=== PATIENT | male | born 1945 | race Caucasian/White ===

== ENCOUNTER 2018-03-09 11:43 | Emergency (ER) | payer MEDICARE, OTHER, SELFPAY ==
[2018-03-09 11:43] VITALS: BP 160/75; PULSE 63; RESP 16; TEMP 36.3; O2SAT 98; BMI 30.5
--- NOTE | 2018-03-09 11:49 | RAD_ITS ---
STUDY: X-RAY - PELVIS AND RIGHT HIP REASON FOR EXAM: Male, 72 years old. Right hip dislocation TECHNIQUE: Radiological exam, hip, unilateral, with pelvis when performed; 2 or 3 views. COMPARISON: None. FINDINGS: Patient is status post right hip arthroplasty. No evidence of acute fracture however, there is superior dislocation of the prosthesis. Soft tissues are within normal limits. No evidence of hardware loosening RAD/Hip 2-3 Views with Pelvis IMPRESSION: Right hip prosthesis dislocation Electronically Signed: Bakari Walters DO at 12:39 EDT Tel , Service support ,
[2018-03-09] MEDS: Morphine 4 MG/ML Syringe IV (11:53)
[2018-03-09] MEDS: Ondansetron 4 MG/2 ML Vial IV (12:27)
[2018-03-09 12:38] VITALS: BP 180/87; PULSE 63; RESP 15; O2SAT 97
[2018-03-09 12:41] VITALS: BP 122/66; BP 127/74; BP 139/68; BP 145/69; BP 146/81; BP 180/87; PULSE 61; PULSE 62; PULSE 63; PULSE 64; PULSE 65; PULSE 66; PULSE 68; PULSE 70; RESP 11; RESP 12; RESP 13; RESP 14; RESP 16; RESP 17; RESP 20; O2SAT 90; O2SAT 92; O2SAT 94; O2SAT 95; O2SAT 96; O2SAT 97; O2SAT 99
--- NOTE | 2018-03-09 12:51 | RAD_ITS ---
STUDY: X-RAY - PELVIS AND RIGHT HIP REASON FOR EXAM: Male, 72 years old. Post reduction of right hip dislocation TECHNIQUE: Radiological exam, hip, unilateral, with pelvis when performed; 2 or 3 views. COMPARISON: Plain films earlier FINDINGS: Appropriate reduction of right hip prosthesis dislocation is noted. No evidence of hardware failure or loosening. No acute fracture RAD/Hip Min 2 Views (Portable) IMPRESSION: As above Electronically Signed: Bakari Walters DO at 13:31 EDT Tel , Service support ,
--- NOTE | 2018-03-09 12:56 | NURSING ---
NO LW OR POA
[2018-03-09 13:16] VITALS: BP 133/66; PULSE 67; RESP 16; O2SAT 96
[2018-03-09] MEDS: Propofol 200 MG/20 ML Vial IV BOLUS (13:19)
[2018-03-09] MEDS: Propofol 200 MG/20 ML Vial 100 MG IV BOLUS (13:21)
--- NOTE | 2018-03-09 13:22 | ED.DCSUM_ITS ---
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 He denies any other pain other than in the hip. He is on Coumadin for history of A. fib and pulmonary embolism. History of hypertension CHF and chronic kidney disease. He states he had a hip surgery done by Dr. Dyson many years ago. Physical Examination: Afebrile vital signs are stable Gen: Well-nourished well-developed Head: Normocephalic atraumatic Eyes: Perrl EOMI ENT: TMs clear no rhinorrhea moist mucous membranes Neck: Supple no lymphadenopathy no JVD nontender CVS: Regular rate rhythm no murmurs normal S1-S2 Respiratory: No distress clear to auscultation bilaterally chest nontender Abdomen: Soft nontender nondistended normal bowel sounds no masses Back: Nontender Extremity: The right hip is palpably dislocated posteriorly. Neurovascular intact distally. Skin: Normal color no rash Neuro: alert orientated ?3 CN II-XII intact normal strength sensation Psych: Normal affect normal mood Test Results: X-rays confirm a posterior hip dislocation on the right. Emergency Department Course and Treatment: Patient provided informed consent for the use of procedural sedation using propofol. Patient received 0.5 mg/kg aliquots until adequate sedation was achieved. The hip was flexed and taken into external rotation which allowed successful reduction of the hip. Unfortunately in preparing the patient for his post reduction films the hip dislocated again. He was once again sedated in the usual manner and the hip was easily reduced. He was placed in knee immobilizer. I spoke with Dr. Cao who is covering Dr. Dyson patient will follow-up in the office. Impression: 1. Right hip dislocation 2. Reduction by emergency physician 3. Procedural sedation by physician This note was generated with [employer] dictation software. It may contain incorrect words, spelling, and punctuation that were not noted in review of the chart prior to signing ED Disposition - Plan for ED Patient: Disposition: Home or Assisted Living Chief Complaint: Lower Extremity Injury Instructions: ED Hip Replace Dislocation Reduc Referrals: Osvaldo Barry MD [STAFF PHYSICIAN] - (call on Sunday to arrange follow up)
[2018-03-09 13:54] VITALS: BP 136/66; PULSE 65; RESP 16; O2SAT 99
[2018-03-09 14:33] VITALS: BP 131/72; PULSE 64; RESP 16; O2SAT 98
== END 2018-03-09 14:38 | disposition home or self-care (01) ==
PROVIDERS: Emergency Provider Emergency Medicine; Family Provider Internal Medicine; PCP Internal Medicine
DX: T84.020A Dislocation of internal right hip prosthesis, initial encounter (principal); I48.91 Unspecified atrial fibrillation; I13.0 Hypertensive heart and chronic kidney disease with heart failure and stage 1 through stage 4 chronic kidney disease, or unspecified chronic kidney disease; N18.9 Chronic kidney disease, unspecified; I50.9 Heart failure, unspecified; Z86.711 Personal history of pulmonary embolism; Z87.19 Personal history of other diseases of the digestive system; Z87.891 Personal history of nicotine dependence; Z79.01 Long term (current) use of anticoagulants; Z79.899 Other long term (current) drug therapy
CPT/HCPCS: 27265 ×2; 73502; 96374; 96375; 99152; 99153; 99285; J7030

== ENCOUNTER 2018-04-25 10:30 | Outpatient (RCR) | payer MEDICARE, OTHER, SELFPAY ==
--- NOTE | 2018-03-25 10:24 | HP.PTEVAL_ITS ---
Patient's Visit Information MELVIN AGUIRRE is a 72 year old M referred to Physical Therapy by Quang Cao MD with a diagnosis of R hip dislocation. Date of Evaluation: 03/25/18 Physical Therapist: Power Mclaughlin DPT, OC - Visit Plan Frequency: 3x /Week Duration: 4 Weeks Plan: 3x/week for 3-4 weeks for. Ensure LE machine exercises for hip and knees without IR at hips, find mat based hip rotator strengthe with band/leg weigth to improve strength in rotators.Work to HEP - Subjective Subjective: nOT MANY CHANGES FROM WEAK LEGS AND NEUROPATHY HE HAD PRIOR. hOWEVER, TWO WEEKS AGO HE BENT OVER AND heard a sound like dropping a shoe and felt pain in L hip as it dislocated. It has been in L hip for 18 years. Xrayed the implant and it was fine. That was two weeks ago and has not done much of anything. Pain lasted until he put it back in place in ER and then it was gone. Has felt pretty normal since then. Has been cautious sleeping in chair immediately for about a week and sleeping OK in bed now. Home activities are normal. Wants to know what he should and should not do. Prior to this incident, he was doing back ext, ab machine, glut ham, knee ext and flexion, UE pull downs, and rows. Also db UE functional ex adn neck stretches and heel/ toe raises sitting, wobbly board horiz, gastroc stretch, all 4 hip exercises. Then recumbent bike. - Objective Walks with cane in L, valgus obvious at L knee, compression in lace. Pt tends to IR both hips with walkign and any movement of distal LE. No pain. Steps with L LE only and needs rails to pull due to weakness. Hip ROM is WFL B but again tends to IR R>L. Sensation at slight deficit distal LE>. Weakness evident in B LE : R ankle inv/ev 3/5, DF 2+/5, PF 3-/5, L ankles 3+/5. Knee ext adn flex 4- B, hip rotations 3+, abd 3/5, flexion 3+ and ext 3/5 B. Reviewed bending with patient and donning shoes with hip in appropriate position and shown Nustep with hip slightly rotated out. Needs to stay conscious of this position as he defaults to IR. - Goals Goal 1:: I appropriated hip rotator strengthening. Goal Time Frame: 2-4 Weeks Goal 2:: Back to normal in HP gym workout. Goal Time Frame: 2-4 Weeks Goal 3:: Feel back to 100% normal activity and ex after dislocation Goal Time Frame: 4-6 Weeks - Rehabilitation Potential Physical Therapy Diagnosis: R hip dislocation Rehabilitation Potential: Fair - Anticipated Interventions Patient/Client Instruction: Educate patient on: Condition, Risk Factors For the Purpose of:: To improve muscle performance and motor function, To improve ability of physical actions for home/community/work/leisure Therapeutic Exercise to Include: Strength training Comment: hips and function For the Purpose of:: To increase oxygenation perfusion, To improve ability of physical actions for home/community/work/leisure, To reduce risk of recurrence Thank you for the opportunity to evaluate your patient. For Medicare and Medicare HMO plans, please review the plan of care and approve it. It will need to be FAXED BACK to us at [phone] for Medicare purposes. Please let me know if there are questions or concerns regarding this plan of care. Physician Signature: Date:
--- NOTE | 2018-04-11 12:00 | DT_ITS ---
This patient was seen during an EMR downtime April 08, 2018 - April 15, 2018. This patient may have a combination of paper and electronic documentation or all paper documentation. All documentation is viewable within the e-chart portion of [facility] for each patient visit.
--- NOTE | 2018-04-25 11:00 | HP.PTREVAL_ITS ---
Quang Cao MD, It has been my pleasure to treat MELVIN AGUIRRE over the last 8 visits for R hip dislocation. Please see the progress note below for an update on the physical therapy plan of care! Subjective: Status quo, no pain or problems. Will continue 3x/week on machines adn 2x/week on table at home. Objective/Function: Due to electronic downtime procedures, part of this chart from 04/08-04/15 has been scanned in electrnocally to the EMR. L knee valgus obvious and contributes to R hip adduction, educated to stand with feet further apart.Goals not available today due to electronic downtime.Still weakness evident in B hips and functional weakness needing UE for transition. Plan Plan: Pt wishes (appropriately) to f/u in 2 months to ensure progress and progress exercises.(make clamshell, bridges harder). Will call prior if problems. Goals Goal 1:: I appropriated hip rotator strengthening. Goal Time Frame: 2-4 Weeks Goal Progress: Goal Met Goal 2:: Back to normal in HP gym workout. Goal Time Frame: 2-4 Weeks Goal Progress: Goal Met Goal 3:: Feel back to 100% normal activity and ex after dislocation Goal Time Frame: 4-6 Weeks Goal Progress: Progressing Goal 4:: Enure ocntinued progress and confidence with hip strength to minimaize chances of future dislocations. Goal Time Frame: 8-12 Weeks Goal Progress: NEW GOAL. Anticipated Interventions Patient/Client Instruction: Educate patient on: Condition, Risk Factors For the Purpose of:: To improve muscle performance and motor function, To improve ability of physical actions for home/community/work/leisure Therapeutic Exercise to Include: Strength training Comment: hips and function For the Purpose of:: To increase oxygenation perfusion, To improve ability of physical actions for home/community/work/leisure, To reduce risk of recurrence Please do not hesitate to contact me at [phone] by phone or Fax: if you have questions or concerns regarding this new plan of care! Sincerely, Power Mclaughlin DPT, OC
--- NOTE | 2018-08-22 12:03 | HP.PTDCNRP_ITS ---
HP - Discharge Summary (1) - Patient Information MELVIN AGUIRRE was seen in my office for initial evaluation on 03/25/18. The following Plan of Care was established for this patient: Initial Frequency: 3x /Week Initial Duration: 4 Weeks - Anticipated Interventions Patient/Client Instruction: Educate patient on: Condition, Risk Factors For the Purpose of:: To improve muscle performance and motor function, To improv e ability of physical actions for home/community/work/leisure Therapeutic Exercise to Include: Strength training For the Purpose of:: To increase oxygenation perfusion, To improve ability of physical actions for home/community/work/leisure, To reduce risk of recurrence This patient was last seen in our office 04/25/18. Pertinent comments regarding their Physical therapy will appear below: Pt seen 8 visits for strengthening instruct. He wished to f/u two months after last visit to ensure progress. I have talked to him in the gym since and he is doing well with his strengthening and willc ontinue on own to manage strength in legs. At this point I will be discontinuing this patient from physical therapy. I would be happy to see this patient again in the future if found appropriate by the physician. Thank you! Power Mclaughlin, DPT, OC
== END 2018-04-25 19:00 | disposition home or self-care (01) ==
LOC: PT 10:30
PROVIDERS: Family Provider Internal Medicine; PCP Internal Medicine; Visit Provider Specialist
DX: T84.020D Dislocation of internal right hip prosthesis, subsequent encounter (principal)
CPT/HCPCS: 97110; 97162; 97530

== ENCOUNTER → 2019-01-08 10:39 | Outpatient (CLI) | payer MEDICARE, OTHER, SELFPAY ==
[2019-01-08 12:09] LABS: Amphetamine Urine VISTA NEGATIVE (<1000 ng/mL); Barbiturate Urine VISTA NEGATIVE (< 200 ng/mL); Benzodiazepine Urine VISTA NEGATIVE (< 200 ng/mL); Cocaine Urine VISTA NEGATIVE (< 300 ng/mL); Ecstacy Urine VISTA NEGATIVE (< 500 ng/mL); Methadone Urine VISTA NEGATIVE (< 300 ng/mL); PCP Urine VISTA NEGATIVE (< 25 ng/mL); THC Urine VISTA NEGATIVE (< 50 ng/mL); Vista UDS pH Range 5
== END ==
PROVIDERS: Family Provider Internal Medicine; PCP Internal Medicine; Referring Provider Anesthesiology Pain Medicine; Visit Provider Anesthesiology Pain Medicine
DX: F11.20 Opioid dependence, uncomplicated (principal)
CPT/HCPCS: 80307

== ENCOUNTER 2019-04-29 16:00 | Outpatient (RCR) | payer MEDICARE, OTHER, SELFPAY ==
--- NOTE | 2019-04-29 17:27 | HP.PTEVAL_ITS ---
Patient's Visit Information MELVIN AGUIRRE is a 73 year old M referred to Physical Therapy by Sinan Altman MD with a diagnosis of Back pain, shoulder pain.. Date of Evaluation: 04/29/19 Physical Therapist: Power Mclaughlin DPT, OCS, CSCS - Visit Plan Plan: Pt wanted questions about ex program answered and recommendations for balance. recommended using a wh walker to help with his step length adn function/QOL which he will pursue and taught him this today. Reviewed ex program for balance and knees and shoulders and LB . Pt does not wish to have more therapy at this time but may benefit at some point from a couple visits to review in gym ex and/or attempt pool therapy for his balance and multiple pains. - Subjective Findings: stefano presents with him. Balance is worse over last 3 weeks. A couple falls over the last few years. Not sure why balance is worse. Some days balance is worse than others. Irregular surfaces are worse than flat. First dozen steps after sitting for a while are not confident. Due to shoulder and knee problems, would be hard to get up if he fell. Fear of falling. No dizzyness. Neuropathy in legs not sure if from degenerative nerves or spine or DM. Has had back checked in the past. Not a surgical candidate anyway. Has seen neurologist adn vascular doctors and ortho doctors and muscle biopsies, nerve conduction test. Saw laternative medicine adn acupuncture. Has B torn rotator cuffs. Has multiple degenerative spinal conditions. Sees Anupama who gives him tramadol. Was on pain patch for a year but off recently. 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 Has given up yard work due to uneven surfaces and balance. Hard to get up when he fell. Does some clean up after dinner and can get central LBP. Does not change with anything except improves in recliner after 30 minutes. Gets injection in back every three months which has gotten rid of leg zingers. Gets injections and drains L knee about every three months. Last two or three weeks has been worse in L knee. Sharper intermittent pains. Sleep is OK for the most part. Ex in HP 3x/week.: back ext, ab machine, glut ham, hip abduction, knee ext adn flexion, shoulder ext, hip add/abd stadning. Functional area stretches of arms and neck and legs. Foam stance. tilt board. recumbent bike. Uses cane all the time now for a year plus. No walker. - Pain B shoulders Pain Intensity (Out of 10): 8 Pain Intensity Range: 0, 4 Comment: pushing out of chair. Comfy at rest. LB Pain Intensity (Out of 10): 0 Pain Intensity Range: 0, 4 Comment: intermittent. Worse in pm knees Pain Intensity (Out of 10): 0 Pain Intensity Range: 0, 5 Comment: comfy at rest, pain with 120 feet amb 4/10. - Objective Pt ambulates with cane in R UE steadied against leg. Slow with very little weight shift, no pushoff. Safe but slow on firm flat surface. Needs UE to trasnfer out of chair due to weakness in LE which is evident with each step. Sensation IN LE knees down is at gross max deficit, above knees, min deficit. Strength in ankles: DF R 3, L 3+; PF 3 B, everisona dn inversion 3 on R and 3+ on L. Knee strength felxion 3+ B and HSC 4- B. Hip strength ext 3, abd 3+, add 4- and flexion 3+ B. HS and gastroc mod tight. UE AROM is very limited at shoulders to 10 degrees R and 0 L elevation. ext rotation is 0 degrees B. Strength UE elevation NT due to ROM deficits. ext rotation 1 R and 2+ L. IR 3+ B. biceps and triceps 4- B. PROM elevation shoulders adn ext rotation wFL to 120 degrees adn 50 B. LB AROM to neutral ext with mild L LBP, L SB slightly painful, R SB not painful, flexion is comfortable. OVERALL PATEINT MOVES SLOWLY AND POORLY. HE IS ON A GOOD EX PROGRAM FOR HIS DEFICITS BUT CONTINUES TO WORSEN FOR UNKNOWN REASON. WALKS BETTER WITH WH WALKER AND WILL GET ONE OF THESE TO HELP WITH HIS GAIT. - Rehabilitation Potential Physical Therapy Diagnosis: Imbalance from neuropathy. Well managed back and shoulder pain. - Anticipated Interventions Patient/Client Instruction: Educate patient on: Condition Thank you for the opportunity to evaluate your patient. For Medicare and Medicare HMO plans, please review the plan of care and approve it. It will need to be FAXED BACK to us at [phone] for Medicare purposes. For Medicare only, by signing this I certify the plan of care. Please let me know if there are questions or concerns regarding this plan of care. Physician Signature: Date:
== END 2019-04-29 19:00 | disposition home or self-care (01) ==
LOC: PT 16:00
PROVIDERS: Family Provider Internal Medicine; PCP Internal Medicine; Referring Provider Anesthesiology Pain Medicine; Visit Provider Anesthesiology Pain Medicine
DX: M54.9 Dorsalgia, unspecified (principal); M25.519 Pain in unspecified shoulder
CPT/HCPCS: 97163

== ENCOUNTER 2022-01-24 18:35 | Inpatient (IN) | payer MEDICARE, OTHER, SELFPAY ==
[2022-01-24] VITALS (18 sets, daily range): BP systolic 92–139; BP diastolic 53–96; PULSE 61–104; RESP 15–24; TEMP 36.2–36.4; O2SAT 95–100; BMI 27.6
--- NOTE | 2022-01-24 18:52 | ED.VIS.LOWEX ---
HPI History of Present Illness Chief Complaint: Lower Extremity Injury Informant: patient and spouse/S.O. Onset/Context/Timing Onset: Today Context: Sudden Onset Timing: Continuous Quality of Pain: Dull Current Severity: Mild Maximum Severity: Mild Associated Symptoms Associated Symptoms: Negative for Parasthesia and Weakness Narrative Narrative: 76-year-old male extensive past medical history including CHF, diabetes and prior CABG. Also renal insufficiency. Patient had a right hip replacement done 20 years ago. States 2 years ago or so he dislocated. Since then has done well. He thinks tonight when he went to stand up he dislocated again. Denies any other complaints. Prior similar symptoms: Yes Recent Illness/Hospitalization: No PFSH PFSH Home Medications Atorvastatin Calcium 40 mg PO QHS 06/01/14 [History Last Taken 09/21/14 22:00] carvedilol 12.5 mg PO BID 06/01/14 [History Last Taken 09/22/14 08:00] cholecalciferol (vitamin D3) [Vitamin D3] 1,000 unit PO DAILY 06/01/14 [History Last Taken 09/21/14 17:00] docusate sodium [DOK] 100 mg PO BID 06/01/14 [History Last Taken 09/22/14 08:00] furosemide 20 mg PO BID 06/01/14 [History Last Taken 09/22/14 08:00] loratadine [Allergy Relief (loratadine)] 10 mg PO DINNER 06/01/14 [History Last Taken 09/21/14 17:00] multivitamin with folic acid [Thera] 1 tab PO QHS 06/01/14 [History Last Taken 09/21/14 22:00] diclofenac sodium 2 g TOPICAL BID 08/24/14 [History Last Taken 09/21/14 08:00] hydralazine 25 mg PO TID 08/24/14 [History Last Taken 09/22/14 08:00] isosorbide dinitrate 20 mg PO TID 08/24/14 [History Last Taken 09/22/14 12:00] tramadol 50 mg PO BID PRN PRN 08/24/14 [History Last Taken 09/22/14 16:00] alprazolam 0.25 mg PO QHS 03/09/18 [History Last Taken Unknown] buprenorphine [Butrans] 5 mcg TOPICAL QWEEK 03/09/18 [History Last Taken Unknown] diclofenac sodium [Voltaren] 2 ea TOPICAL BID 01/24/22 [History Last Taken Unknown] empagliflozin 10 mg PO DAILY 01/24/22 [History Last Taken Unknown] oxybutynin chloride 5 mg PO BID 01/24/22 [History Last Taken Unknown] timolol 1 drp EACH EYE BID 01/24/22 [History Last Taken Unknown] Allergy/AdvReac Type Severity Reaction Status Date / Time No Known Allergies Allergy Verified 01/24/22 18:41 Social History Smoking Status: Former smoker ROS ROS ED ROS Narrative Denies recent illness. Review of Systems ROS Unobtainable: Denies due to encephalopathy Constitutional Constitutional ED: Denies fever(s) Eyes Eyes: Denies change in vision ENT ENT ED: Denies ear pain Cardiovascular Cardiovascular: Denies chest pain Respiratory/Chest Respiratory/Chest: Denies dyspnea Gastrointestinal Gastrointestinal: Denies abdominal pain Genitourinary Genitourinary ED: Denies dysuria Musculoskeletal Musculoskeletal: Denies myalgias Integumentary Denies rash Neurologic Neurologic: Denies headache(s) Psychiatric Psychiatric: Denies depression Endocrine Endocrinology: Denies polyuria Hematologic/Lymphatic Hematologic/Lymphatic: Denies easy bruising Allergic/Immunologic Allergic/Immunologic ED: Denies urticaria EXAM Physical Exam Narrative Exam Narrative: 26-year-old male no acute distress. Vital signs stable afebrile. in the room. HEENT exam unremarkable. Lungs are clear equal symmetrical bilaterally. Heart regular rhythm rate about 65 no murmur. Chest were nontender. Abdomen soft nontender. Moving all 4 extremities. He has a shortened right leg. May have a right hip dislocation. He has 1-2+ pitting edema both lower extremities which is from his history of CHF. Neurologically is awake and alert. Answering questions and following commands. Const Vital Signs: 01/24/22 18:36 01/24/22 19:40 01/24/22 19:43 Temperature 97.5 F L Temperature Source Temporal Pulse Rate 64 86 Pulse Rate [10] Pulse Rate [2] 84 Pulse Rate [3] 68 Pulse Rate [4] 66 Pulse Rate [5] 64 Pulse Rate [6] 64 Pulse Rate [7] 61 Pulse Rate [8] Respiratory Rate 15 22 H Respiratory Rate [10] Respiratory Rate [2] 16 Respiratory Rate [3] 23 H Respiratory Rate [4] 19 H Respiratory Rate [5] 24 H Respiratory Rate [6] 21 H Respiratory Rate [7] 17 Respiratory Rate [8] Blood Pressure 116/83 H 112/73 Blood Pressure [10] Blood Pressure [2] 113/72 Blood Pressure [4] 139/86 H Blood Pressure [5] 110/96 H Blood Pressure [7] 113/67 Blood Pressure [8] Blood Pressure Mean 94 Pulse Ox 96 95 Oxygen Delivery Method Room Air Room Air Oxygen Delivery Method [10] Oxygen Delivery Method [2] Nasal Cannula Oxygen Delivery Method [3] Nasal Cannula Oxygen Delivery Method [4] Nasal Cannula Oxygen Delivery Method [5] Nasal Cannula Oxygen Delivery Method [6] Nasal Cannula Oxygen Delivery Method [7] Nasal Cannula Oxygen Flow Rate (L/min) Oxygen Flow Rate (L/min) [10] Oxygen Flow Rate (L/min) [2] 5 Oxygen Flow Rate (L/min) [3] 5 Oxygen Flow Rate (L/min) [4] 5 Oxygen Flow Rate (L/min) [5] 5 Oxygen Flow Rate (L/min) [6] 5 Oxygen Flow Rate (L/min) [7] 5 Oxygen Flow Rate (L/min) [8] 01/24/22 20:06 01/24/22 20:11 01/24/22 20:16 Temperature Temperature Source Pulse Rate Pulse Rate [10] Pulse Rate [2] Pulse Rate [3] Pulse Rate [4] Pulse Rate [5] Pulse Rate [6] Pulse Rate [7] Pulse Rate [8] Respiratory Rate Respiratory Rate [10] Respiratory Rate [2] Respiratory Rate [3] Respiratory Rate [4] Respiratory Rate [5] Respiratory Rate [6] Respiratory Rate [7] Respiratory Rate [8] Blood Pressure Blood Pressure [10] Blood Pressure [2] Blood Pressure [4] Blood Pressure [5] Blood Pressure [7] Blood Pressure [8] Blood Pressure Mean Pulse Ox Oxygen Delivery Method Nasal Cannula Nasal Cannula Room Air Oxygen Delivery Method [10] Oxygen Delivery Method [2] Oxygen Delivery Method [3] Oxygen Delivery Method [4] Oxygen Delivery Method [5] Oxygen Delivery Method [6] Oxygen Delivery Method [7] Oxygen Flow Rate (L/min) 5 5 Oxygen Flow Rate (L/min) [10] Oxygen Flow Rate (L/min) [2] Oxygen Flow Rate (L/min) [3] Oxygen Flow Rate (L/min) [4] Oxygen Flow Rate (L/min) [5] Oxygen Flow Rate (L/min) [6] Oxygen Flow Rate (L/min) [7] Oxygen Flow Rate (L/min) [8] 01/24/22 21:23 01/24/22 21:30 01/24/22 21:34 Temperature Temperature Source Pulse Rate 71 Pulse Rate [10] 69 Pulse Rate [2] Pulse Rate [3] Pulse Rate [4] Pulse Rate [5] Pulse Rate [6] Pulse Rate [7] Pulse Rate [8] 71 Respiratory Rate 17 Respiratory Rate [10] 18 Respiratory Rate [2] Respiratory Rate [3] Respiratory Rate [4] Respiratory Rate [5] Respiratory Rate [6] Respiratory Rate [7] Respiratory Rate [8] 17 Blood Pressure 122/78 H Blood Pressure [10] 129/86 H Blood Pressure [2] Blood Pressure [4] Blood Pressure [5] Blood Pressure [7] Blood Pressure [8] 122/78 H Blood Pressure Mean Pulse Ox 100 Oxygen Delivery Method Room Air Oxygen Delivery Method [10] Room Air Oxygen Delivery Method [2] Oxygen Delivery Method [3] Oxygen Delivery Method [4] Oxygen Delivery Method [5] Oxygen Delivery Method [6] Oxygen Delivery Method [7] Oxygen Flow Rate (L/min) Oxygen Flow Rate (L/min) [10] 0 Oxygen Flow Rate (L/min) [2] Oxygen Flow Rate (L/min) [3] Oxygen Flow Rate (L/min) [4] Oxygen Flow Rate (L/min) [5] Oxygen Flow Rate (L/min) [6] Oxygen Flow Rate (L/min) [7] Oxygen Flow Rate (L/min) [8] 3 01/24/22 21:35 01/24/22 21:40 01/24/22 21:52 Temperature Temperature Source Pulse Rate 104 H Pulse Rate [10] Pulse Rate [2] Pulse Rate [3] Pulse Rate [4] Pulse Rate [5] Pulse Rate [6] Pulse Rate [7] Pulse Rate [8] Respiratory Rate 22 H Respiratory Rate [10] Respiratory Rate [2] Respiratory Rate [3] Respiratory Rate [4] Respiratory Rate [5] Respiratory Rate [6] Respiratory Rate [7] Respiratory Rate [8] Blood Pressure 94/53 L Blood Pressure [10] Blood Pressure [2] Blood Pressure [4] Blood Pressure [5] Blood Pressure [7] Blood Pressure [8] Blood Pressure Mean 66 Pulse Ox 96 Oxygen Delivery Method Room Air Room Air Room Air Oxygen Delivery Method [10] Oxygen Delivery Method [2] Oxygen Delivery Method [3] Oxygen Delivery Method [4] Oxygen Delivery Method [5] Oxygen Delivery Method [6] Oxygen Delivery Method [7] Oxygen Flow Rate (L/min) Oxygen Flow Rate (L/min) [10] Oxygen Flow Rate (L/min) [2] Oxygen Flow Rate (L/min) [3] Oxygen Flow Rate (L/min) [4] Oxygen Flow Rate (L/min) [5] Oxygen Flow Rate (L/min) [6] Oxygen Flow Rate (L/min) [7] Oxygen Flow Rate (L/min) [8] 01/24/22 23:01 Temperature Temperature Source Pulse Rate 71 Pulse Rate [10] Pulse Rate [2] Pulse Rate [3] Pulse Rate [4] Pulse Rate [5] Pulse Rate [6] Pulse Rate [7] Pulse Rate [8] Respiratory Rate 18 Respiratory Rate [10] Respiratory Rate [2] Respiratory Rate [3] Respiratory Rate [4] Respiratory Rate [5] Respiratory Rate [6] Respiratory Rate [7] Respiratory Rate [8] Blood Pressure 119/71 Blood Pressure [10] Blood Pressure [2] Blood Pressure [4] Blood Pressure [5] Blood Pressure [7] Blood Pressure [8] Blood Pressure Mean Pulse Ox 97 Oxygen Delivery Method Oxygen Delivery Method [10] Oxygen Delivery Method [2] Oxygen Delivery Method [3] Oxygen Delivery Method [4] Oxygen Delivery Method [5] Oxygen Delivery Method [6] Oxygen Delivery Method [7] Oxygen Flow Rate (L/min) Oxygen Flow Rate (L/min) [10] Oxygen Flow Rate (L/min) [2] Oxygen Flow Rate (L/min) [3] Oxygen Flow Rate (L/min) [4] Oxygen Flow Rate (L/min) [5] Oxygen Flow Rate (L/min) [6] Oxygen Flow Rate (L/min) [7] Oxygen Flow Rate (L/min) [8] Positive well nourished and well developed; Negative for obese, cachectic, contractures or unkempt General Appearance ED: well developed and NAD; Negative for unkempt, cachectic or contractures Nutritional Appearance: Negative for cachectic or obese HEENT Reports moist mucous membranes normocephalic Eyes PERRL Neck full ROM and supple Thyroid: Negative for tender Chest Wall inspection of chest normal and palpation of chest normal Resp normal respiratory effort, no retractions and clear to auscultation bilaterally Auscultation: Negative for rales, rhonchi or wheezes Cardio regular rate, regular rhythm, S1 normal heart sound, S2 normal heart sound and no murmurs GI non-tender, non-distended and no masses Auscultation: normoactive bowel sounds Palpation: soft; Negative for tender or guarding Extremity Extremity Narrative: Bilateral lower extremities 1-2+ pitting edema. Right lower extremity shortened. Mildly internally rotated. Question right hip dislocation. Able to wiggle toes. Positive touch sensation. Dorsi plantarflexion intact. Neuro oriented x3 Sensorium / Orientation: alert, oriented to person, oriented to place and oriented to time; Negative for orientation impaired, confused, lethargic or stuporous Psych mental status grossly normal Appearance: Negative for unkempt Skin Lesions: no lesions Rashes: no rashes MDM MDM MDM Narrative Medical decision making narrative: 76-year-old male prior hip replacement 20 years ago. Concern for possible hip dislocation. X-ray being obtained. Discussed with patient and 's diagnosis of a hip dislocation. Has had this before. Patient was consciously sedated with propofol with myself and second ER physician in the room. Patient was under conscious sedation protocol the entire time. His heart rate, blood pressure and pulse ox remained stable the entire time. We tried multiple times both with internal rotation, traction etc. and were unable to reduce the hip. 2 different orth[address] physicians [address] Dr. España and Dr. Froylan Cao both attempted and were unable to reduce the patient under conscious sedation. Patient will be admitted to the hospitalist. He will need to be placed under general anesthesia and have a hip reduction done in the OR. This is all been discussed at length with his has been at bedside and with the orthopedic physicians talking to her also. She is comfortable with the plan. 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 No change status post reduction . Persistent dislocation Electronically Signed: Colton Keita MD at 20:32 EDT , Hip/Pelvis X-Ray 01/24/22 21:35 IMPRESSION: No change status post reduction. Persistent dislocation Electronically Signed: Colton Keita MD at 21:55 EDT , Right hip x-ray with pelvis multiple views interpreted by myself. Procedures Other Procedures Procedure(s): Conscious sedation with propofol off and right hip reduction attempted but was unsuccessful. Patient was consciously sedated a second time and orthopedics attempted to reduce it and again was unsuccessful. Patient was consciously sedated a third time and again orthopedics was unable to to reduce the dislocation. Patient is currently doing well. His vital signs are stable. Discharge Plan Triage Chief Complaint: Lower Extremity Injury ED Provider: Joss Aponte Dx/Rx/DC Orders Clinical Impression: Dislocation of right hip, History of CHF (congestive heart failure), Diabetes, History of renal insufficiency Prescriptions: No Action Atorvastatin Calcium 40 mg PO QHS RF: 0 carvedilol 6.25 MG tablet 12.5 mg PO BID RF: 0 docusate sodium [DOK] 100 MG capsule 100 mg PO BID RF: 0 furosemide 20 MG tablet 20 mg PO BID RF: 0 loratadine [Allergy Relief (loratadine)] 10 MG tablet 10 mg PO DINNER RF: 0 cholecalciferol (vitamin D3) [Vitamin D3] 1,000 UNIT capsule 1,000 unit PO DAILY RF: 0 multivitamin with folic acid [Thera] 1 TABLET tablet 1 tab PO QHS RF: 0 hydralazine 25 MG tablet 25 mg PO TID RF: 0 tramadol 50 MG tablet 50 mg PO BID PRN PRN (Reason: Pain) RF: 0 isosorbide dinitrate 20 MG tablet 20 mg PO TID RF: 0 diclofenac sodium 100 GM Gel..Gram. 2 g topical BID RF: 0 alprazolam 0.25 MG tablet 0.25 mg PO QHS RF: 0 buprenorphine [Butrans] 1 EACH Patch.Tdwk 5 mcg topical QWEEK RF: 0 timolol 0.25 % Drops 1 drp EACH EYE BID RF: 0 oxybutynin chloride 5 mg tablet 5 mg PO BID RF: 0 diclofenac sodium [Voltaren] 1 % Gel 2 ea TOPICAL BID RF: 0 empagliflozin 10 mg Tablet 10 mg PO DAILY RF: 0 Primary Care Provider: Markus Encarnacion Referrals: Markus Encarnacion MD [Primary Care Provider] - Disposition Disposition: Acute Care Hospital [facility]
--- NOTE | 2022-01-24 18:55 | RAD_ITS ---
STUDY: X-RAY - PELVIS AND RIGHT HIP REASON FOR EXAM: Male, 76 years old. dislocated hip ?? TECHNIQUE: XR Hip Unilateral with Pelvis when performed; 2-3 Views COMPARISON: None. FINDINGS: There is a non-specific bowel gas pattern. There are atherosclerotic vascular calcifications of the pelvic arteries. There are degenerative changes of the lumbar spine. Normal bilateral iliac wings, sacroiliac joints and visualized sacrum. Normal bilateral superior and inferior pubic rami. Normal pubic symphysis. Normal bilateral ischial tuberosities. There is a right hip arthroplasty. Prosthetic right femoral head is dislocated from the prosthetic acetabulum prosthesis is dislocated superiorly. RAD/HIP, UNI W/ Pelvis 2-3 Views IMPRESSION: Prosthetic right femoral head is dislocated from the prosthetic acetabulum Electronically Signed: Colton Keita MD at 19:45 EDT ,
[2022-01-24] MEDS: Propofol 200 MG/20 ML Vial 40 MG IV BOLUS (19:50)
[2022-01-24] MEDS: Propofol 200 MG/20 ML Vial 80 MG IV BOLUS ×2 (19:55→22:48)
--- NOTE | 2022-01-24 20:00 | RAD_ITS ---
STUDY: X-RAY - PELVIS AND RIGHT HIP REASON FOR EXAM: Male, 76 years old. POST REDUCTION TECHNIQUE: XR Hip Unilateral with Pelvis when performed; 1 View COMPARISON: Study done earlier FINDINGS: There is a non-specific bowel gas pattern. There are atherosclerotic vascular calcifications of the pelvic arteries. There are degenerative changes of the lumbar spine. Normal bilateral iliac wings, sacroiliac joints and visualized sacrum. Normal bilateral superior and inferior pubic rami. Normal pubic symphysis. Normal bilateral ischial tuberosities. There is a right hip arthroplasty. Prosthetic right femoral head is dislocated from the prosthetic acetabulum prosthesis is dislocated superiorly. RAD/Hip 1 view with Pelvis IMPRESSION: Prosthetic right femoral head is dislocated from the prosthetic acetabulum. No change status post reduction . Persistent dislocation Electronically Signed: Colton Keita MD at 20:32 EDT ,
[2022-01-24] MEDS: Ondansetron 4 MG/2 ML Vial IV (20:25)
[2022-01-24] MEDS: Morphine 4 MG/ML Syringe IV (20:25)
[2022-01-24] MEDS: Propofol 200 MG/20 ML Vial 60 MG IV BOLUS (21:22)
--- NOTE | 2022-01-24 21:35 | RAD_ITS ---
STUDY: X-RAY - PELVIS AND RIGHT HIP REASON FOR EXAM: Male, 76 years old. POST REDUCTION ATTEMPT #2 TECHNIQUE: XR Hip Unilateral with Pelvis when performed; 1 View COMPARISON: Study done earlier FINDINGS: Normal bilateral iliac wings, sacroiliac joints and visualized sacrum. Normal bilateral superior and inferior pubic rami. Normal pubic symphysis. Normal bilateral ischial tuberosities. There is a right hip arthroplasty. Prosthetic right femoral head is dislocated from the prosthetic acetabulum and is dislocated superiorly. RAD/Hip 1 view with Pelvis IMPRESSION: No change status post reduction. Persistent dislocation Electronically Signed: Colton Keita MD at 21:55 EDT ,
[2022-01-24] MEDS: morphine 8 MG/ML Syringe 6 MG IV ×2 (21:49→23:18)
--- NOTE | 2022-01-24 23:12 | PCM.CONS.GEN ---
Assessment & Plan Assessment/Plan (1) History of CHF (congestive heart failure): PLAN: Per primary service patient will need clearance. Family has requested that we contact patient's wet process technician prior to surgery for further recommendations. (2) Diabetes: PLAN: Per primary service patient will need clearance. (3) History of renal insufficiency: PLAN: Per primary service patient will need clearance. (4) CKD (chronic kidney disease) stage 3, GFR 30-59 ml/min: PLAN: Per primary service patient will need clearance. (5) History of nephrectomy, unilateral: PLAN: Per primary service patient will need clearance. (6) hx PE: PLAN: Per primary service patient will need clearance. Will need to be considered postoperatively depending on procedures use. (7) ICD (implantable cardioverter-defibrillator) in place: PLAN: Per primary service patient will need clearance. (8) CHF (congestive heart failure): PLAN: Per primary service patient will need clearance. (9) CAD (coronary artery disease): PLAN: Per primary service patient will need clearance. (10) Diet-controlled diabetes mellitus: PLAN: Per primary service patient will need clearance. (11) HTN (hypertension): PLAN: Per primary service patient will need clearance. (12) History of total right hip arthroplasty: PLAN: Natural history of the disease process and treatment options were discussed the patient. At this time I discussed the family multiple options including another attempted closed reduction with sedation in the emergency department, closed reduction in the operating room as well as open reduction and potential surgical correction of the problem. Patient has had 2 hip dislocations now in the last 4 years which is not a significant amount. If we are able to close reduce patient would likely be able to be treated nonoperatively. However, patient was sedated in the emergency department and closed reduction was attempted now 4 times. Unfortunately, we have not been able to successfully reduce the hip. See procedure note below. Based on this I recommended we proceed to the operating room for an attempted closed reduction. If we are unable to do this successfully with him completely paralyzed there may be a physical block to reduction. Family understands and for this reason I also felt we should be adequately prepared for open reduction and potential liner exchange. I recommended if we are to proceed with open procedure we proceed forward with liner exchange to a constrained liner if possible. We will have to contact the passenger car upholsterer apprentice to determine if these implants are available at this time. Patient's operative report should be at our office notes and we will attempt to identify this and get the appropriate implants in line prior to proceeding with further intervention. Family understands risks of surgery include blood loss, DVTs, PEs, nervous damage, infection, the risk of anesthesia include loss of life. Prior to today's close reduction they also understood potential for neurovascular damage and fractures. In addition there is risk for the general risk of sedation or anesthesia involved with surgery as well as today sedation this does include loss of life. They did wish to proceed with closed reduction in the emergency department which was unsuccessful. At this time they wish to proceed with closed reduction possible open reduction and revision provided we could obtain medical clearance from his wet process technician. Procedure: In the emergency department risks the procedure were discussed the patient. Patient was given adequate sedation from the emergency department physician. As last time patient's leg was flexed and externally rotated and this did not yield an appropriate reduction. Significant traction was pulled while the emergency room physician held on the pelvis. After this we attempted a reduction using extreme abduction and internal rotation with the hip flexed. You could feel the hip moved from the posterior to anterior position almost as if it was moving on the outside of the superior cup. When I felt it was anterior attempted to further internally rotate the hip impressive posterior to the socket. However this did not yield a successful reduction. Emergency room physician myself then tried reducing it in a extended position as if it was anterior dislocated. With traction and internal rotation I was unable to successfully reduce the hip. After multiple attempts patient began to lose the effects of sedation. He did have decrease in his oxygen assassination required nonrebreather during this time. Based on his medical comorbidities we elected to proceed with no further sedation in the emergency department. [facility] Office: HPI Consult Data Date of Consult: 01/24/22 HPI Narrative HPI Narrative: MELVIN AGUIRRE, is a 76 M who presents With right hip pain. Patient has significant medical comorbidities including poorly controlled congestive heart failure with bilateral lower extremity edema, renal disease, coronary artery disease and renal cancer status post nephrectomy. Patient had a previous right total hip replacement he is not sure of the exact date but notes it was in early 1999's. He did have a previous dislocation in 2018 which was reduced. Previous reports were reviewed showing he was reduced this flexion traction and external rotation. Patient reports that he dislocated in the same manner today leaning forward to pick something up off the floor with his hip in flexion. He noted a pop and was unable to bear weight. Patient has had multiple attempts at closed reduction already. To emergency room physicians and one other orthopedic physician attempted. His is at the bedside and based on his previous significant medical comorbidities she states his wet process technician has advised him not to have any surgery. Based on this at their request we discussed another attempt at a closed reduction. He is currently in severe pain in the right anterior and lateral hip. Worse with motion better with immobilization. [facility] Medical History (Updated 01/24/22 @ 23:[address] Quang Cao MD) CAD (coronary artery disease) CHF (congestive heart failure) CKD (chronic kidney disease) stage 3, GFR 30-59 ml/min Diabetes Diet-controlled diabetes mellitus History of CHF (congestive heart failure) History of nephrectomy, unilateral History of renal insufficiency HTN (hypertension) hx PE ICD (implantable cardioverter-defibrillator) in place Home Medications Atorvastatin Calcium 40 mg PO QHS 06/01/14 [History Last Taken 09/21/14 22:00] carvedilol 12.5 mg PO BID 06/01/14 [History Last Taken 09/22/14 08:00] cholecalciferol (vitamin D3) [Vitamin D3] 1,000 unit PO DAILY 06/01/14 [History Last Taken 09/21/14 17:00] docusate sodium [DOK] 100 mg PO BID 06/01/14 [History Last Taken 09/22/14 08:00] furosemide 20 mg PO BID 06/01/14 [History Last Taken 09/22/14 08:00] loratadine [Allergy Relief (loratadine)] 10 mg PO DINNER 06/01/14 [History Last Taken 09/21/14 17:00] multivitamin with folic acid [Thera] 1 tab PO QHS 06/01/14 [History Last Taken 09/21/14 22:00] diclofenac sodium 2 g TOPICAL BID 08/24/14 [History Last Taken 09/21/14 08:00] hydralazine 25 mg PO TID 08/24/14 [History Last Taken 09/22/14 08:00] isosorbide dinitrate 20 mg PO TID 08/24/14 [History Last Taken 09/22/14 12:00] tramadol 50 mg PO BID PRN PRN 08/24/14 [History Last Taken 09/22/14 16:00] alprazolam 0.25 mg PO QHS 03/09/18 [History Last Taken Unknown] buprenorphine [Butrans] 5 mcg TOPICAL QWEEK 03/09/18 [History Last Taken Unknown] diclofenac sodium [Voltaren] 2 ea TOPICAL BID 01/24/22 [History Last Taken Unknown] empagliflozin 10 mg PO DAILY 01/24/22 [History Last Taken Unknown] oxybutynin chloride 5 mg PO BID 01/24/22 [History Last Taken Unknown] timolol 1 drp EACH EYE BID 01/24/22 [History Last Taken Unknown] Allergy/AdvReac Type Severity Reaction Status Date / Time No Known Allergies Allergy Verified 01/24/22 18:41 Social History Smoking Status: Former smoker ROS Constitutional Constitutional: Reports as per HPI Cardiovascular Cardiovascular: Reports other Details: Bilateral lower extremity edema Integumentary Integumentary: Reports other Details: Bilateral hand ecchymosis. Skin tears on his leg. Physical Exam Const alert and oriented x3 General Appearance: cooperative HEENT normocephalic Eyes PERRL Neck no JVD Chest inspection of chest normal Resp normal respiratory effort Cardio regular rate GI non-distended Scrotum: scrotal swelling Extremity Extremity Narrative: Right lower extremity: Shortened and internally rotated. Positive dorsiflexion EHL and plantar flexion. Sensations intact light touch saphenous, sural, superficial peroneal, deep peroneal and tibial nerve distributions. 3+ pitting edema. Skin Skin Narrative: Noted skin tears on the right lower extremity bandaged at this time. Psych affect normal Radiology Impression Hip/Pelvis X-Ray 01/24/22 18:55 IMPRESSION: Prosthetic right femoral head is dislocated from the prosthetic acetabulum Electronically Signed: Colton Keita MD at 19:45 EDT Reading Location ID and State: [facility] / [place] , Service support , Hip/Pelvis X-Ray 01/24/22 20:00 IMPRESSION: Prosthetic right femoral head is dislocated from the prosthetic acetabulum. No change status post reduction . Persistent dislocation Electronically Signed: Colton Keita MD at 20:32 EDT , Hip/Pelvis X-Ray 01/24/22 21:35 IMPRESSION: No change status post reduction. Persistent dislocation Electronically Signed: Colton Keita MD at 21:55 EDT ,
--- NOTE | 2022-01-24 23:24 | PCM.HP.STD ---
HPI - General HPI Narrative MELVIN AGUIRRE, is a 76 M who presents with concern for dislocated hip. He was turning around to get something and felt a pop. Patient reports that he dislocated it while leaning forward to pick something up off the floor with his hip in flexion. He has history of CHF, diabetes and prior CABG Patient had a right hip replacement done 20 years ago. He has dislocated it before although not recently. He has chronic lower venous swelling and states patient consumer marketer has been playing around with his Lasix, he is on daily Lasix. Propulsion Generator Repairer is Dr. Cordero who was at the [facility]. Patient came to the ED and had an x-ray which showed prosthetic femoral head dislocated from the acetabulum. ED Staff attempted to reduce the hip and were unable to reduce the hip. Two different orthopedic physicians both Dr. España and Dr. Froylan Cao both attempted and were unable to reduce the patient under conscious sedation, so planned to admit for exam under anesthesia. Patient was given morphine for pain. No labs on my assessement were available yet. Not an ETOH user, was past tobacco smoker. [facility] Medical History (Updated 01/24/22 @ 23:[address] Alpesh Carlson MD) CAD (coronary artery disease) CHF (congestive heart failure) CKD (chronic kidney disease) stage 3, GFR 30-59 ml/min Diabetes Diet-controlled diabetes mellitus History of CHF (congestive heart failure) History of nephrectomy, unilateral History of renal insufficiency HTN (hypertension) hx PE ICD (implantable cardioverter-defibrillator) in place Home Medications Atorvastatin Calcium 40 mg PO QHS 06/01/14 [History Last Taken 09/21/14 22:00] carvedilol 12.5 mg PO BID 06/01/14 [History Last Taken 09/22/14 08:00] cholecalciferol (vitamin D3) [Vitamin D3] 1,000 unit PO DAILY 06/01/14 [History Last Taken 09/21/14 17:00] docusate sodium [DOK] 100 mg PO BID 06/01/14 [History Last Taken 09/22/14 08:00] furosemide 20 mg PO BID 06/01/14 [History Last Taken 09/22/14 08:00] loratadine [Allergy Relief (loratadine)] 10 mg PO DINNER 06/01/14 [History Last Taken 09/21/14 17:00] multivitamin with folic acid [Thera] 1 tab PO QHS 06/01/14 [History Last Taken 09/21/14 22:00] diclofenac sodium 2 g TOPICAL BID 08/24/14 [History Last Taken 09/21/14 08:00] hydralazine 25 mg PO TID 08/24/14 [History Last Taken 09/22/14 08:00] isosorbide dinitrate 20 mg PO TID 08/24/14 [History Last Taken 09/22/14 12:00] tramadol 50 mg PO BID PRN PRN 08/24/14 [History Last Taken 09/22/14 16:00] alprazolam 0.25 mg PO QHS 03/09/18 [History Last Taken Unknown] buprenorphine [Butrans] 5 mcg TOPICAL QWEEK 03/09/18 [History Last Taken Unknown] diclofenac sodium [Voltaren] 2 ea TOPICAL BID 01/24/22 [History Last Taken Unknown] empagliflozin 10 mg PO DAILY 01/24/22 [History Last Taken Unknown] oxybutynin chloride 5 mg PO BID 01/24/22 [History Last Taken Unknown] timolol 1 drp EACH EYE BID 01/24/22 [History Last Taken Unknown] Allergy/AdvReac Type Severity Reaction Status Date / Time No Known Allergies Allergy Verified 01/24/22 18:41 Social History Smoking Status: Former smoker Vital Signs Vital Signs Vital Signs: 01/24/22 18:36 01/24/22 19:40 01/24/22 19:43 Temperature 97.5 F L Temperature Source Temporal Pulse Rate 64 86 Pulse Rate [10] Pulse Rate [2] 84 Pulse Rate [3] 68 Pulse Rate [4] 66 Pulse Rate [5] 64 Pulse Rate [6] 64 Pulse Rate [7] 61 Pulse Rate [8] Respiratory Rate 15 22 H Respiratory Rate [10] Respiratory Rate [2] 16 Respiratory Rate [3] 23 H Respiratory Rate [4] 19 H Respiratory Rate [5] 24 H Respiratory Rate [6] 21 H Respiratory Rate [7] 17 Respiratory Rate [8] Blood Pressure 116/83 H 112/73 Blood Pressure [10] Blood Pressure [2] 113/72 Blood Pressure [3] Blood Pressure [4] 139/86 H Blood Pressure [5] 110/96 H Blood Pressure [7] 113/67 Blood Pressure [8] Blood Pressure Mean 94 Pulse Ox 96 95 Oxygen Delivery Method Room Air Room Air Oxygen Delivery Method [10] Oxygen Delivery Method [2] Nasal Cannula Oxygen Delivery Method [3] Nasal Cannula Oxygen Delivery Method [4] Nasal Cannula Oxygen Delivery Method [5] Nasal Cannula Oxygen Delivery Method [6] Nasal Cannula Oxygen Delivery Method [7] Nasal Cannula Oxygen Flow Rate (L/min) Oxygen Flow Rate (L/min) [10] Oxygen Flow Rate (L/min) [2] 5 Oxygen Flow Rate (L/min) [3] 5 Oxygen Flow Rate (L/min) [4] 5 Oxygen Flow Rate (L/min) [5] 5 Oxygen Flow Rate (L/min) [6] 5 Oxygen Flow Rate (L/min) [7] 5 Oxygen Flow Rate (L/min) [8] 01/24/22 20:06 01/24/22 20:11 01/24/22 20:16 Temperature Temperature Source Pulse Rate Pulse Rate [10] Pulse Rate [2] Pulse Rate [3] Pulse Rate [4] Pulse Rate [5] Pulse Rate [6] Pulse Rate [7] Pulse Rate [8] Respiratory Rate Respiratory Rate [10] Respiratory Rate [2] Respiratory Rate [3] Respiratory Rate [4] Respiratory Rate [5] Respiratory Rate [6] Respiratory Rate [7] Respiratory Rate [8] Blood Pressure Blood Pressure [10] Blood Pressure [2] Blood Pressure [3] Blood Pressure [4] Blood Pressure [5] Blood Pressure [7] Blood Pressure [8] Blood Pressure Mean Pulse Ox Oxygen Delivery Method Nasal Cannula Nasal Cannula Room Air Oxygen Delivery Method [10] Oxygen Delivery Method [2] Oxygen Delivery Method [3] Oxygen Delivery Method [4] Oxygen Delivery Method [5] Oxygen Delivery Method [6] Oxygen Delivery Method [7] Oxygen Flow Rate (L/min) 5 5 Oxygen Flow Rate (L/min) [10] Oxygen Flow Rate (L/min) [2] Oxygen Flow Rate (L/min) [3] Oxygen Flow Rate (L/min) [4] Oxygen Flow Rate (L/min) [5] Oxygen Flow Rate (L/min) [6] Oxygen Flow Rate (L/min) [7] Oxygen Flow Rate (L/min) [8] 01/24/22 21:23 01/24/22 21:30 01/24/22 21:34 Temperature Temperature Source Pulse Rate 71 Pulse Rate [10] 69 Pulse Rate [2] Pulse Rate [3] Pulse Rate [4] Pulse Rate [5] Pulse Rate [6] Pulse Rate [7] Pulse Rate [8] 71 Respiratory Rate 17 Respiratory Rate [10] 18 Respiratory Rate [2] Respiratory Rate [3] Respiratory Rate [4] Respiratory Rate [5] Respiratory Rate [6] Respiratory Rate [7] Respiratory Rate [8] 17 Blood Pressure 122/78 H Blood Pressure [10] 129/86 H Blood Pressure [2] Blood Pressure [3] Blood Pressure [4] Blood Pressure [5] Blood Pressure [7] Blood Pressure [8] 122/78 H Blood Pressure Mean Pulse Ox 100 Oxygen Delivery Method Room Air Oxygen Delivery Method [10] Room Air Oxygen Delivery Method [2] Oxygen Delivery Method [3] Oxygen Delivery Method [4] Oxygen Delivery Method [5] Oxygen Delivery Method [6] Oxygen Delivery Method [7] Oxygen Flow Rate (L/min) Oxygen Flow Rate (L/min) [10] 0 Oxygen Flow Rate (L/min) [2] Oxygen Flow Rate (L/min) [3] Oxygen Flow Rate (L/min) [4] Oxygen Flow Rate (L/min) [5] Oxygen Flow Rate (L/min) [6] Oxygen Flow Rate (L/min) [7] Oxygen Flow Rate (L/min) [8] 3 01/24/22 21:35 01/24/22 21:40 01/24/22 21:52 Temperature Temperature Source Pulse Rate 104 H Pulse Rate [10] Pulse Rate [2] Pulse Rate [3] Pulse Rate [4] Pulse Rate [5] Pulse Rate [6] Pulse Rate [7] Pulse Rate [8] Respiratory Rate 22 H Respiratory Rate [10] Respiratory Rate [2] Respiratory Rate [3] Respiratory Rate [4] Respiratory Rate [5] Respiratory Rate [6] Respiratory Rate [7] Respiratory Rate [8] Blood Pressure 94/53 L Blood Pressure [10] Blood Pressure [2] Blood Pressure [3] Blood Pressure [4] Blood Pressure [5] Blood Pressure [7] Blood Pressure [8] Blood Pressure Mean 66 Pulse Ox 96 Oxygen Delivery Method Room Air Room Air Room Air Oxygen Delivery Method [10] Oxygen Delivery Method [2] Oxygen Delivery Method [3] Oxygen Delivery Method [4] Oxygen Delivery Method [5] Oxygen Delivery Method [6] Oxygen Delivery Method [7] Oxygen Flow Rate (L/min) Oxygen Flow Rate (L/min) [10] Oxygen Flow Rate (L/min) [2] Oxygen Flow Rate (L/min) [3] Oxygen Flow Rate (L/min) [4] Oxygen Flow Rate (L/min) [5] Oxygen Flow Rate (L/min) [6] Oxygen Flow Rate (L/min) [7] Oxygen Flow Rate (L/min) [8] 01/24/22 22:45 01/24/22 22:55 01/24/22 23:00 Temperature Temperature Source Pulse Rate 71 Pulse Rate [10] Pulse Rate [2] Pulse Rate [3] Pulse Rate [4] Pulse Rate [5] Pulse Rate [6] Pulse Rate [7] Pulse Rate [8] Respiratory Rate 18 Respiratory Rate [10] Respiratory Rate [2] Respiratory Rate [3] Respiratory Rate [4] Respiratory Rate [5] Respiratory Rate [6] Respiratory Rate [7] Respiratory Rate [8] Blood Pressure 119/71 Blood Pressure [10] Blood Pressure [2] Blood Pressure [3] Blood Pressure [4] Blood Pressure [5] Blood Pressure [7] Blood Pressure [8] Blood Pressure Mean Pulse Ox 97 Oxygen Delivery Method Nasal Cannula Room Air Oxygen Delivery Method [10] Oxygen Delivery Method [2] Oxygen Delivery Method [3] Oxygen Delivery Method [4] Oxygen Delivery Method [5] Oxygen Delivery Method [6] Oxygen Delivery Method [7] Oxygen Flow Rate (L/min) 6 Oxygen Flow Rate (L/min) [10] Oxygen Flow Rate (L/min) [2] Oxygen Flow Rate (L/min) [3] Oxygen Flow Rate (L/min) [4] Oxygen Flow Rate (L/min) [5] Oxygen Flow Rate (L/min) [6] Oxygen Flow Rate (L/min) [7] Oxygen Flow Rate (L/min) [8] 01/24/22 23:03 01/24/22 23:05 Temperature Temperature Source Pulse Rate Pulse Rate [10] Pulse Rate [2] 68 Pulse Rate [3] 70 Pulse Rate [4] 67 Pulse Rate [5] Pulse Rate [6] Pulse Rate [7] Pulse Rate [8] Respiratory Rate Respiratory Rate [10] Respiratory Rate [2] 15 Respiratory Rate [3] 15 Respiratory Rate [4] 15 Respiratory Rate [5] Respiratory Rate [6] Respiratory Rate [7] Respiratory Rate [8] Blood Pressure Blood Pressure [10] Blood Pressure [2] Blood Pressure [3] 92/69 Blood Pressure [4] 112/72 Blood Pressure [5] Blood Pressure [7] Blood Pressure [8] Blood Pressure Mean Pulse Ox Oxygen Delivery Method Room Air Oxygen Delivery Method [10] Oxygen Delivery Method [2] Non-Rebreather Oxygen Delivery Method [3] Non-Rebreather Oxygen Delivery Method [4] Nasal Cannula Oxygen Delivery Method [5] Oxygen Delivery Method [6] Oxygen Delivery Method [7] Oxygen Flow Rate (L/min) Oxygen Flow Rate (L/min) [10] Oxygen Flow Rate (L/min) [2] 15 Oxygen Flow Rate (L/min) [3] Oxygen Flow Rate (L/min) [4] 6 Oxygen Flow Rate (L/min) [5] Oxygen Flow Rate (L/min) [6] Oxygen Flow Rate (L/min) [7] Oxygen Flow Rate (L/min) [8] Weight Weight: 192 lb 14.472 oz Body Mass Index (BMI) 27.6 Physical Exam Narrative General Appearance ED: well developed and NAD Nutritional Appearance: Mildly obese. HEENT Moist mucous membranes normocephalic Eyes PERRL Neck full ROM and supple Thyroid: Negative for tender Chest Wall inspection of chest normal and palpation of chest normal Resp normal respiratory effort, no retractions and clear to auscultation bilaterally Auscultation: Negative for rales, rhonchi or wheezes Cardio regular rate, regular rhythm, S1 normal heart sound, S2 normal heart sound and no murmurs GI non-tender, non-distended and no masses Auscultation: normoactive bowel sounds Palpation: soft; Negative for tender or guarding Lower extremities are both with pitting edema and do have venous stasis wounds Leg right hip does appear deformed Results Lab / Micro Data Result Diagrams: 01/24/22 23:15 01/24/22 23:15 Radiology Impression Hip/Pelvis X-Ray 01/24/22 18:55 IMPRESSION: Prosthetic right femoral head is dislocated from the prosthetic acetabulum Electronically Signed: Colton Keita MD at 19:45 EDT , Hip/Pelvis X-Ray 01/24/22 20:00 IMPRESSION: Prosthetic right femoral head is dislocated from the prosthetic acetabulum. No change status post reduction . Persistent dislocation Electronically Signed: Colton Keita MD at 20:32 EDT , Hip/Pelvis X-Ray 01/24/22 21:35 IMPRESSION: No change status post reduction. Persistent dislocation Electronically Signed: Colton Keita MD at 21:55 EDT , Assessment & Plan Assessment/Plan (1) Hip dislocation, right: (2) HTN (hypertension): (3) CHF (congestive heart failure): (4) History of nephrectomy, unilateral: PLAN: Hip dislocation Unable to be reduced at the ED, will keep n.p.o. and check labs in advance of reduction in the OR Continue pain control with morphine and p.o. tramadol Orthopedics is following Check INR RCRI 2 points, class III risk - risk factors include CHF. No patient consumer marketer records on file here Primary team to evaluate need for cardiology wants team to call his patient consumer marketer Dr Gonzalez Hx of CKD 4 - will check labs. CHF - Continue Lasix - Avoid Fluids. Continue Coreg. - No recent known exacerbations' - Hold lovenox / anticoagulation. History of Diabetes - Monitor with routine glucose checks - not on insulin at home Full code this was discussed with patient and Alpesh Robyn Charges/Coding Visit Charges Inpatient E&M: 97241 Subs Hosp L2
[2022-01-24 23:36] LABS: Absolute Lymphocyte Count 0.49 X10^3/uL (0.83-4.51); Absolute Neutrophil Count 2.7 X10^3/uL (2.0-7.7); Basophil# 0.04 X10^3/uL; Basophil% 1.1 % (0-1); Eosinophil# 0.04 X10^3/uL; Eosinophils% 1.1 % (0-5); Hematocrit 43.9 % (40-54); Hemoglobin 13.6 g/dL (13.0-16.5); Lymphocyte # 0.49 X10^3/ul (0.83-4.51); Lymphocyte % 13.5 % (19-41); Mean Corpuscular Hgb 29.2 pg (27.0-32.0); Mean Corpuscular Volume 94.4 fL (80-94); Mean Platelet Vol. 10.7 fl (6.2-12.0); Monocyte# 0.33 X10^3/uL; Monocyte% 9.1 % (0-10); NRBC Flagged by Analyzer 0.6 % (0-5); Neutrophil # 2.67 X10^3/uL (2.7-7.7); Neutrophil % 73.8 % (47-70); POSITIVE DIFFERENTIAL YES; Platelet Count 152 K/mm3 (150-450); RBC Distribution Width SD 58.4 fl (35.1-43.9); Red Blood Count 4.65 M/mm3 (4.6-6.2); White Blood Count 3.6 K/mm3 (4.4-11.0)
[2022-01-24 23:40] LABS: Anion Gap 8 (5-15); BUN 69 mg/dL (7-18); BUN/Creat Ratio 26.5 RATIO (10-20); Calcium,Total 8.8 mg/dL (8.5-10.1); Chloride 108 mmol/L (98-107); EST Glomerular Filtration Rate 26 mL/min (>60); Est Glom Filt Rate - Afr Amer 31 mL/min (>60); Estimated Creatinine Clearance 25.35 ml/min; Glucose 124 mg/dL (74-106); Potassium 4.6 mmol/L (3.5-5.1); Sodium Level 140 mmol/L (136-145)
[2022-01-24] MEDS: HYDROmorphone 0.5 MG/0.5 ML SYRINGE IV (23:40)
[2022-01-24 23:41] LABS: Differential Indicated SCAN CRITERIA MET
--- NOTE | 2022-01-24 23:49 | RAD_ITS ---
STUDY: X-RAY CHEST REASON FOR EXAM: Male, 76 years old. preoperative assessement TECHNIQUE: AP portable semiupright COMPARISON: None. FINDINGS: There are bilateral nodular densities. The largest at the right lower lung field measures 5 cm. The differential diagnosis includes metastatic disease versus infiltrates. There is blunting of the right lateral costophrenic angle There is no demonstrated pleural abnormality. There is moderate cardiomegaly. There are median sternotomy sutures. There is a pacemaker on the left. Normal mediastinum and eloisa. Normal visualized pulmonary arteries. Normal visualized aortic arch and descending thoracic aorta. Normal visualized thoracic spine. Normal visualized ribs, clavicles. Both shoulders demonstrate elevation of the humeral head coming in contact with the inferior aspect of the acromion suggesting erosion of the rotator cuff bilaterally. There is no demonstrated abnormality of the visualized soft tissue structures of the upper abdomen. RAD/Chest 1 View (Portable) IMPRESSION: There are multiple nodular densities in both lung thurman. These could represent metastatic disease versus infiltrates. There is moderate cardiomegaly with a pacemaker Electronically Signed: Scot Simon MD at 0:25 EDT ,
--- NOTE | 2022-01-24 23:52 | ECHOD_ITS ---
Reason For Study: Pre-op clearance, CHF Procedure This was a 2D Doppler, Color Flow transthoracic echocardiogram. The study was technically difficult. Patient scanned supine due to hip dislocation. Exam performed portable in patient room. Left Ventricle Moderately dilated left ventricle. Mild concentric left ventricular hypertrophy. Severe segmental systolic dysfunction (see wall motion). The estimated ejection fraction is 15 %. There is evidence of diastolic dysfunction. Posterior-Basal: Hypokinetic. Infero-Basal: Hypokinetic. Mid-Anterior : Akinetic. Mid-Lateral : Akinetic. Mid-Posterior: Akinetic. Mid-Inferior: Akinetic. Mid- inferoseptal : Akinetic. Mid-anteroseptal : Akinetic. [place] : Akinetic. Right Ventricle Normal RV size. ICD or pacer leads identified within the right ventricle. Normal systolic function. Atria The left atrium is moderately enlarged. The right atrium is mildly enlarged. ICD or pacer leads identified within the right atrium. No doppler evidence for ASD. Mitral Valve There is mild to moderate mitral annular calcification. Extension the mitral annular calcification on the base of the posterior mitral valve leaflet. Anterior leaflet diffuse mitral valve thickening. Moderate (2+) eccentric mitral valve insufficiency. Tricuspid Valve Normal tricuspid valve. Moderate (2+) tricuspid valve insufficiency. Right ventricular systolic pressure estimated to be 53 mmHg. Aortic Valve The aortic valve is not well visualized. Trivial aortic valve insufficiency. Pulmonic Valve The pulmonic valve is not well visualized. Great Vessels Normal sized aortic root. Pericardium/Pleural No pericardial effusion. MMode/2D Measurements & Calculations LVIDd: 5.8 cm IVSd: 1.3 cm LVOT diam: 2.2 cm LVIDs: 5.1 cm LVPWd: 1.4 cm LVOT area: 3.8 cm2 RVDd: 4.5 cm FS: 12.6 % Ao root diam: 3.6 cm LAV(MOD-bp): 133.3 ml LVAd ap4: 59.2 cm2 LAV(MOD-bp) Indexed: 66.3 ml/m2 LVLd ap4: 10.7 cm LAV(MOD-sp2): 126.5 ml EDV(MOD-sp4): 266.1 ml LAV(MOD-sp4): 126.6 ml EDV(sp4-el): 279.1 ml LVAs ap4: 51.4 cm2 LVLs ap4: 10.4 cm ESV(MOD-sp4): 204.9 ml ESV(sp4-el): 215.4 ml EF(MOD-sp4): 23.0 % EF(sp4-el): 22.8 % LVAd ap2: 59.4 cm2 SV(MOD-sp4): 61.2 ml SV(MOD-sp2): 44.0 ml LVLd ap2: 11.0 cm EDV(MOD-sp2): 255.0 ml EDV(sp2-el): 271.7 ml LVAs ap2: 52.3 cm2 LVLs ap2: 10.3 cm ESV(MOD-sp2): 211.0 ml ESV(sp2-el): 224.5 ml EF(MOD-sp2): 17.3 % SV(sp4-el): 63.7 ml LA dimension(2D): 5.5 cm LA A4 area: 33.4 cm2 RA A4 area: 24.1 cm2 Doppler Measurements & Calculations MV E max raymond: 83.5 cm/sec Lat Peak E' Raymond: 4.4 cm/sec Med Peak E' Raymond: 3.2 cm/sec MV A max raymond: 60.1 cm/sec E/E' lat: 19.0 E/E' med: 25.8 MV E/A: 1.4 Ao V2 max: 180.3 cm/sec AI max raymond: 319.9 cm/sec LV V1 max: 99.7 cm/sec Ao max P.0 mmHg AI max P.9 mmHg LV V1 max P.0 mmHg Ao V2 mean: 109.8 cm/sec AI dec slope: 109.3 cm/sec2 LV V1 mean P.6 mmHg Ao mean P.7 mmHg AI P1/2t: 857.0 msec LV V1 mean: 58.6 cm/sec Ao V2 VTI: 33.2 cm LV V1 VTI: 16.8 cm MELODY(I,D): 1.9 cm2 MELODY(V,D): 2.1 cm2 SV(LVOT): 63.1 ml PA V2 max: 87.0 cm/sec TR max raymond: 353.0 cm/sec TR max P.9 mmHg ECHO/Echo Complete Interpretation Summary Moderately dilated left ventricle. Severe segmental systolic dysfunction (see wall motion). The estimated ejection fraction is 15 %. Mild concentric left ventricular hypertrophy. The left atrium is moderately enlarged. The right atrium is mildly enlarged. There is mild to moderate mitral annular calcification. Extension the mitral annular calcification on the base of the posterior mitral valve leaflet. Anterior leaflet diffuse mitral valve thickening. Moderate (2+) eccentric mitral valve insufficiency. Moderate (2+) tricuspid valve insufficiency. Trivial aortic valve insufficiency. Right ventricular systolic pressure estimated to be 53 mmHg. There is evidence of diastolic dysfunction. ICD or pacer leads identified within the right atrium ICD or pacer leads identified within the right ventricle. Ordering Physician: Alpesh Carlson Performed By: [place] RDCS
[2022-01-25] VITALS (17 sets, daily range): BP systolic 102–127; BP diastolic 51–83; PULSE 66–91; RESP 12–20; TEMP 36.3–37.2; O2SAT 93–100; BMI 26.3
[2022-01-25 00:07] LABS: Anisocytosis 1+
[2022-01-25] MEDS: ALPRAZolam 0.25 MG Tablet PO (01:01)
[2022-01-25] MEDS: Furosemide 20 MG Tablet PO ×2 (01:01→21:17)
[2022-01-25] MEDS: traMADol 50 MG Tablet PO ×3 (01:01→20:04)
[2022-01-25] MEDS: Isosorbide DN 20 MG Tablet PO ×2 (06:00→21:17)
--- NOTE | 2022-01-25 06:00 | EKG12_ITS ---
Test Reason : AM EKG Blood Pressure : / mmHG Vent. Rate : 068 BPM Atrial Rate : 068 BPM P-R Int : 112 ms QRS Dur : 170 ms QT Int : 502 ms P-R-T Axes : 000 236 015 degrees QTc Int : 533 ms Electronic ventricular pacemaker with occasional PVC's Confirmed by LEONEL LUNA, JANET ([id number]), telegraph editor AYAN MARTEL ([id number]) on 01/26/2022 10:01:44 AM Referred By: GABY Confirmed By:JANET CASTANEDA MD
--- NOTE | 2022-01-25 06:32 | PN.HOSP_ITS ---
Subjective Subjective Patient with no acute events overnight following the transition to the floor from the ED. Patient did have attempted 3 to correct the hip dislocation however these were all unsuccessful. Patient currently notes pain is controlled however with any movement he has onset of severe discomfort. Discussed patient's cardiac history at length and concerns with significantly reduced EF with planned records request and cardiology team consulted with pending evaluation. From discussions which was also relayed to cardiology patient is not supposed to have general anesthetics which complicates current presentation. Patient does report that over the last 1 to 2 weeks has had significantly worsened lower extremity swelling and his transcript clerk has been adjusting Lasix therapy and he does note that currently it is somewhat improved. Patient denies fevers, chills, nausea, emesis, abdominal pain, chest pain or dyspnea. Objective Data Objective Data Vital Signs: Vital Signs Temp Pulse Resp BP Pulse Ox 97.6 F L 66 18 109/55 L 94 01/25/22 05:49 01/25/22 05:49 01/25/22 05:49 01/25/22 05:49 01/25/22 05:49 Oxygen Flow Rate (L/min) [10] 0 Oxygen Flow Rate (L/min) [8] 3 Oxygen Flow Rate (L/min) [7] 5 Oxygen Flow Rate (L/min) [6] 5 Oxygen Flow Rate (L/min) [5] 5 Oxygen Flow Rate (L/min) [4] 6 Oxygen Flow Rate (L/min) [3] 5 Oxygen Flow Rate (L/min) [2] 15 Oxygen Flow Rate (L/min) 3 Oxygen Delivery Method [10] Room Air Oxygen Delivery Method [7] Nasal Cannula Oxygen Delivery Method [6] Nasal Cannula Oxygen Delivery Method [5] Nasal Cannula Oxygen Delivery Method [4] Nasal Cannula Oxygen Delivery Method [3] Non-Rebreather Oxygen Delivery Method [2] Non-Rebreather Oxygen Delivery Method Nasal Cannula Weight: 183 lb 10.321 oz Body Mass Index (BMI) 26.3 Intake & Output: Intake and Output for Last 24 Hours 01/23/22 01/24/22 01/25/22 23:59 23:59 23:59 Intake Total 0 / 0 Output Total 0 / 0 Balance 0 / 0 Lab / Micro Data Result Diagrams: 01/24/22 23:15 01/24/22 23:15 Labs: Laboratory Results - last 24 hr 01/24/22 23:15: WBC 3.6 L, RBC 4.65, Hgb 13.6, Hct 43.9, MCV 94.4 H, MCH 29.2, MCHC 31.0 L, RDW Std Deviation 58.4 H, RDW Coeff of Peri 17.0 H, Plt Count 152, MPV 10.7, Immature Gran % (Auto) 1.400 H, Neut % (Auto) 73.8 H, Lymph % (Auto) 13.5 L, [place] % (Auto) 9.1, Eos % (Auto) 1.1, Baso % (Auto) 1.1 H, Absolute Neuts (auto) 2.7, Absolute Lymphs (auto) 0.49 L, Nucleated RBC % 0.6, Diff Path Review May foll, Anisocytosis 1+ 01/24/22 23:15: Sodium 140, Potassium 4.6, Chloride 108 H, Carbon Dioxide 24.0, Anion Gap 8, BUN 69 H, Creatinine 2.60 H, Estim Creat Clear Calc 25.35, Est GFR (MDRD) Af Amer 31 L, Est GFR (MDRD) Non-Af 26 L, BUN/Creatinine Ratio 26.5 H, Glucose 124 H, Calcium 8.8 Radiography Diagnostic Testing: Radiology Impression Hip/Pelvis X-Ray 01/24/22 18:55 IMPRESSION: Prosthetic right femoral head is dislocated from the prosthetic acetabulum Electronically Signed: Colton Keita MD at 19:45 EDT , Hip/Pelvis X-Ray 01/24/22 20:00 IMPRESSION: Prosthetic right femoral head is dislocated from the prosthetic acetabulum. No change status post reduction . Persistent dislocation Electronically Signed: Colton Keita MD at 20:32 EDT , Hip/Pelvis X-Ray 01/24/22 21:35 IMPRESSION: No change status post reduction. Persistent dislocation Electronically Signed: Colton Keita MD at 21:55 EDT , Chest X-Ray 01/24/22 23:49 IMPRESSION: There are multiple nodular densities in both lung thurman. These could represent metastatic disease versus infiltrates. There is moderate cardiomegaly with a pacemaker Electronically Signed: Scot Simon MD at 0:25 EDT , Physical Exam Narrative Physical Examination: General: Awake, alert, oriented x 3 and cooperative, seated upright in medical surgical bed in no apparent distress. Skin: Normal color, normal turgor, no icterus, no cyanosis except a small area of an abrasion with denuded skin following attempts to manipulate the right lower extremity to the anterior distal maldonado, dressed, no drainage. HEENT: AT/NC, EOMI, PERRLA, MMM. Lungs: Mildly diminished, greater bases, appropriate effort no rales, ronchi or wheezing. Heart: Currently regular rate and rhythm; no gallop, rub audible. Abdomen: Soft, NTTP, ND, normal BS, no HSM. Extremities: No cyanosis, no clubbing, right lower extremity with peripheral pul ses intact, remains dislocated, tender to any movement, significant bilateral lower extremity pedal to proximal maldonado 2-3+ pitting edema. Neurological: Patient awake, alert, oriented as noted, cognitive function intact; pupils equally reactive to light and accommodation, cranial nerves II- XII grossly normal, moving all 4 extremities however extremely limited right lower extremity given hip dislocation ongoing, strength accordingly severely global decreased. Psychiatric: Affect appears mildly fatigued otherwise normal, no acute evidence of depressive or anxiety feelings. Assessment & Plan Assessment/Plan (1) Dislocation of right hip: QUALIFIERS: Encounter type: initial encounter Qualified Code(s): S73.004A - Unspecified dislocation of right hip, initial encounter PLAN: The patient is a 76 y/o M w/ PMHx: Hx VTE, Chronic CHF s/p AICD (following w/ Dr Gonzalez Surgery Consultant), CAD, CKD stage IV w/ Hx R nephrectomy, Former tobacco use, Diet-controlled diabetes mellitus type II who presents to the [facility] ED on 01/24/22 secondary to intractable R hip pain with dislocation following bending over to pick something up off the floor. #1. History of prior right total hip replacement with dislocation, recurrent: Failed conservative therapies and prior reductions, admitted to [place] per Hospitalist service, Dr. Cao consulted and following, planned evaluation under anesthesias as unable to reduce in the ED per ED physician or Dr. Cao/Dr. España, pain management, bowel regimen, DVT Prophylaxis, PT/OT/CM per Orthopedic surgery discretion given awaiting right hip reduction. Currently awaiting cardiology evaluation and records for any consideration for transition to OR. #2. Chronic Kidney Disease Stage IV: Admission BUN/Cr 69/2.60, baseline renal function 2.2-2.5, will continue to trend, if rises further may consider hold on nephrotoxic regimen and judicious hydration, continue to trend, 01/25/22 BUN/Cr []. #3. CAD: s/p CABG, we will continue patient home Coreg, statin therapy, isosorbide, hydralazine, not on THOMAS inhibitor/ARB. #4. Chronic CHF, Systolic (patient/ reported EF 20%) w/ recent worsening BL LE Edema: s/p AICD, no echocardiogram noted in the system, we will continue patient home Coreg, statin, isosorbide, hydralazine, Lasix therapy with close monitoring of renal function as noted. If #1 resolved and renal function stable would consider pulse dose IV lasix w/ snug THOMAS wraps for worsened recent BL LE edema. Pending timeline of most recent ECHO once records obtained may need to repeat. #5. Hypertension: Continue home regimen including Coreg, isosorbide, hydralazine, Lasix with hold parameters as needed, PRN hydralazine. #6. Hyperlipidemia: We will continue patient on statin therapy. #7. Diabetes mellitus type II, diet-controlled: Continue ADA diet, accu checks w/ ISS. #8. Hx VTE: Remote, not on any chronic anticoaluation. #9. DVT prophylaxis: SCDs, hold chemoprophylaxis for consideration intervention. #10. CODE STATUS: Full code. Charges/Coding Visit Charges Inpatient E&M: 32815 Subs Hosp L3
[2022-01-25] MEDS: Acetaminophen 325 MG Tablet 650 MG PO ×2 (06:55→20:04)
[2022-01-25 07:06] LABS: Bedside Glucose 88 mg/dL (74-106)
--- NOTE | 2022-01-25 08:01 | PCM.CONS.GEN ---
Assessment & Plan Assessment/Plan (1) Dislocation of right hip: QUALIFIERS: Encounter type: initial encounter Qualified Code(s): S73.004A - Unspecified dislocation of right hip, initial encounter PLAN: Patient had an attempted closed reduction by the ER physician and I attempted to close reduce the hip as well with ER sedation unsuccessfully. I did call and speak with Dr. Cao as he is a patient who had his hip replaced by [facility] who agreed to assume care and stated he would be coming in the evening to attempt another reduction. HPI HPI Narrative HPI Narrative: MELVIN AGUIRRE, is a 76 M who presents urgency department after bending over to [facility] off the ground felt a pop into his right hip. Patient had previous right total hip arthroplasty with Dr. Dyson from [facility] he has had 1 previous hip dislocation that was reduced. Patient has significant medical comorbidities and right lower extremity edema he had a skin tear prior to my evaluation of his ankle and he was unable to dorsiflex the foot prior to my evaluation although very limited motion of his contralateral foot either. [facility] Medical History (Updated 01/25/22 @ 06:[address] Leigh Henderson MD) CAD (coronary artery disease) CHF (congestive heart failure) Chronic kidney disease, stage 4 (severe) Diabetes Diet-controlled diabetes mellitus Ex-smoker History of CHF (congestive heart failure) History of nephrectomy, unilateral History of renal insufficiency HTN (hypertension) hx PE ICD (implantable cardioverter-defibrillator) in place Home Medications Atorvastatin Calcium 40 mg PO QHS 06/01/14 [History Last Taken 01/23/22] carvedilol 12.5 mg PO BID 06/01/14 [History Last Taken 01/24/22] cholecalciferol (vitamin D3) [Vitamin D3] 2,000 unit PO DAILY 06/01/14 [History Last Taken 01/24/22] docusate sodium [DOK] 100 mg PO BID 06/01/14 [History Last Taken 01/24/22] furosemide 20 mg PO BID 06/01/14 [History Last Taken 01/24/22] loratadine [Allergy Relief (loratadine)] 10 mg PO DINNER PRN 06/01/14 [History Last Taken 09/21/14 17:00] diclofenac sodium 2 g TOPICAL BID 08/24/14 [History Last Taken 01/24/22] hydralazine 25 mg PO TID 08/24/14 [History Last Taken 01/24/22] isosorbide dinitrate 20 mg PO TID 08/24/14 [History Last Taken 01/24/22] tramadol 50 mg PO BID PRN PRN 08/24/14 [History Last Taken 09/22/14 16:00] empagliflozin 10 mg PO DAILY 01/24/22 [History Last Taken 01/24/22] timolol 1 drp EACH EYE BID 01/24/22 [History Last Taken 01/24/22] coenzyme Q10 10 mg PO DAILY 01/25/22 [History Last Taken 01/24/22] mecobalamin (vitamin B12) [B12 Active] 1,000 mcg PO DAILY 01/25/22 [History Last Taken 01/24/22] Allergy/AdvReac Type Severity Reaction Status Date / Time No Known Allergies Allergy Verified 01/24/22 18:41 Surgical History H/O hemorrhoidectomy H/O right knee surgery H/O right nephrectomy History of right hip replacement Social History Smoking Status: Former smoker Physical Exam Narrative Right lower extremity shortened and internally rotated riding high with his femoral head. He has significant right lower extremity edema bandage on his lower ankle from a skin tear intact sensation to light touch however very limited motion of the ankle unable to ascertain whether there is a foot drop as he says is significantly painful when he attempts to do so. Lab / Micro Data Result Diagrams: 01/24/22 23:15 01/24/22 23:15 Labs: Laboratory Results - last 24 hr 01/24/22 23:15: WBC 3.6 L, RBC 4.65, Hgb 13.6, Hct 43.9, MCV 94.4 H, MCH 29.2, MCHC 31.0 L, RDW Std Deviation 58.4 H, RDW Coeff of Peri 17.0 H, Plt Count 152, MPV 10.7, Immature Gran % (Auto) 1.400 H, Neut % (Auto) 73.8 H, Lymph % (Auto) 13.5 L, [place] % (Auto) 9.1, Eos % (Auto) 1.1, Baso % (Auto) 1.1 H, Absolute Neuts (auto) 2.7, Absolute Lymphs (auto) 0.49 L, Nucleated RBC % 0.6, Diff Path Review May foll, Anisocytosis 1+ 01/24/22 23:15: Sodium 140, Potassium 4.6, Chloride 108 H, Carbon Dioxide 24.0, Anion Gap 8, BUN 69 H, Creatinine 2.60 H, Estim Creat Clear Calc 25.35, Est GFR (MDRD) Af Amer 31 L, Est GFR (MDRD) Non-Af 26 L, BUN/Creatinine Ratio 26.5 H, Glucose 124 H, Calcium 8.8 01/25/22 06:48: POC Glucose 88 Radiology Impression Hip/Pelvis X-Ray 01/24/22 18:55 IMPRESSION: Prosthetic right femoral head is dislocated from the prosthetic acetabulum Electronically Signed: oClton Keita MD at 19:45 EDT , Hip/Pelvis X-Ray 01/24/22 20:00 IMPRESSION: Prosthetic right femoral head is dislocated from the prosthetic acetabulum. No change status post reduction . Persistent dislocation Electronically Signed: Colton Keita MD at 20:32 EDT , Hip/Pelvis X-Ray 01/24/22 21:35 IMPRESSION: No change status post reduction. Persistent dislocation Electronically Signed: Colton Keita MD at 21:55 EDT , Chest X-Ray 01/24/22 23:49 IMPRESSION: There are multiple nodular densities in both lung thurman. These could represent metastatic disease versus infiltrates. There is moderate cardiomegaly with a pacemaker Electronically Signed: Scot Simon MD at 0:25 EDT ,
--- NOTE | 2022-01-25 09:25 | CASEMGMT ---
KEVON VILLARREAL Assessment: Face to Face with pt for initial transition planning/care coordination assessment. KEVON VILLARREAL introduced self and role at [facility], pt voices understanding and consents to assessment. Pt is A/O x4 and answers all questions appropriately at this time. Pt dtr present in room. Pt lying in bed in no distress. Care providers, pharmacy, and demographics verified/updated. Admitting Dx: dislocated hip PCP:Alysha Specialists: Kiley, ortho; Elias, cardio; Gianni, cardio; Jordan nephro at [facility]; Rubin, uro; Anupama, pain mgmt; Andrews, eye [facility]acy: [facility] Insurance: [employer], [employer] Prescription Benefit: yes LW/HPOA: Pt statese he has a LW/DPOA and his DPOA is his Yuko Peres. He is aware that this is not on file at [facility]. He states his will bring in a copy and she is aware that it is not on file. LNOK: Yuko Peres, Living Arrangements: Pt lives with in a single story house with a ramp to enter. Pt reports he is typically I in ADL's and denies concerns at home. Transportation: Pt states he drives currently but has decided to give up driving as he does not feel safe. Pt transports him to medical appts. DME/HHC/SNF: Pt has a walker, cane, toilet riser, sit to stand and lift chair. Pt denies previous HHC or SNF stays. Pt states no concerns with going home at time of dc. Pt states he would not want to go outpt for any therapy at this time but would consider HHC therapy if recommended. Pt states no further concerns/needs. CM to follow. Advised pt to ask CM if any further question/concerns/needs arise, voices understanding. Pt Goal: Home Plan: Home, pending course of treatment.
--- NOTE | 2022-01-25 09:42 | PCM.CONS.C ---
Assessment & Plan Assessment/Plan (1) CAD (coronary artery disease): PLAN: The patient has a history of underlying CAD. The details of his CAD are unknown at this time. He appears to be without any acute coronary syndrome symptoms at this time. He should continue medical management as deemed appropriate. (2) S/P CABG (coronary artery bypass graft): PLAN: The patient has a history of CABG. Again the details of his CABG are unknown at this time. He will continue medical therapy at this time. (3) Cardiomyopathy, ischemic: PLAN: Patient has a history of an underlying ischemic mediated cardiomyopathy. Based upon his history that he provides he states that his LV systolic function is diminished and his estimated LVEF was approximately 20%. He has undergone evaluation with a transthoracic echocardiogram. The final report is pending. However, based upon preliminary evaluation, it does appear that he has severe left ventricular segmental dysfunction with an estimated LVEF of approximately 15%. At the moment he will need to continue medical management. (4) CHF (congestive heart failure): PLAN: He did not up to have any acute on chronic systolic mediated CHF symptoms at this time. He has chronic lower extremity edema related issues. He will continue medical therapy. (5) ICD (implantable cardioverter-defibrillator) in place: PLAN: He states his ICD has never discharged. This can be reassessed/reinterrogated as deemed appropriate. (6) HLD (hyperlipidemia): PLAN: He will continue risk factor evaluation and care. (7) HTN (hypertension): PLAN: His blood pressure will need to be followed for any significant changes warranting change in his medication. (8) Diabetes: PLAN: He will continue evaluation care per internal medicine. (9) CKD (chronic kidney disease) stage 3, GFR 30-59 ml/min: PLAN: His renal function will need to be taken into consideration with respect to medical management, etc. (10) Dislocation of right hip: QUALIFIERS: Encounter type: initial encounter Qualified Code(s): S73.004A - Unspecified dislocation of right hip, initial encounter PLAN: He is reported as having dislocation of the right hip. He requires an orthopedic surgery under general anesthesia to assist in reducing his hip into the correct position. (11) Preoperative cardiovascular examination: PLAN: From a preoperative standpoint, he is at an increased risk for adverse cardiovascular events from noncardiac surgery under general anesthesia based upon his complex cardiovascular disease process. However, he appears to be clinically stable at the moment from his cardiovascular disease process. 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 Thus, with respect to his upcoming orthopedic procedure, he would need close monitoring of his cardiac rate, rhythm, and blood pressure during and following the procedure. An attempt should be made to avoid significant alterations in his vital signs especially hypotension during following his procedure. Also an attempt should be made to avoid excess IV volume that would bring out acute on chronic systolic mediated CHF/pulmonary edema. He should continue medical therapy and then around the time of his procedure as best as possible. The patient's case was discussed and reviewed with the patient and his spouse. His case was also discussed with Dr. Rian Santiago of [facility] anesthesiology. Dr. Santiago or a member of his staff agreed to assist in preoperative evaluation of the patient. The patient's case has also been discussed with Dr. Henderson. Addt'l Comments This note was generated using a voice recognition system and there may be incorrect words, spelling or punctuation that were not noted when reviewing the office note prior to saving. HPI Consult Data Date of Consult: 01/25/22 HPI Narrative HPI Narrative: MELVIN AGUIRRE, is a 76 year old white male who presents for cardiovascular consultation based upon the need for preoperative cardiovascular assessment for a right prosthetic femoral head dislocation from the acetabulum requiring an orthopedic procedure with anesthesia superimposed upon a history of underlying CAD, CABG, ischemic mediated cardiomyopathy, chronic systolic CHF, status post ICD placement, hyperlipidemia, hypertension, diabetes mellitus, chronic renal insufficiency, status post a unilateral nephrectomy, superimposed upon a history of pulmonary emboli. The patient follows with [facility] cardiology. It appears his cardiovascular diagnosis occurred in 2012 at which time he was diagnosed with CAD and underwent CABG and subsequently ICD placement. The patient states he has not been experiencing ongoing chest discomfort. He has chronic shortness of breath but has had no new acute shortness of breath episodes nor is he had any acute orthopnea or PND. He states his diuretics have been adjusted down based upon consideration of being intravascularly depleted, however, he began to develop lower extremity edema. Thus, his diuretics have been increased again to assist with his lower extremity edema. He has not had near syncope or syncope or ICD discharge. 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 He then subsequently felt his hip pop . He was subsequently evaluated in the emergency department and diagnosed with the aforementioned orthopedic condition. An attempt was made by the ED staff, as well as 2 different orthopedic surgeons (Dr. Son and Dr. Plasencia) to reduce the hip. However these attempts were unsuccessful. Thus he was recommended for further inpatient evaluation and care to have such a procedure performed under anesthesia. [facility] Medical History (Updated 01/25/22 @ 09:[address] Zackery Rivas MD) CAD (coronary artery disease) Cardiomyopathy, ischemic CHF (congestive heart failure) Chronic kidney disease, stage 4 (severe) Diabetes Diet-controlled diabetes mellitus Ex-smoker History of CHF (congestive heart failure) History of nephrectomy, unilateral History of renal insufficiency HLD (hyperlipidemia) HTN (hypertension) hx PE ICD (implantable cardioverter-defibrillator) in place Preoperative cardiovascular examination Home Medications Atorvastatin Calcium 40 mg PO QHS 06/01/14 [History Last Taken 01/23/22] carvedilol 12.5 mg PO BID 06/01/14 [History Last Taken 01/24/22] cholecalciferol (vitamin D3) [Vitamin D3] 2,000 unit PO DAILY 06/01/14 [History Last Taken 01/24/22] docusate sodium [DOK] 100 mg PO BID 06/01/14 [History Last Taken 01/24/22] furosemide 20 mg PO BID 06/01/14 [History Last Taken 01/24/22] loratadine [Allergy Relief (loratadine)] 10 mg PO DINNER PRN 06/01/14 [History Last Taken 09/21/14 17:00] diclofenac sodium 2 g TOPICAL BID 08/24/14 [History Last Taken 01/24/22] hydralazine 25 mg PO TID 08/24/14 [History Last Taken 01/24/22] isosorbide dinitrate 20 mg PO TID 08/24/14 [History Last Taken 01/24/22] tramadol 50 mg PO BID PRN PRN 08/24/14 [History Last Taken 09/22/14 16:00] empagliflozin 10 mg PO DAILY 01/24/22 [History Last Taken 01/24/22] timolol 1 drp EACH EYE BID 01/24/22 [History Last Taken 01/24/22] coenzyme Q10 10 mg PO DAILY 01/25/22 [History Last Taken 01/24/22] mecobalamin (vitamin B12) [B12 Active] 1,000 mcg PO DAILY 01/25/22 [History Last Taken 01/24/22] Allergy/AdvReac Type Severity Reaction Status Date / Time No Known Allergies Allergy Verified 01/24/22 18:41 Surgical History (Updated 01/25/22 @ 09:[address] Zackery Rivas MD) H/O hemorrhoidectomy H/O right knee surgery H/O right nephrectomy History of right hip replacement S/P CABG (coronary artery bypass graft) Social History Smoking Status: Former smoker ROS Constitutional Constitutional: Reports as per HPI Eyes Eyes: Reports as per HPI ENT HEENT: Reports as per HPI Cardiovascular Cardiovascular: Reports dyspnea Respiratory/Chest Respiratory/Chest: Reports dyspnea Gastrointestinal Gastrointestinal: Reports as per HPI Genitourinary Genitourinary: Reports as per HPI Musculoskeletal Musculoskeletal: Reports as per HPI Integumentary Integumentary: Reports as per HPI Neurologic Neurologic: Reports as per HPI Psychiatric Psychiatric: Reports as per HPI Physical Exam Const alert, oriented x3 and no apparent distress Orientation / Consciousness: awake HEENT normocephalic, head/scalp atraumatic and hearing grossly normal bilaterally Eyes PERRL, EOMs intact bilaterally and conjunctivae normal Neck full ROM, supple and no JVD Chest Chest: midline sternotomy incision and left pectoral incision Resp clear to auscultation bilaterally Cardio regular rate, regular rhythm, S1 normal heart sound and S2 normal heart sound GI normal to inspection, nondistended, normoactive bowel sounds Extremity General Extremity: edema bilateral lower extremity Details: moderate Skin Skin Narrative: Right leg: Surgical bandage in place Neuro oriented x3, moves all extremities, no focal motor deficits and no sensory deficits noted Psych mental status grossly normal Risk Stratification Risk Stratification Applicable: No Procedure Criteria Type of Procedure Procedure Type: Elective Elective Risks - COVID COVID Risk Discussion: The surgeon/proceduralist and patient have discussed in detail the risk of exposure to and/or potential harm posed by the COVID-19 virus with having a surgery/procedure at this time versus the risk of delaying the surgery/procedure. It is not possible to know either the risk of delaying the surgery or procedure or chance of getting an infection with perfect accuracy, but a joint decision was made between the patient and the surgeon/proceduralist to proceed at this time with the scheduled surgery/procedure as indicated on the consent form. Objective Data Vital Signs: Vital Signs Temp Pulse Resp BP Pulse Ox 98.1 F 74 13 107/66 95 01/25/22 07:42 01/25/22 07:42 01/25/22 07:42 01/25/22 07:42 01/25/22 07:42 Oxygen Flow Rate (L/min) [10] 0 Oxygen Flow Rate (L/min) [8] 3 Oxygen Flow Rate (L/min) [7] 5 Oxygen Flow Rate (L/min) [6] 5 Oxygen Flow Rate (L/min) [5] 5 Oxygen Flow Rate (L/min) [4] 6 Oxygen Flow Rate (L/min) [3] 5 Oxygen Flow Rate (L/min) [2] 15 Oxygen Flow Rate (L/min) 3 Oxygen Delivery Method [10] Room Air Oxygen Delivery Method [7] Nasal Cannula Oxygen Delivery Method [6] Nasal Cannula Oxygen Delivery Method [5] Nasal Cannula Oxygen Delivery Method [4] Nasal Cannula Oxygen Delivery Method [3] Non-Rebreather Oxygen Delivery Method [2] Non-Rebreather Oxygen Delivery Method Nasal Cannula Weight: 183 lb 10.321 oz Body Mass Index (BMI) 26.3 Intake & Output: Intake and Output for Last 24 Hours 01/23/22 01/24/22 01/25/22 23:59 23:59 23:59 Intake Total 0 / 0 Output Total 0 / 0 Balance 0 / 0 Lab / Micro Data Result Diagrams: 01/24/22 23:15 01/24/22 23:15 Labs: Laboratory Results - last 24 hr 01/24/22 23:15: WBC 3.6 L, RBC 4.65, Hgb 13.6, Hct 43.9, MCV 94.4 H, MCH 29.2, MCHC 31.0 L, RDW Std Deviation 58.4 H, RDW Coeff of Peri 17.0 H, Plt Count 152, MPV 10.7, Immature Gran % (Auto) 1.400 H, Neut % (Auto) 73.8 H, Lymph % (Auto) 13.5 L, [place] % (Auto) 9.1, Eos % (Auto) 1.1, Baso % (Auto) 1.1 H, Absolute Neuts (auto) 2.7, Absolute Lymphs (auto) 0.49 L, Nucleated RBC % 0.6, Diff Path Review May foll, Anisocytosis 1+ 01/24/22 23:15: Sodium 140, Potassium 4.6, Chloride 108 H, Carbon Dioxide 24.0, Anion Gap 8, BUN 69 H, Creatinine 2.60 H, Estim Creat Clear Calc 25.35, Est GFR (MDRD) Af Amer 31 L, Est GFR (MDRD) Non-Af 26 L, BUN/Creatinine Ratio 26.5 H, Glucose 124 H, Calcium 8.8 01/25/22 05:25: Hemoglobin A1c 6.0 H 01/25/22 06:48: POC Glucose 88 Cardiology Labs/Tests 01/24/22 23:15: WBC 3.6 L, RBC 4.65, Hgb 13.6, Hct 43.9, MCV 94.4 H, MCH 29.2, MCHC 31.0 L, Plt Count 152, MPV 10.7, Immature Gran % (Auto) 1.400 H, Neut % (Auto) 73.8 H, Lymph % (Auto) 13.5 L, [place] % (Auto) 9.1, Eos % (Auto) 1.1, Baso % (Auto) 1.1 H, Absolute Neuts (auto) 2.7, Nucleated RBC % 0.6 01/24/22 23:15: Sodium 140, Potassium 4.6, Chloride 108 H, Carbon Dioxide 24.0, Anion Gap 8, BUN 69 H, Creatinine 2.60 H, Est GFR (MDRD) Af Amer 31 L, Est GFR (MDRD) Non-Af 26 L, BUN/Creatinine Ratio 26.5 H, Glucose 124 H, Calcium 8.8 01/25/22 05:25: Hemoglobin A1c 6.0 H Rhythm: Electronic ventricular paced rhythm EKG: Electronic ventricular paced rhythm ECHO: Pending Radiography Diagnostic Testing: Radiology Impression Hip/Pelvis X-Ray 01/24/22 18:55 IMPRESSION: Prosthetic right femoral head is dislocated from the prosthetic acetabulum Electronically Signed: Colton Keita MD at 19:45 EDT , Hip/Pelvis X-Ray 01/24/22 20:00 IMPRESSION: Prosthetic right femoral head is dislocated from the prosthetic acetabulum. No change status post reduction . Persistent dislocation Electronically Signed: Colton Keita MD at 20:32 EDT , Hip/Pelvis X-Ray 01/24/22 21:35 IMPRESSION: No change status post reduction. Persistent dislocation Electronically Signed: Colton Keita MD at 21:55 EDT , Chest X-Ray 01/24/22 23:49 IMPRESSION: There are multiple nodular densities in both lung thurman. These could represent metastatic disease versus infiltrates. There is moderate cardiomegaly with a pacemaker Electronically Signed: Scot Simon MD at 0:25 EDT ,
[2022-01-25] MEDS: Timolol 0.25% 5ML OPTH.BTL 1 DRP EACH EYE ×2 (10:12→21:32)
--- NOTE | 2022-01-25 11:18 | PCA ---
WE RECIEVED RECORDS FROM DR. ASTORGA'S OFFICE CARDIOLOGY FOR SURGERY.
[2022-01-25 11:36] LABS: Bedside Glucose 76 mg/dL (74-106)
--- NOTE | 2022-01-25 12:10 | PCM.PN.ORT ---
Subjective Subjective Patient remains uncomfortable. and daughter were at bedside today. Objective Data Objective Data Vital Signs: Vital Signs Temp Pulse Resp BP Pulse Ox 97.7 F L 68 16 108/51 L 99 01/25/22 10:14 01/25/22 10:14 01/25/22 10:14 01/25/22 10:14 01/25/22 10:14 Oxygen Flow Rate (L/min) [10] 0 Oxygen Flow Rate (L/min) [8] 3 Oxygen Flow Rate (L/min) [7] 5 Oxygen Flow Rate (L/min) [6] 5 Oxygen Flow Rate (L/min) [5] 5 Oxygen Flow Rate (L/min) [4] 6 Oxygen Flow Rate (L/min) [3] 5 Oxygen Flow Rate (L/min) [2] 15 Oxygen Flow Rate (L/min) 3 Oxygen Delivery Method [10] Room Air Oxygen Delivery Method [7] Nasal Cannula Oxygen Delivery Method [6] Nasal Cannula Oxygen Delivery Method [5] Nasal Cannula Oxygen Delivery Method [4] Nasal Cannula Oxygen Delivery Method [3] Non-Rebreather Oxygen Delivery Method [2] Non-Rebreather Oxygen Delivery Method Nasal Cannula Weight: 183 lb 10.321 oz Body Mass Index (BMI) 26.3 Intake & Output: Intake and Output for Last 24 Hours 01/23/22 01/24/22 01/25/22 23:59 23:59 23:59 Intake Total 0 / 0 Output Total 0 / 0 Balance 0 / 0 Lab / Micro Data Result Diagrams: 01/24/22 23:15 01/24/22 23:15 Labs: Laboratory Results - last 24 hr 01/24/22 23:15: WBC 3.6 L, RBC 4.65, Hgb 13.6, Hct 43.9, MCV 94.4 H, MCH 29.2, MCHC 31.0 L, RDW Std Deviation 58.4 H, RDW Coeff of Peri 17.0 H, Plt Count 152, MPV 10.7, Immature Gran % (Auto) 1.400 H, Neut % (Auto) 73.8 H, Lymph % (Auto) 13.5 L, [place] % (Auto) 9.1, Eos % (Auto) 1.1, Baso % (Auto) 1.1 H, Absolute Neuts (auto) 2.7, Absolute Lymphs (auto) 0.49 L, Nucleated RBC % 0.6, Diff Path Review May foll, Anisocytosis 1+ 01/24/22 23:15: Sodium 140, Potassium 4.6, Chloride 108 H, Carbon Dioxide 24.0, Anion Gap 8, BUN 69 H, Creatinine 2.60 H, Estim Creat Clear Calc 25.35, Est GFR (MDRD) Af Amer 31 L, Est GFR (MDRD) Non-Af 26 L, BUN/Creatinine Ratio 26.5 H, Glucose 124 H, Calcium 8.8 01/25/22 05:25: Hemoglobin A1c 6.0 H 01/25/22 06:48: POC Glucose 88 01/25/22 11:32: POC Glucose 76 Radiography Diagnostic Testing: Radiology Impression Hip/Pelvis X-Ray 01/24/22 18:55 IMPRESSION: Prosthetic right femoral head is dislocated from the prosthetic acetabulum Electronically Signed: Colton Keita MD at 19:45 EDT , Hip/Pelvis X-Ray 01/24/22 20:00 IMPRESSION: Prosthetic right femoral head is dislocated from the prosthetic acetabulum. No change status post reduction . Persistent dislocation Electronically Signed: Colton Keita MD at 20:32 EDT , Hip/Pelvis X-Ray 01/24/22 21:35 IMPRESSION: No change status post reduction. Persistent dislocation Electronically Signed: Colton Keita MD at 21:55 EDT , Chest X-Ray 01/24/22 23:49 IMPRESSION: There are multiple nodular densities in both lung thurman. These could represent metastatic disease versus infiltrates. There is moderate cardiomegaly with a pacemaker Electronically Signed: Scot Simon MD at 0:25 EDT , Echocardiogram 01/24/22 23:52 Interpretation Summary Moderately dilated left ventricle. Severe segmental systolic dysfunction (see wall motion). The estimated ejection fraction is 15 %. Mild concentric left ventricular hypertrophy. The left atrium is moderately enlarged. The right atrium is mildly enlarged. There is mild to moderate mitral annular calcification. Extension the mitral annular calcification on the base of the posterior mitral valve leaflet. Anterior leaflet diffuse mitral valve thickening. Moderate (2+) eccentric mitral valve insufficiency. Moderate (2+) tricuspid valve insufficiency. Trivial aortic valve insufficiency. Right ventricular systolic pressure estimated to be 53 mmHg. There is evidence of diastolic dysfunction. ICD or pacer leads identified within the right atrium ICD or pacer leads identified within the right ventricle. Ordering Physician: Alpesh Carlson Performed By: [place] RDCS Assessment & Plan Assessment/Plan (1) Dislocation of right hip: QUALIFIERS: Encounter type: initial encounter Qualified Code(s): S73.004A - Unspecified dislocation of right hip, initial encounter PLAN: and daughter were at bedside today. Is we discussed treatment plans. Patient does have significant cardiovascular risk as noted by his cardiovascular consultation. We did discuss numerous options. I did spend some time this morning attempting to get appropriate implants lined up. Patient's total replacement was done in 2199 operative report was located. Patient has a 56 mm Allofit Roberto prosthesis. Per the Roberto product rep this is been discontinued. They are attempting to locate any residual inventory. Bedside discussion today was about appropriate treatment options moving forward. Based on the lack of an appropriate liner it would appear that if we are unsuccessful at a closed reduction his surgical options would be open reduction with no revision of the implants versus complete revision of the acetabular component. Based on patient's medical comorbidities we discussed a number of treatment options which include attempted closed reduction today and if unsuccessful proceed with revision in the next 24 to 48 hours couple of days when implants are available for complete revision. We could do closed reduction versus open reduction today with no plans on revision or delay any attempt to close reduction until appropriate implants are available in-house. Family understands there are different risks associated with each 1 of these plans including the risk of significantly more blood loss with complete revision as well as more prolonged surgery and more risk of general anesthesia associated with potential cardiovascular events that could lead to loss of life. If we do not revise any implants his risk of redislocation remains high as this is his second dislocation in a 4-year period. Finally we did discuss that if a close reduction was not successful we could leave the hip out which at this point patient did not wish to proceed with. At this time they have not made a final decision they would like to have some time to consider this. I gave them my cell phone number and encouraged him to contact me as soon as possible so that we can let the operating room staff know. [facility] Office:
[2022-01-25 13:17] LABS: Pathologist Review Reviewed
--- NOTE | 2022-01-25 14:38 | NURSING ---
pt to surgery at 230 and off the floor
[2022-01-25] MEDS: 0.9% Normal Saline 1,000 ML 15 ML IV (14:44)
--- NOTE | 2022-01-25 15:56 | RAD_ITS ---
STUDY: FLUOROSCOPIC X-RAY OF THE RIGHT HIP OF 1619 HOURS ON 01/25/2022 REASON FOR EXAM: Presence of a dislocated right hip. TECHNIQUE: One fluoroscopic views of the pelvis and hip. COMPARISON: None. There is a complete right hip prosthesis that is dislocated. RAD/Hip 1 view with Pelvis IMPRESSION: Dislocated right hip prosthesis Electronically Signed: Scot Kaufman MD at 0:41 EDT ,
--- NOTE | 2022-01-25 17:40 | OP.PCM_ITS ---
Report of Operation Date of Procedure: 01/25/22 Pre-Operative Diagnosis: Dislocated right total replacement Post-Operative Diagnosis: Dislocated right total replacement Surgery/Procedure Performed:: Open reduction right total hip replacement. Description of Surgical Findings:: Patient's femoral head was entrapped in the abductors superiorly. Surgeon: Quang Cao bowling floor desk clerk: Cathie Chávez Type of Anesthesia: General Anesthesiologist: Avel Jones Special Medications: 2 GM ANCEF Estimated Blood Loss (mL): 25 Fluids Replaced: 300 ML CRYSTALLOID Description of Procedure: On the date of the procedure after extensive preoperative talk with the family due to patient's hip dislocation and his medical comorbidities we discussed reattempting closed reduction with full anesthesia and paralysis with converting to open if he is unable to be reduced. After thorough discussion he did not wish to proceed with any revision acetabular component as there was not a liner as his liner has been discontinued. Patient was brought down to the preoperative area where we again discussed the operative plan. His right hip was marked. Consent was obtained and signed. Please see the previous consultation. Family understood risks of the procedure including fractures, infections, blood loss, DVTs, PEs, nervous damage infection and general risk of anesthesia. Patient also demonstrated a full understanding and was able to sign informed consent. Patient was brought back to the operating room where he was given anesthesia. After anesthesia administered anesthetic the assumed control of the C-spine airway and patient was transferred the table in the supine position. Once on the operating room table all bony problems identified well-padded and live x-ray was used to verify hip dislocation. Based on the assume mechanism of injury based on how he describes it happening hip was flexed up and internally rotated and traction was pulled. We attempted the reduction with and without live fluoroscopy. Were able to get the component perched multiple times however we could not get a good reduction. After multiple attempts as well as attempts with complete paralysis as well as concerns for continued duration of anesthesia without success as well as potential for fracture of the patient's extremities elected to convert to open. At this time I went out and spoke with the family notify them of our plan. At this time patient was placed in the lateral cubitus position. He was secured to the bed with pegboard. Right lower extremity was prepped in a sterile fashion and the surgeon scrubbed. Once the extremity was appropriately prepped it was draped in a sterile repeat fashion incision was marked out a timeout was called. When agreed upon the side, site, she did perform, patient identity and antibiotics given. At this time incision was taken down through skin subcutaneous fat down to fascia. Once the fascia was identified the leg was abducted and the fascia was incised. There was a good posterior tissue. As we pulled on this tissue it seemed to have a Trin[place] fingertrap mechanism on the femoral head. We carefully dissected down the posterior tissues down to bone and along the prosthesis. As we dissected off the prosthesis we released the band of tissue that was entrapping the femoral head. Once this was done the pusher was obtained and my assistant case manager pulled on the leg while rotating the hip. We carefully reduced the leg however even with open reduction it was a potential reduction. Once we had reduced we flexed his left hip flexed to 90 degrees with 30 degrees of internal rotation remained stable. Based on our operative plan we are happy with this. We then inspected the implants. The implants remain stably fixed. There is not excessive wear of the polyethylene. At this time the wound was copiously irrigated out with a 3-minute dilute Betadine lavage followed by chlorhexidine and 2 L of normal saline. The posterior soft tissue sleeve was closed using #2 FiberWire and tunnels through the greater trochanter. Fascia was closed with #1 Vicryl first interrupteds then runs proximally distally. Skin was closed using 2-0 Vicryl. We did do a deep fatty layer using #1 Vicryl. Finally skin was closed using se. Silver occlusive dressing was placed. Skin tear on his leg was dressed. Patient was transferred back to the supine position and transferred to the hospital bed. Patient was then transferred to the PACU for recovery in stable condition. Postop plan for this patient: DVT prophylaxis?patient will need Lovenox for 2 weeks, renal dosing will be required. Patient will have 3 months of strict posterior hip precautions and lifetime posterior hip precautions will be stressed. 24 hours of antibiotics will be prescribed. Weightbearing as tolera sim. Admit VTE Documentation VTE Present on Admission: No VTE Mechan Device Prophylaxis: SCD's and Thigh High SIM Hose VTE Pharm Prophylaxis ordered?: Yes
[2022-01-25 18:11] LABS: Bedside Glucose 78 mg/dL (74-106)
--- NOTE | 2022-01-25 18:30 | RAD_ITS ---
STUDY: POST-OPERATIVE PORTABLE AP AND LATERAL VIEWS OF THE RIGHT HIP OF 1821 HOURS ON 01/25/2022 REASON FOR EXAM: 76-year-old male postoperative for a right hip prosthesis. TECHNIQUE: views of the pelvis and hip. COMPARISON: None. FINDINGS: There are surgical clips lateral to the right hip region. There is a complete right hip prosthesis. There is no evidence of adjacent fractures or dislocation. No osseous lytic, sclerotic or mass lesions are evident in the surrounding osseous structures. There is mild subcutaneous emphysema lateral to the hip joint. Mild demineralization is noted. RAD/Hip Min 2 Views (Portable) IMPRESSION: 1. Post-operative complete right hip prosthesis. 2. No evidence of adjacent osseous fractures or dislocations. 3. Surgical skin clips and subcutaneous emphysema lateral to the right hip joint region. 4. Mild demineralization. Electronically Signed: Scot Kaufman MD at 19:06 EDT ,
[2022-01-25] MEDS: Docusate Sodium 100 MG Capsule PO (21:17)
[2022-01-25] MEDS: Carvedilol 12.5 MG Tablet PO (21:17)
[2022-01-25] MEDS: Multivitamins,Therapeutic Tablet 1 TABLET PO (21:24)
[2022-01-25] MEDS: hydrALAZINE 25 MG Tablet PO (21:24)
[2022-01-25] MEDS: Cefazolin 1 GM/50 ML BAG IV (21:32)
[2022-01-25] MEDS: Atorvastatin Calcium 40 MG Tablet PO (21:32)
[2022-01-25 21:51] LABS: Bedside Glucose 144 mg/dL (74-106)
[2022-01-26] VITALS (17 sets, daily range): BP systolic 73–112; BP diastolic 37–59; PULSE 64–75; RESP 16–20; TEMP 36.4–36.8; O2SAT 86–97
[2022-01-26] MEDS: traMADol 50 MG Tablet PO ×3 (03:34→21:54)
[2022-01-26] MEDS: Acetaminophen 325 MG Tablet 650 MG PO ×3 (03:34→16:52)
[2022-01-26 05:31] LABS: Absolute Lymphocyte Count 0.44 X10^3/uL (0.83-4.51); Absolute Neutrophil Count 2.1 X10^3/uL (2.0-7.7); Basophil# 0.03 X10^3/uL; Eosinophil# 0.03 X10^3/uL; Hematocrit 38.5 % (40-54); Hemoglobin 11.9 g/dL (13.0-16.5); Lymphocyte # 0.44 X10^3/ul (0.83-4.51); Lymphocyte % 14.9 % (19-41); Mean Corp Hgb Conc 30.9 g/dL (32-36); Mean Corpuscular Hgb 28.8 pg (27.0-32.0); Mean Corpuscular Volume 93.2 fL (80-94); Mean Platelet Vol. 11.2 fl (6.2-12.0); Monocyte# 0.35 X10^3/uL; Monocyte% 11.8 % (0-10); NRBC Flagged by Analyzer 0 % (0-5); POSITIVE DIFFERENTIAL YES; Platelet Count 125 K/mm3 (150-450); RBC Distribution Width CV 16.7 % (11.6-14.6); RBC Distribution Width SD 57.1 fl (35.1-43.9); Red Blood Count 4.13 M/mm3 (4.6-6.2)
[2022-01-26 05:36] LABS: Differential Indicated SCAN CRITERIA MET
--- NOTE | 2022-01-26 05:46 | PCM.PN.HOSP ---
Subjective Subjective Patient overnight following operative intervention per orthopedic surgery with required opening to correct the dislocated right hip notes moderate pain especially with movement and states that his right knee is bothering him which he believes is positional secondary to prolonged OR time. Additionally patient has required oxygen requirements this a.m. with concern for mild overload on evaluation with IV Lasix administration to which patient notes toleration. He does not remark on any significant dyspnea complaints. Patient denies fevers, chills, nausea, emesis, abdominal pain, chest pain. Objective Data Objective Data Vital Signs: Vital Signs Temp Pulse Resp BP Pulse Ox 97.9 F 75 18 112/59 L 93 01/26/22 03:48 01/26/22 03:48 01/26/22 03:48 01/26/22 03:48 01/26/22 03:48 Oxygen Flow Rate (L/min) [10] 0 Oxygen Flow Rate (L/min) [8] 3 Oxygen Flow Rate (L/min) [7] 5 Oxygen Flow Rate (L/min) [6] 5 Oxygen Flow Rate (L/min) [5] 5 Oxygen Flow Rate (L/min) [4] 6 Oxygen Flow Rate (L/min) [3] 5 Oxygen Flow Rate (L/min) [2] 15 Oxygen Flow Rate (L/min) 2 Oxygen Delivery Method [10] Room Air Oxygen Delivery Method [7] Nasal Cannula Oxygen Delivery Method [6] Nasal Cannula Oxygen Delivery Method [5] Nasal Cannula Oxygen Delivery Method [4] Nasal Cannula Oxygen Delivery Method [3] Non-Rebreather Oxygen Delivery Method [2] Non-Rebreather Oxygen Delivery Method Nasal Cannula Weight: 183 lb 10.321 oz Body Mass Index (BMI) 26.3 Intake & Output: Intake and Output for Last 24 Hours 01/24/22 01/25/22 01/26/22 23:59 23:59 23:59 Intake Total 434.75 / 434.75 Output Total 600 / 600 Balance -165.25 / -165.25 Lab / Micro Data Result Diagrams: 01/26/22 04:52 01/26/22 04:52 Labs: Laboratory Results - last 24 hr 01/24/22 23:15: Diff Path Review Reviewed 01/25/22 05:25: Hemoglobin A1c 6.0 H 01/25/22 06:48: POC Glucose 88 01/25/22 11:32: POC Glucose 76 01/25/22 18:06: POC Glucose 78 01/25/22 21:40: POC Glucose 144 H 01/26/22 04:52: WBC 3.0 L, RBC 4.13 L, Hgb 11.9 L, Hct 38.5 L, MCV 93.2, MCH 28.8, MCHC 30.9 L, RDW Std Deviation 57.1 H, RDW Coeff of Peri 16.7 H, Plt Count 125 L, MPV 11.2, Immature Gran % (Auto) 0.300, Neut % (Auto) 71.0 H, Lymph % (Auto) 14.9 L, [place] % (Auto) 11.8 H, Eos % (Auto) 1.0, Baso % (Auto) 1.0, Absolute Neuts (auto) 2.1, Absolute Lymphs (auto) 0.44 L, Nucleated RBC % 0 Radiography Diagnostic Testing: Radiology Impression Echocardiogram 01/24/22 23:52 Interpretation Summary Moderately dilated left ventricle. Severe segmental systolic dysfunction (see wall motion). The estimated ejection fraction is 15 %. Mild concentric left ventricular hypertrophy. The left atrium is moderately enlarged. The right atrium is mildly enlarged. There is mild to moderate mitral annular calcification. Extension the mitral annular calcification on the base of the posterior mitral valve leaflet. Anterior leaflet diffuse mitral valve thickening. Moderate (2+) eccentric mitral valve insufficiency. Moderate (2+) tricuspid valve insufficiency. Trivial aortic valve insufficiency. Right ventricular systolic pressure estimated to be 53 mmHg. There is evidence of diastolic dysfunction. ICD or pacer leads identified within the right atrium ICD or pacer leads identified within the right ventricle. Ordering Physician: Alpesh Carlson Performed By: [place] RDCS Hip/Pelvis X-Ray 01/25/22 15:56 IMPRESSION: Dislocated right hip prosthesis Electronically Signed: Scot Kaufman MD at 0:41 EDT , Hip X-Ray 01/25/22 18:30 IMPRESSION: 1. Post-operative complete right hip prosthesis. 2. No evidence of adjacent osseous fractures or dislocations. 3. Surgical skin clips and subcutaneous emphysema lateral to the right hip joint region. 4. Mild demineralization. Electronically Signed: Scot Kaufman MD at 19:06 EDT , Physical Exam Narrative Physical Examination: General: Awake, alert, oriented x 3 and cooperative, seated upright in medical surgical bed, more fatigued than day prior and does admit to some discomfort to primarily his right knee and right hip. Skin: Normal color, normal turgor, no icterus, no cyanosis except a small area of an abrasion with denuded skin following attempts to manipulate the right lower extremity to the anterior distal maldonado, dressed, no drainage, status post OR right hip with dressing in place, no drainage. HEENT: AT/NC, EOMI, PERRLA, MMM. Lungs: Remains diminished, greater bases, mild rales at the bases, no current rhonchi or wheezing and no evidence of any distress. Heart: Currently regular rate and rhythm; no gallop, rub audible. Abdomen: Soft, NTTP, ND, normal BS, no HSM. Extremities: No cyanosis, no clubbing, right lower extremity with peripheral pulses intact, status post OR with required open transition for correction of right dislocated hip, dressings in place, ongoing bilateral lower extremity significant 3+ pitting edema pedal to proximal thigh, right knee palpated with effusion noted and edema, right hip with dressing in place. Neurological: Patient awake, alert, oriented as noted, cognitive function intact; pupils equally reactive to light and accommodation, cranial nerves II-XII grossly normal, moving all 4 extremities however extremely limited right lower extremity given recent OR and limitations, strength accordingly severely globally decreased. Psychiatric: Affect appears mildly fatigued, no acute evidence of depressive or anxiety feelings. Assessment & Plan Assessment/Plan (1) Dislocation of right hip: QUALIFIERS: Encounter type: initial encounter Qualified Code(s): S73.004A - Unspecified dislocation of right hip, initial encounter PLAN: The patient is a 76 y/o M w/ PMHx: Hx VTE, Chronic CHF s/p AICD (following w/ Dr Gonzalez Sql Database Administrator), CAD, CKD stage IV w/ Hx R nephrectomy, Former tobacco use, Diet-controlled diabetes mellitus type II who presents to the [facility] ED on 01/24/22 secondary to intractable R hip pain with dislocation following bending over to pick something up off the floor. #1. History of prior right total hip replacement with dislocation, recurrent: Failed conservative therapies and prior reductions, admitted to CT per Hospitalist service, Dr. Cao consulted and following, planned evaluation under anesthesias as unable to reduce in the ED per ED physician or Dr. Cao/Dr. España with bedside evaluation per Cardiology as well as Anesthesias with eventual 01/25/22 OR w/ Open reduction right total hip replacement, given low BP will transition to fentanyl and oral pain regimen, continue as needed bowel regimen, DVT Prophylaxis per Ortho discretion given recent OR, PT/OT/CM consulted with suspected possible SNF needs. #2. Chronic Kidney Disease Stage IV: Admission BUN/Cr 69/2.60, baseline renal function 2.2-2.5, will continue to trend, if rises further may consider hold on nephrotoxic regimen and judicious hydration, continue to trend, 01/26/22 BUN/Cr 72/2.56. #3. CAD: s/p CABG, we will continue patient home Coreg, statin therapy, isosorbide, hydralazine, not on THOMAS inhibitor/ARB. #4. Chronic CHF, Systolic (patient/ reported EF 20%) w/ recent worsening BL LE Edema: s/p AICD, no echocardiogram noted in the system, we will continue patient home Coreg, statin, isosorbide, hydralazine, Lasix therapy with close monitoring of renal function as noted with pulse 01/26/22 AM IV lasix dose as administered with oxygen requirements suspected secondary to mild overload given prolonged OR time. Will transition back following given labile BPs to oral regimen only. Continue snug THOMAS wraps. ECHO w/ echocardiogram with noted moderate dilated LV, severe segmental systolic dysfunction, EF 15%, mild concentric LVH, moderately enlarged LA, mildly enlarged RA, moderate MVI, moderate TVI, trivial MARCIA, RVSP 53 mmHg, evidence of diastolic dysfunction, leads in place in the right atrium and right ventricle. Cardiology consulted and following. #5. Hypertension: Continue home regimen including Coreg, isosorbide, hydralazine, Lasix oral with pulse dose IV lasix x 1 with hold parameters as needed, PRN hydralazine. #6. Hyperlipidemia: We will continue patient on statin therapy. #7. Diabetes mellitus type II, diet-controlled: Continue ADA diet, accu checks w/ ISS. #8. Hx VTE: Remote, not on any chronic anticoaluation. #9. DVT prophylaxis: SCDs, heparin. #10. CODE STATUS: Full code. Charges/Coding Visit Charges Inpatient E&M: 83175 Subs Hosp L3
[2022-01-26] MEDS: Cefazolin 1 GM/50 ML BAG IV (05:47)
[2022-01-26] MEDS: hydrALAZINE 25 MG Tablet PO ×2 (05:52→21:43)
[2022-01-26] MEDS: Isosorbide DN 20 MG Tablet PO ×2 (05:53→21:44)
[2022-01-26 05:56] LABS: Anisocytosis 1+; Platelet Estimate SLT DEC (ADEQ)
[2022-01-26 06:01] LABS: ALB/GLOB Ratio 1.1 RATIO (0.9-2.4); AST(SGOT) 14 U/L (15-37); Alanine Aminotransfer ALT/SGPT 16 U/L (16-61); Albumin, Serum 2.9 g/dL (3.2-5.0); Alkaline Phosphatase 76 U/L (45-117); Anion Gap 9 (5-15); BUN 72 mg/dL (7-18); BUN/Creat Ratio 28.1 RATIO (10-20); Calcium,Total 7.8 mg/dL (8.5-10.1); Chloride 108 mmol/L (98-107); Creatinine, Serum 2.56 mg/dL (0.70-1.30); EST Glomerular Filtration Rate 26 mL/min (>60); Est Glom Filt Rate - Afr Amer 32 mL/min (>60); Estimated Creatinine Clearance 25.74 ml/min; Globulin 2.7 g/dL (2.2-4.2); Glucose 89 mg/dL (74-106); Potassium 4.4 mmol/L (3.5-5.1); Protein, Total 5.6 g/dL (6.4-8.2); Sodium Level 138 mmol/L (136-145)
[2022-01-26 06:51] LABS: Bedside Glucose 92 mg/dL (74-106)
[2022-01-26] MEDS: Albuterol 2.5 MG/3 ML VIAL.NEB. INHALATION (07:17)
[2022-01-26] MEDS: Furosemide 20 MG/2 ML VIAL IV (07:58)
[2022-01-26] MEDS: 0.9% Saline Lock 10 ML Syringe IV ×2 (07:58→14:03)
--- NOTE | 2022-01-26 09:11 | PCM.PN.CARD ---
Subjective Subjective The patient is awake and alert. He denies any ongoing chest discomfort or worsening shortness of breath or dyspnea. He believes his lower extremity peripheral pitting edema, since his primary supervisor hand silvering adjusted his diuretic therapy, has improved somewhat. He notes his main concern at this time, post his orthopedic surgery procedure, his right knee discomfort. Objective Data Vital Signs: Vital Signs Temp Pulse Resp BP Pulse Ox 98.2 F 66 18 111/49 L 97 01/26/22 07:57 01/26/22 07:57 01/26/22 07:57 01/26/22 07:57 01/26/22 07:57 Oxygen Flow Rate (L/min) [10] 0 Oxygen Flow Rate (L/min) [8] 3 Oxygen Flow Rate (L/min) [7] 5 Oxygen Flow Rate (L/min) [6] 5 Oxygen Flow Rate (L/min) [5] 5 Oxygen Flow Rate (L/min) [4] 6 Oxygen Flow Rate (L/min) [3] 5 Oxygen Flow Rate (L/min) [2] 15 Oxygen Flow Rate (L/min) 3 Oxygen Delivery Method [10] Room Air Oxygen Delivery Method [7] Nasal Cannula Oxygen Delivery Method [6] Nasal Cannula Oxygen Delivery Method [5] Nasal Cannula Oxygen Delivery Method [4] Nasal Cannula Oxygen Delivery Method [3] Non-Rebreather Oxygen Delivery Method [2] Non-Rebreather Oxygen Delivery Method Nasal Cannula Weight: 183 lb 10.321 oz Body Mass Index (BMI) 26.3 Intake & Output: Intake and Output for Last 24 Hours 01/24/22 01/25/22 01/26/22 23:59 23:59 23:59 Intake Total 434.75 / 434.75 350 / 350 Output Total 600 / 600 225 / 225 Balance -165.25 / -165.25 125 / 125 Lab / Micro Data Result Diagrams: 01/26/22 04:52 01/26/22 04:52 Labs: Laboratory Results - last 24 hr 01/24/22 23:15: Diff Path Review Reviewed 01/25/22 11:32: POC Glucose 76 01/25/22 18:06: POC Glucose 78 01/25/22 21:40: POC Glucose 144 H 01/26/22 04:52: WBC 3.0 L, RBC 4.13 L, Hgb 11.9 L, Hct 38.5 L, MCV 93.2, MCH 28.8, MCHC 30.9 L, RDW Std Deviation 57.1 H, RDW Coeff of Peri 16.7 H, Plt Count 125 L, MPV 11.2, Immature Gran % (Auto) 0.300, Neut % (Auto) 71.0 H, Lymph % (Auto) 14.9 L, [place] % (Auto) 11.8 H, Eos % (Auto) 1.0, Baso % (Auto) 1.0, Absolute Neuts (auto) 2.1, Absolute Lymphs (auto) 0.44 L, Nucleated RBC % 0, Diff Path Review March, Platelet Estimate SLT DEC, Anisocytosis 1+ 01/26/22 04:52: Sodium 138, Potassium 4.4, Chloride 108 H, Carbon Dioxide 21.0, Anion Gap 9, BUN 72 H, Creatinine 2.56 H, Estim Creat Clear Calc 25.74, Est GFR (MDRD) Af Amer 32 L, Est GFR (MDRD) Non-Af 26 L, BUN/Creatinine Ratio 28.1 H, Glucose 89, Calcium 7.8 L, Total Bilirubin 0.70, AST 14 L, ALT 16, Alkaline Phosphatase 76, Total Protein 5.6 L, Albumin 2.9 L, Globulin 2.7, Albumin/Globulin Ratio 1.1 01/26/22 06:39: POC Glucose 92 Cardiology Labs/Tests 01/26/22 04:52: WBC 3.0 L, RBC 4.13 L, Hgb 11.9 L, Hct 38.5 L, MCV 93.2, MCH 28.8, MCHC 30.9 L, Plt Count 125 L, MPV 11.2, Immature Gran % (Auto) 0.300, Neut % (Auto) 71.0 H, Lymph % (Auto) 14.9 L, [place] % (Auto) 11.8 H, Eos % (Auto) 1.0, Baso % (Auto) 1.0, Absolute Neuts (auto) 2.1, Nucleated RBC % 0 01/26/22 04:52: Sodium 138, Potassium 4.4, Chloride 108 H, Carbon Dioxide 21.0, Anion Gap 9, BUN 72 H, Creatinine 2.56 H, Est GFR (MDRD) Af Amer 32 L, Est GFR (MDRD) Non-Af 26 L, BUN/Creatinine Ratio 28.1 H, Glucose 89, Calcium 7.8 L, Total Bilirubin 0.70 Rhythm: Electronic ventricular paced rhythm; occasional PVCs Radiography Diagnostic Testing: Radiology Impression Echocardiogram 01/24/22 23:52 Interpretation Summary Moderately dilated left ventricle. Severe segmental systolic dysfunction (see wall motion). The estimated ejection fraction is 15 %. Mild concentric left ventricular hypertrophy. The left atrium is moderately enlarged. The right atrium is mildly enlarged. There is mild to moderate mitral annular calcification. Extension the mitral annular calcification on the base of the posterior mitral valve leaflet. Anterior leaflet diffuse mitral valve thickening. Moderate (2+) eccentric mitral valve insufficiency. Moderate (2+) tricuspid valve insufficiency. Trivial aortic valve insufficiency. Right ventricular systolic pressure estimated to be 53 mmHg. There is evidence of diastolic dysfunction. ICD or pacer leads identified within the right atrium ICD or pacer leads identified within the right ventricle. Ordering Physician: Alpesh Carlson Performed By: [place] RDCS Hip/Pelvis X-Ray 01/25/22 15:56 IMPRESSION: Dislocated right hip prosthesis Electronically Signed: Scot Kaufman MD at 0:41 EDT , Hip X-Ray 01/25/22 18:30 IMPRESSION: 1. Post-operative complete right hip prosthesis. 2. No evidence of adjacent osseous fractures or dislocations. 3. Surgical skin clips and subcutaneous emphysema lateral to the right hip joint region. 4. Mild demineralization. Electronically Signed: Scot Kaufman MD at 19:06 EDT , Physical Exam Const alert, oriented x3 and no apparent distress Orientation / Consciousness: awake HEENT normocephalic, head/scalp atraumatic and hearing grossly normal bilaterally Eyes PERRL, EOMs intact bilaterally and conjunctivae normal Neck full ROM, supple and no JVD Chest Chest: midline sternotomy incision and left pectoral incision Resp clear to auscultation bilaterally Cardio regular rate, regular rhythm, S1 normal heart sound and S2 normal heart sound GI normal to inspection, nondistended, normoactive bowel sounds Extremity General Extremity: edema bilateral lower extremity Details: moderate Skin Skin Narrative: Bilateral lower extremities: Wally wraps Neuro oriented x3, moves all extremities, no focal motor deficits and no sensory deficits noted Psych mental status grossly normal Assessment & Plan Assessment/Plan (1) CAD (coronary artery disease): PLAN: The patient has a history of underlying CAD. The details of his CAD are unknown at this time. He appears to be without any acute coronary syndrome symptoms at this time. He should continue medical management as deemed appropriate. (2) S/P CABG (coronary artery bypass graft): PLAN: The patient has a history of CABG. Again the details of his CABG are unknown at this time. He will continue medical therapy at this time. (3) Cardiomyopathy, ischemic: PLAN: The patient has a history of an underlying ischemic mediated cardiomyopathy. Based upon his history that he provides he states that his LV systolic function is diminished and his estimated LVEF was approximately 20%. He has undergone further evaluation with transthoracic echocardiogram as noted. His LV systolic function is decreased with an estimated LVEF 50% (please see official report). At the moment he will need to continue medical management. (4) CHF (congestive heart failure): PLAN: He did not up to have any acute on chronic systolic mediated CHF symptoms at this time. He has chronic lower extremity edema related issues. He will continue medical therapy. (5) ICD (implantable cardioverter-defibrillator) in place: PLAN: He states his ICD has never discharged. This can be reassessed/reinterrogated as deemed appropriate. (6) HLD (hyperlipidemia): PLAN: He will continue risk factor evaluation and care. (7) HTN (hypertension): PLAN: His blood pressure will need to be followed for any significant changes warranting change in his medication. (8) Diabetes: PLAN: He will continue evaluation care per internal medicine. (9) CKD (chronic kidney disease) stage 3, GFR 30-59 ml/min: PLAN: His renal function will need to be taken into consideration with respect to medical management, etc. (10) Dislocation of right hip: QUALIFIERS: Encounter type: initial encounter Qualified Code(s): S73.004A - Unspecified dislocation of right hip, initial encounter PLAN: He is reported as having dislocation of the right hip. He is now status post ORIF. He appears to be without obvious acute postoperative cardiovascular complaints/complications. At the present time he will continue his cardiovascular medical therapy and monitor for any concerning symptoms and/or adverse events that requires further evaluation and care. Otherwise he will continue under the care of internal medicine and orthopedic surgery. Addt'l Comments The patient's case has been discussed and reviewed with the patient. This note was generated using a voice recognition system and there may be incorrect words, spelling or punctuation that were not noted when reviewing the office note prior to saving. Procedure Criteria Type of Procedure Procedure Type: Elective Elective Risks - COVID COVID Risk Discussion: The surgeon/proceduralist and patient have discussed in detail the risk of exposure to and/or potential harm posed by the COVID-19 virus with having a surgery/procedure at this time versus the risk of delaying the surgery/procedure. It is not possible to know either the risk of delaying the surgery or procedure or chance of getting an infection with perfect accuracy, but a joint decision was made between the patient and the surgeon/proceduralist to proceed at this time with the scheduled surgery/procedure as indicated on the consent form.
[2022-01-26] MEDS: Cholecalciferol (VIT D3) 25 MCG TABLET (1,000 UNITS) PO (09:35)
[2022-01-26] MEDS: Carvedilol 12.5 MG Tablet PO ×2 (09:35→21:44)
[2022-01-26] MEDS: Timolol 0.25% 5ML OPTH.BTL 1 DRP EACH EYE ×2 (09:35→21:45)
[2022-01-26] MEDS: Empagliflozin 10 MG Tablet PO (09:35)
[2022-01-26] MEDS: Ensure Surgery 237 ML LIQUID PO ×2 (09:36→14:03)
[2022-01-26] MEDS: Docusate Sodium 100 MG Capsule PO ×2 (09:36→21:45)
[2022-01-26] MEDS: Heparin Injection (Vial) 5,000 UNIT/ML VIAL 5000 UNIT SC ×2 (09:41→21:45)
[2022-01-26] MEDS: oxyCODONE 5 MG Tablet PO ×3 (11:40→23:45)
[2022-01-26 13:21] LABS: Bedside Glucose 157 mg/dL (74-106)
--- NOTE | 2022-01-26 14:34 | PN.ORTHO_ITS ---
Subjective Subjective Patient is doing well. No acute events overnight. Sitting up in chair. He does complain of ankle pain and knee pain on the right as well as some maldonado pain on left now. No chest pain or shortness of breath. Family is at bedside. Overall doing well. Looks like there considering placement upon discharge. Objective Data Objective Data Vital Signs: Vital Signs Temp Pulse Resp BP Pulse Ox 98.3 F 64 18 73/37 L 95 01/26/22 14:15 01/26/22 14:15 01/26/22 14:15 01/26/22 14:15 01/26/22 14:15 Oxygen Flow Rate (L/min) [10] 0 Oxygen Flow Rate (L/min) [8] 3 Oxygen Flow Rate (L/min) [7] 5 Oxygen Flow Rate (L/min) [6] 5 Oxygen Flow Rate (L/min) [5] 5 Oxygen Flow Rate (L/min) [4] 6 Oxygen Flow Rate (L/min) [3] 5 Oxygen Flow Rate (L/min) [2] 15 Oxygen Flow Rate (L/min) 3 Oxygen Delivery Method [10] Room Air Oxygen Delivery Method [7] Nasal Cannula Oxygen Delivery Method [6] Nasal Cannula Oxygen Delivery Method [5] Nasal Cannula Oxygen Delivery Method [4] Nasal Cannula Oxygen Delivery Method [3] Non-Rebreather Oxygen Delivery Method [2] Non-Rebreather Oxygen Delivery Method Nasal Cannula Weight: 183 lb 10.321 oz Body Mass Index (BMI) 26.3 Intake & Output: Intake and Output for Last 24 Hours 01/24/22 01/25/22 01/26/22 23:59 23:59 23:59 Intake Total 434.75 / 434.75 750 / 750 Output Total 600 / 600 345 / 345 Balance -165.25 / -165.25 405 / 405 Lab / Micro Data Result Diagrams: 01/26/22 04:52 01/26/22 04:52 Labs: Laboratory Results - last 24 hr 01/25/22 18:06: POC Glucose 78 01/25/22 21:40: POC Glucose 144 H 01/26/22 04:52: WBC 3.0 L, RBC 4.13 L, Hgb 11.9 L, Hct 38.5 L, MCV 93.2, MCH 28.8, MCHC 30.9 L, RDW Std Deviation 57.1 H, RDW Coeff of Peri 16.7 H, Plt Count 125 L, MPV 11.2, Immature Gran % (Auto) 0.300, Neut % (Auto) 71.0 H, Lymph % (Auto) 14.9 L, [place] % (Auto) 11.8 H, Eos % (Auto) 1.0, Baso % (Auto) 1.0, Absolute Neuts (auto) 2.1, Absolute Lymphs (auto) 0.44 L, Nucleated RBC % 0, Diff Path Review March, Platelet Estimate SLT DEC, Anisocytosis 1+ 01/26/22 04:52: Sodium 138, Potassium 4.4, Chloride 108 H, Carbon Dioxide 21.0, Anion Gap 9, BUN 72 H, Creatinine 2.56 H, Estim Creat Clear Calc 25.74, Est GFR (MDRD) Af Amer 32 L, Est GFR (MDRD) Non-Af 26 L, BUN/Creatinine Ratio 28.1 H, Glucose 89, Calcium 7.8 L, Total Bilirubin 0.70, AST 14 L, ALT 16, Alkaline Phosphatase 76, Total Protein 5.6 L, Albumin 2.9 L, Globulin 2.7, Albumin/Globu baljeet Ratio 1.1 01/26/22 06:39: POC Glucose 92 01/26/22 13:15: POC Glucose 157 H Radiography Diagnostic Testing: Radiology Impression Hip/Pelvis X-Ray 01/25/22 15:56 IMPRESSION: Dislocated right hip prosthesis Electronically Signed: Scot Kaufman MD at 0:41 EDT Reading Location ID and State: [address] [place] [address] Tel , Service support , Hip X-Ray 01/25/22 18:30 IMPRESSION: 1. Post-operative complete right hip prosthesis. 2. No evidence of adjacent osseous fractures or dislocations. 3. Surgical skin clips and subcutaneous emphysema lateral to the right hip joint region. 4. Mild demineralization. Electronically Signed: Scot Kaufman MD at 19:06 EDT Reading Location ID and State: [facility] / [place] Tel , Service support , Physical Exam Const oriented x3 Extremity Extremity Narrative: Right lower extremity: Dressing is intact with moderate drainage Sensations intact to light touch saphenous, sural, superficial peroneal, deep peroneal, and tibial distributions Motors intact EHL, DF, PF calves are soft and supple Assessment & Plan Assessment/Plan (1) History of total right hip arthroplasty: PLAN: Postop day 1 status post open reduction of right total hip replacement. Patient's extremity pain is likely related to traction on the extremity. We will continue to monitor. He does have some skin tears that we will need dressing upon discharge. Based on the extent of the injury and patient's health even with 24 hours of bedrest with the dislocation deconditioning has occurred. We will continue to see how he does with therapy but he may not be a good candidate to go directly home. For DVT prophylaxis were going to use renally dosed Lovenox he does have a history of PE noted in his hospital history. He can be weightbearing as tolerated. 3 months of strict posterior hip precautions. [place] can be removed on postop day 13. I have discussed the saturated dressing with the nursing staff they will changes dressing when he returns to the bed. Patient is orthopedically stable at this time if there are any further questions or concerns please contact the orthop edic service. Patient should follow-up in the office in 2 weeks and should continue with physical therapy for strengthening and ambulation upon discharge from the hospital. [facility] Office:
[2022-01-26] MEDS: Furosemide 20 MG Tablet PO (16:53)
[2022-01-26] MEDS: Loratadine 10 MG Tablet PO (16:53)
[2022-01-26 17:01] LABS: Bedside Glucose 164 mg/dL (74-106)
[2022-01-26] MEDS: Insulin Lispro 100 UNIT/ML INSULN.PEN SC ×2 (17:01→22:05)
[2022-01-26] MEDS: Multivitamins,Therapeutic Tablet 1 TABLET PO (21:44)
[2022-01-26] MEDS: Atorvastatin Calcium 40 MG Tablet PO (21:44)
[2022-01-26] MEDS: ALPRAZolam 0.25 MG Tablet PO (21:54)
[2022-01-26 22:26] LABS: Bedside Glucose 206 mg/dL (74-106)
[2022-01-27] VITALS (14 sets, daily range): BP systolic 91–108; BP diastolic 44–59; PULSE 66–88; RESP 16–20; TEMP 36.3–36.6; O2SAT 90–98
[2022-01-27] MEDS: traMADol 50 MG Tablet PO ×2 (04:18→11:58)
[2022-01-27] MEDS: Acetaminophen 325 MG Tablet 650 MG PO (04:18)
[2022-01-27 05:45] LABS: Absolute Neutrophil Count 2.4 X10^3/uL (2.0-7.7); Basophil# 0.02 X10^3/uL; Basophil% 0.6 % (0-1); Eosinophil# 0.01 X10^3/uL; Eosinophils% 0.3 % (0-5); Hematocrit 37.7 % (40-54); Hemoglobin 12.1 g/dL (13.0-16.5); Mean Corp Hgb Conc 32.1 g/dL (32-36); Mean Corpuscular Hgb 30.1 pg (27.0-32.0); Mean Corpuscular Volume 93.8 fL (80-94); Mean Platelet Vol. 11.5 fl (6.2-12.0); Monocyte# 0.44 X10^3/uL; Monocyte% 13.3 % (0-10); NRBC Flagged by Analyzer 0 % (0-5); Neutrophil # 2.44 X10^3/uL (2.7-7.7); Neutrophil % 73.5 % (47-70); POSITIVE COUNT YES; POSITIVE DIFFERENTIAL YES; Platelet Count 63 K/mm3 (150-450); RBC Distribution Width CV 16.6 % (11.6-14.6); RBC Distribution Width SD 56.8 fl (35.1-43.9); Red Blood Count 4.02 M/mm3 (4.6-6.2); White Blood Count 3.3 K/mm3 (4.4-11.0)
[2022-01-27 05:49] LABS: Differential Indicated SCAN CRITERIA MET
--- NOTE | 2022-01-27 06:02 | PN.HOSP_ITS ---
Objective Data Objective Data Vital Signs: Vital Signs Temp Pulse Resp BP Pulse Ox 97.7 F L 67 20 H 102/44 L 90 01/27/22 03:40 01/27/22 03:40 01/27/22 03:40 01/27/22 03:40 01/27/22 04:00 Oxygen Flow Rate (L/min) [10] 0 Oxygen Flow Rate (L/min) [8] 3 Oxygen Flow Rate (L/min) [7] 5 Oxygen Flow Rate (L/min) [6] 5 Oxygen Flow Rate (L/min) [5] 5 Oxygen Flow Rate (L/min) [4] 6 Oxygen Flow Rate (L/min) [3] 5 Oxygen Flow Rate (L/min) [2] 15 Oxygen Flow Rate (L/min) 4 Oxygen Delivery Method [10] Room Air Oxygen Delivery Method [7] Nasal Cannula Oxygen Delivery Method [6] Nasal Cannula Oxygen Delivery Method [5] Nasal Cannula Oxygen Delivery Method [4] Nasal Cannula Oxygen Delivery Method [3] Non-Rebreather Oxygen Delivery Method [2] Non-Rebreather Oxygen Delivery Method Nasal Cannula Weight: 183 lb 10.321 oz Body Mass Index (BMI) 26.3 Intake & Output: Intake and Output for Last 24 Hours 01/25/22 01/26/22 01/27/22 23:59 23:59 23:59 Intake Total 434.75 / 434.75 1100 / 1100 Output Total 600 / 600 495 / 495 Balance -165.25 / -165.25 605 / 605 Lab / Micro Data Result Diagrams: 01/27/22 05:20 01/26/22 04:52 Labs: Laboratory Results - last 24 hr 01/26/22 06:39: POC Glucose 92 01/26/22 13:15: POC Glucose 157 H 01/26/22 16:56: POC Glucose 164 H 01/26/22 22:04: POC Glucose 206 H 01/27/22 05:20: WBC 3.3 L, RBC 4.02 L, Hgb 12.1 L, Hct 37.7 L, MCV 93.8, MCH 30.1, MCHC 32.1, RDW Std Deviation 56.8 H, RDW Coeff of Peri 16.6 H, Plt Count 63 L, MPV 11.5, Immature Gran % (Auto) 0.300, Neut % (Auto) 73.5 H, Lymph % (Auto) 12.0 L, [place] % (Auto) 13.3 H, Eos % (Auto) 0.3, Baso % (Auto) 0.6, Absolute Neuts (auto) 2.4, Absolute Lymphs (auto) 0.40 L, Nucleated RBC % 0 Physical Exam Narrative Physical Examination: General: Awake, alert, oriented x 3 and cooperative, seated upright in medical surgical bed, more fatigued than day prior and does admit to some discomfort to primarily his right knee and right hip. Skin: Normal color, normal turgor, no icterus, no cyanosis except a small area of an abrasion with denuded skin following attempts to manipulate the right lower extremity to the anterior distal maldonado, dressed, no drainage, status post OR right hip with dressing in place, no drainage. HEENT: AT/NC, EOMI, PERRLA, MMM. Lungs: Remains diminished, greater bases, mild rales at the bases, no current rhonchi or wheezing and no evidence of any distress. Heart: Currently regular rate and rhythm; no gallop, rub audible. Abdomen: Soft, NTTP, ND, normal BS, no HSM. Extremities: No cyanosis, no clubbing, right lower extremity with peripheral pulses intact, status post OR with required open transition for correction of right dislocated hip, dressings in place, ongoing bilateral lower extremity significant 3+ pitting edema pedal to proximal thigh, right knee palpated with effusion noted and edema, right hip with dressing in place. Neurological: Patient awake, alert, oriented as noted, cognitive function intact; pupils equally reactive to light and accommodation, cranial nerves II- XII grossly normal, moving all 4 extremities however extremely limited right low er extremity given recent OR and limitations, strength accordingly severely globally decreased. Psychiatric: Affect appears mildly fatigued, no acute evidence of depressive or anxiety feelings. Assessment & Plan Assessment/Plan (1) Dislocation of right hip: QUALIFIERS: Encounter type: initial encounter Qualified Code(s): S73.004A - Unspecified dislocation of right hip, initial encounter PLAN: The patient is a 76 y/o M w/ PMHx: Hx VTE, Chronic CHF s/p AICD (following w/ Dr Gonzalez [employer]), CAD, CKD stage IV w/ Hx R nephrectomy, Former tobacco use, Diet-controlled diabetes mellitus type II who presents to the [facility] ED on 01/24/22 secondary to intractable R hip pain with dislocation following bending over to pick something up off the floor. #1. History of prior right total hip replacement with dislocation, recurrent: Failed conservative therapies and prior reductions, admitted to [facility] per Hospitalist service, Dr. Cao consulted and following, planned evaluation under anesthesias as unable to reduce in the ED per ED physician or Dr. Cao/Dr. España with bedside evaluation per Cardiology as well as Anesthesias with eventual 01/25/22 OR w/ Open reduction right total hip replacement, given low BP will transition to fentanyl and oral pain regimen, continue as needed bowel regimen, DVT Prophylaxis per Ortho discretion given recent OR, PT/OT/CM consulted with suspected possible SNF needs. #2. Chronic Kidney Disease Stage IV: Admission BUN/Cr 69/2.60, baseline renal function 2.2-2.5, will continue to trend, if rises further may consider hold on nephrotoxic regimen and judicious hydration, continue to trend, 01/26/22 BUN/Cr 72/2.56. #3. CAD: s/p CABG, we will continue patient home Coreg, statin therapy, isosorbide, hydralazine, not on THOMAS inhibitor/ARB. #4. Chronic CHF, Systolic (patient/ reported EF 20%) w/ recent worsening BL LE Edema: s/p AICD, no echocardiogram noted in the system, we will continue patient home Coreg, statin, isosorbide, hydralazine, Lasix therapy with close monitoring of renal function as noted with pulse 01/26/22 AM IV lasix dose as administered with oxygen requirements suspected secondary to mild overload given prolonged OR time. Will transition back following given labile BPs to oral regimen only. Continue snug THOMAS wraps. ECHO w/ echocardiogram with noted moderate dilated LV, severe segmental systolic dysfunction, EF 15%, mild concentric LVH, moderately enlarged LA, mildly enlarged RA, moderate MVI, moderate TVI, trivial MARCIA, RVSP 53 mmHg, evidence of diastolic dysfunction, leads in place in the right atrium and right ventricle. Cardiology consulted and following. #5. Hypertension: Continue home regimen including Coreg, isosorbide, hydra lazine, Lasix oral with pulse dose IV lasix x 1 with hold parameters as needed, PRN hydralazine. #6. Hyperlipidemia: We will continue patient on statin therapy. #7. Diabetes mellitus type II, diet-controlled: Continue ADA diet, accu checks w/ ISS. #8. Hx VTE: Remote, not on any chronic anticoaluation. #9. DVT prophylaxis: SCDs, heparin. #10. CODE STATUS: Full code.
--- NOTE | 2022-01-27 06:03 | CT_ITS ---
STUDY: CT CHEST, ABDOMEN T PELVIS WITHOUT CONTRAST REASON FOR EXAM: Male, 76 years old. Shortness of breath and hypoxia. Abnormal chest radiograph. TECHNIQUE: Transaxial imaging was performed without the administration of intravenous contrast material. Individualized dose optimization techniques were used for this CT. COMPARISON: Chest radiograph 01/24/2022. FINDINGS: CHEST Heart and great vessels: Moderate to severe four-chamber cardiomegaly. Implanted cardiac device left chest with leads extending into the right atrium and right ventricle and along the margin of the left ventricle. Status post CABG. Dense calcific atherosclerosis of the [place] coronary arteries. Lungs, pleura, airways: Several nodules and masses are seen in the bilateral lungs, largest 4.3 cm in the right lower lobe. Small simple density bilateral pleural effusions. No evidence of pneumothorax or pneumonia. Small bleb LLL. Mediastinum: 5.2 cm mass in the pericardial fat posterior to the left ventricle. No other mediastinal masses or adenopathy identified within the confines of a noncontrast study. Osseous:No acute osseous abnormality. No aggressive osseous lesions. Severe arthritic changes of both shoulders partially visible with chronic appearing deformity of the bony glenoid and cephalad subluxation of the humeral heads with bilateral shoulder joint effusions. Chest wall: No concerning findings. ABDOMEN AND PELVIS Liver: No concerning lesions. Gallbladder and biliary tree: Small gallstones in the gallbladder which is distended with mild adjacent edema No biliary ductal dilation. Pancreas: No pancreatic lesions or inflammation. Spleen: Normal size, no splenic lesions. Adrenal glands: 2.4 cm mass left adrenal gland. Right adrenal gland not visible, several surgical clips suggest previous right adrenal resection. Kidneys and ureters: Status post right nephrectomy. Left kidney unremarkable. Bowel: Normal appendix. No obstruction or inflammation of the bowel. Sigmoid colon diverticulosis, no diverticulitis. Urinary bladder: No stones or wall thickening. Reproductive: Prostate obscured by streak artifact from right hip arthroplasty. Vascular: Severe atherosclerosis. No abdominal aortic aneurysm. Retroperitoneal and peritoneal spaces: Severe retroperitoneal lymphadenopathy, most prominent adjacent to the upper abdominal aorta particularly on the left. A conglomerate mass of lymph nodes in this region measures 7 x 14 x 12 cm TRV X AP X CC. No free fluid or free air. Mild presacral edema. Osseous: Status post right total hip arthroplasty, partially visible. No aggressive osseous lesion or acute osseous abnormality. Likely degenerative cystic change left acetabular roof. Moderate left scoliosis centered at L2-3. Abdominal and pelvic wall: Anasarca, particularly of the left flank.. Skin se and subcutaneous and gluteal edema and air lateral to the left hip arthroplasty. Small right inguinal hernia contains a portion of the cecum, no associated obstruction. CT/CT Chest, Abd, Pelvis WO Cont IMPRESSION: Extensive metastatic disease with numerous masses in both lungs, a mass in the pericardial fat posterior to the left ventricle, suspicious left adrenal mass, and severe retroperitoneal adenopathy particularly between the aorta and left kidney. The patient is status post right nephrectomy; please correlate for history of renal cell carcinoma which might be a source for these metastatic lesions. Cholelithiasis with gallbladder wall thickening. This may represent third spacing of fluid although cholecystitis is possible. Anasarca particularly of the left flank. More focal edema lateral to the right hip probably resolving postoperative changes from right hip arthroplasty. Infection not excluded please correlate with physical examination. Severe atherosclerosis, cardiomegaly and prior CABG, other chronic findings as above. Electronically Signed: Omega White MD at 8:02 EDT Reading Location ID and State: [facility] / [place] Tel , Service support ,
[2022-01-27 06:20] LABS: ALB/GLOB Ratio 0.9 RATIO (0.9-2.4); AST(SGOT) 20 U/L (15-37); Alanine Aminotransfer ALT/SGPT 10 U/L (16-61); Albumin, Serum 2.8 g/dL (3.2-5.0); Alkaline Phosphatase 74 U/L (45-117); Anion Gap 8 (5-15); BUN 86 mg/dL (7-18); BUN/Creat Ratio 28.6 RATIO (10-20); Calcium,Total 7.9 mg/dL (8.5-10.1); Chloride 107 mmol/L (98-107); Creatinine, Serum 3.01 mg/dL (0.70-1.30); EST Glomerular Filtration Rate 22 mL/min (>60); Est Glom Filt Rate - Afr Amer 26 mL/min (>60); Estimated Creatinine Clearance 21.89 ml/min; Glucose 128 mg/dL (74-106); Potassium 4.8 mmol/L (3.5-5.1); Protein, Total 5.8 g/dL (6.4-8.2); Sodium Level 134 mmol/L (136-145)
[2022-01-27] MEDS: Isosorbide DN 20 MG Tablet PO ×2 (06:30→12:01)
[2022-01-27] MEDS: hydrALAZINE 25 MG Tablet PO ×2 (06:30→12:00)
[2022-01-27 06:36] LABS: Bedside Glucose 127 mg/dL (74-106)
[2022-01-27] MEDS: Furosemide 20 MG Tablet PO (08:51)
[2022-01-27] MEDS: Heparin Injection (Vial) 5,000 UNIT/ML VIAL 5000 UNIT SC (08:51)
[2022-01-27] MEDS: Empagliflozin 10 MG Tablet PO (08:52)
[2022-01-27] MEDS: Docusate Sodium 100 MG Capsule PO (08:52)
[2022-01-27] MEDS: Timolol 0.25% 5ML OPTH.BTL 1 DRP EACH EYE (08:52)
[2022-01-27] MEDS: Cholecalciferol (VIT D3) 25 MCG TABLET (1,000 UNITS) PO (08:52)
[2022-01-27] MEDS: Ensure Surgery 237 ML LIQUID PO ×2 (09:02→12:00)
[2022-01-27] MEDS: oxyCODONE 5 MG Tablet PO (09:03)
--- NOTE | 2022-01-27 09:57 | PN.CARD_ITS ---
Documented by User: ALBERT Huitron 01/27/22 13:21 Subjective Subjective The patient is awake and alert. He denies any ongoing chest discomfort or worsening shortness of breath or dyspnea. He still have lower extremity edema. Objective Data Vital Signs: Vital Signs Temp Pulse Resp BP Pulse Ox 97.9 F 88 18 91/59 L 98 01/27/22 09:06 01/27/22 09:06 01/27/22 09:06 01/27/22 09:06 01/27/22 09:06 Oxygen Flow Rate (L/min) [10] 0 Oxygen Flow Rate (L/min) [8] 3 Oxygen Flow Rate (L/min) [7] 5 Oxygen Flow Rate (L/min) [6] 5 Oxygen Flow Rate (L/min) [5] 5 Oxygen Flow Rate (L/min) [4] 6 Oxygen Flow Rate (L/min) [3] 5 Oxygen Flow Rate (L/min) [2] 15 Oxygen Flow Rate (L/min) 4 Oxygen Delivery Method [10] Room Air Oxygen Delivery Method [7] Nasal Cannula Oxygen Delivery Method [6] Nasal Cannula Oxygen Delivery Method [5] Nasal Cannula Oxygen Delivery Method [4] Nasal Cannula Oxygen Delivery Method [3] Non-Rebreather Oxygen Delivery Method [2] Non-Rebreather Oxygen Delivery Method Nasal Cannula Weight: 183 lb 10.321 oz Body Mass Index (BMI) 26.3 Intake & Output: Intake and Output for Last 24 Hours 01/25/22 01/26/22 01/27/22 23:59 23:59 23:59 Intake Total 434.75 / 434.75 1100 / 1100 100 / 100 Output Total 600 / 600 495 / 495 Balance -165.25 / -165.25 605 / 605 100 / 100 Lab / Micro Data Result Diagrams: 01/27/22 05:20 01/27/22 05:20 Labs: Laboratory Results - last 24 hr 01/26/22 13:15: POC Glucose 157 H 01/26/22 16:56: POC Glucose 164 H 01/26/22 22:04: POC Glucose 206 H 01/27/22 05:20: WBC 3.3 L, RBC 4.02 L, Hgb 12.1 L, Hct 37.7 L, MCV 93.8, MCH 30.1, MCHC 32.1, RDW Std Deviation 56.8 H, RDW Coeff of Peri 16.6 H, Plt Count 63 L, MPV 11.5, Immature Gran % (Auto) 0.300, Neut % (Auto) 73.5 H, Lymph % (Auto) 12.0 L, [place] % (Auto) 13.3 H, Eos % (Auto) 0.3, Baso % (Auto) 0.6, Absolute Neuts (auto) 2.4, Absolute Lymphs (auto) 0.40 L, Nucleated RBC % 0, Diff Path Review March01/27/22 05:20: Sodium 134 L, Potassium 4.8, Chloride 107, Carbon Dioxide 19.0 L , Anion Gap 8, BUN 86 H, Creatinine 3.01 H, Estim Creat Clear Calc 21.89, Est GFR (MDRD) Af Amer 26 L, Est GFR (MDRD) Non-Af 22 L, BUN/Creatinine Ratio 28.6 H , Glucose 128 H, Calcium 7.9 L, Total Bilirubin 0.70, AST 20, ALT 10 L, Alkaline Phosphatase 74, Total Protein 5.8 L, Albumin 2.8 L, Globulin 3.0, Albumin/ Globulin Ratio 0.9 01/27/22 06:21: POC Glucose 127 H Cardiology Labs/Tests 01/27/22 05:20: WBC 3.3 L, RBC 4.02 L, Hgb 12.1 L, Hct 37.7 L, MCV 93.8, MCH 30.1, MCHC 32.1, Plt Count 63 L, MPV 11.5, Immature Gran % (Auto) 0.300, Neut % (Auto) 73.5 H, Lymph % (Auto) 12.0 L, [place] % (Auto) 13.3 H, Eos % (Auto) 0.3, Baso % (Auto) 0.6, Absolute Neuts (auto) 2.4, Nucleated RBC % 0 01/27/22 05:20: Sodium 134 L, Potassium 4.8, Chloride 107, Carbon Dioxide 19.0 L , Anion Gap 8, BUN 86 H, Creatinine 3.01 H, Est GFR (MDRD) Af Amer 26 L, Est GFR (MDRD) Non-Af 22 L, BUN/Creatinine Ratio 28.6 H, Glucose 128 H, Calcium 7.9 L, Total Bilirubin 0.70 Rhythm:V-paced with occasional PVCs EKG: Echocardiogram 01/24/22 23:52 Interpretation Summary Moderately dilated left ventricle. Severe segmental systolic dysfunction (see wall motion). The estimated ejection fraction is 15 %. Mild concentric left ventricular hypertrophy. The left atrium is moderately enlarged. The right atrium is mildly enlarged. There is mild to moderate mitral annular calcification. Extension the mitral annular calcification on the base of the posterior mitral valve leaflet. Anterior leaflet diffuse mitral valve thickening. Moderate (2+) eccentric mitral valve insufficiency. Moderate (2+) tricuspid valve insufficiency. Trivial aortic valve insufficiency. Right ventricular systolic pressure estimated to be 53 mmHg. There is evidence of diastolic dysfunction. ICD or pacer leads identified within the right atrium ICD or pacer leads identified within the right ventricle. Radiography Diagnostic Testing: Radiology Impression Chest/Abdomen/Pelvis CT 01/27/22 06:03 IMPRESSION: Extensive metastatic disease with numerous masses in both lungs, a mass in the pericardial fat posterior to the left ventricle, suspicious left adrenal mass, and severe retroperitoneal adenopathy particularly between the aorta and left kidney. The patient is status post right nephrectomy; please correlate for history of renal cell carcinoma which might be a source for these metastatic lesions. Cholelithiasis with gallbladder wall thickening. This may represent third spacing of fluid although cholecystitis is possible. Anasarca particularly of the left flank. More focal edema lateral to the right hip probably resolving postoperative changes from right hip arthroplasty. Infection not excluded please correlate with physical examination. Severe atherosclerosis, cardiomegaly and prior CABG, other chronic findings as above. Electronically Signed: Omega White MD at 8:02 EDT Reading Location ID and State: [address] [place] [address] Tel , Service support , Physical Exam Const alert, oriented x3 and no apparent distress Orientation / Consciousness: awake HEENT normocephalic, head/scalp atraumatic and hearing grossly normal bilaterally Eyes PERRL, EOMs intact bilaterally and conjunctivae normal Neck full ROM, supple and no JVD Chest Chest: midline sternotomy incision and left pectoral incision Resp clear to auscultation bilaterally Cardio regular rate, regular rhythm, S1 normal heart sound and S2 normal heart sound GI normal to inspection, nondistended, normoactive bowel sounds Extremity General Extremity: edema bilateral lower extremity Details: moderate Skin Skin Narrative: Bilateral lower extremities: Wally wraps Neuro oriented x3, moves all extremities, no focal motor deficits and no sensory deficits noted Psych mental status grossly normal Assessment & Plan Assessment/Plan (1) CAD (coronary artery disease): (2) S/P CABG (coronary artery bypass graft): (3) Cardiomyopathy, ischemic: (4) CHF (congestive heart failure): (5) ICD (implantable cardioverter-defibrillator) in place: PLAN: * Pt does not have any symptoms of worsening CAD, he still does have lower extremity edema. This could be related to his recent CT results of metastatic disease. * recommend that he continue with his Coreg, hydralazine, isosorbide and low dose lasix. His Coreg dose was decreased d/t low BP readings. Will need to continue to follow closely with this. * Pt will follow up with his division superintendent Charges/Coding Visit Charges Inpatient E&M: 74507 Subs Hosp L2 Documented by User: Dr. Queta Das MD 01/27/22 16:25 Lab / Micro Data Result Diagrams: 01/27/22 05:20 01/27/22 05:20 Assessment & Plan Assessment/Plan (1) CAD (coronary artery disease): (2) ICD (implantable cardioverter-defibrillator) in place: (3) Dislocation of right hip: QUALIFIERS: Encounter type: initial encounter Qualified Code(s): S73.004A - Unspecified dislocation of right hip, initial encounter (4) Hip dislocation, right: (5) HTN (hypertension): (6) CKD (chronic kidney disease) stage 3, GFR 30-59 ml/min: (7) History of CHF (congestive heart failure): PLAN: I independently saw this patient accompanied by the midlevel, a t bedside at time of evaluation Patient with known cardiac history with severe LV systolic dysfunction with ischemic cardiomyopathy ejection fraction of 20% with coronary artery bypass surgery/post ICD, he has no shocks by his ICD device. 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 Mass in the paracardial fat posterior to the left ventricle which is suspicious for left adrenal mass. He was seen and evaluated on this admission by Dr. Rivas as he presented with recurrent right hip dislocation requiring surgical treatment with open redu ction with total hip replacement. Cardiac status is stable and patient will follow up with his primary division superintendent on discharge. Agree with the cardiac care plan and documentation as by the midlevel
--- NOTE | 2022-01-27 11:11 | NURSING ---
Addendum entered by Sis Morales 01/27/22 11:32: oncologist at [facility]: Dr. Darren Garcia phone [phone]. fax [phone] Original Note: talked with Radiology department, requested all images from this admission electronically sent to [facility] as discussed with Dr. Henderson.
[2022-01-27 11:45] LABS: Pathologist Review Reviewed
--- NOTE | 2022-01-27 11:55 | CASEMGMT ---
Social Work Note SW updated that pt is requesting TCU at discharge. SW placed a call to [facility] with TCU and provided referral. TCU to review referral. Plan: TCU pending acceptance Maite Kumar MSW, ROTARY FURNACE OPERATOR
[2022-01-27] MEDS: Insulin Lispro 100 UNIT/ML INSULN.PEN SC (11:59)
[2022-01-27] MEDS: Carvedilol 6.25 MG Tablet PO (12:04)
[2022-01-27 12:11] LABS: Bedside Glucose 214 mg/dL (74-106)
[2022-01-27 12:23] LABS: Pathologist Review Reviewed
--- NOTE | 2022-01-27 13:04 | CASEMGMT ---
Social Work Note SEGUNDO received call from Sugar with TCU, TCU can accept pt today. SW updated physician. SW in to speak with pt and pt's Yuko. SW introduced self and role at [facility]. Pt sleeping but was able to confirm with this worker that he is agreeable to TCU. Yuko is also agreeable to TCU. Patient was provided a list of SNF providers including quality and resource use data and consistent with the patient?s preferred geographic region, medical needs, and insurance network. Preferred provider is [facility] TCU. Plan: TCU today Maite Kumar MSW, HOSPITAL RECRUITER
--- NOTE | 2022-01-27 13:26 | TREXTCAR_ITS ---
Diet 01/26/22 03:25 Diet: ADA 1800/Cardiac diet Routine Orders/Code Status Enema Type: Fleetz Enema Frequency: Daily PRN Suppository Type: Dulcolax 10mg Suppository Frequency: Daily PRN O2 Liters per Minute: 4 O2 Frequency: Continuous (Wean as tolerated to room air.) Keep PO Greater than or Equal to (%): 92 Routine Lab Work: - (Need repeat CBC 01/28/22 secondary to low plts. May need to alter DVT prophylaxis given drop. Plan following this repeat CBC, BMP at least within 1 week or repeat CBC as needed pending repeat 01/28/22 AM lab.) Code Status: Full Code Wound(s) right maldonado: Wound Type: Surgical Incision RIGHT HIP/FEMUR: Wound Type: Surgical Incision Rt Forearm: Wound Type: Skin Tear Suggestions for Active Care Change Position every (hours): 2 Hours to sit in a chair: 3 Times a day to sit in chair: 3 Therapies Weight Bearing: Weight bearing as tolerated Physical Therapy: Eval and Treat Occupational Therapy: Eval and Treat Problem/Diagnosis (1) CAD (coronary artery disease): Status: Chronic Comment: s/p cabg 2012 (2) S/P CABG (coronary artery bypass graft): Status: Acute (3) Cardiomyopathy, ischemic: Status: Acute (4) CHF (congestive heart failure): Status: Chronic (5) ICD (implantable cardioverter-defibrillator) in place: Status: Chronic Allergies/Procedures Done in Hospital Allergies No Known Allergies Allergy (Verified 01/24/22 18:41) Procedures: 2-D Echocardiogram and EKG Type of Care/Length of Stay Estimated LOS: Convalescent Care Less Than 30 days Type of Care Needed: Skilled Rehab Potential: Fair Prognosis: Fair Additional Orders/Day of Discharge Additional Orders: (1) As noted plan repeat 01/28/22 AM CBC given Plt decrease potentially secondary to heparin DVT prophylaxis and alter as needed, (2) Maintain on fall and aspiration precautions, (3) Continue STRICT snug BL LE THOMAS wraps from toe to thigh, overlapping, no skin showing and redo if comes undone and q shift, (4) Continue IS 10x/hr 7a-7p Day of Discharge: 01/27/22 Discharge Plan Admission Admit Date/Time: 01/24/22 23:23 Primary Reason for Your Visit: R Hip dislocation s/p open reduction, Hypoxia, CHF, Known metastatic CA Attending Provider: Leigh Henderson Primary Care Provider: Markus Encarnacion Consulting Providers: Zackery Rivas Instructions Additional Instructions / Restrictions: ADDITIONAL INSTRUCTIONS: Post-operative Orthopedic surgery plan: DVT prophylaxis x 2 weeks, plan for 3 months of strict posterior hip precautions and lifetime posterior hip precautions will be stressed, weightbearing as tolerated. OXYGEN: Supplemental oxygen should be continued and weaned to room air as tolerated. Discharge Orders/Prescriptions Prescriptions: New carvedilol 6.25 mg Tablet 6.25 mg PO BID Qty: 0 RF: 0 albuterol sulfate 2.5 mg /3 mL (0.083 %) Solution For Nebulization 2.5 mg inhalation Q2H PRN PRN (Reason: Wheezing, SOB) Qty: 0 RF: 0 alprazolam 0.25 mg Tablet 0.25 mg PO QHS Qty: 0 RF: 0 oxycodone 5 mg Tablet 5 mg PO Q4H PRN PRN (Reason: pain 4-10, may overlap w/ IV) Qty: 0 RF: 0 Ensure Surgery 0.08-1.4 gram-kcal/mL Liquid 237 ml PO TIDCM Qty: 0 RF: 0 heparin (porcine) 5,000 unit/mL Solution 5,000 unit subcut Q12 Qty: 0 RF: 0 Continued Atorvastatin Calcium 40 mg PO QHS RF: 0 docusate sodium [DOK] 100 MG capsule 100 mg PO BID RF: 0 furosemide 20 MG tablet 20 mg PO BID RF: 0 loratadine [Allergy Relief (loratadine)] 10 MG tablet 10 mg PO DINNER PRN (Reason: allergies) RF: 0 cholecalciferol (vitamin D3) [Vitamin D3] 1,000 UNIT capsule 2,000 unit PO DAILY RF: 0 hydralazine 25 MG tablet 25 mg PO TID RF: 0 tramadol 50 MG tablet 50 mg PO 5X/DAY PRN (Reason: Pain) RF: 0 isosorbide dinitrate 20 MG tablet 20 mg PO TID RF: 0 diclofenac sodium 100 GM gel 2 g topical BID RF: 0 timolol 0.25 % Drops 1 drp EACH EYE BID RF: 0 empagliflozin 10 mg Tablet 10 mg PO DAILY RF: 0 coenzyme Q10 10 mg Capsule 10 mg PO DAILY RF: 0 B12 Active 1,000 mcg Tablet,Chewable 1,000 mcg PO DAILY RF: 0 Discontinued carvedilol 6.25 MG tablet 12.5 mg PO BID RF: 0 Referrals / Follow Up: Darren Garcia [Other] (Please follow-up with your Oncologist as previously arranged in 2 weeks.) Lui Cordero [Other] (Please follow-up with your [employer] within 1-2 weeks discharge.) Quang Cao MD [STAFF PHYSICIAN] - (Follow-up in 2 weeks.) Markus Encarnacion MD [Primary Care Provider] - (Follow-up within 1-2 days SNF discharge to review admission.) Disposition Disposition (needs filled in before D/C Order can be placed): Detention Facility
--- NOTE | 2022-01-27 13:31 | PCM.DC.SUM ---
Providers Date of Admission: 01/24/22 Primary Care Physician: Markus Encarnacion MD Consultations 01/25/22 06:52 Consult: Cardiology Routine Consulting Provider: Zackery Rivas Reason for Consult: Cardiology clearance, CHF/CAD s/p CABG, AICD, admit w/ Hip recurrent disloc EMERGENT Consult: No MD Notified: Yes Date Notified: 01/25/22 Time Notified: 06:52 Method of Notification: cortext Reason For Visit: DISLOCATED HIP Diagnosis Discharge Diagnosis (1) CAD (coronary artery disease): Status: Chronic Code(s): I25.10 - Atherosclerotic heart disease of [place] coronary artery without angina pectoris (2) S/P CABG (coronary artery bypass graft): Status: Acute Code(s): Z95.1 - Presence of aortocoronary bypass graft (3) Cardiomyopathy, ischemic: Status: Acute Code(s): I25.5 - Ischemic cardiomyopathy (4) CHF (congestive heart failure): Status: Chronic Code(s): I50.9 - Heart failure, unspecified (5) ICD (implantable cardioverter-defibrillator) in place: Status: Chronic Code(s): Z95.810 - Presence of automatic (implantable) cardiac defibrillator Medications at Discharge Home Medications Atorvastatin Calcium 40 mg PO QHS 06/01/14 cholecalciferol (vitamin D3) [Vitamin D3] 2,000 unit PO DAILY 06/01/14 docusate sodium [DOK] 100 mg PO BID 06/01/14 furosemide 20 mg PO BID 06/01/14 loratadine [Allergy Relief (loratadine)] 10 mg PO DINNER PRN 06/01/14 diclofenac sodium 2 g TOPICAL BID 08/24/14 hydralazine 25 mg PO TID 08/24/14 isosorbide dinitrate 20 mg PO TID 08/24/14 tramadol 50 mg PO 5X/DAY PRN 08/24/14 empagliflozin 10 mg PO DAILY 01/24/22 timolol 1 drp EACH EYE BID 01/24/22 B12 Active 1,000 mcg PO DAILY 01/25/22 coenzyme Q10 10 mg PO DAILY 01/25/22 albuterol sulfate 2.5 mg INHALATION Q2H PRN PRN #0 ml 01/27/22 carvedilol 6.25 mg PO BID #0 tab 01/27/22 nut.tx.comp. immune systm,reg [Ensure Surgery] 237 ml PO TIDCM #0 ml 01/27/22 oxycodone 5 mg PO Q4H PRN PRN #0 tab 01/27/22 Hospital Course Operations - (01/25/22 Open reduction right total hip replacement Dr. Cao) Procedures 2-D Echocardiogram Summary of Care Provided Minutes Spent on Discharge: 35 Hospital Course: Discharge Diagnoses: #1. History of prior right total hip replacement with dislocation, recurrent s/p 01/25/22 open reduction THR #2. Acute Thrombocytopenia, suspected secondary to chemoprophylaxis, discontinued #3. Chronic Kidney Disease Stage IV w/ acute renal insufficiency #4. CAD: s/p CABG #5. Chronic CHF, Systolic (patient/ reported EF 20%) w/ recent worsening BL LE Edema, suspected secondary to underlying CHF but also metastatic renal cell cancer #6. Metastatic renal cell cancer to BL lungs, pericardiac fat posterior to LV, L adrenal mass, severe retroperitoneal adenopathy particularly between the aorta and left kidney, s/p prior R nephrectomy #7. Hypertension #8. Hyperlipidemia #9. Diabetes mellitus type II, diet-controlled: Continue ADA diet, accu checks w/ ISS. 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 Admitted to [place] per Hospitalist service, Dr. Cao consulted and following, planned evaluation under anesthesias as unable to reduce in the ED per ED physician or Dr. Cao/Dr. España with bedside evaluation per Cardiology as well as Anesthesias. ECHO w/ echocardiogram with noted moderate dilated LV, severe segmental systolic dysfunction, EF 15%, mild concentric LVH, moderately enlarged LA, mildly enlarged RA, moderate MVI, moderate TVI, trivial MARCIA, RVSP 53 mmHg, evidence of diastolic dysfunction, leads in place in the right atrium and right ventricle obtained prior to OR consideration. 01/25/22 OR w/ Open reduction right total hip replacement. Following OR some concern for mild overload with oxygen needs therefore 01/26/22 AM IV lasix dose with then resumption of home lasix oral regimen with snug THOMAS wrap application with improvement of BL LE swelling noted upon admission which per patient had been recently worsening with alteration of his home diuretics with his Hemodialysis Lab Technician. Admission BUN/Cr 69/2.60, baseline renal function 2.2-2.5, will continue to trend, if rises further may consider hold on nephrotoxic regimen and judicious hydration, continue to trend, 01/26/22 BUN/Cr 72/2.56-->01/27/22 BUN/Cr 86/3.01 suspected CKD stage IV w/ acute renal insufficiency secondary to judicious pulse IV lasix. Given hypoxia, although stable, obtained with noted extensive metastatic disease with numerous masses in both lungs, a mass in the pericardial fat posterior to the left ventricle, suspicious left adrenal mass, and severe retroperitoneal adenopathy particularly between the aorta and left kidney. Reviewed with patient Oncologist who confirmed that these findings were stable with requested imaging to be electronically transferred to him which was performed. During admission, patient had plt decrease following start of chemoprophylaxis for DVT prevention with 01/27/22 Plts 63 therefore per discussion with Orthopedic surgery although 2 weeks DVT prophylaxis had been preferred risk>benefit and this was discontinued with planned continued CBC and BMP trending. Patient per PT/OT recommendation was transitioned to TCU for ongoing therapies. Per Orthopedic surgery also at discharge noted plan for 3 months of strict posterior hip precautions and lifetime posterior hip precautions to be stressed with weightbearing as tolerated. Discharge Time: > 35 Minutes DAY OF DISCHARGE PROGRESS NOTE: Subjective: Patient without acute event overnight per self and nursing report. Patient notes pain improved to R knee and hip. Reviewed CT findings and confirmed these lesions were stable. Discussed that hypoxia likely multifactorial to her heart failure and metastatic lung findings. Also discussed that BL LE edema likely component of his metastatic lesions and his failure. Patient denies fever, chills, nausea, emesis, abdominal pain, chest pain or dyspnea. Patient agreeable to discharge to TCU for ongoing therapies. Patient will be discharged with follow-up with primary care physician, Hemodialysis Lab Technician, Oncologist, Orthopedic surgeon. Objective: T 97.4, heart 72, BP 108/51, respiratory rate 16, and 8% on 4 L nasal cannula. Physical Examination: General: Awake, alert, oriented x 3 and cooperative, seated upright in medical surgical bed, notes pain improved in knee and hip, NAD. Skin: Normal color, normal turgor, no icterus, no cyanosis except a small area of an abrasion with denuded skin following attempts to manipulate the right lower extremity to the anterior distal maldonado, dressed, no drainage, status post OR right hip with dressing in place, no drainage. HEENT: AT/NC, EOMI, PERRLA, MMM. Lungs: Diminished, improved effort, no rales, rhonchi or wheezing. Heart: Currently regular rate and rhythm; no gallop, rub audible. Abdomen: Soft, NTTP, ND, normal BS. Extremities: No cyanosis, no clubbing, right lower extremity with peripheral pulses intact, status post OR with required open transition for correction of right dislocated hip, dressings in place, decreased BL LE edema, less discomfort to R knee with palpation and lessened edema, right knee palpated with effusion noted and edema, right hip with dressing in place. Neurological: Patient awake, alert, oriented as noted, cognitive function intact; pupils equally reactive to light and accommodation, cranial nerves II-XII grossly normal, moving all 4 extremities however extremely limited right lower extremity given recent OR and limitations, strength accordingly severely globally decreased. Psychiatric: Affect appears improved, notes pain improved, no acute evidence of depressive or anxiety feelings. Assessment and Plan: Please see hospital summary above. Weight / BMI Weight Weight: 183 lb 10.321 oz Body Mass Index (BMI) 26.3 ABG / Lab / Microbiology Data Result Diagrams: 01/27/22 05:20 01/27/22 05:20 Laboratory: Laboratory Results - last 24 hr 01/26/22 04:52: Diff Path Review Reviewed 01/26/22 16:56: POC Glucose 164 H 01/26/22 22:04: POC Glucose 206 H 01/27/22 05:20: WBC 3.3 L, RBC 4.02 L, Hgb 12.1 L, Hct 37.7 L, MCV 93.8, MCH 30.1, MCHC 32.1, RDW Std Deviation 56.8 H, RDW Coeff of Peri 16.6 H, Plt Count 63 L, MPV 11.5, Immature Gran % (Auto) 0.300, Neut % (Auto) 73.5 H, Lymph % (Auto) 12.0 L, Harding % (Auto) 13.3 H, Eos % (Auto) 0.3, Baso % (Auto) 0.6, Absolute Neuts (auto) 2.4, Absolute Lymphs (auto) 0.40 L, Nucleated RBC % 0, Diff Path Review Reviewed 01/27/22 05:20: Sodium 134 L, Potassium 4.8, Chloride 107, Carbon Dioxide 19.0 L, Anion Gap 8, BUN 86 H, Creatinine 3.01 H, Estim Creat Clear Calc 21.89, Est GFR (MDRD) Af Amer 26 L, Est GFR (MDRD) Non-Af 22 L, BUN/Creatinine Ratio 28.6 H, Glucose 128 H, Calcium 7.9 L, Total Bilirubin 0.70, AST 20, ALT 10 L, Alkaline Phosphatase 74, Total Protein 5.8 L, Albumin 2.8 L, Globulin 3.0, Albumin/Globulin Ratio 0.9 01/27/22 06:21: POC Glucose 127 H 01/27/22 11:57: POC Glucose 214 H Radiography Diagnostic Testing: Radiology Impression Chest/Abdomen/Pelvis CT 01/27/22 06:03 IMPRESSION: Extensive metastatic disease with numerous masses in both lungs, a mass in the pericardial fat posterior to the left ventricle, suspicious left adrenal mass, and severe retroperitoneal adenopathy particularly between the aorta and left kidney. The patient is status post right nephrectomy; please correlate for history of renal cell carcinoma which might be a source for these metastatic lesions. Cholelithiasis with gallbladder wall thickening. This may represent third spacing of fluid although cholecystitis is possible. Anasarca particularly of the left flank. More focal edema lateral to the right hip probably resolving postoperative changes from right hip arthroplasty. Infection not excluded please correlate with physical examination. Severe atherosclerosis, cardiomegaly and prior CABG, other chronic findings as above. Electronically Signed: Omega White MD at 8:02 EDT Reading Location ID and State: [address] [place] [address] Tel , Service support , Meaningful Use Info Meaningful Use Diagnoses (Choose all that apply): None applicable Discharge Plan Admission Admit Date/Time: 01/24/22 23:23 Primary Reason for Your Visit: R Hip dislocation s/p open reduction, Hypoxia, CHF, Known metastatic CA Attending Provider: Leigh Henderson Primary Care Provider: Maruks Encarnacion Consulting Providers: Zackery Rivas Instructions Additional Instructions / Restrictions: ADDITIONAL INSTRUCTIONS: Post-operative Orthopedic surgery plan: Initial plan for 2 weeks of DVT prophylaxis; however, Plts decreased with heparin chemoprophylaxis thus per discussion with Dr. Cao risk>benefit with hold on DVT prophylaxis, Plan for 3 months of strict posterior hip precautions and lifetime posterior hip precautions will be stressed, weightbearing as tolerated. OXYGEN: Supplemental oxygen should be continued and weaned to room air as tolerated. Discharge Orders/Prescriptions Prescriptions: New carvedilol 6.25 mg Tablet 6.25 mg PO BID Qty: 0 RF: 0 albuterol sulfate 2.5 mg /3 mL (0.083 %) Solution For Nebulization 2.5 mg inhalation Q2H PRN PRN (Reason: Wheezing, SOB) Qty: 0 RF: 0 oxycodone 5 mg Tablet 5 mg PO Q4H PRN PRN (Reason: pain 4-10, may overlap w/ IV) Qty: 0 RF: 0 Ensure Surgery 0.08-1.4 gram-kcal/mL Liquid 237 ml PO TIDCM Qty: 0 RF: 0 Continued Atorvastatin Calcium 40 mg PO QHS RF: 0 docusate sodium [DOK] 100 MG capsule 100 mg PO BID RF: 0 furosemide 20 MG tablet 20 mg PO BID RF: 0 loratadine [Allergy Relief (loratadine)] 10 MG tablet 10 mg PO DINNER PRN (Reason: allergies) RF: 0 cholecalciferol (vitamin D3) [Vitamin D3] 1,000 UNIT capsule 2,000 unit PO DAILY RF: 0 hydralazine 25 MG tablet 25 mg PO TID RF: 0 tramadol 50 MG tablet 50 mg PO 5X/DAY PRN (Reason: Pain) RF: 0 isosorbide dinitrate 20 MG tablet 20 mg PO TID RF: 0 diclofenac sodium 100 GM gel 2 g topical BID RF: 0 timolol 0.25 % Drops 1 drp EACH EYE BID RF: 0 empagliflozin 10 mg Tablet 10 mg PO DAILY RF: 0 coenzyme Q10 10 mg Capsule 10 mg PO DAILY RF: 0 B12 Active 1,000 mcg Tablet,Chewable 1,000 mcg PO DAILY RF: 0 Discontinued carvedilol 6.25 MG tablet 12.5 mg PO BID RF: 0 Referrals / Follow Up: Darren Garcia [Other] (Please follow-up with your Oncologist as previously arranged in 2 weeks.) Lui Cordero [Other] (Please follow-up with your Hemodialysis Lab Technician within 1-2 weeks discharge.) Quang Cao MD [STAFF PHYSICIAN] - (Follow-up in 2 weeks.) Markus Encarnacion MD [Primary Care Provider] - (Follow-up within 1-2 days SNF discharge to review admission.) Disposition Disposition (needs filled in before D/C Order can be placed): Nursing Home Facility Charges/Coding Visit Charges Inpatient E&M: 37854 Disch Hosp
--- NOTE | 2022-01-27 13:45 | PCM.DC.SUM ---
Providers Date of Admission: 01/24/22 Primary Care Physician: Markus Encarnacion MD Consultations 01/25/22 06:52 Consult: Cardiology Routine Consulting Provider: Zackery Rivas Reason for Consult: Cardiology clearance, CHF/CAD s/p CABG, AICD, admit w/ Hip recurrent disloc EMERGENT Consult: No MD Notified: Yes Date Notified: 01/25/22 Time Notified: 06:52 Method of Notification: cortext Reason For Visit: DISLOCATED HIP Diagnosis Discharge Diagnosis (1) CAD (coronary artery disease): Status: Chronic Code(s): I25.10 - Atherosclerotic heart disease of kaw coronary artery without angina pectoris (2) S/P CABG (coronary artery bypass graft): Status: Acute Code(s): Z95.1 - Presence of aortocoronary bypass graft (3) Cardiomyopathy, ischemic: Status: Acute Code(s): I25.5 - Ischemic cardiomyopathy (4) CHF (congestive heart failure): Status: Chronic Code(s): I50.9 - Heart failure, unspecified (5) ICD (implantable cardioverter-defibrillator) in place: Status: Chronic Code(s): Z95.810 - Presence of automatic (implantable) cardiac defibrillator Medications at Discharge Home Medications Atorvastatin Calcium 40 mg PO QHS 06/01/14 cholecalciferol (vitamin D3) [Vitamin D3] 2,000 unit PO DAILY 06/01/14 docusate sodium [DOK] 100 mg PO BID 06/01/14 furosemide 20 mg PO BID 06/01/14 loratadine [Allergy Relief (loratadine)] 10 mg PO DINNER PRN 06/01/14 diclofenac sodium 2 g TOPICAL BID 08/24/14 hydralazine 25 mg PO TID 08/24/14 isosorbide dinitrate 20 mg PO TID 08/24/14 tramadol 50 mg PO 5X/DAY PRN 08/24/14 empagliflozin 10 mg PO DAILY 01/24/22 timolol 1 drp EACH EYE BID 01/24/22 B12 Active 1,000 mcg PO DAILY 01/25/22 coenzyme Q10 10 mg PO DAILY 01/25/22 albuterol sulfate 2.5 mg INHALATION Q2H PRN PRN #0 ml 01/27/22 carvedilol 6.25 mg PO BID #0 tab 01/27/22 nut.tx.comp. immune systm,reg [Ensure Surgery] 237 ml PO TIDCM #0 ml 01/27/22 oxycodone 5 mg PO Q4H PRN PRN #0 tab 01/27/22 Hospital Course Summary of Care Provided Hospital Course: Initial plan for 2 weeks of DVT prophylaxis; however, Plts decreased with heparin chemoprophylaxis thus per discussion with Dr. Cao risk>benefit with hold on DVT prophylaxis Additional Orders: (1) As noted plan repeat 01/28/22 AM CBC given Plt decrease potentially secondary to heparin DVT prophylaxis and alter as needed, (2) Maintain on fall and aspiration precautions, (3) Continue STRICT snug BL LE THOMAS wraps from toe to thigh, overlapping, no skin showing and redo if comes undone and q shift, (4) Continue IS 10x/hr 7a-7p Need repeat CBC 01/28/22 secondary to low plts. May need to alter DVT prophylaxis given drop. Plan following this repeat CBC, BMP at least within 1 week or repeat CBC as needed pending repeat 01/28/22 AM lab. Weight / BMI Weight Weight: 183 lb 10.321 oz Body Mass Index (BMI) 26.3 ABG / Lab / Microbiology Data Result Diagrams: 01/27/22 05:20 01/27/22 05:20 Laboratory: Laboratory Results - last 24 hr 01/26/22 04:52: Diff Path Review Reviewed 01/26/22 16:56: POC Glucose 164 H 01/26/22 22:04: POC Glucose 206 H 01/27/22 05:20: WBC 3.3 L, RBC 4.02 L, Hgb 12.1 L, Hct 37.7 L, MCV 93.8, MCH 30.1, MCHC 32.1, RDW Std Deviation 56.8 H, RDW Coeff of Peri 16.6 H, Plt Count 63 L, MPV 11.5, Immature Gran % (Auto) 0.300, Neut % (Auto) 73.5 H, Lymph % (Auto) 12.0 L, [place] % (Auto) 13.3 H, Eos % (Auto) 0.3, Baso % (Auto) 0.6, Absolute Neuts (auto) 2.4, Absolute Lymphs (auto) 0.40 L, Nucleated RBC % 0, Diff Path Review Reviewed 01/27/22 05:20: Sodium 134 L, Potassium 4.8, Chloride 107, Carbon Dioxide 19.0 L, Anion Gap 8, BUN 86 H, Creatinine 3.01 H, Estim Creat Clear Calc 21.89, Est GFR (MDRD) Af Amer 26 L, Est GFR (MDRD) Non-Af 22 L, BUN/Creatinine Ratio 28.6 H, Glucose 128 H, Calcium 7.9 L, Total Bilirubin 0.70, AST 20, ALT 10 L, Alkaline Phosphatase 74, Total Protein 5.8 L, Albumin 2.8 L, Globulin 3.0, Albumin/Globulin Ratio 0.9 01/27/22 06:21: POC Glucose 127 H 01/27/22 11:57: POC Glucose 214 H Radiography Diagnostic Testing: Radiology Impression Chest/Abdomen/Pelvis CT 01/27/22 06:03 IMPRESSION: Extensive metastatic disease with numerous masses in both lungs, a mass in the pericardial fat posterior to the left ventricle, suspicious left adrenal mass, and severe retroperitoneal adenopathy particularly between the aorta and left kidney. The patient is status post right nephrectomy; please correlate for history of renal cell carcinoma which might be a source for these metastatic lesions. Cholelithiasis with gallbladder wall thickening. This may represent third spacing of fluid although cholecystitis is possible. Anasarca particularly of the left flank. More focal edema lateral to the right hip probably resolving postoperative changes from right hip arthroplasty. Infection not excluded please correlate with physical examination. Severe atherosclerosis, cardiomegaly and prior CABG, other chronic findings as above. Electronically Signed: Omega White MD at 8:02 EDT Reading Location ID and State: [address] [place] [address] Tel , Service support , Discharge Plan Admission Admit Date/Time: 01/24/22 23:23 Primary Reason for Your Visit: R Hip dislocation s/p open reduction, Hypoxia, CHF, Known metastatic CA Attending Provider: Leigh Henderson Primary Care Provider: Markus Encarnacion Consulting Providers: Zackery Rivas Instructions Additional Instructions / Restrictions: ADDITIONAL INSTRUCTIONS: Post-operative Orthopedic surgery plan: Initial plan for 2 weeks of DVT prophylaxis; however, Plts decreased with heparin chemoprophylaxis thus per discussion with Dr. Cao risk>benefit with hold on DVT prophylaxis, Plan for 3 months of strict posterior hip precautions and lifetime posterior hip precautions will be stressed, weightbearing as tolerated. OXYGEN: Supplemental oxygen should be continued and weaned to room air as tolerated. Discharge Orders/Prescriptions Prescriptions: New carvedilol 6.25 mg Tablet 6.25 mg PO BID Qty: 0 RF: 0 albuterol sulfate 2.5 mg /3 mL (0.083 %) Solution For Nebulization 2.5 mg inhalation Q2H PRN PRN (Reason: Wheezing, SOB) Qty: 0 RF: 0 oxycodone 5 mg Tablet 5 mg PO Q4H PRN PRN (Reason: pain 4-10, may overlap w/ IV) Qty: 0 RF: 0 Ensure Surgery 0.08-1.4 gram-kcal/mL Liquid 237 ml PO TIDCM Qty: 0 RF: 0 Continued Atorvastatin Calcium 40 mg PO QHS RF: 0 docusate sodium [DOK] 100 MG capsule 100 mg PO BID RF: 0 furosemide 20 MG tablet 20 mg PO BID RF: 0 loratadine [Allergy Relief (loratadine)] 10 MG tablet 10 mg PO DINNER PRN (Reason: allergies) RF: 0 cholecalciferol (vitamin D3) [Vitamin D3] 1,000 UNIT capsule 2,000 unit PO DAILY RF: 0 hydralazine 25 MG tablet 25 mg PO TID RF: 0 tramadol 50 MG tablet 50 mg PO 5X/DAY PRN (Reason: Pain) RF: 0 isosorbide dinitrate 20 MG tablet 20 mg PO TID RF: 0 diclofenac sodium 100 GM gel 2 g topical BID RF: 0 timolol 0.25 % Drops 1 drp EACH EYE BID RF: 0 empagliflozin 10 mg Tablet 10 mg PO DAILY RF: 0 coenzyme Q10 10 mg Capsule 10 mg PO DAILY RF: 0 B12 Active 1,000 mcg Tablet,Chewable 1,000 mcg PO DAILY RF: 0 Discontinued carvedilol 6.25 MG tablet 12.5 mg PO BID RF: 0 Referrals / Follow Up: Darren Garcia [Other] (Please follow-up with your Oncologist as previously arranged in 2 weeks.) Lui Cordero [Other] (Please follow-up with your Obstetrics Gynecology Physician within 1-2 weeks discharge.) Quang Cao MD [STAFF PHYSICIAN] - (Follow-up in 2 weeks.) Markus Encarnacion MD [Primary Care Provider] - (Follow-up within 1-2 days SNF discharge to review admission.) Disposition Disposition (needs filled in before D/C Order can be placed[facility]
--- NOTE | 2022-01-27 15:30 | NURSING ---
This Nurse gave report to Melissa LUND in TCU.
== END 2022-01-27 16:00 | DRG 467 ==
LOC: ED 23:34 → MS3 23:48
PROVIDERS: Anesthesiology; Specialist; Admitting Provider Hospitalist; Emergency Provider Emergency Medicine; PCP Family Medicine; Visit Provider Family Medicine
PROC: 0SWR0JZ Revision of Synthetic Substitute in Right Hip Joint, Femoral Surface, Open Approach (ICD-10-PCS; CPT 27134; principal; 2022-01-25 15:35)
DX: T84.020A Dislocation of internal right hip prosthesis, initial encounter (principal); I13.0 Hypertensive heart and chronic kidney disease with heart failure and stage 1 through stage 4 chronic kidney disease, or unspecified chronic kidney disease; C78.01 Secondary malignant neoplasm of right lung; C64.9 Malignant neoplasm of unspecified kidney, except renal pelvis; I50.22 Chronic systolic (congestive) heart failure; C78.02 Secondary malignant neoplasm of left lung; N18.4 Chronic kidney disease, stage 4 (severe); D69.59 Other secondary thrombocytopenia; E11.22 Type 2 diabetes mellitus with diabetic chronic kidney disease; E78.5 Hyperlipidemia, unspecified; I25.10 Atherosclerotic heart disease of native coronary artery without angina pectoris; I25.5 Ischemic cardiomyopathy; Z90.5 Acquired absence of kidney; Z87.891 Personal history of nicotine dependence; Z95.810 Presence of automatic (implantable) cardiac defibrillator; Z86.711 Personal history of pulmonary embolism; Z79.899 Other long term (current) drug therapy; I49.3 Ventricular premature depolarization; Y83.8 Other surgical procedures as the cause of abnormal reaction of the patient, or of later complication, without mention of misadventure at the time of the procedure
CPT/HCPCS: 36415; 71045; 71250; 73501; 73502; 74176; 76000; 80048; 80053; 82962; 83036; 85025; 87426; 93005; 93306; 94640; 94762; 97110; 97163; 97167; 97530; 99156; 99251; 99285; J7030; J7040; A4216; G0463; J1940; J2405

== ENCOUNTER 2022-01-27 16:10 | Inpatient (IN) | payer MEDICARE, OTHER, SELFPAY ==
[2022-01-27 16:18] VITALS: BMI 26.9
[2022-01-27 16:47] VITALS: BP 108/58; PULSE 72; RESP 20; TEMP 36.2; O2SAT 95
[2022-01-27] MEDS: oxyCODONE 5 MG Tablet PO (16:54)
[2022-01-27] MEDS: Docusate Sodium 100 MG Capsule PO (18:58)
[2022-01-27 19:01] VITALS: BP 85/42; PULSE 71
[2022-01-27] MEDS: traMADol 50 MG Tablet PO (20:50)
[2022-01-27 21:17] VITALS: BP 74/33; PULSE 72
[2022-01-27] MEDS: Atorvastatin Calcium 40 MG Tablet PO (21:19)
--- NOTE | 2022-01-27 21:38 | NURSING ---
LIFE COACH reports BP 74/33, manual BP 68/28, pulse 74, resps 13, temp 96.2, O2@100% on 3L. Pt. assessed, responds to verbal stimuli presents in bed alert to self, month, year, reoriented to location. Reports feeling tired.Dr. Gifford contacted via telephone regarding hypotension, reviewed EF 15% and multiple cardiac diagnoses, and last H&H on acute side of hospital, current ordered blood pressure medications and LIFE COACH holding HS Apresoline and Isordil, recent administration of Ultram and reported low blood pressures on acute side from acute side [id number] report. New order received for Normal saline 1000mL bolus then recheck BP, add parameters to Coreg, Isordil, and Apresoline hold if SBP <100, orders repeated back.
--- NOTE | 2022-01-27 22:02 | NURSING ---
Per Dr. Gifford, discontinue 1000mL liter bolus due to heart failure history and change to 500mL (half liter) NS Bolus
[2022-01-27 23:00] VITALS: RESP 16
--- NOTE | 2022-01-27 23:10 | HP.PCM_ITS ---
HPI - General General Date of Admission: 01/27/22 HPI Narrative 01/24/2022 MELVIN AGUIRRE, is a 76 Male who presents to [facility] Emergency Department with lower extremity injury. Status post right total hip arthroplasty, dislocated 2 years ago. Dislocated again. X-ray confirms right prosthetic hip dislocation. Propofol given for conscious sedation. 2 ER doctors unable to reduce right prosthetic hip dislocation. 2 Ortho doctors unable to reduce right prosthetic hip dislocation. 01/24/2022 Admit to Hospital. Prepare for OR to reduce right prosthetic hip dislocation. 01/24/2022 Echo moderately dilated left ventricle. Severe segmental systolic dysfunction. EF 15%. 01/25/2022 PT/OT. 01/25/2022 Dr. Rivas recommended proceeding with surgery with close monitori ng. 01/25/2022 Dr. Cao performed open reduction right total hip replacement. 01/26/2022 Fentanyl, oral pain medications. Lasix IV given x 1 dose. 01/27/2022 CT abdomen/pelvis showed lung mets, pericardial fat mass, left adrenal mass, severe retroperitoneal lymphadenopathy, left flank anasarca. 01/27/2022 Dr. Rees is patient's oncologist, noted CT findings stable. 01/27/2022 Admit to TCU with debility, here for rehabilitation, strengthening, prior to discharge home with . [facility] Medical History CAD (coronary artery disease) Cardiomyopathy, ischemic CHF (congestive heart failure) Chronic kidney disease, stage 4 (severe) Diabetes Diet-controlled diabetes mellitus Ex-smoker History of CHF (congestive heart failure) History of nephrectomy, unilateral History of renal insufficiency HLD (hyperlipidemia) HTN (hypertension) hx PE ICD (implantable cardioverter-defibrillator) in place Preoperative cardiovascular examination Home Medications Atorvastatin Calcium 40 mg PO QHS 06/01/14 [History Last Taken 01/23/22] cholecalciferol (vitamin D3) [Vitamin D3] 2,000 unit PO DAILY 06/01/14 [History Last Taken 01/24/22] docusate sodium [DOK] 100 mg PO BID 06/01/14 [History Last Taken 01/24/22] furosemide 20 mg PO BID 06/01/14 [History Last Taken 01/24/22] loratadine [Allergy Relief (loratadine)] 10 mg PO DINNER PRN 06/01/14 [History Last Taken 09/21/14 17:00] diclofenac sodium 2 g TOPICAL BID 08/24/14 [History Last Taken 01/24/22] hydralazine 25 mg PO TID 08/24/14 [History Last Taken 01/24/22] isosorbide dinitrate 20 mg PO TID 08/24/14 [History Last Taken 01/24/22] tramadol 50 mg PO 5X/DAY PRN 08/24/14 [History Last Taken 09/22/14 16:00] empagliflozin 10 mg PO DAILY 01/24/22 [History Last Taken 01/24/22] timolol 1 drp EACH EYE BID 01/24/22 [History Last Taken 01/24/22] B12 Active 1,000 mcg PO DAILY 01/25/22 [History Last Taken 01/24/22] coenzyme Q10 10 mg PO DAILY 01/25/22 [History Last Taken 01/24/22] albuterol sulfate 2.5 mg INHALATION Q2H PRN PRN #0 ml 01/27/22 [Rx Last Taken Unknown] carvedilol 6.25 mg PO BID 01/27/22 [History Last Taken Unknown] nut.tx.comp. immune systm,reg [Ensure Surgery] 237 ml PO TIDCM 01/27/22 [History Last Taken Unknown] oxycodone 5 mg PO Q4H PRN PRN #0 tab 01/27/22 [Rx Last Taken Unknown] Allergy/AdvReac Type Severity Reaction Status Date / Time No Known Allergies Allergy Verified 01/24/22 18:41 Surgical History H/O hemorrhoidectomy H/O right knee surgery H/O right nephrectomy History of right hip replacement S/P CABG (coronary artery bypass graft) Social History Smoking Status: Former smoker ROS Constitutional Constitutional: Denies chills, fever(s) or weight gain ENT HEENT: Denies headache(s), nasal congestion or nasal discharge Cardiovascular Cardiovascular: Denies chest pain or palpitations Respiratory/Chest Respiratory/Chest: Denies cough, excessive phlegm production or shortness of breath with exertion Gastrointestinal Gastrointestinal: Denies abdominal pain, nausea or vomiting Genitourinary Genitourinary: Denies dysuria Musculoskeletal Musculoskeletal: Denies joint pain or joint swelling Integumentary Integumentary: Denies rash or wounds Neurologic Neurologic: Denies focal weakness, numbness or tingling Psychiatric Psychiatric: Denies anxiety, auditory hallucinations, depression, homicidal ideation or suicidal ideation Vital Signs Vital Signs Vital Signs: 01/27/22 16:47 01/27/22 19:01 01/27/22 21:17 Temperature 97.1 F L Temperature Source Temporal Pulse Rate 72 71 72 Respiratory Rate 20 H Blood Pressure 108/58 L 85/42 L 74/33 L Blood Pressure Mean 74 56 Blood Pressure Source Monitor Monitor Blood Pressure Position Semi-Fowlers Semi-Fowlers Blood Pressure Location Right Arm Right Arm Pulse Ox 95 Oxygen Delivery Method Room Air Weight Weight: 85.094 kg Body Mass Index (BMI) 26.9 Physical Exam Const Constitutional Narrative: Sleepy. General Appearance: cooperative HEENT normocephalic Eyes PERRL and EOMs intact bilaterally Neck supple, no JVD and no carotid bruits Resp normal respiratory effort, normal air movement and clear to auscultation bilaterally Cardio regular rate and regular rhythm GI normal to inspection, nondistended, normoactive bowel sounds, non-tender and non-distended Extremity normal capillary refill General Extremity: Negative for edema Skin no rashes or lesions noted General Skin Exam: no breakdown Psych affect normal Appearance: appropriate Results Lab / Micro Data Result Diagrams: 01/28/22 06:53 01/28/22 06:53 Assessment & Plan Assessment/Plan (1) Debility: (2) Dislocation of internal right hip prosthesis: (3) Metastatic cancer: (4) Chronic systolic congestive heart failure: (5) Diabetes mellitus: (6) Coronary artery disease: (7) Chronic kidney disease, stage 4 (severe): (8) Hyperlipidemia: (9) Vitamin D deficiency: (10) Overactive bladder: (11) Glaucoma: PLAN: 76 year old male with below past medical history hospitalized for right prosthetic hip dislocation, underwent open reduction right total hip repl acement 01/25/2022, complicated by acute on chronic kidney failure, chronic systolic congestive heart failure, admitted to TCU with debility, here for rehabilitation, strengthening, prior to discharge home with . * Debility - PT/OT. * Pain - Tylenol 1000mg q6h prn pain (1-3), Tramadol 50mg q12h prn pain (4-5), Oxycodone 2.5mg q4h prn pain (6-10), Arthritis compound cream 2 clicks topical bid. * Bowel - Senna/colace 1 tablet bid, Dulcolax 10mg pr daily prn. * Adult immunization - Administer pneumonia vaccine, flu vaccine, covid vaccine as appropriate. * DVT prophylaxis - Hold, too high risk per Dr. Rees. * Acute on chronic kidney failure - normal saline 60cc/hour, consult [facility]. * Shortness of breath - Albuterol 2.5mg neb q2h prn. * Hyperlipidemia - Atorvastatin 40mg qhs. * Chronic systolic congestive heart failure - EF 15%, Coreg 3.125mg bid, Isosorbide dinitrate 10mg bid, Hydralazine 10mg bid, consider Entresto. * Coronary artery disease - Coreg 3.125mg bid, Isosorbide dinitrate 10mg bid. * Nutrition - Ensure 120ml 4x/day. * Glaucoma - Timolol 0.25% 1gtt ou bid. * Metastatic cancer - Consult Dr. Rees regarding plan.
[2022-01-27 23:25] VITALS: BP 101/46; PULSE 63; RESP 14
--- NOTE | 2022-01-27 23:26 | NURSING ---
Dr. Gifford contacted via telephone, notified of BP post bolus 101/46, pulse 63. notified of patient lethargy, patient does respond to verbal stimuli and hold appropriate conversation but falls asleep frequently. also notified patient unable to void at this time and scrotal edema observed. Per. patient scrotal edema not new states the doctor says it went from my legs to my scrotum, bladder scan shows >572. Per Dr. Gifford place zamora cath at this time.
[2022-01-28 05:45] VITALS: BP 86/32; PULSE 72
[2022-01-28] MEDS: Arthritis Pain Compound 60 CLICK TUBE TOPICAL (05:50)
[2022-01-28] MEDS: Timolol 0.25% 5ML OPTH.BTL 1 DRP EACH EYE (05:51)
[2022-01-28] MEDS: Empagliflozin 10 MG Tablet PO (05:51)
[2022-01-28] MEDS: Docusate Sodium 100 MG Capsule PO (05:53)
[2022-01-28] MEDS: Cholecalciferol (VIT D3) 25 MCG TABLET (1,000 UNITS) PO (05:53)
[2022-01-28] MEDS: Furosemide 20 MG Tablet PO (05:53)
[2022-01-28] MEDS: Cyanocobalamin 500 MCG Tablet 1000 MCG PO (05:54)
[2022-01-28] MEDS: traMADol 50 MG Tablet PO ×2 (06:04→09:33)
[2022-01-28 06:41] LABS: Bedside Glucose 98 mg/dL (74-106)
[2022-01-28 07:20] LABS: Absolute Lymphocyte Count 0.31 X10^3/uL (0.83-4.51); Absolute Neutrophil Count 2.4 X10^3/uL (2.0-7.7); Basophil# 0.01 X10^3/uL; Basophil% 0.3 % (0-1); Eosinophil# 0.03 X10^3/uL; Eosinophils% 0.9 % (0-5); Hematocrit 35.4 % (40-54); Lymphocyte # 0.31 X10^3/ul (0.83-4.51); Lymphocyte % 9.6 % (19-41); Mean Corp Hgb Conc 31.1 g/dL (32-36); Mean Corpuscular Hgb 29.5 pg (27.0-32.0); Mean Corpuscular Volume 94.9 fL (80-94); Mean Platelet Vol. 10.8 fl (6.2-12.0); Monocyte# 0.43 X10^3/uL; Monocyte% 13.3 % (0-10); NRBC Flagged by Analyzer 0 % (0-5); Neutrophil # 2.43 X10^3/uL (2.7-7.7); POSITIVE COUNT YES; POSITIVE DIFFERENTIAL YES; Platelet Count 106 K/mm3 (150-450); RBC Distribution Width CV 16.5 % (11.6-14.6); RBC Distribution Width SD 57.8 fl (35.1-43.9); Red Blood Count 3.73 M/mm3 (4.6-6.2); White Blood Count 3.2 K/mm3 (4.4-11.0)
[2022-01-28 07:31] LABS: Differential Indicated SCAN CRITERIA MET
--- NOTE | 2022-01-28 07:36 | NURSING ---
This nurse responded to MEAT WRAPPER's request for help. RN and MEAT WRAPPER in bathroom with patient. Patient ashen in color and unresponsive. This nurse called a rapid response. Patient's oxygen at 84%, 3L applied. Patient able to be transferred to bed by staff. Per Dr. Henderson, she will consult with Dr. Gifford to change patient's current medications. At this time, patient alert and responsive to staff with 1L bolus running.
[2022-01-28 07:41] LABS: Platelet Morphology LARGE
[2022-01-28 07:42] LABS: Platelet Estimate SLT DEC (ADEQ)
[2022-01-28 07:45] VITALS: O2SAT 96
[2022-01-28 07:57] LABS: Anion Gap 6 (5-15); BUN 95 mg/dL (7-18); BUN/Creat Ratio 29.5 RATIO (10-20); Calcium,Total 8.1 mg/dL (8.5-10.1); Chloride 105 mmol/L (98-107); Creatinine, Serum 3.22 mg/dL (0.70-1.30); EST Glomerular Filtration Rate 20 mL/min (>60); Est Glom Filt Rate - Afr Amer 24 mL/min (>60); Estimated Creatinine Clearance 20.47 ml/min; Glucose 97 mg/dL (74-106); Potassium 4.8 mmol/L (3.5-5.1); Sodium Level 135 mmol/L (136-145)
[2022-01-28 08:04] VITALS: BP 102/50; PULSE 70
[2022-01-28 08:45] VITALS: O2SAT 96
[2022-01-28] MEDS: 0.9% Normal Saline 1,000 ML 60 ML IV (09:25)
[2022-01-28] MEDS: 0.9% Saline Lock 10 ML Syringe IV (09:25)
[2022-01-28 11:02] VITALS: O2SAT 97
[2022-01-28] MEDS: Tuberculin,Purif.prot.deriv. 50 TU/ML Vial 0.1 ML ID (12:15)
[2022-01-28 13:43] VITALS: O2SAT 95
--- NOTE | 2022-01-28 16:32 | NURSING ---
Addendum entered by Yana Betancourt 01/28/22 16:33: Pt's blood pressure continues with hypotension. Dr. Gifford pagekeegan, N.O. to send to ER for evaluation. Family walks down to ER with patient. Original Note: Pt with increased edema in bilateral legs, vitals obtained and Dr. Balta mayo. Marketing Development Representative relocation associate paged, N.O. received from Dr. Thompson. Family updated on all.
--- NOTE | 2022-01-28 18:59 | PN_ITS ---
Progress Note Called by nursing staff at TCU for consult for RICHI on CKD. Chart at [facility] and here at [place] are reviewed. Pt has history if CKD stage 4 from decreased renal mass (s/p R nephrectomy in 2012 for RCCA) and probable DKD. Pt also has past history of T2DM, HTN, PAD, CAD s/p CABG, ischemic cardiomayopathy with EF of 21% (last echo in 04/2020 reviewed), prior ventricular tachycardia s/p AICD placement, prior hisory of PE, and mild pulmonary HTN (RVSP 47 mmHg). Pt admitted to TCU on 01/27 after hip replacement at [facility] on 01/24/22. Renal function had been stable at his baseline (baseline SCr 2.5- 2.8) during hospitalization at [facility]. SCr increased to 3.50 today in the setting of hypotension and decreased UOP. UA and urine indices ordered. Held antihypertensives. Suspect RICHI on CKD is due to either prerenal azotemia or CRS. Another possibility is RICHI from prerenal or ATN from other causes of hypotension such as sepsis. Will need to examine the pt to determine if he needs diuresis or more fluid. Recommend to TCU RN to get pt evaluated by hospitalist. I will see the pt in am.
--- NOTE | 2022-01-29 11:36 | PCM.DC.SUM ---
Providers Date of Admission: 01/27/22 Primary Care Physician: Markus Encarnacion MD Consultations 01/28/22 13:17 Consult: Nephrology Routine Consulting Provider: Haris Bourne Reason for Consult: Acute on chronic kidney failure. EMERGENT Consult: No MD Notified: Yes Date Notified: 01/28/22 Time Notified: 13:18 Method of Notification: Answering Service Reason For Visit: RT HIP DISLOCATION Diagnosis Discharge Diagnosis (1) Debility: Status: Acute Code(s): R53.81 - Other malaise (2) Dislocation of internal right hip prosthesis: Status: Acute Code(s): T84.020A - Dislocation of internal right hip prosthesis, initial encounter (3) Metastatic cancer: Status: Acute Code(s): C79.9 - Secondary malignant neoplasm of unspecified site (4) Chronic systolic congestive heart failure: Status: Chronic Code(s): I50.22 - Chronic systolic (congestive) heart failure (5) Diabetes mellitus: Status: Acute Code(s): E11.9 - Type 2 diabetes mellitus without complications (6) Coronary artery disease: Status: Acute Code(s): I25.10 - Atherosclerotic heart disease of [place] coronary artery without angina pectoris (7) Chronic kidney disease, stage 4 (severe): Status: Chronic Code(s): N18.4 - Chronic kidney disease, stage 4 (severe) (8) Hyperlipidemia: Status: Acute Code(s): E78.5 - Hyperlipidemia, unspecified (9) Vitamin D deficiency: Status: Acute Code(s): E55.9 - Vitamin D deficiency, unspecified (10) Overactive bladder: Status: Acute Code(s): N32.81 - Overactive bladder (11) Glaucoma: Status: Acute Code(s): H40.9 - Unspecified glaucoma Medications at Discharge Home Medications Atorvastatin Calcium 40 mg PO QHS 06/01/14 cholecalciferol (vitamin D3) [Vitamin D3] 2,000 unit PO DAILY 06/01/14 docusate sodium [DOK] 100 mg PO BID 06/01/14 furosemide 20 mg PO DAILY 06/01/14 loratadine [Allergy Relief (loratadine)] 10 mg PO DINNER PRN 06/01/14 diclofenac sodium 2 g TOPICAL BID 08/24/14 hydralazine 10 mg PO BID 08/24/14 isosorbide dinitrate 10 mg PO BID 08/24/14 tramadol 50 mg PO 5X/DAY PRN 08/24/14 empagliflozin 10 mg PO DAILY 01/24/22 timolol 1 drp EACH EYE BID 01/24/22 B12 Active 1,000 mcg PO DAILY 01/25/22 coenzyme Q10 10 mg PO DAILY 01/25/22 albuterol sulfate 2.5 mg INHALATION Q2H PRN PRN #0 ml 01/27/22 carvedilol 3.125 mg PO BID 01/27/22 nut.tx.comp. immune systm,reg [Ensure Surgery] 237 ml PO TIDCM 01/27/22 oxycodone 5 mg PO Q4H PRN PRN #0 tab 01/27/22 Hospital Course Operations - (Open reduction right total hip replacement.) Procedures None Summary of Care Provided Minutes Spent on Discharge: 30 Hospital Course: 76 year old male with below past medical history hospitalized for right prosthetic hip dislocation, underwent open reduction right total hip replacement 01/25/2022, complicated by acute on chronic kidney failure, chronic systolic congestive heart failure, admitted to TCU with debility, here for rehabilitation, strengthening, prior to discharge home with . 01/28/2022 Resident hypotensive, blood pressure/heart failure medications were adjusted, resident started on gentle IV fluids. IV fluids lead to third spacing with minimal improvement of blood pressure. Further, acute on chronic kidney injury worsened, concern with cardiorenal syndrome with ejection fraction 15%. Resident not stable to remain in [facility] facility, requires more intensive monitoring. 01/29/2022 Discharge to [facility] Emergency Department for evaluation, possible admission to [facility]. Physical Exam Const alert General Appearance: cooperative HEENT normocephalic Eyes PERRL and EOMs intact bilaterally Neck supple, no JVD and no carotid bruits Resp normal respiratory effort, normal air movement and clear to auscultation bilaterally Cardio regular rate and regular rhythm GI normal to inspection, nondistended, normoactive bowel sounds, non-tender and non-distended Extremity normal capillary refill General Extremity: edema bilateral (2+) Skin no rashes or lesions noted General Skin Exam: no breakdown Psych affect normal Appearance: appropriate Weight / BMI Weight Weight: 85.094 kg Body Mass Index (BMI) 26.9 ABG / Lab / Microbiology Data Result Diagrams: 01/28/22 06:53 01/28/22 06:53 D/C Instructions Discharge Diet: No restrictions Discharge Activity: Return to Normal Activity Weight Bearing Status: Weight bearing as tolerated Call your doctor if you observe: Fever of 101 or Higher, Inability to urinate, Inability to have a bowel movement, Shortness of breath, Dizziness, Fainting spells, Chest pain and Uncontrolled pain Additional Instructions: 01/29/2022 Discharge to [facility] Emergency Department for evaluation, possible admission to [facility]. Please Follow Up With: Darren Garcia, Oncology When: 2 weeks. Meaningful Use Info Meaningful Use Diagnoses (Choose all that apply): None applicable Discharge Plan Admission Admit Date/Time: 01/27/22 16:10 Primary Reason for Your Visit: Debility. Attending Provider: Moose Gifford Chi Primary Care Provider: Markus Encarnacion Consulting Providers: Haris Bourne Instructions Additional Instructions / Restrictions: 01/29/2022 Discharge to [facility] Emergency Department for evaluation, possible admission to [facility]. Discharge Orders/Prescriptions Prescriptions: No Action Atorvastatin Calcium 40 mg PO QHS RF: 0 docusate sodium [DOK] 100 MG capsule 100 mg PO BID RF: 0 furosemide 20 MG tablet 20 mg PO DAILY RF: 0 loratadine [Allergy Relief (loratadine)] 10 MG tablet 10 mg PO DINNER PRN (Reason: allergies) RF: 0 cholecalciferol (vitamin D3) [Vitamin D3] 1,000 UNIT capsule 2,000 unit PO DAILY RF: 0 hydralazine 25 MG tablet 10 mg PO BID RF: 0 tramadol 50 MG tablet 50 mg PO 5X/DAY PRN (Reason: Pain) RF: 0 isosorbide dinitrate 20 MG tablet 10 mg PO BID RF: 0 diclofenac sodium 100 GM gel 2 g topical BID RF: 0 timolol 0.25 % Drops 1 drp EACH EYE BID RF: 0 empagliflozin 10 mg Tablet 10 mg PO DAILY RF: 0 coenzyme Q10 10 mg Capsule 10 mg PO DAILY RF: 0 B12 Active 1,000 mcg Tablet,Chewable 1,000 mcg PO DAILY RF: 0 albuterol sulfate 2.5 mg /3 mL (0.083 %) Solution For Nebulization 2.5 mg inhalation Q2H PRN PRN (Reason: Wheezing, SOB) Qty: 0 RF: 0 oxycodone 5 mg Tablet 5 mg PO Q4H PRN PRN (Reason: pain 4-10, may overlap w/ IV) Qty: 0 RF: 0 carvedilol 6.25 mg tablet 3.125 mg PO BID RF: 0 Ensure Surgery 0.08-1.4 gram-kcal/mL liquid 237 ml PO TIDCM RF: 0 Referrals / Follow Up: Makrus Encarnacion MD [Primary Care Provider] - Disposition Disposition (needs filled in before D/C Order can be placed): [facility]
--- NOTE | 2022-01-30 11:28 | NURSING ---
Addendum entered by Nidia Walsh 02/09/22 11:18: Resident d/c from facility on 01/28/22. Original Note: Sole Tacker Note: Resident admitted and d/c from TCU on 01/29/22. Unable to complete interview with resident or family for MDS Section F. Observation through staff occurred on some questions, however, others unable to be assessed or information obtained d/t brief admit.
[2022-01-31 13:45] LABS: Pathologist Review Reviewed
--- NOTE | 2022-02-09 08:57 | MDS.RN ---
Information for the mds was obtained from review of the clinical record, interview of resident, staff, and direct observation of resident's care.
== END 2022-01-28 20:00 | disposition short-term general hospital (02) | DRG 949 ==
PROVIDERS: Admitting Provider Family Medicine Geriatric Medicine; PCP Family Medicine; Visit Provider Family Medicine Geriatric Medicine
DX: T84.020D Dislocation of internal right hip prosthesis, subsequent encounter (principal); I13.0 Hypertensive heart and chronic kidney disease with heart failure and stage 1 through stage 4 chronic kidney disease, or unspecified chronic kidney disease; N17.9 Acute kidney failure, unspecified; I50.22 Chronic systolic (congestive) heart failure; C78.00 Secondary malignant neoplasm of unspecified lung; N18.4 Chronic kidney disease, stage 4 (severe); E11.22 Type 2 diabetes mellitus with diabetic chronic kidney disease; E27.9 Disorder of adrenal gland, unspecified; E11.39 Type 2 diabetes mellitus with other diabetic ophthalmic complication; I25.5 Ischemic cardiomyopathy; I25.10 Atherosclerotic heart disease of native coronary artery without angina pectoris; E55.9 Vitamin D deficiency, unspecified; E78.5 Hyperlipidemia, unspecified; I95.9 Hypotension, unspecified; Z79.84 Long term (current) use of oral hypoglycemic drugs; Z87.891 Personal history of nicotine dependence; R59.0 Localized enlarged lymph nodes; N32.81 Overactive bladder; H40.9 Unspecified glaucoma; Z96.641 Presence of right artificial hip joint; Z79.899 Other long term (current) drug therapy; Z86.711 Personal history of pulmonary embolism; Z95.810 Presence of automatic (implantable) cardiac defibrillator
CPT/HCPCS: 36415; 80048; 82962; 85025; 97161; 97167; 97530; J7030; J7040; A4216

== ENCOUNTER 2022-01-28 16:33 | Inpatient (IN) | payer MEDICARE, OTHER, SELFPAY ==
[2022-01-28] VITALS (10 sets, daily range): BP systolic 84–104; BP diastolic 48–68; PULSE 63–72; RESP 12–16; TEMP 36.6–37.1; O2SAT 93–97; BMI 29.0; BMI 28.4
--- NOTE | 2022-01-28 16:46 | EKG12_ITS ---
Test Reason : Blood Pressure : / mmHG Vent. Rate : 072 BPM Atrial Rate : 048 BPM P-R Int : 000 ms QRS Dur : 178 ms QT Int : 474 ms P-R-T Axes : 000 226 034 degrees QTc Int : 519 ms Ventricular-paced rhythm Biventricular pacemaker detected Abnormal ECG Confirmed by SOMMER LUNA, ALEXANDER ([id number]), online editor AYAN MARTEL ([id number]) on 01/31/2022 10:45:23 AM Referred By: PAULA Confirmed By:ALEXANDER NOVOA MD
[2022-01-28 16:58] LABS: Absolute Neutrophil Count 2.9 X10^3/uL (2.0-7.7); Basophil# 0.01 X10^3/uL; Basophil% 0.3 % (0-1); Eosinophil# 0.01 X10^3/uL; Eosinophils% 0.3 % (0-5); Hematocrit 37.1 % (40-54); Hemoglobin 11.4 g/dL (13.0-16.5); Lymphocyte % 8.1 % (19-41); Mean Corp Hgb Conc 30.7 g/dL (32-36); Mean Corpuscular Hgb 30.1 pg (27.0-32.0); Mean Corpuscular Volume 97.9 fL (80-94); Mean Platelet Vol. 11.4 fl (6.2-12.0); Monocyte# 0.44 X10^3/uL; Monocyte% 11.9 % (0-10); NRBC Flagged by Analyzer 0 % (0-5); Neutrophil # 2.91 X10^3/uL (2.7-7.7); Neutrophil % 78.3 % (47-70); POSITIVE DIFFERENTIAL YES; Platelet Count 108 K/mm3 (150-450); RBC Distribution Width CV 16.7 % (11.6-14.6); RBC Distribution Width SD 59.4 fl (35.1-43.9); Red Blood Count 3.79 M/mm3 (4.6-6.2); White Blood Count 3.7 K/mm3 (4.4-11.0)
[2022-01-28 16:59] LABS: Differential Indicated SCAN CRITERIA MET
[2022-01-28 17:13] LABS: ALB/GLOB Ratio 0.8 RATIO (0.9-2.4); AST(SGOT) 29 U/L (15-37); Alanine Aminotransfer ALT/SGPT 10 U/L (16-61); Albumin, Serum 2.6 g/dL (3.2-5.0); Alkaline Phosphatase 97 U/L (45-117); Anion Gap 8 (5-15); BUN 95 mg/dL (7-18); BUN/Creat Ratio 27.1 RATIO (10-20); Calcium,Total 8.2 mg/dL (8.5-10.1); Chloride 105 mmol/L (98-107); EST Glomerular Filtration Rate 18 mL/min (>60); Est Glom Filt Rate - Afr Amer 22 mL/min (>60); Estimated Creatinine Clearance 18.83 ml/min; Globulin 3.1 g/dL (2.2-4.2); Glucose 148 mg/dL (74-106); Potassium 5.1 mmol/L (3.5-5.1); Protein, Total 5.7 g/dL (6.4-8.2); Sodium Level 133 mmol/L (136-145)
[2022-01-28 17:14] LABS: Ovalocyte 1+; Platelet Estimate SLT DEC (ADEQ); Poikilocytosis 1+
[2022-01-28 17:16] LABS: Bacteria 0 SEEN /hpf (None Seen); Mucous, Urine 0 SEEN /hpf (<or=2+); Red Blood Cells-Urine 0 SEEN /hpf (0-5); Squamous Epithelial Cells - UA 0 SEEN /hpf (0-5)
[2022-01-28 17:17] LABS: Color, Urine Yellow (Yellow); Glucose, Dipstick Normal (Normal); Ketone-Dipstick 5 mg/dl (Negative); Leukocyte Esterase-Dipstick 500 /ul (Negative); Nitrite-Dipstick Negative (Negative); Occult Blood-Urine 250 /ul (Negative); Protein-Dipstick 100 mg/dl (Negative); Urine Bilirubin Dipstick Negative (Negative); Urine Urobilinogen Normal (Normal)
[2022-01-28 17:19] LABS: Urine Clarity Cloudy (Clear)
[2022-01-28 17:25] LABS: White Blood Cells 5-10 SEEN /hpf (0-5)
[2022-01-28] MEDS: 0.9% Normal Saline 1,000 ML 999 ML IV (17:53)
--- NOTE | 2022-01-28 18:15 | NURSING ---
PCU WHITE HYPOTENSION, ALTERED MENTAL STATUS, OVER MEDICATED
--- NOTE | 2022-01-28 18:15 | ED.RN ---
BOLUS INITIATED PER ORDER OF DR MITCHELL. LOW BP WITH MAP OF 61. BOLUS STOPPED AFTER APPROX [address] JAYRO ROCHA. MAP IMPROVED TO 73
--- NOTE | 2022-01-28 18:19 | EDS_ITS ---
HPI History of Present Illness Chief Complaint: Hypotension Detail of Chief Complaint: Hypotension and decreased responsiveness Informant: patient, spouse/S.O. and family Onset/Context/Timing Onset: Today Context: Gradual Onset Timing: Continuous Quality: Low blood pressure, decreased level of consciousness Location: Patient presents from TCU Current Severity: Moderate Maximum Severity: Moderate Worsened by: Uncertain Relieved by: Nothing Associated Symptoms Associated Symptoms: Nothing Narrative Narrative: Patient is a 76-year-old male who was recently admitted for dislocated prosthetic hip that could not be reduced and required operative intervention. He was transitioned from the medical surgical floor to the TCU unit proximate 2 days ago. He presents now because of hypotension. His first blood pressure is low at 104/61 which is close to his baseline. I was informed by nursing staff that he had a pressure as low as 70 systolic. Repeat was 80. Patient denies headache, visual, ocular auditory symptoms. Patient denies shortness of breath or chest discomfort. Patient denies nausea or vomiting. Patient denies diarrhea. Patient denies urologic symptoms. He informed that he has indwelling Jimenez. He requires repeated stimulation to answer questions. Prior similar symptoms: No Recent Illness/Hospitalization: Yes [facility] Medical History CAD (coronary artery disease) Cardiomyopathy, ischemic CHF (congestive heart failure) Chronic kidney disease, stage 4 (severe) Diabetes Diet-controlled diabetes mellitus Ex-smoker History of CHF (congestive heart failure) History of nephrectomy, unilateral History of renal insufficiency HLD (hyperlipidemia) HTN (hypertension) hx PE ICD (implantable cardioverter-defibrillator) in place Preoperative cardiovascular examination Home Medications Atorvastatin Calcium 40 mg PO QHS 06/01/14 [History Last Taken 01/23/22] cholecalciferol (vitamin D3) [Vitamin D3] 2,000 unit PO DAILY 06/01/14 [History Last Taken 01/24/22] docusate sodium [DOK] 100 mg PO BID 06/01/14 [History Last Taken 01/24/22] furosemide 20 mg PO BID 06/01/14 [History Last Taken 01/24/22] loratadine [Allergy Relief (loratadine)] 10 mg PO DINNER PRN 06/01/14 [History Last Taken 09/21/14 17:00] diclofenac sodium 2 g TOPICAL BID 08/24/14 [History Last Taken 01/24/22] hydralazine 25 mg PO TID 08/24/14 [History Last Taken 01/24/22] isosorbide dinitrate 20 mg PO TID 08/24/14 [History Last Taken 01/24/22] tramadol 50 mg PO 5X/DAY PRN 08/24/14 [History Last Taken 09/22/14 16:00] empagliflozin 10 mg PO DAILY 01/24/22 [History Last Taken 01/24/22] timolol 1 drp EACH EYE BID 01/24/22 [History Last Taken 01/24/22] B12 Active 1,000 mcg PO DAILY 01/25/22 [History Last Taken 01/24/22] coenzyme Q10 10 mg PO DAILY 01/25/22 [History Last Taken 01/24/22] albuterol sulfate 2.5 mg INHALATION Q2H PRN PRN #0 ml 01/27/22 [Rx Last Taken Unknown] carvedilol 6.25 mg PO BID 01/27/22 [History Last Taken Unknown] nut.tx.comp. immune systm,reg [Ensure Surgery] 237 ml PO TIDCM 01/27/22 [History Last Taken Unknown] oxycodone 5 mg PO Q4H PRN PRN #0 tab 01/27/22 [Rx Last Taken Unknown] Allergy/AdvReac Type Severity Reaction Status Date / Time No Known Allergies Allergy Verified 01/28/22 16:39 Surgical History H/O hemorrhoidectomy H/O right knee surgery H/O right nephrectomy History of right hip replacement S/P CABG (coronary artery bypass graft) Social History (Updated 01/28/22 @ 18:[address] Enrique Fernandez MD) household members: spouse Smoking Status: Former smoker substance use type: does not use ROS ROS ED Constitutional Constitutional ED: Denies chills, fever(s), subjective, sweats or weight loss Eyes Eyes: Denies blurry vision, change in vision or diplopia ENT ENT ED: Denies ear pain, rhinorrhea or sore throat Cardiovascular Cardiovascular: Denies chest pain, orthopnea, palpitations, paroxysmal nocturnal dyspnea or racing heartbeat Respiratory/Chest Respiratory/Chest: Denies cough, dyspnea, dyspnea on exertion, orthopnea, paroxysmal nocturnal dyspnea or sputum Gastrointestinal Gastrointestinal: Denies abdominal pain, diarrhea, nausea or vomiting Genitourinary Genitourinary ED: Reports other Details: Indwelling Jimenez ; Denies dysuria, hematuria or urinary frequency Musculoskeletal Musculoskeletal: Denies arthralgias, back pain, myalgias or neck pain Integumentary Denies rash Neurologic Neurologic: Reports weakness; Denies headache(s) Endocrine Endocrinology: Denies polydipsia, polyphagia or polyuria EXAM Physical Exam Const Vital Signs: 01/28/22 16:35 01/28/22 17:40 01/28/22 17:48 Temperature 98 F Temperature Source Temporal Pulse Rate 69 68 Respiratory Rate 16 12 Blood Pressure 104/61 84/51 L 92/49 L Blood Pressure Mean 75 62 63 Pulse Ox 96 96 Oxygen Delivery Method Room Air Nasal Cannula Oxygen Flow Rate (L/min) 01/28/22 18:12 01/28/22 18:17 Temperature 97.9 F Temperature Source Temporal Pulse Rate 70 70 Respiratory Rate 12 12 Blood Pressure 91/59 L 95/62 Blood Pressure Mean 69 73 Pulse Ox 93 94 Oxygen Delivery Method Nasal Cannula Nasal Cannula Oxygen Flow Rate (L/min) 2 2 Positive well nourished and well developed General Appearance ED: well developed, NAD and other Altered mentation. Slow psychomotor skills. ; Negative for cyanotic or diaphoretic HEENT Reports TM's clear and dry mucous membranes Negative for trauma or tenderness Tympanic Membrane ED: Yes TM's clear Mouth ED: Yes dry mucous membranes Mouth: dry mucous membranes Eyes PERRL and EOMs intact bilaterally Eyes Narrative: There is no nystagmus. Gaze is conjugate. There is no APD. General Eye ED: Negative for pale conjunctiva or scleral icterus Neck no lymphadenopathy, supple and no JVD Chest Wall inspection of chest normal and palpation of chest normal Resp normal respiratory effort and clear to auscultation bilaterally Cardio regular rate, regular rhythm, S1 normal heart sound, S2 normal heart sound and no murmurs GI normal to inspection, nondistended, normoactive bowel sounds, non-tender and non-distended Palpation: soft Bladder / Kidney Exam: other Patient has an indwelling Jimenez. Urine is straw- colored and clear. Back/Spine no CVA tenderness Cervical Spine: Negative for cervical spine tenderness Thoracic Spine / Upper Back: Negative for thoracic spinal tenderness or paraspinal muscle tenderness Extremity Negative for normal to inspection General Extremety ED: Yes edema; Negative for tenderness General Extremity: edema Neuro oriented x3 and CN's II-XII intact bilaterally Sensorium / Orientation: orientation impaired; Negative for alert Motor Exam: strength 5/5 throughout Psych Appearance: other Slow psychomotor skills. Skin no rashes or lesions noted and No no wounds Wounds: wounds noted other Surgical scar noted and healing without evidence infection. MDM MDM MDM Narrative Medical decision making narrative: Fluid bolus was ordered for his hypotension. Once I was made aware that his EF was 15% the fluid bolus was slowed down significantly. Blood work was obtained to assess white count, H&H renal function and CO2/anion gap electrolytes. Obtain urine. Suspect patient's encephalopathy is medicated induced. He is receiving more tramadol than he should. He is also on an opiate analgesic as well. Lab Data Attestation: I reviewed the patient's lab results. Labs: Laboratory Results - last 24 hr 01/28/22 01/28/22 01/28/22 16:40 16:40 17:02 WBC 3.7 L RBC 3.79 L Hgb 11.4 L Hct 37.1 L MCV 97.9 H MCH 30.1 MCHC 30.7 L RDW Std Deviation 59.4 H RDW Coeff of Peri 16.7 H Plt Count 108 L MPV 11.4 Immature Gran % (Auto) 1.100 H Neut % (Auto) 78.3 H Lymph % (Auto) 8.1 L [place] % (Auto) 11.9 H Eos % (Auto) 0.3 Baso % (Auto) 0.3 Absolute Neuts (auto) 2.9 Absolute Lymphs (auto) 0.30 L Nucleated RBC % 0 Platelet Estimate SLT DEC Poikilocytosis 1+ Ovalocytes 1+ Sodium 133 L Potassium 5.1 Chloride 105 Carbon Dioxide 20.0 L Anion Gap 8 BUN 95 H Creatinine 3.50 H Estim Creat Clear Calc 18.83 Est GFR (MDRD) Af Amer 22 L Est GFR (MDRD) Non-Af 18 L BUN/Creatinine Ratio 27.1 H Glucose 148 H Calcium 8.2 L Total Bilirubin 0.60 AST 29 ALT 10 L Alkaline Phosphatase 97 Total Protein 5.7 L Albumin 2.6 L Globulin 3.1 Albumin/Globulin Ratio 0.8 L Urine Color Yellow Urine Clarity Cloudy Urine pH 5.0 Ur Specific [place] 1.020 Urine Protein 100 H Urine Glucose (UA) Normal Urine Ketones 5 H Urine Occult Blood 250 H Urine Nitrite Negative Urine Bilirubin Negative Urine Urobilinogen Normal Ur Leukocyte Esterase 500 H Urine RBC 0 SEEN Urine WBC 5-10 SEEN Ur Squamous Epith Cells 0 SEEN Urine Bacteria 0 SEEN Urine Mucus 0 SEEN EKG Initial EKG: Attestation: I personally reviewed and interpreted this EKG as follows: Interpretation: Paced (Ventricular paced rhythm with a rate of 70. QRS duration 170 ms. QT duration 4 to 74 ms. [place] to the left.) Discharge Plan Triage Chief Complaint: Hypotension Other Complaint: Abn Labs ED Provider: Enrique Fernandez Dx/Rx/DC Orders Clinical Impression: Acute hypotension, Encephalopathy, Acute kidney injury superimposed on chronic kidney disease Prescriptions: No Action Atorvastatin Calcium 40 mg PO QHS RF: 0 docusate sodium [DOK] 100 MG capsule 100 mg PO BID RF: 0 furosemide 20 MG tablet 20 mg PO BID RF: 0 loratadine [Allergy Relief (loratadine)] 10 MG tablet 10 mg PO DINNER PRN (Reason: allergies) RF: 0 cholecalciferol (vitamin D3) [Vitamin D3] 1,000 UNIT capsule 2,000 unit PO DAILY RF: 0 hydralazine 25 MG tablet 25 mg PO TID RF: 0 tramadol 50 MG tablet 50 mg PO 5X/DAY PRN (Reason: Pain) RF: 0 isosorbide dinitrate 20 MG tablet 20 mg PO TID RF: 0 diclofenac sodium 100 GM gel 2 g topical BID RF: 0 timolol 0.25 % Drops 1 drp EACH EYE BID RF: 0 empagliflozin 10 mg Tablet 10 mg PO DAILY RF: 0 coenzyme Q10 10 mg Capsule 10 mg PO DAILY RF: 0 B12 Active 1,000 mcg Tablet,Chewable 1,000 mcg PO DAILY RF: 0 albuterol sulfate 2.5 mg /3 mL (0.083 %) Solution For Nebulization 2.5 mg inhalation Q2H PRN PRN (Reason: Wheezing, SOB) Qty: 0 RF: 0 oxycodone 5 mg Tablet 5 mg PO Q4H PRN PRN (Reason: pain 4-10, may overlap w/ IV) Qty: 0 RF: 0 carvedilol 6.25 mg tablet 6.25 mg PO BID RF: 0 Ensure Surgery 0.08-1.4 gram-kcal/mL liquid 237 ml PO TIDCM RF: 0 Primary Care Provider: Markus Encarnacion Referrals: Markus Encarnacion MD [Primary Care Provider] - Disposition Disposition: Acute Care [facility]
--- NOTE | 2022-01-28 18:43 | HP.PCM.HOS_ITS ---
HPI - General General Date of Admission: 01/28/22 Date of Service: 01/28/22 Chief Complaint: Encephalopathy, Hypotension HPI Narrative The patient is a 76 y/o M w/ PMHx: Metastatic renal cell cancer to BL lungs, pericardiac fat posterior to LV, L adrenal mass, severe retroperitoneal adenopathy particularly between the aorta and left kidney, s/p prior R nephrectomy, Hx VTE, Chronic CHF s/p AICD (following w/ Dr Gonzalez [employer]), CAD, CKD stage IV, Former tobacco use, Diet-controlled diabetes mellitus type II, recently admitted 01/24/22-01/27/22 secondary to intractable R hip pain with dislocation requiring 01/25/22 OR w/ Open reduction right total hip replacement w/ Dr. Cao with additionally CKD IV on acute renal insufficiency, acute thrombocytopenia secondary to DVT prophylaxis which was stopped and hypoxia with 2L NC at discharge secondary to precarious Systolic CHF/metastatic renal cell CA including to BL Lungs who now represents to the [facility] ED on 01/27/22 secondary to increased fatigue, lethargy and low blood pressures prompting TCU transition for evaluation. Work-up in the ED included T 97.9, heart rate 70, BP 95/62, respiratory rate 12, 94% on 2 L nasal cannula, patient did have blood pressure as low as 84/51 transiently but improved into the 90s with minimal fluids, CBC with WC 3.7, hemoglobin 11.4, platelet 108 with lymphopenia, CMP with sodium 133, carbon oxide 20, BUN/creat 95/3.50, glucose 148, urinalysis with elevated specific gravity 1.20 with no obvious evidence of UTI but some evidence of dehydration. Discussed with ED physician and noted that patient's EF was significantly reduced and requested that 1 L being transfused be significantly slowed down. Given patient presentation with sedation and renal function increased do suspect that pain medications and medications are contributing to likely his encephalopathy. [facility] Medical History CAD (coronary artery disease) Cardiomyopathy, ischemic CHF (congestive heart failure) Chronic kidney disease, stage 4 (severe) Diabetes Diet-controlled diabetes mellitus Ex-smoker History of CHF (congestive heart failure) History of nephrectomy, unilateral History of renal insufficiency HLD (hyperlipidemia) HTN (hypertension) hx PE ICD (implantable cardioverter-defibrillator) in place Preoperative cardiovascular examination Home Medications Atorvastatin Calcium 40 mg PO QHS 06/01/14 [History Last Taken 01/23/22] cholecalciferol (vitamin D3) [Vitamin D3] 2,000 unit PO DAILY 06/01/14 [History Last Taken 01/24/22] docusate sodium [DOK] 100 mg PO BID 06/01/14 [History Last Taken 01/24/22] furosemide 20 mg PO BID 06/01/14 [History Last Taken 01/24/22] loratadine [Allergy Relief (loratadine)] 10 mg PO DINNER PRN 06/01/14 [History Last Taken 09/21/14 17:00] diclofenac sodium 2 g TOPICAL BID 08/24/14 [History Last Taken 01/24/22] hydralazine 25 mg PO TID 08/24/14 [History Last Taken 01/24/22] isosorbide dinitrate 20 mg PO TID 08/24/14 [History Last Taken 01/24/22] tramadol 50 mg PO 5X/DAY PRN 08/24/14 [History Last Taken 09/22/14 16:00] empagliflozin 10 mg PO DAILY 01/24/22 [History Last Taken 01/24/22] timolol 1 drp EACH EYE BID 01/24/22 [History Last Taken 01/24/22] B12 Active 1,000 mcg PO DAILY 01/25/22 [History Last Taken 01/24/22] coenzyme Q10 10 mg PO DAILY 01/25/22 [History Last Taken 01/24/22] albuterol sulfate 2.5 mg INHALATION Q2H PRN PRN #0 ml 01/27/22 [Rx Last Taken U nknown] carvedilol 6.25 mg PO BID 01/27/22 [History Last Taken Unknown] nut.tx.comp. immune systm,reg [Ensure Surgery] 237 ml PO TIDCM 01/27/22 [History Last Taken Unknown] oxycodone 5 mg PO Q4H PRN PRN #0 tab 01/27/22 [Rx Last Taken Unknown] Allergy/AdvReac Type Severity Reaction Status Date / Time No Known Allergies Allergy Verified 01/28/22 16:39 Family History (Updated 01/28/22 @ 18:[address] Leigh Henderson MD) Mother Hypertension Father Hypertension Surgical History H/O hemorrhoidectomy H/O right knee surgery H/O right nephrectomy History of right hip replacement S/P CABG (coronary artery bypass graft) Social History (Updated 01/28/22 @ 18:[address] Leigh Henderson MD) household members: spouse Smoking Status: Former smoker alcohol intake: current substance use type: does not use ROS ROS Narrative Admission Review of Systems: CONSTITUTIONAL: No weight loss, fever, chills, + weakness or fatigue. HEENT: Eyes: No visual loss, blurred vision, double vision or yellow sclerae. Ears, Nose, Throat: No hearing loss, sneezing, congestion, runny nose or sore throat. SKIN: + Staged ecchymoses, surgical incision, abrasion to the right lower maldonado. CARDIOVASCULAR: + BL LE edema. No chest pain, chest pressure or chest discomfor t, palpitations, orthopnea, syncopal events. RESPIRATORY: No shortness of breath, cough or sputum, wheezing, hemoptysis. GASTROINTESTINAL: + Anorexia, constipation, No nausea, vomiting or diarrhea, a bdominal pain, melena, BRBPR. GENITOURINARY: No dysuria, frequency, urgency or retention. NEUROLOGICAL: + Lethargy, No headache, dizziness, syncope, paralysis, ataxia, numbness or tingling in the extremities, focal weakness, change in bowel or bladder control, seizure. MUSCULOSKELETAL: + muscle, back pain, joint pain or stiffness. HEMATOLOGIC: + anemia, bleeding or bruising. LYMPHATICS: No enlarged nodes. No history of splenectomy. PSYCHIATRIC: No history of depression or anxiety. ENDOCRINOLOGIC: No reports of sweating, cold or heat intolerance. No polyuria or polydipsia. ALLERGIES: No history of asthma, hives, eczema or rhinitis. Vital Signs Vital Signs Vital Signs: 01/28/22 16:35 01/28/22 17:40 01/28/22 17:48 Temperature 98 F Temperature Source Temporal Pulse Rate 69 68 Respiratory Rate 16 12 Blood Pressure 104/61 84/51 L 92/49 L Blood Pressure Mean 75 62 63 Pulse Ox 96 96 Oxygen Delivery Method Room Air Nasal Cannula Oxygen Flow Rate (L/min) 01/28/22 18:12 01/28/22 18:17 Temperature 97.9 F Temperature Source Temporal Pulse Rate 70 70 Respiratory Rate 12 12 Blood Pressure 91/59 L 95/62 Blood Pressure Mean 69 73 Pulse Ox 93 94 Oxygen Delivery Method Nasal Cannula Nasal Cannula Oxygen Flow Rate (L/min) 2 2 Weight Weight: 202 lb 2.622 oz Body Mass Index (BMI) 29.0 Physical Exam Narrative Physical Examination: General: Awakens to stimuli and alert with discussions but quickly falls back asleep, oriented to self, place, recent events but falling asleep easily, remains cooperative, seated upright in ED bed, fatigued. Skin: Normal color, normal turgor, no icterus, no cyanosis except a small area of an abrasion with denuded skin following attempts to manipulate the right lower extremity to the anterior distal maldonado and R hip with dressing in place without drainage. HEENT: AT/NC, EOMI, PERRLA, dry MM, no carotid bruit or marked JVD. Lungs: Diminished, greater bases, mildly decreased effort with sedative presentation, no marked rales, rhonchi or wheezing. Heart: Regular rate and rhythm; no gallop, rub audible. Abdomen: Soft, NTTP, ND, hypoactive BS, no HSM. Extremities: No cyanosis, no clubbing, right lower extremity with peripheral pulses intact, status post OR R hip, dressing in place without drainage, BL LE with lessened edema than prior but noted still 2+ pitting edema, focal edema above THOMAS wraps. Neurological: Patient awake, alert, oriented as noted, cognitive function mildly decreased from baseline intact secondary to sedation/lethargy; pupils equally reactive to light and accommodation, cranial nerves II-XII grossly normal, moving all 4 extremities however extremely limited right lower extremity given r ecent OR and limitations, strength accordingly severely globally decreased. Psychiatric: Affect appears fatigued, no acute evidence of depressive or anxiety feelings. Results Lab / Micro Data Result Diagrams: 01/28/22 16:40 01/28/22 16:40 Labs: Laboratory Results - last 24 hr 01/28/22 16:40: WBC 3.7 L, RBC 3.79 L, Hgb 11.4 L, Hct 37.1 L, MCV 97.9 H, MCH 30.1, MCHC 30.7 L, RDW Std Deviation 59.4 H, RDW Coeff of Peri 16.7 H, Plt Count 108 L, MPV 11.4, Immature Gran % (Auto) 1.100 H, Neut % (Auto) 78.3 H, Lymph % (Auto) 8.1 L, [place] % (Auto) 11.9 H, Eos % (Auto) 0.3, Baso % (Auto) 0.3, Absolute Neuts (auto) 2.9, Absolute Lymphs (auto) 0.30 L, Nucleated RBC % 0, Platelet Estimate SLT DEC, Poikilocytosis 1+, Ovalocytes 1+ 01/28/22 16:40: Sodium 133 L, Potassium 5.1, Chloride 105, Carbon Dioxide 20.0 L , Anion Gap 8, BUN 95 H, Creatinine 3.50 H, Estim Creat Clear Calc 18.83, Est GFR (MDRD) Af Amer 22 L, Est GFR (MDRD) Non-Af 18 L, BUN/Creatinine Ratio 27.1 H , Glucose 148 H, Calcium 8.2 L, Total Bilirubin 0.60, AST 29, ALT 10 L, Alkaline Phosphatase 97, Total Protein 5.7 L, Albumin 2.6 L, Globulin 3.1, Albumin/Globulin Ratio 0.8 L 01/28/22 17:02: Urine Color Yellow, Urine Clarity Cloudy, Urine pH 5.0, Ur Specific [place] 1.020, Urine Protein 100 H, Urine Glucose (UA) Normal, Urine Ketones 5 H, Urine Occult Blood 250 H, Urine Nitrite Negative, Urine Bilirubin Negative, Urine Urobilinogen Normal, Ur Leukocyte Esterase 500 H, Urine RBC 0 SEEN, Urine WBC 5-10 SEEN, Ur Squamous Epith Cells 0 SEEN, Urine Bacteria 0 SEEN, Urine Mucus 0 SEEN Assessment & Plan Assessment/Plan (1) Acute hypotension: (2) Encephalopathy: (3) Acute kidney injury superimposed on chronic kidney disease: PLAN: The patient is a 76 y/o M w/ PMHx: Metastatic renal cell cancer to BL lungs, pericardiac fat posterior to LV, L adrenal mass, severe retroperitoneal adenopathy particularly between the aorta and left kidney, s/p prior R nephrectomy, Hx VTE, Chronic CHF s/p AICD (following w/ Dr Gonzalez [employer]), CAD, CKD stage IV, Former tobacco use, Diet-controlled diabetes mellitus type II, recently admitted 01/24/22-01/27/22 secondary to intractable R hip pain with dislocation requiring 01/25/22 OR w/ Open reduction right total hip replacement w/ Dr. Cao with additionally CKD IV on acute renal insufficiency, acute thrombocytopenia secondary to DVT prophylaxis which was stopped and hypoxia with 2L NC at discharge secondary to precarious Systolic CHF/metastatic renal cell CA including to BL Lungs who now represents to the [facility] ED on 01/27/22 secondary to increased fatigue, lethargy and low blood pressures prompting TCU transition for evaluation. #1. Acute Encephalopathy, multifactorial, Secondary to Dehydration, Hypotension coupled with RICHI and sedative regimen: Will admit to PCU given low BP in the ED to be cautious with notable underlying CHF with EF 16%, and you very judicious hydration, hold nephrotoxic medication, continue to treat RICHI as noted, hold the sedate of medications and continue with as needed Tylenol only at this point for pain, maintain on fall and aspiration precautions, continue therapy consultations #2. Acute kidney injury on CKD IV: Secondary to likely poor intake per discussion with family secondary to lethargy secondary to medications. Admission BUN/Cr 95/3.50, prior baseline creatinine noted to be 2.2-2.5 primarily. Will very judiciously hydrate given EF 16%, hold nephrotoxic medications and repeat chemistry in AM. Will obtain FeNa assessment. Will consult Dr. Thompson Nephrology. #3. History of prior right total hip replacement with dislocation, recurrent, s/p Open Reduction: 01/25/22 OR w/ Open reduction right total hip replacement, holding sedative medication, maintain on fall precautions, continue incision care, from recent discharge Orthopedic recommendations plan 3 months of strict posterior hip precautions and lifetime posterior hip precautions, weightbearing as tolerated. #4. Chronic CHF, Systolic w/ recent worsening BL LE Edema: s/p AICD, recent admit ECHO w/ echocardiogram with noted moderate dilated LV, severe segmental systolic dysfunction, EF 15%, mild concentric LVH, moderately enlarged LA, mildly enlarged RA, moderate MVI, moderate TVI, trivial MARCIA, RVSP 53 mmHg, evidence of diastolic dysfunction, leads in place in the right atrium and right ventricle. Holding temporarily patient HTN regimen given hypotension and RICHI, resume once appropriate, continue asa and statin. #5. Metastatic renal cell cancer: Patient with notable metastatic disease to BL lungs, pericardiac fat posterior to LV, L adrenal mass, severe retroperitoneal adenopathy particularly between the aorta and left kidney, s/p prior R nephrectomy, recent CT inpatient with confirmed nearly stable disease per review of imaging with patient [facility] Oncologist. His office was sent electronic copy of imaging. He has follow-up in the office with him in 2 weeks. BL LE edema likely in part secondary to the severity of his metastatic disease. #6. CAD: s/p CABG, we will continue asa, statin therapy, holding HTN regimen given hypotension and RICHI, add back as able, does have normally low BP. #7. Hypertension: Holding regimen given hypotension, patient does baseline have BP 90-110 of note, but usually not in the 80s. #8. Hyperlipidemia: We will continue patient on statin therapy. #9. Diabetes mellitus type II, diet-controlled: Continue ADA diet, accu checks w/ ISS. #10. Hx VTE: Remote, not on any chronic anticoaluation. #11. DVT prophylaxis: SCDs, hold chemoprophylaxis secondary to recently noted thrombocytopenia with administration, plts improved, trend. #12. CODE STATUS: Full code. Charges/Coding Visit Charges Inpatient E&M: 17468 Init Hosp L3
[2022-01-28] MEDS: 0.9% Normal Saline 1,000 ML 75 ML IV (20:00)
[2022-01-28] MEDS: Docusate Sodium 100 MG Capsule PO (21:52)
[2022-01-28] MEDS: Polyethylene Glycol 3350 17 GM PACKET PO (21:52)
[2022-01-28] MEDS: Atorvastatin Calcium 40 MG Tablet PO (21:52)
[2022-01-28] MEDS: Timolol 0.25% 5ML OPTH.BTL 1 DRP EACH EYE (21:53)
[2022-01-28] MEDS: Insulin Lispro 100 UNIT/ML INSULN.PEN SC (22:01)
[2022-01-28 23:51] LABS: Bedside Glucose 172 mg/dL (74-106)
[2022-01-29] VITALS (11 sets, daily range): BP systolic 91–121; BP diastolic 53–67; PULSE 59–77; RESP 16–18; TEMP 36.2–37.4; O2SAT 92–97
[2022-01-29 00:51] LABS: Urine Sodium < 5 mmol/L (Not Establ.)
[2022-01-29 05:44] LABS: Absolute Lymphocyte Count 0.36 X10^3/uL (0.83-4.51); Absolute Neutrophil Count 2.6 X10^3/uL (2.0-7.7); Basophil# 0.01 X10^3/uL; Basophil% 0.3 % (0-1); Eosinophil# 0.04 X10^3/uL; Eosinophils% 1.2 % (0-5); Hematocrit 37.3 % (40-54); Hemoglobin 11.7 g/dL (13.0-16.5); Lymphocyte # 0.36 X10^3/ul (0.83-4.51); Lymphocyte % 10.4 % (19-41); Mean Corp Hgb Conc 31.4 g/dL (32-36); Mean Corpuscular Hgb 29.3 pg (27.0-32.0); Mean Corpuscular Volume 93.3 fL (80-94); Mean Platelet Vol. 11.2 fl (6.2-12.0); Monocyte# 0.43 X10^3/uL; Monocyte% 12.4 % (0-10); NRBC Flagged by Analyzer 0 % (0-5); Neutrophil % 74.8 % (47-70); POSITIVE DIFFERENTIAL YES; Platelet Count 114 K/mm3 (150-450); RBC Distribution Width CV 16.5 % (11.6-14.6); RBC Distribution Width SD 55.8 fl (35.1-43.9); White Blood Count 3.5 K/mm3 (4.4-11.0)
[2022-01-29 05:49] LABS: Differential Indicated SCAN CRITERIA MET
[2022-01-29 06:11] LABS: Anisocytosis 1+
[2022-01-29 06:23] LABS: ALB/GLOB Ratio 0.8 RATIO (0.9-2.4); AST(SGOT) 35 U/L (15-37); Alanine Aminotransfer ALT/SGPT 16 U/L (16-61); Albumin, Serum 2.6 g/dL (3.2-5.0); Alkaline Phosphatase 133 U/L (45-117); Anion Gap 8 (5-15); BUN 102 mg/dL (7-18); BUN/Creat Ratio 31.7 RATIO (10-20); Calcium,Total 7.9 mg/dL (8.5-10.1); Chloride 105 mmol/L (98-107); Creatinine, Serum 3.22 mg/dL (0.70-1.30); EST Glomerular Filtration Rate 20 mL/min (>60); Est Glom Filt Rate - Afr Amer 24 mL/min (>60); Estimated Creatinine Clearance 20.47 ml/min; Globulin 3.3 g/dL (2.2-4.2); Glucose 99 mg/dL (74-106); Potassium 4.9 mmol/L (3.5-5.1); Protein, Total 5.9 g/dL (6.4-8.2); Sodium Level 134 mmol/L (136-145)
--- NOTE | 2022-01-29 06:27 | PCM.PN.HOSP ---
Subjective Subjective Patient with no acute events overnight per self and per nursing report. He is much more alert and interactive this morning and notes he feels as though is back to his baseline. Patient tolerated well very judicious overnight fluids and per discussion with nephrology will continue at 75 cc/hr. Discussed renal function the same with patient and his family noted to be BUN/creatinine 102/2.22 with improvement of his creatinine although BUN did increase. Patient denies fevers, chills, nausea, emesis, abdominal pain, chest pain or dyspnea. Objective Data Objective Data Vital Signs: Vital Signs Temp Pulse Resp BP Pulse Ox 98 F 63 16 91/59 L 95 01/29/22 04:14 01/29/22 04:14 01/29/22 04:14 01/29/22 04:14 01/29/22 04:14 Oxygen Flow Rate (L/min) 0.5 Oxygen Delivery Method Room Air Weight: 197 lb Body Mass Index (BMI) 28.4 Intake & Output: Intake and Output for Last 24 Hours 01/27/22 01/28/22 01/29/22 23:59 23:59 23:59 Intake Total 116.55 / 356.55 340 / 340 Output Total 50 / 50 Balance 116.55 / 306.55 290 / 290 Lab / Micro Data Result Diagrams: 01/29/22 05:27 01/29/22 05:27 Labs: Laboratory Results - last 24 hr 01/28/22 16:40: WBC 3.7 L, RBC 3.79 L, Hgb 11.4 L, Hct 37.1 L, MCV 97.9 H, MCH 30.1, MCHC 30.7 L, RDW Std Deviation 59.4 H, RDW Coeff of Peri 16.7 H, Plt Count 108 L, MPV 11.4, Immature Gran % (Auto) 1.100 H, Neut % (Auto) 78.3 H, Lymph % (Auto) 8.1 L, [place] % (Auto) 11.9 H, Eos % (Auto) 0.3, Baso % (Auto) 0.3, Absolute Neuts (auto) 2.9, Absolute Lymphs (auto) 0.30 L, Nucleated RBC % 0, Diff Path Review May foll, Platelet Estimate SLT DEC, Poikilocytosis 1+, Ovalocytes 1+ 01/28/22 16:40: Sodium 133 L, Potassium 5.1, Chloride 105, Carbon Dioxide 20.0 L, Anion Gap 8, BUN 95 H, Creatinine 3.50 H, Estim Creat Clear Calc 18.83, Est GFR (MDRD) Af Amer 22 L, Est GFR (MDRD) Non-Af 18 L, BUN/Creatinine Ratio 27.1 H, Glucose 148 H, Calcium 8.2 L, Total Bilirubin 0.60, AST 29, ALT 10 L, Alkaline Phosphatase 97, Total Protein 5.7 L, Albumin 2.6 L, Globulin 3.1, Albumin/Globulin Ratio 0.8 L 01/28/22 17:02: Urine Color Yellow, Urine Clarity Cloudy, Urine pH 5.0, Ur Specific [place] 1.020, Urine Protein 100 H, Urine Glucose (UA) Normal, Urine Ketones 5 H, Urine Occult Blood 250 H, Urine Nitrite Negative, Urine Bilirubin Negative, Urine Urobilinogen Normal, Ur Leukocyte Esterase 500 H, Urine RBC 0 SEEN, Urine WBC 5-10 SEEN, Ur Squamous Epith Cells 0 SEEN, Urine Bacteria 0 SEEN, Urine Mucus 0 SEEN 01/28/22 21:58: POC Glucose 172 H 01/29/22 00:15: Ur Random Sodium < 5, Urine Creatinine 118.00 01/29/22 05:27: WBC 3.5 L, RBC 4.00 L, Hgb 11.7 L, Hct 37.3 L, MCV 93.3, MCH 29.3, MCHC 31.4 L, RDW Std Deviation 55.8 H, RDW Coeff of Peri 16.5 H, Plt Count 114 L, MPV 11.2, Immature Gran % (Auto) 0.900, Neut % (Auto) 74.8 H, Lymph % (Auto) 10.4 L, [place] % (Auto) 12.4 H, Eos % (Auto) 1.2, Baso % (Auto) 0.3, Absolute Neuts (auto) 2.6, Absolute Lymphs (auto) 0.36 L, Nucleated RBC % 0, Diff Path Review May foll, Anisocytosis 1+ 01/29/22 05:27: Sodium 134 L, Potassium 4.9, Chloride 105, Carbon Dioxide 21.0, Anion Gap 8, BUN 102 H*, Creatinine 3.22 H, Estim Creat Clear Calc 20.47, Est GFR (MDRD) Af Amer 24 L, Est GFR (MDRD) Non-Af 20 L, BUN/Creatinine Ratio 31.7 H, Glucose 99, Calcium 7.9 L, Total Bilirubin 0.70, AST 35, ALT 16, Alkaline Phosphatase 133 H, Total Protein 5.9 L, Albumin 2.6 L, Globulin 3.3, Albumin/Globulin Ratio 0.8 L Physical Exam Narrative Physical Examination: General: Awake, alert, oriented x 3 and cooperative, seated upright in the PCU bed in no apparent distress. Skin: Normal color, normal turgor, no icterus, no cyanosis except occasional staged ecchymoses and recent right hip open reduction with dressing in place, no drainage. HEENT: AT/NC, EOMI, PERRLA, improved MMM. Lungs: Diminished, greater bases, appropriate effort, no rales, ronchi or wheezing. Heart: Currently regular rate and rhythm; no gallop, rub audible. Abdomen: Soft, NTTP, mildly distended, mildly hypoactive bowel sounds. Extremities: No cyanosis, no clubbing, still ongoing pedal to thigh pitting edema, Wally wraps in place and has improved since initial prior presentation, status post OR with right hip dressing in place, no drainage. Neurological: Patient awake, alert, oriented x 3, cognitive function intact; pupils equally reactive to light and accommodation, cranial nerves II-XII grossly normal, moving all 4 extremities, no focal deficits, strength improved, moderately to severely global decreased. Psychiatric: Affect appears less lethargic, more interactive, normal, no acute evidence of depressive or anxiety feelings. Assessment & Plan Assessment/Plan (1) Acute hypotension: (2) Encephalopathy: (3) Acute kidney injury superimposed on chronic kidney disease: PLAN: The patient is a 76 y/o M w/ PMHx: Metastatic renal cell cancer to BL lungs, pericardiac fat posterior to LV, L adrenal mass, severe retroperitoneal adenopathy particularly between the aorta and left kidney, s/p prior R nephrectomy, Hx VTE, Chronic CHF s/p AICD (following w/ Dr Gonzalez [employer]), CAD, CKD stage IV, Former tobacco use, Diet-controlled diabetes mellitus type II, recently admitted 01/24/22-01/27/22 secondary to intractable R hip pain with dislocation requiring 01/25/22 OR w/ Open reduction right total hip replacement w/ Dr. Cao with additionally CKD IV on acute renal insufficiency, acute thrombocytopenia secondary to DVT prophylaxis which was stopped and hypoxia with 2L NC at discharge secondary to precarious Systolic CHF/metastatic renal cell CA including to BL Lungs who now represents to the [facility] ED on 01/27/22 secondary to increased fatigue, lethargy and low blood pressures prompting TCU transition for evaluation. #1. Acute Encephalopathy, multifactorial, Secondary to Dehydration, Hypotension coupled with RICHI and sedative regimen: Patient was admitted to the PCU given low blood pressures in the ED, improved with hold on patient regimen, judiciously hydrated secondary to underlying CHF with EF 16%, and you very judicious hydration, hold nephrotoxic medication, continue to treat RICHI as noted, held all sedating medications but given plans for up with therapy today we will add back very low-dose of narcotic regimen and space it out several more hours with alterations as needed pending response, maintain on fall and aspiration precautions, continue therapy consultations #2. Acute kidney injury on CKD IV suspected prerenal in etiology: Secondary to likely poor intake per discussion with family secondary to lethargy secondary to medications. Admission BUN/Cr 95/3.50, prior baseline creatinine noted to be 2.2-2.5 primarily. Patient was very judiciously hydrated overnight with 75 cc/h secondary to EF 16%, held nephrotoxic medications, 01/29/2022 BUN/creatinine 102/3.22, BUN mildly increased however creatinine reduced. We will continue to trend. Urine random sodium less than 5, urine creatinine 118. Nephrology consulted and following and agrees with current interventions. #3. History of prior right total hip replacement with dislocation, recurrent, s/p Open Reduction: 01/25/22 OR w/ Open reduction right total hip replacement, initially upon presentation as noted held sedated regimen, will add back but in lower dose and space it further, maintain on fall precautions, continue incision care, from recent discharge Orthopedic recommendations plan 3 months of strict posterior hip precautions and lifetime posterior hip precautions, weightbearing as tolerated. PT and OT consulted, pending #4. Chronic CHF, Systolic w/ recent worsening BL LE Edema: s/p AICD, recent admit ECHO w/ echocardiogram with noted moderate dilated LV, severe segmental systolic dysfunction, EF 15%, mild concentric LVH, moderately enlarged LA, mildly enlarged RA, moderate MVI, moderate TVI, trivial MARCIA, RVSP 53 mmHg, evidence of diastolic dysfunction, leads in place in the right atrium and right ventricle. Holding temporarily patient HTN regimen given hypotension and RICHI, resume once appropriate, continue asa and statin. Snug Wally wraps to bilateral lower extremities. Do suspect component of edema secondary to patient underlying cancer and also significantly poor protoplasm with notably low albumin. #5. Metastatic renal cell cancer: Patient with notable metastatic disease to BL lungs, pericardiac fat posterior to LV, L adrenal mass, severe retroperitoneal adenopathy particularly between the aorta and left kidney, s/p prior R nephrectomy, recent CT inpatient with confirmed nearly stable disease per review of imaging with patient CC Oncologist. His office was sent electronic copy of imaging. He has follow-up in the office with him in 2 weeks. BL LE edema likely in part secondary to the severity of his metastatic disease. #6. CAD: s/p CABG, we will continue asa, statin therapy, holding HTN regimen given hypotension and RICHI, add back as able, does have normally low BP. #7. Hypertension: Holding regimen given hypotension, patient does baseline have BP 90-110 of note, but usually not in the 80s. #8. Hyperlipidemia: We will continue patient on statin therapy. #9. Diabetes mellitus type II, diet-controlled: Continue ADA diet, accu checks w/ ISS. #10. Hx VTE: Remote, not on any chronic anticoaluation. #11. DVT prophylaxis: SCDs, hold chemoprophylaxis secondary to recently noted thrombocytopenia with administration, plts improved, trend. #12. CODE STATUS: Full code. Charges/Coding Visit Charges Inpatient E&M: 06030 Subs Hosp L2
[2022-01-29 06:51] LABS: Bedside Glucose 92 mg/dL (74-106)
--- NOTE | 2022-01-29 07:44 | CPS ---
started by nursing
[2022-01-29] MEDS: Polyethylene Glycol 3350 17 GM PACKET PO (07:51)
[2022-01-29] MEDS: Timolol 0.25% 5ML OPTH.BTL 1 DRP EACH EYE ×2 (07:51→22:11)
[2022-01-29] MEDS: Docusate Sodium 100 MG Capsule PO ×2 (07:51→22:10)
[2022-01-29] MEDS: 0.9% Saline Lock 10 ML Syringe IV ×3 (09:22→10:31)
[2022-01-29] MEDS: 0.9% Normal Saline 1,000 ML 75 ML IV ×2 (10:17→23:15)
--- NOTE | 2022-01-29 10:26 | CON.PCM.RE_ITS ---
Assessment & Plan Assessment/Plan (1) Acute kidney injury superimposed on chronic kidney disease: PLAN: -RICHI is likely due to decreased effective blood volume. Although the patient has edema and pleural effusion, BP has been low. The patient also has low oncotic pressure with serum albumin of 2.6. Therefore, RICHI is likely prerenal due to hypotension and decreased effective blood volume. -Agree with current management with gentle rehydration with careful monitoring of volume status. -Renal function is slightly better today. There is no need for kidney replacement therapy. -Agree with holding antihypertensives. Keep MAP above 65 mmHg. -Continue to monitor volume status and BP closely. -Current medications are reviewed and they are all appropriately dosed for the patient's current renal function. 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 -Baseline serum creatinine has been 2.5 to 2.8 mg/dL in the past year. Creatinine was around the usual baseline when he was admitted last week for hip surgery. -RICHI is prerenal. See above. (3) HTN (hypertension): PLAN: -The patient was hypotensive yesterday. -BP is better today. I agree with holding antihypertensives for now. -Continue to monitor BP closely. (4) History of nephrectomy, unilateral: PLAN: -The patient is status post right nephrectomy in 2012 for renal cell cancer. -There is no evidence of obstruction on CT scan done on 01/27/2022. Low suspicion for obstructive uropathy as a cause of RICHI at this point. (5) Cardiomyopathy, ischemic: PLAN: -The patient has EF of 15% by history. He has a history of ischemic cardiomyopathy and heart failure with reduced ejection fraction. -The patient does not appear to be decompensated from the heart failure standpoint. -However, I agree with slow volume repletion as ordered by Dr. Henderson due to the patient's cardiac history. HPI Consult Data Date of Consult: 01/29/22 HPI Narrative HPI Narrative: The patient is a 76-year-old man who has history of CKD stage 4 from decreased renal mass (s/p R nephrectomy in 2012 for RCCA) and probable DKD. Pt also has past history of T2DM, HTN, PAD, CAD s/p CABG, ischemic cardiomyopathy with EF of 15%, prior ventricular tachycardia s/p AICD placement, prior history of PE, and mild pulmonary HTN (RVSP 47 mmHg). The patient was admitted to TCU on 01/27/22 after hip replacement at [facility] on 01/24/22. Renal function had been stable at his baseline (baseline SCr 2.5-2.8) during hospitalization at [facility]. However, SCr increased to 3.50 on 01/28/22 in the setting of hypotension and decreased UOP. The patient was readmitted to the hospital on 01/28/2022 and was started on gentle IV fluid because of prior history of heart failure with reduced ejection fraction. The patient denies chest pain, shortness of breath at rest, nausea, vomiting, or diarrhea in the last 48 hours. Appetite has been poor. The patient does have chronic edema in the lower extremities. This is subjectively unchanged. There has been no recent exposure to IV contrast. He has not been given NSAIDs in the last 48 hours. [facility] Medical History (Updated 01/28/22 @ 19:51 by Anna Marie Keyes) CAD (coronary artery disease) Cancer Cardiomyopathy, ischemic CHF (congestive heart failure) Chronic kidney disease, stage 4 (severe) Chronic pain Diabetes Diet-controlled diabetes mellitus DVT (deep venous thrombosis) Ex-smoker History of CHF (congestive heart failure) History of nephrectomy, unilateral History of renal insufficiency HLD (hyperlipidemia) HTN (hypertension) hx PE ICD (implantable cardioverter-defibrillator) in place ICD (implantable cardioverter-defibrillator) in place Irregular heart beat Kidney disease Myocardial infarct Pacemaker Preoperative cardiovascular examination Pulmonary embolism Home Medications Atorvastatin Calcium 40 mg PO QHS 06/01/14 [History Last Taken 01/27/22 21:19] cholecalciferol (vitamin D3) [Vitamin D3] 2,000 unit PO DAILY 06/01/14 [History Last Taken 01/28/22 05:53] docusate sodium [DOK] 100 mg PO BID 06/01/14 [History Last Taken 01/24/22] furosemide 20 mg PO DAILY 06/01/14 [History Last Taken 01/24/22] loratadine [Allergy Relief (loratadine)] 10 mg PO DINNER PRN 06/01/14 [History Last Taken 09/21/14 17:00] diclofenac sodium 2 g TOPICAL BID 08/24/14 [History Last Taken 01/24/22] hydralazine 10 mg PO BID 08/24/14 [History Last Taken 01/24/22] isosorbide dinitrate 10 mg PO BID 08/24/14 [History Last Taken 01/24/22] tramadol 50 mg PO 5X/DAY PRN 08/24/14 [History Last Taken 01/28/22 09:33] empagliflozin 10 mg PO DAILY 01/24/22 [History Last Taken 01/28/22 05:51] timolol 1 drp EACH EYE BID 01/24/22 [History Last Taken 01/28/22 05:51] B12 Active 1,000 mcg PO DAILY 01/25/22 [History Last Taken 01/28/22 05:54] coenzyme Q10 10 mg PO DAILY 01/25/22 [History Last Taken 01/24/22] albuterol sulfate 2.5 mg INHALATION Q2H PRN PRN #0 ml 01/27/22 [Rx Last Taken Unknown] carvedilol 3.125 mg PO BID 01/27/22 [History Last Taken Unknown] nut.tx.comp. immune systm,reg [Ensure Surgery] 237 ml PO TIDCM 01/27/22 [History Last Taken 01/28/22 12:15] oxycodone 5 mg PO Q4H PRN PRN #0 tab 01/27/22 [Rx Last Taken 01/27/22 16:54] Allergy/AdvReac Type Severity Reaction Status Date / Time No Known Allergies Allergy Verified 01/28/22 16:39 Family History (Updated 01/28/22 @ 18:[address] Leigh Henderson MD) Mother Hypertension Father Hypertension Surgical History (Updated 01/28/22 @ 19:51 by Anna Marie Keyes) H/O hemorrhoidectomy H/O right knee surgery H/O right nephrectomy History of right hip replacement Hx of CABG S/P CABG (coronary artery bypass graft) Social History (Updated 01/28/22 @ 18:[address] Leigh Henderson MD) household members: spouse Smoking Status: Former smoker alcohol intake: current substance use type: does not use ROS ROS Narrative 08/14 ROS was done. They are otherwise noncontributory aside from what is documented in HPI. Physical Exam Narrative General: Alert and oriented x3. No apparent distress. HEENT: Normocephalic, atraumatic. Mucous membrane is dry. PERRLA, EOMI. Hearing is intact. Neck: Supple. Heart: Normal S1, S2. No rubs, murmurs or gallops. Lungs: Decreased breath sound at bases bilaterally. Abdomen: Normal bowel sounds. Abdomen is soft, nontender, no guarding or rebound. Extremities: Lower extremities are wrapped in Wally bandage. Upper thighs has 2+ edema. Musculoskeletal: Full passive range of motion. There is no joint swelling. Skin: No rash. Skin is warm and dry. Psychiatric: Normal mood and affect. Lab / Micro Data Result Diagrams: 01/29/22 05:27 01/29/22 05:27 Labs: Laboratory Results - last 24 hr 01/28/22 16:40: WBC 3.7 L, RBC 3.79 L, Hgb 11.4 L, Hct 37.1 L, MCV 97.9 H, MCH 30.1, MCHC 30.7 L, RDW Std Deviation 59.4 H, RDW Coeff of [place] 16.7 H, Plt Count 108 L, MPV 11.4, Immature Gran % (Auto) 1.100 H, Neut % (Auto) 78.3 H, Lymph % (Auto) 8.1 L, [place] % (Auto) 11.9 H, Eos % (Auto) 0.3, Baso % (Auto) 0.3, Absolute Neuts (auto) 2.9, Absolute Lymphs (auto) 0.30 L, Nucleated RBC % 0, Diff Path Review May , Platelet Estimate SLT DEC, Poikilocytosis 1+, Ovalocytes 1+ 01/28/22 16:40: Sodium 133 L, Potassium 5.1, Chloride 105, Carbon Dioxide 20.0 L , Anion Gap 8, BUN 95 H, Creatinine 3.50 H, Estim Creat Clear Calc 18.83, Est GFR (MDRD) Af Amer 22 L, Est GFR (MDRD) Non-Af 18 L, BUN/Creatinine Ratio 27.1 H , Glucose 148 H, Calcium 8.2 L, Total Bilirubin 0.60, AST 29, ALT 10 L, Alkaline Phosphatase 97, Total Protein 5.7 L, Albumin 2.6 L, Globulin 3.1, Albumin/Globulin Ratio 0.8 L 01/28/22 17:02: Urine Color Yellow, Urine Clarity Cloudy, Urine pH 5.0, Ur Specific [place] 1.020, Urine Protein 100 H, Urine Glucose (UA) Normal, Urine Ketones 5 H, Urine Occult Blood 250 H, Urine Nitrite Negative, Urine Bilirubin Negative, Urine Urobilinogen Normal, Ur Leukocyte Esterase 500 H, Urine RBC 0 SEEN, Urine WBC 5-10 SEEN, Ur Squamous Epith Cells 0 SEEN, Urine Bacteria 0 SEEN, Urine Mucus 0 SEEN 01/28/22 21:58: POC Glucose 172 H 01/29/22 00:15: Ur Random Sodium < 5, Urine Creatinine 118.00 01/29/22 05:27: WBC 3.5 L, RBC 4.00 L, Hgb 11.7 L, Hct 37.3 L, MCV 93.3, MCH 29.3, MCHC 31.4 L, RDW Std Deviation 55.8 H, RDW Coeff of Peri 16.5 H, Plt Count 114 L, MPV 11.2, Immature Gran % (Auto) 0.900, Neut % (Auto) 74.8 H, Lymph % (Auto) 10.4 L, [place] % (Auto) 12.4 H, Eos % (Auto) 1.2, Baso % (Auto) 0.3, Absolute Neuts (auto) 2.6, Absolute Lymphs (auto) 0.36 L, Nucleated RBC % 0, Diff Path Review May foll, Anisocytosis 1+ 01/29/22 05:27: Sodium 134 L, Potassium 4.9, Chloride 105, Carbon Dioxide 21.0, Anion Gap 8, BUN 102 H*, Creatinine 3.22 H, Estim Creat Clear Calc 20.47, Est GFR (MDRD) Af Amer 24 L, Est GFR (MDRD) Non-Af 20 L, BUN/Creatinine Ratio 31.7 H , Glucose 99, Calcium 7.9 L, Total Bilirubin 0.70, AST 35, ALT 16, Alkaline Phosphatase 133 H, Total Protein 5.9 L, Albumin 2.6 L, Globulin 3.3, Albumin/Globulin Ratio 0.8 L 01/29/22 06:40: POC Glucose 92
[2022-01-29 11:11] LABS: Bedside Glucose 125 mg/dL (74-106)
[2022-01-29] MEDS: oxyCODONE 5 MG Tablet 2.5 MG PO (13:43)
[2022-01-29 16:31] LABS: Bedside Glucose 121 mg/dL (74-106)
[2022-01-29] MEDS: Glucerna Shake 120 ML LIQUID PO ×2 (17:41→22:10)
[2022-01-29] MEDS: Atorvastatin Calcium 40 MG Tablet PO (22:11)
[2022-01-29 22:36] LABS: Bedside Glucose 143 mg/dL (74-106)
[2022-01-30] VITALS (10 sets, daily range): BP systolic 92–141; BP diastolic 64–86; PULSE 63–97; RESP 16–22; TEMP 36.3–36.9; O2SAT 92–99
[2022-01-30 05:00] LABS: Absolute Lymphocyte Count 0.35 X10^3/uL (0.83-4.51); Absolute Neutrophil Count 3.6 X10^3/uL (2.0-7.7); Basophil# 0.02 X10^3/uL; Basophil% 0.4 % (0-1); Eosinophil# 0.01 X10^3/uL; Eosinophils% 0.2 % (0-5); Hematocrit 38.5 % (40-54); Hemoglobin 12.2 g/dL (13.0-16.5); Lymphocyte # 0.35 X10^3/ul (0.83-4.51); Lymphocyte % 7.8 % (19-41); Mean Corp Hgb Conc 31.7 g/dL (32-36); Mean Corpuscular Hgb 29.4 pg (27.0-32.0); Mean Corpuscular Volume 92.8 fL (80-94); Monocyte# 0.48 X10^3/uL; Monocyte% 10.7 % (0-10); NRBC Flagged by Analyzer 0 % (0-5); Neutrophil # 3.62 X10^3/uL (2.7-7.7); Neutrophil % 80.5 % (47-70); POSITIVE DIFFERENTIAL YES; Platelet Count 151 K/mm3 (150-450); RBC Distribution Width CV 16.4 % (11.6-14.6); RBC Distribution Width SD 55.3 fl (35.1-43.9); Red Blood Count 4.15 M/mm3 (4.6-6.2); White Blood Count 4.5 K/mm3 (4.4-11.0)
[2022-01-30 05:05] LABS: Differential Indicated SCAN CRITERIA MET
[2022-01-30 05:34] LABS: Albumin, Serum 2.6 g/dL (3.2-5.0); BUN 105 mg/dL (7-18); BUN/Creat Ratio 35.1 RATIO (10-20); Calcium,Total 8.2 mg/dL (8.5-10.1); Chloride 104 mmol/L (98-107); Creatinine, Serum 2.99 mg/dL (0.70-1.30); EST Glomerular Filtration Rate 22 mL/min (>60); Est Glom Filt Rate - Afr Amer 26 mL/min (>60); Estimated Creatinine Clearance 22.04 ml/min; Glucose 138 mg/dL (74-106); Phosphorus 4.4 mg/dL (2.5-4.9); Potassium 5.6 mmol/L (3.5-5.1); Sodium Level 132 mmol/L (136-145)
[2022-01-30 06:08] LABS: Differential Comment SCANNED
[2022-01-30 06:46] LABS: Bedside Glucose 138 mg/dL (74-106)
[2022-01-30] MEDS: Glucerna Shake 120 ML LIQUID PO (10:35)
[2022-01-30] MEDS: Polyethylene Glycol 3350 17 GM PACKET PO (10:35)
[2022-01-30] MEDS: Timolol 0.25% 5ML OPTH.BTL 1 DRP EACH EYE ×2 (10:35→21:33)
[2022-01-30] MEDS: Docusate Sodium 100 MG Capsule PO (10:35)
[2022-01-30 11:30] LABS: Bedside Glucose 129 mg/dL (74-106)
[2022-01-30] MEDS: Ondansetron 4 MG/2 ML Vial IV (11:34)
--- NOTE | 2022-01-30 11:53 | PCM.PN.REN ---
Subjective Subjective Still worried about fluid gain, apparently he is about 14 pounds above his usual weight. Objective Data Objective Data Vital Signs: Vital Signs Temp Pulse Resp BP Pulse Ox 97.4 F L 63 16 121/70 H 96 01/30/22 10:00 01/30/22 10:00 01/30/22 10:00 01/30/22 10:00 01/30/22 10:00 Oxygen Flow Rate (L/min) 0.5 Oxygen Delivery Method Room Air Weight: 89.358 kg Body Mass Index (BMI) 28.4 Intake & Output: Intake and Output for Last 24 Hours 01/28/22 01/29/22 01/30/22 23:59 23:59 23:59 Intake Total 116.55 / 356.55 2836.25 / 3076.25 980 / 980 Output Total 325 / 475 300 / 300 Balance 116.55 / 306.55 2511.25 / 2601.25 680 / 680 Lab / Micro Data Result Diagrams: 01/30/22 04:50 01/30/22 04:50 Labs: Laboratory Results - last 24 hr 01/29/22 16:16: POC Glucose 121 H 01/29/22 22:02: POC Glucose 143 H 01/30/22 04:50: Sodium 132 L, Potassium 5.6 H, Chloride 104, Carbon Dioxide 20.0 L, BUN 105 H*, Creatinine 2.99 H, Estim Creat Clear Calc 22.04, Est GFR (MDRD) Af Amer 26 L, Est GFR (MDRD) Non-Af 22 L, BUN/Creatinine Ratio 35.1 H, Glucose 138 H, Calcium 8.2 L, Phosphorus 4.4, Albumin 2.6 L 01/30/22 04:50: WBC 4.5, RBC 4.15 L, Hgb 12.2 L, Hct 38.5 L, MCV 92.8, MCH 29.4, MCHC 31.7 L, RDW Std Deviation 55.3 H, RDW Coeff of Peri 16.4 H, Plt Count 151, MPV 11.0, Immature Gran % (Auto) 0.400, Neut % (Auto) 80.5 H, Lymph % (Auto) 7.8 L, [place] % (Auto) 10.7 H, Eos % (Auto) 0.2, Baso % (Auto) 0.4, Absolute Neuts (auto) 3.6, Absolute Lymphs (auto) 0.35 L, Nucleated RBC % 0, Differential Comment SCANNED 01/30/22 06:35: POC Glucose 138 H 01/30/22 11:26: POC Glucose 129 H Physical Exam Narrative General: Alert and oriented x3. No apparent distress. HEENT: Normocephalic, atraumatic. Mucous membrane is dry. PERRLA, EOMI. Hearing is intact. Neck: Supple. Heart: Normal S1, S2. No rubs, murmurs or gallops. Lungs: Decreased breath sound at bases bilaterally. Abdomen: Normal bowel sounds. Abdomen is soft, nontender, no guarding or rebound. Extremities: Lower extremities are wrapped in Wally bandage. Upper thighs has 2+ edema. Musculoskeletal: Full passive range of motion. There is no joint swelling. Skin: No rash. Skin is warm and dry. Psychiatric: Normal mood and affect. Assessment & Plan Assessment/Plan (1) Acute kidney injury superimposed on chronic kidney disease: PLAN: -RICHI is likely due to decreased effective blood volume. Although the patient has edema and pleural effusion, BP has been low. The patient also has low oncotic pressure with serum albumin of 2.6. Therefore, RICHI is likely prerenal due to hypotension and decreased effective blood volume. 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 -Baseline serum creatinine has been 2.5 to 2.8 mg/dL in the past year. Creatinine was around the usual baseline when he was admitted last week for hip surgery. BUN and creatinine are better. Somewhat sleepy which could be from azotemia. No further work-up at this point. He was asking about fluid gain. Baseline creatinine as per [facility] is around 2.4. Can resume diuretics once BUN and creatinine are close to baseline. He does have extensive mets from renal cell carcinoma (3) HTN (hypertension): PLAN: -The patient was hypotensive -BP is better today. (4) History of nephrectomy, unilateral: PLAN: -The patient is status post right nephrectomy in 2012 for renal cell cancer. -There is no evidence of obstruction on CT scan done on 01/27/2022. Low suspicion for obstructive uropathy as a cause of RICHI at this point. (5) Cardiomyopathy, ischemic: PLAN: -The patient has EF of 15% by history. He has a history of ischemic cardiomyopathy and heart failure with reduced ejection fraction.
[2022-01-30 13:27] LABS: Mucous, Urine 0 SEEN /hpf (<or=2+)
[2022-01-30 13:31] LABS: Color, Urine Yellow (Yellow); Glucose, Dipstick Normal (Normal); Ketone-Dipstick Negative (Negative); Leukocyte Esterase-Dipstick 500 /ul (Negative); Nitrite-Dipstick Negative (Negative); Occult Blood-Urine 250 /ul (Negative); Protein-Dipstick 30 mg/dl (Negative); Urine Bilirubin Dipstick Negative (Negative); Urine Clarity Clear (Clear); Urine Urobilinogen Normal (Normal)
--- NOTE | 2022-01-30 13:32 | CT_ITS ---
STUDY: CT BRAIN WITHOUT CONTRAST REASON FOR EXAM: Male, 76 years old. Encephalopathy RADIATION DOSAGE (If Supplied By Facility): CTDIvol = ( 47.06 ) mGy, DLP = ( 2776.85 ) mGycm TECHNIQUE: Transaxial CT imaging of the brain was performed without administration of intravenous contrast material. Individualized dose optimization techniques were used for this CT. COMPARISON: Comparison is made with prior study dated 08/24/2014. FINDINGS: Normal soft tissue structures. Normal calvarium. There is mild cerebral atrophy with widening of the extra-axial spaces and ventricular dilatation. There are areas of decreased attenuation within the white matter tracts of the supratentorial brain, consistent with microvascular disease changes. Focal area of asymmetrical decreased density in the centrum semiovale overlying the posterior right frontal and parietal lobes. Early ischemic change. There are small punctate calcifications of the basal ganglia which are seen in the aging brain as a normal variant. Stable lacunar infarcts of the basal ganglia bilaterally. Normal brainstem. Normal cerebellum. There is no intracranial hemorrhage. There are no findings of an acute ischemic infarction. Atherosclerotic calcification of the vertebral arteries and cavernous portions of the internal carotid arteries bilaterally. Normal visualized paranasal sinuses. CT/Brain/Head without Contrast IMPRESSION: Chronic involutional changes of the brain. Focal area of asymmetry of decreased density in the centrum semiovale overlying the posterior right frontal and parietal lobes. Early ischemic changes should be ruled out. Electronically Signed: Homero Raymundo MD at 14:19 EDT ,
[2022-01-30 14:05] LABS: Bacteria 1+ /hpf (None Seen); Red Blood Cells-Urine 25-50 SEEN /hpf (0-5); Squamous Epithelial Cells - UA 0-5 SEEN /hpf (0-5); White Blood Cells 25-50 SEEN /hpf (0-5)
--- NOTE | 2022-01-30 15:12 | CASEMGMT ---
Patient is from [facility]. SW to follow for return to [facility]. Mary VANN
--- NOTE | 2022-01-30 16:15 | PN.HOSP_ITS ---
Subjective Subjective Patient has had some intermittent confusion according to his placement here in the hospital. But overall better. Objective Data Objective Data Vital Signs: Vital Signs Temp Pulse Resp BP Pulse Ox 36.3 C L 73 16 121/70 H 96 01/30/22 10:00 01/30/22 15:00 01/30/22 10:00 01/30/22 10:00 01/30/22 10:00 Oxygen Flow Rate (L/min) 0.5 Oxygen Delivery Method Room Air Weight: 90.3 kg Body Mass Index (BMI) 28.4 Intake & Output: Intake and Output for Last 24 Hours 01/28/22 01/29/22 01/30/22 23:59 23:59 23:59 Intake Total 116.55 / 356.55 2836.25 / 3076.25 980 / 980 Output Total 325 / 475 300 / 300 Balance 116.55 / 306.55 2511.25 / 2601.25 680 / 680 Lab / Micro Data Result Diagrams: 01/30/22 04:50 01/30/22 04:50 Labs: Laboratory Results - last 24 hr 01/29/22 16:16: POC Glucose 121 H 01/29/22 22:02: POC Glucose 143 H 01/30/22 04:50: Sodium 132 L, Potassium 5.6 H, Chloride 104, Carbon Dioxide 20.0 L, BUN 105 H*, Creatinine 2.99 H, Estim Creat Clear Calc 22.04, Est GFR (MDRD) Af Amer 26 L, Est GFR (MDRD) Non-Af 22 L, BUN/Creatinine Ratio 35.1 H, Glucose 138 H, Calcium 8.2 L, Phosphorus 4.4, Albumin 2.6 L 01/30/22 04:50: WBC 4.5, RBC 4.15 L, Hgb 12.2 L, Hct 38.5 L, MCV 92.8, MCH 29.4, MCHC 31.7 L, RDW Std Deviation 55.3 H, RDW Coeff of Peri 16.4 H, Plt Count 151, MPV 11.0, Immature Gran % (Auto) 0.400, Neut % (Auto) 80.5 H, Lymph % (Auto) 7.8 L, [place] % (Auto) 10.7 H, Eos % (Auto) 0.2, Baso % (Auto) 0.4, Absolute Neuts (auto) 3.6, Absolute Lymphs (auto) 0.35 L, Nucleated RBC % 0, Differential Comment SCANNED 01/30/22 06:35: POC Glucose 138 H 01/30/22 11:26: POC Glucose 129 H 01/30/22 12:20: Urine Color Yellow, Urine Clarity Clear, Urine pH 5.0, Ur Specific [place] 1.020, Urine Protein 30 H, Urine Glucose (UA) Normal, Urine Ketones Negative, Urine Occult Blood 250 H, Urine Nitrite Negative, Urine Bilirubin Negative, Urine Urobilinogen Normal, Ur Leukocyte Esterase 500 H, Urine RBC 25-50 SEEN, Urine WBC 25-50 SEEN, Ur Squamous Epith Cells 0-5 SEEN, Urine Bacteria 1+, Urine Mucus 0 SEEN Radiography Diagnostic Testing: Radiology Impression Brain CT 01/30/22 13:32 IMPRESSION: Chronic involutional changes of the brain. Focal area of asymmetry of decreased density in the centrum semiovale overlying the posterior right frontal and parietal lobes. Early ischemic changes should be ruled out. Electronically Signed: Homero Raymundo MD at 14:19 EDT , Physical Exam Const alert and no apparent distress Constitutional Narrative: Dysarthria noted. Masked facies. Resp normal respiratory effort, no retractions, no use of accessory muscles and clear to auscultation bilaterally Cardio regular rate, regular rhythm, S1 normal heart sound and S2 normal heart sound GI normal to inspection, nondistended, normoactive bowel sounds, soft to palpation, non-tender and non-distended Extremity Extremity Narrative: Bilateral lower extremities wrapped, did not remove. Neuro CN's II-XII intact bilaterally Neuro Narrative: No tremors noted Sensorium / Orientation: awake and alert Assessment & Plan Assessment/Plan (1) Acute kidney injury superimposed on chronic kidney disease: (2) Encephalopathy: PLAN: 1. Encephalopathy Resolved Suspected metabolic Likely multifactorial due to dehydration but also medications. Head CT not performed on admission. Head CT results per #4. 2. Acute kidney injury Baseline creatinine around 2.6. Peaked at 3.5 and currently down to 2.99. Nephrology following Patient with chronic kidney disease stage IV due to decreased renal mass from prior right nephrectomy as well as diabetic kidney disease in the left kidney. Hold off on diuretics at this time. 3. Possible movement disorder Discussed concern for neurologic process with the patient and his given his dysarthria. Claim that he is certainly tired in his mouth being dry but just seems off overall. The relates to me that he had previously seen a movement disorder specialist several years ago due to lower extremity weakness and was not felt to be Parkinson's at that time. I told them that I do not know definitively if he has movement disorder but I certainly have concerns given some of this appearance and his falls. I would recommend following up with movement disorder specialist for further clarification just to see if anything further may be delineated being that is been several years since he has seen a movement disorder neurologist. They prefer to stay within the [facility] and they may follow-up with the movement disorder center up there 4. Abnormal Head CT Head CT showed focal area of asymmetry of decreased density in centrum semiovale overlying the posterior right frontal and parietal lobes. Is unclear if the patient can have an MRI given his pacemaker and AICD. Start aspirin, check fasting lipid panel. I will order an MRI of his brain and MRA of the head neck to see if there is any evidence of a stroke but is unclear if his pacemaker/AICD is compatible with an MRI. 5. HFrEF EF 15% hold diuretics given RICHI. hold THOMAS-/ARB given CKD 6. Metastatic renal cell carcinoma follow up with oncology as outpt. 7. Chronic conditions: complicates care and recovery * CAD: s/p CABG, we will continue asa, statin therapy, holding HTN regimen given hypotension and RICHI, add back as able, does have normally low BP. * Hypertension: Holding regimen given hypotension, patient does baseline have BP 90-110 of note, but usually not in the 80s. * Hyperlipidemia: We will continue patient on statin therapy. * Diabetes mellitus type II, diet-controlled: Continue ADA diet, accu checks w/ ISS. * Hx VTE: Remote, not on any chronic anticoagulation. 8. VTE prophylaxis: SCDs. DW patient's at bedside. Charges/Coding Visit Charges Inpatient E&M: 32972 Subs Hosp L3
[2022-01-30 17:06] LABS: Bedside Glucose 136 mg/dL (74-106)
[2022-01-30] MEDS: Aspirin 81 MG TAB.CHEW PO (17:31)
[2022-01-30] MEDS: Albuterol 2.5 MG/3 ML VIAL.NEB. INHALATION (17:49)
[2022-01-30] MEDS: Atorvastatin Calcium 40 MG Tablet PO (21:33)
[2022-01-30 22:05] LABS: Bedside Glucose 124 mg/dL (74-106)
[2022-01-31] VITALS (13 sets, daily range): BP systolic 108–129; BP diastolic 57–78; PULSE 67–117; RESP 14–20; TEMP 36.1–36.8; O2SAT 93–98; BMI 28.4
[2022-01-31] MEDS: oxyCODONE 5 MG Tablet 2.5 MG PO ×2 (04:26→14:41)
[2022-01-31 05:43] LABS: Absolute Lymphocyte Count 0.37 X10^3/uL (0.83-4.51); Absolute Neutrophil Count 3.4 X10^3/uL (2.0-7.7); Basophil# 0.02 X10^3/uL; Basophil% 0.5 % (0-1); Eosinophil# 0.01 X10^3/uL; Eosinophils% 0.2 % (0-5); Hematocrit 38.8 % (40-54); Hemoglobin 12.5 g/dL (13.0-16.5); Lymphocyte # 0.37 X10^3/ul (0.83-4.51); Lymphocyte % 8.5 % (19-41); Mean Corp Hgb Conc 32.2 g/dL (32-36); Mean Corpuscular Hgb 28.9 pg (27.0-32.0); Mean Corpuscular Volume 89.8 fL (80-94); Mean Platelet Vol. 10.7 fl (6.2-12.0); Monocyte% 11.5 % (0-10); NRBC Flagged by Analyzer 0 % (0-5); Neutrophil # 3.43 X10^3/uL (2.7-7.7); Neutrophil % 79.1 % (47-70); POSITIVE DIFFERENTIAL YES; Platelet Count 180 K/mm3 (150-450); RBC Distribution Width CV 16.2 % (11.6-14.6); RBC Distribution Width SD 53.4 fl (35.1-43.9); Red Blood Count 4.32 M/mm3 (4.6-6.2); White Blood Count 4.3 K/mm3 (4.4-11.0)
[2022-01-31 05:50] LABS: Differential Indicated SCAN CRITERIA MET
[2022-01-31 06:15] LABS: ALB/GLOB Ratio 0.8 RATIO (0.9-2.4); AST(SGOT) 67 U/L (15-37); Alanine Aminotransfer ALT/SGPT 36 U/L (16-61); Albumin, Serum 2.6 g/dL (3.2-5.0); Alkaline Phosphatase 149 U/L (45-117); Anion Gap 9 (5-15); BUN 106 mg/dL (7-18); BUN/Creat Ratio 40.8 RATIO (10-20); Calcium,Total 8.3 mg/dL (8.5-10.1); Chloride 105 mmol/L (98-107); Cholesterol 93 mg/dL (200); EST Glomerular Filtration Rate 26 mL/min (>60); Est Glom Filt Rate - Afr Amer 31 mL/min (>60); Estimated Creatinine Clearance 25.35 ml/min; Globulin 3.3 g/dL (2.2-4.2); Glucose 121 mg/dL (74-106); High Density Lipoprotein 33 mg/dL; Potassium 5.2 mmol/L (3.5-5.1); Protein, Total 5.9 g/dL (6.4-8.2); Sodium Level 133 mmol/L (136-145); Triglycerides 91 mg/dL; Very Low Density Lipoprotein 18 mg/dL (5-40)
[2022-01-31 07:00] LABS: Differential Comment SCANNED
[2022-01-31 07:01] LABS: Bedside Glucose 104 mg/dL (74-106)
[2022-01-31] MEDS: Docusate Sodium 100 MG Capsule PO ×2 (07:50→22:00)
[2022-01-31] MEDS: Polyethylene Glycol 3350 17 GM PACKET PO (07:50)
[2022-01-31] MEDS: Aspirin 81 MG TAB.CHEW PO (07:50)
[2022-01-31] MEDS: Timolol 0.25% 5ML OPTH.BTL 1 DRP EACH EYE ×2 (07:50→22:01)
--- NOTE | 2022-01-31 11:03 | TELEMED_ITS ---
[facility] Telemed has confirmed receipt of a request for visit. This document confirms receipt of the order initiating the consult. To find the results of the consultation, please view the patient's reports for the scanned Telemed Consult.
[2022-01-31] MEDS: Acetaminophen 325 MG Tablet 650 MG PO ×2 (11:50→17:04)
[2022-01-31 11:51] LABS: Bedside Glucose 142 mg/dL (74-106)
[2022-01-31 13:45] LABS: Pathologist Review Reviewed
[2022-01-31 13:46] LABS: Pathologist Review Reviewed
--- NOTE | 2022-01-31 14:38 | PN.HOSP_ITS ---
Subjective Subjective Feels well. No new complaints. Objective Data Objective Data Vital Signs: Vital Signs Temp Pulse Resp BP Pulse Ox 36.8 C 100 18 109/73 93 01/31/22 09:15 01/31/22 10:59 01/31/22 09:15 01/31/22 09:15 01/31/22 11:30 Oxygen Flow Rate (L/min) 2 Oxygen Delivery Method Nasal Cannula Weight: 92.7 kg Body Mass Index (BMI) 28.4 Intake & Output: Intake and Output for Last 24 Hours 01/29/22 01/30/22 01/31/22 23:59 23:59 23:59 Intake Total 2836.25 / 3076.25 980 / 980 220 / 220 Output Total 325 / 475 650 / 650 900 / 900 Balance 2511.25 / 2601.25 330 / 330 -680 / -680 Lab / Micro Data Result Diagrams: 01/31/22 05:17 01/31/22 05:17 Labs: Laboratory Results - last 24 hr 01/28/22 16:40: Diff Path Review Reviewed 01/29/22 05:27: Diff Path Review Reviewed 01/30/22 16:56: POC Glucose 136 H 01/30/22 21:30: POC Glucose 124 H 01/31/22 05:17: WBC 4.3 L, RBC 4.32 L, Hgb 12.5 L, Hct 38.8 L, MCV 89.8, MCH 28.9, MCHC 32.2, RDW Std Deviation 53.4 H, RDW Coeff of Peri 16.2 H, Plt Count 180, MPV 10.7, Immature Gran % (Auto) 0.200, Neut % (Auto) 79.1 H, Lymph % (Auto) 8.5 L, [place] % (Auto) 11.5 H, Eos % (Auto) 0.2, Baso % (Auto) 0.5, Absolute Neuts (auto) 3.4, Absolute Lymphs (auto) 0.37 L, Nucleated RBC % 0, Differential Comment SCANNED, Diff Path Review May 01/31/22 05:17: Sodium 133 L, Potassium 5.2 H, Chloride 105, Carbon Dioxide 19.0 L, Anion Gap 9, BUN 106 H*, Creatinine 2.60 H, Estim Creat Clear Calc 25.35, Est GFR (MDRD) Af Amer 31 L, Est GFR (MDRD) Non-Af 26 L, BUN/Creatinine Ratio 40.8 H , Glucose 121 H, Calcium 8.3 L, Total Bilirubin 0.90, AST 67 H, ALT 36, Alkaline Phosphatase 149 H, Total Protein 5.9 L, Albumin 2.6 L, Globulin 3.3, Albumin/Globulin Ratio 0.8 L, Triglycerides 91, Cholesterol 93, LDL Cholesterol 42, VLDL Cholesterol 18, HDL Cholesterol 33 L 01/31/22 06:36: POC Glucose 104 01/31/22 11:43: POC Glucose 142 H Physical Exam Const alert and no apparent distress Constitutional Narrative: slight dysarthria HEENT head/scalp atraumatic Head and Scalp: normocephalic Resp normal respiratory effort, no retractions, no use of accessory muscles and clear to auscultation bilaterally Cardio regular rate, regular rhythm, S1 normal heart sound and S2 normal heart sound GI normal to inspection, nondistended, normoactive bowel sounds, soft to palpation, non-tender and non-distended Extremity normal to inspection Neuro Neuro Narrative: Muscle strength 5-5 in upper extremities and 3-5 in lower extremities bilaterally. Sensorium / Orientation: awake and alert Psych affect normal Assessment & Plan Assessment/Plan (1) Acute kidney injury superimposed on chronic kidney disease: (2) Encephalopathy: PLAN: 1. Encephalopathy Resolved Suspected metabolic Likely multifactorial due to dehydration but also medications. Head CT not performed on admission. Head CT results per #4. 2. Acute kidney injury Baseline creatinine around 2.6. Peaked at 3.5 and currently down to 2.99. Nephrology following Patient with chronic kidney disease stage IV due to decreased renal mass from pr ior right nephrectomy as well as diabetic kidney disease in the left kidney. Hold off on diuretics at this time. 3. Possible movement disorder Discussed concern for neurologic process with the patient and his given his dysarthria. Claim that he is certainly tired in his mouth being dry but just seems off overall. The relates to me that he had previously seen a movement disorder specialist several years ago due to lower extremity weakness and was not felt to be Parkinson's at that time. I told them that I do not know definitively if he has movement disorder but I certainly have concerns given some of this appearance and his falls. I would recommend following up with movement disorder specialist for further clarification just to see if anything further may be delineated being that is been several years since he has seen a movement disorder neurologist. They prefer to stay within the [facility] and they may follow-up with the movement disorder center up there 4. Abnormal Head CT Head CT showed focal area of asymmetry of decreased density in centrum semiovale overlying the posterior right frontal and parietal lobes. MRI unable to be performed due to pacer/AICD leads Start aspirin, check fasting lipid panel. SOC consult 5. HFrEF EF 15% hold diuretics given RICHI. hold THOMAS-/ARB given CKD 6. Metastatic renal cell carcinoma follow up with oncology as outpt. 7. Chronic conditions: complicates care and recovery * CAD: s/p CABG, we will continue asa, statin therapy, holding HTN regimen given hypotension and RICHI, add back as able, does have normally low BP. * Hypertension: Holding regimen given hypotension, patient does baseline have BP 90-110 of note, but usually not in the 80s. * Hyperlipidemia: We will continue patient on statin therapy. * Diabetes mellitus type II, diet-controlled: Continue ADA diet, accu checks w/ ISS. * Hx VTE: Remote, not on any chronic anticoagulation. 8. VTE prophylaxis: SCDs. 9. Disposition: Plans return to TCU when medically stable. DW patient's at bedside. Charges/Coding Visit Charges Inpatient E&M: 99126 Subs Hosp L3
--- NOTE | 2022-01-31 15:10 | PN.RENAL_ITS ---
Subjective Subjective no new events Objective Data Objective Data Vital Signs: Vital Signs Temp Pulse Resp BP Pulse Ox 98.2 F 100 18 109/73 93 01/31/22 09:15 01/31/22 10:59 01/31/22 09:15 01/31/22 09:15 01/31/22 11:30 Oxygen Flow Rate (L/min) 2 Oxygen Delivery Method Nasal Cannula Weight: 92.7 kg Body Mass Index (BMI) 28.4 Intake & Output: Intake and Output for Last 24 Hours 01/29/22 01/30/22 01/31/22 23:59 23:59 23:59 Intake Total 2836.25 / 3076.25 980 / 980 220 / 220 Output Total 325 / 475 650 / 650 900 / 900 Balance 2511.25 / 2601.25 330 / 330 -680 / -680 Lab / Micro Data Result Diagrams: 01/31/22 05:17 01/31/22 05:17 Labs: Laboratory Results - last 24 hr 01/28/22 16:40: Diff Path Review Reviewed 01/29/22 05:27: Diff Path Review Reviewed 01/30/22 16:56: POC Glucose 136 H 01/30/22 21:30: POC Glucose 124 H 01/31/22 05:17: WBC 4.3 L, RBC 4.32 L, Hgb 12.5 L, Hct 38.8 L, MCV 89.8, MCH 28.9, MCHC 32.2, RDW Std Deviation 53.4 H, RDW Coeff of Peri 16.2 H, Plt Count 180, MPV 10.7, Immature Gran % (Auto) 0.200, Neut % (Auto) 79.1 H, Lymph % (Auto) 8.5 L, [place] % (Auto) 11.5 H, Eos % (Auto) 0.2, Baso % (Auto) 0.5, Absolute Neuts (auto) 3.4, Absolute Lymphs (auto) 0.37 L, Nucleated RBC % 0, Differential Comment SCANNED, Diff Path Review May 01/31/22 05:17: Sodium 133 L, Potassium 5.2 H, Chloride 105, Carbon Dioxide 19.0 L, Anion Gap 9, BUN 106 H*, Creatinine 2.60 H, Estim Creat Clear Calc 25.35, Est GFR (MDRD) Af Amer 31 L, Est GFR (MDRD) Non-Af 26 L, BUN/Creatinine Ratio 40.8 H , Glucose 121 H, Calcium 8.3 L, Total Bilirubin 0.90, AST 67 H, ALT 36, Alkaline Phosphatase 149 H, Total Protein 5.9 L, Albumin 2.6 L, Globulin 3.3, Albumin/Globulin Ratio 0.8 L, Triglycerides 91, Cholesterol 93, LDL Cholesterol 42, VLDL Cholesterol 18, HDL Cholesterol 33 L 01/31/22 06:36: POC Glucose 104 01/31/22 11:43: POC Glucose 142 H Physical Exam Narrative General: Alert and oriented x3. No apparent distress. HEENT: Normocephalic, atraumatic. Mucous membrane is dry. PERRLA, EOMI. Hearing is intact. Neck: Supple. Heart: Normal S1, S2. No rubs, murmurs or gallops. Lungs: Decreased breath sound at bases bilaterally. Abdomen: Normal bowel sounds. Abdomen is soft, nontender, no guarding or ashok ound. Extremities: Lower extremities are wrapped in Wally bandage. Upper thighs has 2+ edema. Musculoskeletal: Full passive range of motion. There is no joint swelling. Skin: No rash. Skin is warm and dry. Psychiatric: Normal mood and affect. Assessment & Plan Assessment/Plan (1) Acute kidney injury superimposed on chronic kidney disease: PLAN: -RICHI is likely due to decreased effective blood volume. Although the patient has edema and pleural effusion, BP has been low. The patient also has low oncotic pressure with serum albumin of 2.6. Therefore, RICHI is likely prerenal due to hypotension and decreased effective blood volume. 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 -Baseline serum creatinine has been 2.5 to 2.8 mg/dL in the past year. Creatinine was around the usual baseline when he was admitted last week for hip surgery. BUN and creatinine are better. Somewhat sleepy which could be from azotemia. No further work-up at this point. He was asking about fluid gain. Baseline creatinine as per [facility] system is around 2.4. Can resume diuretics once BUN and creatinine are close to baseline. He does have extensive mets from renal cell carcinoma (3) HTN (hypertension): PLAN: -The patient was hypotensive -BP is better today. (4) History of nephrectomy, unilateral: PLAN: -The patient is status post right nephrectomy in 2012 for renal cell cancer. -There is no evidence of obstruction on CT scan done on 01/27/2022. Low suspicion for obstructive uropathy as a cause of RICHI at this point. (5) Cardiomyopathy, ischemic: PLAN: -The patient has EF of 15% by history. He has a history of ischemic cardiomyopathy and heart failure with reduced ejection fraction.
[2022-01-31 16:31] LABS: Bedside Glucose 133 mg/dL (74-106)
[2022-01-31] MEDS: Atorvastatin Calcium 40 MG Tablet PO (22:00)
[2022-01-31 22:11] LABS: Bedside Glucose 128 mg/dL (74-106)
[2022-02-01] VITALS (8 sets, daily range): BP systolic 93–134; BP diastolic 56–90; PULSE 61–69; RESP 17–18; TEMP 36.2–36.9; O2SAT 93–95; BMI 28.4
[2022-02-01] MEDS: MELATONIN 3 MG TABLET PO (00:14)
[2022-02-01] MEDS: oxyCODONE 5 MG Tablet 2.5 MG PO (04:17)
[2022-02-01] MEDS: Acetaminophen 325 MG Tablet 650 MG PO ×2 (04:18→08:43)
--- NOTE | 2022-02-01 06:45 | NURSING ---
pt requesting kadi wraps be taken off. c/o his leg is hurting. kadi wrap removed for a break
[2022-02-01 06:51] LABS: Bedside Glucose 94 mg/dL (74-106)
--- NOTE | 2022-02-01 06:57 | CDU_ITS ---
Reason For Study: CVA Rt. Velocities/BP Lt. Velocities/BP Prox CCA 82.9/8.6 cm/sec. Prox CCA 68.0/8.7 cm/sec. Mid CCA 62.2/8.3 cm/sec. Mid CCA 62.5/13.1 cm/sec. Dist CCA 46.8/6.2 cm/sec. Dist CCA 69.1/8.7 cm/sec. Prox ICA 65.8/10.9 cm/sec. Prox ICA 72.4/15.3 cm/sec. Mid ICA 66.9/21.9 cm/sec. Mid ICA 54.8/14.2 cm/sec. Dist ICA 77.9/15.3 cm/sec. Dist ICA 58.1/16.4 cm/sec. Rt. ICA/CCA = 77.9/62.2=1.3. Lt. ICA/CCA = 72.4/62.5=1.2. Prox ECA 72.4/0.0 cm/sec. Prox ECA 80.1/0.0 cm/sec. Rt. Vert. 46.9/7.8 cm/sec. Lt. Vert. 41.5/9.4 cm/sec. Right Extracranial There is homogeneous, smooth atherosclerotic plaque noted in the right common carotid artery. There is heterogeneous, irregular atherosclerotic plaque noted in the right internal carotid artery. There is heterogeneous, smooth atherosclerotic plaque noted in the right external carotid artery. Antegrade flow is noted in the right vertebral artery. Left Extracranial There is homogeneous, smooth atherosclerotic plaque noted in the left common carotid artery. There is heterogeneous, smooth atherosclerotic plaque noted in the left internal carotid artery. There is intimal thickening but no significant atherosclerotic plaque noted in the left external carotid artery. Antegrade flow is noted in the left vertebral artery. There is heterogeneous, irregular atherosclerotic plaque noted in the left bulb. Procedure Carotid Duplex 92071. This is a Carotid Duplex examination using B-mode, color flow and specral Doppler. The study was technically difficult. Respiration variations and PT was snoring; could not stay awake for exam. Exam performed portable in patient room. VL/Carotid Duplex Ultrasound Interpretation Summary Mild (<50%) stenosis right extracranial internal carotid. Mild (<50%) stenosis left extracranial internal carotid. Flow within the vertebral arteries is antegrade bilaterally. Heterogeneous, irregular atherosclerotic plaque is noted in the left carotid bulb, which does not appear to be hemodynamically significant. Ordering Physician: Power Loera Referring Physician: Markus Encarnacion Performed By: Ana De Jesus RDCS, RVT
[2022-02-01 07:10] LABS: Anion Gap 9 (5-15); BUN 103 mg/dL (7-18); BUN/Creat Ratio 43.6 RATIO (10-20); Calcium,Total 8.4 mg/dL (8.5-10.1); Chloride 107 mmol/L (98-107); Creatinine, Serum 2.36 mg/dL (0.70-1.30); EST Glomerular Filtration Rate 29 mL/min (>60); Est Glom Filt Rate - Afr Amer 35 mL/min (>60); Estimated Creatinine Clearance 27.92 ml/min; Glucose 97 mg/dL (74-106); Sodium Level 135 mmol/L (136-145)
[2022-02-01] MEDS: Aspirin 81 MG TAB.CHEW PO (08:42)
[2022-02-01] MEDS: Polyethylene Glycol 3350 17 GM PACKET PO (09:30)
[2022-02-01] MEDS: Timolol 0.25% 5ML OPTH.BTL 1 DRP EACH EYE (09:30)
[2022-02-01] MEDS: Docusate Sodium 100 MG Capsule PO (09:30)
[2022-02-01] MEDS: Insulin Lispro 100 UNIT/ML INSULN.PEN SC (11:06)
[2022-02-01 11:16] LABS: Bedside Glucose 161 mg/dL (74-106)
[2022-02-01] MEDS: Ondansetron 4 MG/2 ML Vial IV (11:56)
[2022-02-01] MEDS: Furosemide 20 MG Tablet PO (12:28)
[2022-02-01 12:52] LABS: Pathologist Review Reviewed
--- NOTE | 2022-02-01 14:06 | PCM.TXEXTCAR ---
Diet 01/31/22 14:49 Diet: Regular - No Added Salt Dietary Modifications:: Potassium Restricted Type of Dietary Supplement:: Ensure Clear Is pt able to select menu?: No Diet Comments: 120 ml ensure clear TID w/ meals Routine Orders/Code Status Keep PO Greater than or Equal to (%): 90 Routine Lab Work: CBC (weekly) and BMP (weekly) Code Status: Full Code Wound(s) Right Hip: Wound Type: Surgical Incision Right lower leg: Wound Type: Skin Tear Sacral: Wound Type: Pressure Injury Therapies Weight Bearing: Weight bearing as tolerated Physical Therapy: Eval and Treat Occupational Therapy: Eval and Treat Problem/Diagnosis (1) Acute kidney injury superimposed on chronic kidney disease: Status: Chronic (2) Chronic kidney disease, stage 4 (severe): Status: Chronic (3) HTN (hypertension): Status: Chronic (4) History of nephrectomy, unilateral: Status: Chronic (5) Cardiomyopathy, ischemic: Status: Acute Allergies/Procedures Done in Hospital Allergies No Known Allergies Allergy (Verified 01/28/22 16:39) Type of Care/Length of Stay Estimated LOS: Convalescent Care Less Than 30 days Type of Care Needed: Skilled Rehab Potential: Fair Prognosis: Fair Additional Orders/Day of Discharge Day of Discharge: 02/01/22 Dietary and Speech Recommendations Dietitian Recommendations/Changes: Will liberalize diet to Regular, no added salt; potassium-restricted. Will d/c Glucerna 120mL 4x/day with medpass---pt refusing. Will offer 120 ml ensure clear TID w/ meals as tolerated. Follow Up Care Please Follow Up With: [facility] When: 1-2 months. Call [phone] Discharge Plan Admission Admit Date/Time: 01/28/22 18:53 Primary Reason for Your Visit: encephalopathy, hypotension Attending Provider: Power Loera Primary Care Provider: Markus Encarnacion Consulting Providers: Haris Bourne Discharge Orders/Prescriptions Prescriptions: New acetaminophen [Tylenol] 325 mg Tablet 650 mg PO Q4H PRN PRN (Reason: Fever, pain 1-10/10) Qty: 0 RF: 0 aspirin 81 mg Tablet,Chewable 81 mg PO BREAKFAST Qty: 0 RF: 0 polyethylene glycol 3350 17 gram Powder In Packet 17 g PO DAILY Qty: 0 RF: 0 melatonin 5 mg capsule 5 mg PO QHS Qty: 30 RF: 0 Continued Atorvastatin Calcium 40 mg PO QHS RF: 0 docusate sodium [DOK] 100 MG capsule 100 mg PO BID RF: 0 furosemide 20 MG tablet 20 mg PO DAILY RF: 0 loratadine [Allergy Relief (loratadine)] 10 MG tablet 10 mg PO DINNER PRN (Reason: allergies) RF: 0 cholecalciferol (vitamin D3) [Vitamin D3] 1,000 UNIT capsule 2,000 unit PO DAILY RF: 0 diclofenac sodium 100 GM gel 2 g topical BID RF: 0 timolol 0.25 % Drops 1 drp EACH EYE BID RF: 0 coenzyme Q10 10 mg Capsule 10 mg PO DAILY RF: 0 B12 Active 1,000 mcg Tablet,Chewable 1,000 mcg PO DAILY RF: 0 albuterol sulfate 2.5 mg /3 mL (0.083 %) Solution For Nebulization 2.5 mg inhalation Q2H PRN PRN (Reason: Wheezing, SOB) Qty: 0 RF: 0 Discontinued hydralazine 25 MG tablet 10 mg PO BID RF: 0 tramadol 50 MG tablet 50 mg PO 5X/DAY PRN (Reason: Pain) RF: 0 isosorbide dinitrate 20 MG tablet 10 mg PO BID RF: 0 empagliflozin 10 mg Tablet 10 mg PO DAILY RF: 0 oxycodone 5 mg Tablet 5 mg PO Q4H PRN PRN (Reason: pain 4-10, may overlap w/ IV) Qty: 0 RF: 0 carvedilol 6.25 mg tablet 3.125 mg PO BID RF: 0 Ensure Surgery 0.08-1.4 gram-kcal/mL liquid 237 ml PO TIDCM RF: 0 Referrals / Follow Up: Markus Encarnacion MD [Primary Care Provider] - Within 2 Weeks Disposition Disposition (needs filled in before D/C Order can be placed): [facility]
--- NOTE | 2022-02-01 14:14 | CASEMGMT ---
SW met with patient, his daughter, and . SW introduced self and role at [facility]. SW confirmed they were aware patient will be going back to [facility] today. Plan: d/c back to [facility] under skilled level of care. Mary VANN
--- NOTE | 2022-02-01 14:19 | PCM.DC.SUM ---
Providers Date of Admission: 01/28/22 Primary Care Physician: Markus Encarnacion MD Consultations 01/28/22 19:29 Consult: Nephrology Routine Consulting Provider: Haris Bourne Reason for Consult: RICHI on CKD stage IV, you were going to see him in TCU on sunday, admitted EMERGENT Consult: No MD Notified: Yes Date Notified: 01/28/22 Time Notified: 19:00 Method of Notification: talked on phone Reason For Visit: HYPOTENSION,ENCEPHALOPATHY Diagnosis Discharge Diagnosis (1) Acute kidney injury superimposed on chronic kidney disease: Status: Chronic Code(s): N17.9 - Acute kidney failure, unspecified; N18.9 - Chronic kidney disease, unspecified (2) Chronic kidney disease, stage 4 (severe): Status: Chronic Code(s): N18.4 - Chronic kidney disease, stage 4 (severe) (3) HTN (hypertension): Status: Chronic Code(s): I10 - Essential (primary) hypertension (4) History of nephrectomy, unilateral: Status: Chronic Code(s): Z90.5 - Acquired absence of kidney (5) Cardiomyopathy, ischemic: Status: Acute Code(s): I25.5 - Ischemic cardiomyopathy (6) CVA (cerebral vascular accident): Status: Acute Code(s): I63.9 - Cerebral infarction, unspecified Medications at Discharge Home Medications Atorvastatin Calcium 40 mg PO QHS 06/01/14 cholecalciferol (vitamin D3) [Vitamin D3] 2,000 unit PO DAILY 06/01/14 docusate sodium [DOK] 100 mg PO BID 06/01/14 furosemide 20 mg PO DAILY 06/01/14 loratadine [Allergy Relief (loratadine)] 10 mg PO DINNER PRN 06/01/14 diclofenac sodium 2 g TOPICAL BID 08/24/14 timolol 1 drp EACH EYE BID 01/24/22 B12 Active 1,000 mcg PO DAILY 01/25/22 coenzyme Q10 10 mg PO DAILY 01/25/22 albuterol sulfate 2.5 mg INHALATION Q2H PRN PRN #0 ml 01/27/22 acetaminophen [Tylenol] 650 mg PO Q4H PRN PRN #0 tab 02/01/22 aspirin 81 mg PO BREAKFAST #0 tab 02/01/22 melatonin 5 mg PO QHS #30 cap 02/01/22 polyethylene glycol 3350 17 g PO DAILY #0 ea 02/01/22 Hospital Course Operations None Summary of Care Provided Minutes Spent on Discharge: 35 Hospital Course: 1. Encephalopathy Resolved Suspected metabolic Likely multifactorial due to dehydration but also medications. Head CT not performed on admission. Head CT showed a chronic stroke. 2. Acute kidney injury Baseline creatinine around 2.6. Peaked at 3.5 and currently down to 2.99. Nephrology following Patient with chronic kidney disease stage IV due to decreased renal mass from prior right nephrectomy as well as diabetic kidney disease in the left kidney. Hold off on diuretics at this time. 3. Possible movement disorder Discussed concern for neurologic process with the patient and his given his dysarthria. Claim that he is certainly tired in his mouth being dry but just seems off overall. The relates to me that he had previously seen a movement disorder specialist several years ago due to lower extremity weakness and was not felt to be Parkinson's at that time. I told them that I do not know definitively if he has movement disorder but I certainly have concerns given some of this appearance and his falls. I would recommend following up with movement disorder specialist for further clarification just to see if anything further may be delineated being that is been several years since he has seen a movement disorder neurologist. They prefer to stay within the [facility] and they may follow-up with the movement disorder center up there 4. Abnormal Head CT Head CT showed focal area of asymmetry of decreased density in centrum semiovale overlying the posterior right frontal and parietal lobes. MRI unable to be performed due to pacer/AICD leads SOC consulted. Recommended a carotid ultrasound. Carotid ultrasound showed bilateral less than 50% stenosis. 5. HFrEF EF 15% hold diuretics given RICHI. hold THOMAS-/ARB given CKD 6. Metastatic renal cell carcinoma follow up with oncology as outpt. 7. Chronic conditions: complicates care and recovery CAD: s/p CABG, we will continue asa, statin therapy, holding HTN regimen given hypotension and RICHI, add back as able, does have normally low BP. Hypertension: Holding regimen given hypotension, patient does baseline have BP 90-110 of note, but usually not in the 80s. Hyperlipidemia: We will continue patient on statin therapy. Diabetes mellitus type II, diet-controlled: Continue ADA diet, accu checks w/ ISS. 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 Discussed with the patient's daughter, Becca. Physical Exam Const alert and no apparent distress Resp normal respiratory effort, no retractions, no use of accessory muscles and clear to auscultation bilaterally Cardio regular rate, regular rhythm, S1 normal heart sound and S2 normal heart sound GI normal to inspection, nondistended, normoactive bowel sounds, soft to palpation and non-tender Medical Records Data Medical Nutrition Assessment Dietitian: Malnutrition Criteria Met Start: 01/31/22 15:11 Freq: Status: Active Protocol: Document 01/31/22 15:11 RMA (Rec: 01/31/22 15:12 RMA [id number]) Nutrition Malnutrition Evidence of Malnutrition Exists Yes Malnutrition (moderate): Chronic Evidenced By Suboptimal Energy Intake ( Moderate),Weight Loss ( Moderate),Physical Changes ( Moderate) Intake Problem Inadequate Oral Intake Etiology related to decreased ability to consume sufficient energy to meet estimated nutrient needs Signs/Symptoms as evidenced by pt report of decreased appetite and oral intakes compared to [employer]UMENT [employer], reported weight loss of 10lb in the past month and notable 1+ lower extremity pitting edema and some muscle and fat wasting of the upper extremities. Status Active Problem Clinical Problem Chronic Disease or Condition Related Malnutrition Etiology Moderate protein-calorie malnutrition in the context of chronic disease related to inadequate oral intake and incerased energy expenditure due to metastatic disease Signs/Symptoms as evidenced by upper extremity muscle and fat wasting, weight loss ~10 lbs x past 1 month as per pt report , poor PO <50% meals and PO meeting less than 75% estimated nutrition needs Status Active Problem Recommendation Dietitian Recommendations/Changes Will liberalize diet to Regular, no added salt; potassium-restricted. Will d/c Glucerna 120mL 4x/day with medpass---pt refusing. Will offer 120 ml ensure clear TID w/ meals as tolerated. Weight / BMI Weight Weight: 91.9 kg Body Mass Index (BMI) 28.4 ABG / Lab / Microbiology Data Result Diagrams: 01/31/22 05:17 02/01/22 06:05 Laboratory: Laboratory Results - last 24 hr 01/31/22 05:17: Diff Path Review Reviewed 01/31/22 16:27: POC Glucose 133 H 01/31/22 21:58: POC Glucose 128 H 02/01/22 06:05: Sodium 135 L, Potassium 5.0, Chloride 107, Carbon Dioxide 19.0 L, Anion Gap 9, BUN 103 H*, Creatinine 2.36 H, Estim Creat Clear Calc 27.92, Est GFR (MDRD) Af Amer 35 L, Est GFR (MDRD) Non-Af 29 L, BUN/Creatinine Ratio 43.6 H, Glucose 97, Calcium 8.4 L 02/01/22 06:41: POC Glucose 94 02/01/22 11:04: POC Glucose 161 H Radiography Diagnostic Testing: Radiology Impression Carotid Duplex 02/01/22 06:57 Interpretation Summary Mild (<50%) stenosis right extracranial internal carotid. Mild (<50%) stenosis left extracranial internal carotid. Flow within the vertebral arteries is antegrade bilaterally. Heterogeneous, irregular atherosclerotic plaque is noted in the left carotid bulb, which does not appear to be hemodynamically significant. Ordering Physician: Power Loera Referring Physician: Markus Encarnacion Performed By: Ana De Jesus RDCS, RVT Meaningful Use Info Meaningful Use Diagnoses (Choose all that apply): Ischemic CVA CVA Therapy Assessed for PT,OT and/or ST?: Yes Ischemic Stroke Antithrombotic order at d/c?: No Reason antithrombotic not ordered: Medical Contraindication Dx of Atrial fib/flutter?: No Statins at discharge?: Yes Primary Dx Acute Ischemic CVA?: No IV tPA ordered during stay?: No Reason IV t-PA not ordered: Medical Contraindication Discharge Plan Admission Admit Date/Time: 01/28/22 18:53 Primary Reason for Your Visit: encephalopathy, hypotension Attending Provider: Power Loera Primary Care Provider: Markus Encarnacion Consulting Providers: Haris Bourne Discharge Orders/Prescriptions Prescriptions: New acetaminophen [Tylenol] 325 mg Tablet 650 mg PO Q4H PRN PRN (Reason: Fever, pain 1-10/10) Qty: 0 RF: 0 aspirin 81 mg Tablet,Chewable 81 mg PO BREAKFAST Qty: 0 RF: 0 polyethylene glycol 3350 17 gram Powder In Packet 17 g PO DAILY Qty: 0 RF: 0 melatonin 5 mg capsule 5 mg PO QHS Qty: 30 RF: 0 Continued Atorvastatin Calcium 40 mg PO QHS RF: 0 docusate sodium [DOK] 100 MG capsule 100 mg PO BID RF: 0 furosemide 20 MG tablet 20 mg PO DAILY RF: 0 loratadine [Allergy Relief (loratadine)] 10 MG tablet 10 mg PO DINNER PRN (Reason: allergies) RF: 0 cholecalciferol (vitamin D3) [Vitamin D3] 1,000 UNIT capsule 2,000 unit PO DAILY RF: 0 diclofenac sodium 100 GM gel 2 g topical BID RF: 0 timolol 0.25 % Drops 1 drp EACH EYE BID RF: 0 coenzyme Q10 10 mg Capsule 10 mg PO DAILY RF: 0 B12 Active 1,000 mcg Tablet,Chewable 1,000 mcg PO DAILY RF: 0 albuterol sulfate 2.5 mg /3 mL (0.083 %) Solution For Nebulization 2.5 mg inhalation Q2H PRN PRN (Reason: Wheezing, SOB) Qty: 0 RF: 0 Discontinued hydralazine 25 MG tablet 10 mg PO BID RF: 0 tramadol 50 MG tablet 50 mg PO 5X/DAY PRN (Reason: Pain) RF: 0 isosorbide dinitrate 20 MG tablet 10 mg PO BID RF: 0 empagliflozin 10 mg Tablet 10 mg PO DAILY RF: 0 oxycodone 5 mg Tablet 5 mg PO Q4H PRN PRN (Reason: pain 4-10, may overlap w/ IV) Qty: 0 RF: 0 carvedilol 6.25 mg tablet 3.125 mg PO BID RF: 0 Ensure Surgery 0.08-1.4 gram-kcal/mL liquid 237 ml PO TIDCM RF: 0 Referrals / Follow Up: Markus Encarnacion MD [Primary Care Provider] - Within 2 Weeks Disposition Disposition (needs filled in before D/C Order can be placed): Residential Facility Charges/Coding Visit Charges Inpatient E&M: 69070 Disch Hosp
--- NOTE | 2022-02-01 14:59 | PN.RENAL_ITS ---
Subjective Subjective No new events Objective Data Objective Data Vital Signs: Vital Signs Temp Pulse Resp BP Pulse Ox 97.4 F L 63 18 99/56 L 95 02/01/22 13:49 02/01/22 13:49 02/01/22 13:49 02/01/22 13:49 02/01/22 13:49 Oxygen Flow Rate (L/min) 2 Oxygen Delivery Method Room Air Weight: 91.9 kg Body Mass Index (BMI) 28.4 Intake & Output: Intake and Output for Last 24 Hours 01/30/22 01/31/22 02/01/22 23:59 23:59 23:59 Intake Total 980 / 980 440 / 440 420 / 420 Output Total 650 / 650 1150 / 1150 850 / 850 Balance 330 / 330 -710 / -710 -430 / -430 Medical Nutrition Assessment Dietitian: Malnutrition Criteria Met Start: 01/31/22 15:11 Freq: Status: Active Protocol: Document 01/31/22 15:11 RMA (Rec: 01/31/22 15:12 RMA [id number]) Nutrition Malnutrition Evidence of Malnutrition Exists Yes Malnutrition (moderate): Chronic Evidenced By Suboptimal Energy Intake ( Moderate),Weight Loss ( Moderate),Physical Changes ( Moderate) Intake Problem Inadequate Oral Intake Etiology related to decreased ability to consume sufficient energy to meet estimated nutrient needs Signs/Symptoms as evidenced by pt report of decreased appetite and oral intakes compared to VAT WASHER, reported weight loss of 10lb in the past month and notable 1+ lower extremity pitting edema and some muscle and fat wasting of the upper extremities. Status Active Problem Clinical Problem Chronic Disease or Condition Related Malnutrition Etiology Moderate protein-calorie malnutrition in the context of chronic disease related to inadequate oral intake and incerased energy expenditure due to metastatic disease Signs/Symptoms as evidenced by upper extremity muscle and fat wasting, weight loss ~10 lbs x past 1 month as per pt report , poor PO <50% meals and PO meeting less than 75% estimated nutrition needs Status Active Problem Recommendation Dietitian Recommendations/Changes Will liberalize diet to Regular, no added salt; potassium-restricted. Will d/c Glucerna 120mL 4x/day with medpass---pt refusing. Will offer 120 ml ensure clear TID w/ meals as tolerated. Lab / Micro Data Result Diagrams: 01/31/22 05:17 02/01/22 06:05 Labs: Laboratory Results - last 24 hr 01/31/22 05:17: Diff Path Review Reviewed 01/31/22 16:27: POC Glucose 133 H 01/31/22 21:58: POC Glucose 128 H 02/01/22 06:05: Sodium 135 L, Potassium 5.0, Chloride 107, Carbon Dioxide 19.0 L , Anion Gap 9, BUN 103 H*, Creatinine 2.36 H, Estim Creat Clear Calc 27.92, Est GFR (MDRD) Af Amer 35 L, Est GFR (MDRD) Non-Af 29 L, BUN/Creatinine Ratio 43.6 H , Glucose 97, Calcium 8.4 L 02/01/22 06:41: POC Glucose 94 02/01/22 11:04: POC Glucose 161 H Radiography Diagnostic Testing: Radiology Impression Carotid Duplex 02/01/22 06:57 Interpretation Summary Mild (<50%) stenosis right extracranial internal carotid. Mild (<50%) stenosis left extracranial internal carotid. Flow within the vertebral arteries is antegrade bilaterally. Heterogeneous, irregular atherosclerotic plaque is noted in the left carotid bulb, which does not appear to be hemodynamically significant. Ordering Physician: Power Loera Referring Physician: Markus Encarnacion Performed By: Ana De Jesus, MATTHEW, RVT Physical Exam Narrative General: Alert and oriented x3. No apparent distress. HEENT: Normocephalic, atraumatic. Mucous membrane is dry. PERRLA, EOMI. Hea ring is intact. Neck: Supple. Heart: Normal S1, S2. No rubs, murmurs or gallops. Lungs: Decreased breath sound at bases bilaterally. Abdomen: Normal bowel sounds. Abdomen is soft, nontender, no guarding or rebound. Extremities: Lower extremities are wrapped in Wally bandage. Upper thighs has 2+ edema. Musculoskeletal: Full passive range of motion. There is no joint swelling. Skin: No rash. Skin is warm and dry. Psychiatric: Normal mood and affect. Assessment & Plan Assessment/Plan (1) Acute kidney injury superimposed on chronic kidney disease: PLAN: -RICHI is likely due to decreased effective blood volume. Although the patient has edema and pleural effusion, BP has been low. The patient also has low oncotic pressure with serum albumin of 2.6. Therefore, RICHI is likely prerenal due to hypotension and decreased effective blood volume. 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 -Baseline serum creatinine has been 2.5 to 2.8 mg/dL in the past year. Creatinine was around the usual baseline when he was admitted last week for hip surgery. BUN and creatinine are better. Somewhat sleepy which could be from azotemia. No further work-up at this point. He was asking about fluid gain. Baseline creatinine as per [facility] system is around 2.4. Can resume diuretics once BUN and creatinine are close to baseline. He does have extensive mets from renal cell carcinoma (3) HTN (hypertension): PLAN: -The patient was hypotensive -BP is better today. (4) History of nephrectomy, unilateral: PLAN: -The patient is status post right nephrectomy in 2012 for renal cell cancer. -There is no evidence of obstruction on CT scan done on 01/27/2022. Low suspicion for obstructive uropathy as a cause of RICHI at this point. (5) Cardiomyopathy, ischemic: PLAN: -The patient has EF of 15% by history. He has a history of ischemic cardiomyopathy and heart failure with reduced ejection fraction.
--- NOTE | 2022-02-01 15:32 | NURSING ---
Nurse to nurse report called to nurse Friedman on TCU. Will assume care of pt at this time.
--- NOTE | 2022-02-01 16:10 | NURSING ---
Reviewed charting with Raphael Gary RN
== END 2022-02-01 16:00 | disposition skilled nursing facility (03) | DRG 640 ==
LOC: ED 18:25 → PCU 19:04
PROVIDERS: Internal Medicine Nephrology; Admitting Provider Family Medicine; Emergency Provider Emergency Medicine; PCP Family Medicine
DX: E86.0 Dehydration (principal); I63.9 Cerebral infarction, unspecified; G92.8 Other toxic encephalopathy; E44.0 Moderate protein-calorie malnutrition; C78.01 Secondary malignant neoplasm of right lung; N17.9 Acute kidney failure, unspecified; C78.02 Secondary malignant neoplasm of left lung; C64.9 Malignant neoplasm of unspecified kidney, except renal pelvis; I13.0 Hypertensive heart and chronic kidney disease with heart failure and stage 1 through stage 4 chronic kidney disease, or unspecified chronic kidney disease; I50.22 Chronic systolic (congestive) heart failure; N18.4 Chronic kidney disease, stage 4 (severe); G25.9 Extrapyramidal and movement disorder, unspecified; I95.9 Hypotension, unspecified; E11.22 Type 2 diabetes mellitus with diabetic chronic kidney disease; I25.10 Atherosclerotic heart disease of native coronary artery without angina pectoris; E78.5 Hyperlipidemia, unspecified; I25.5 Ischemic cardiomyopathy; Z86.711 Personal history of pulmonary embolism; Z95.810 Presence of automatic (implantable) cardiac defibrillator; Z79.899 Other long term (current) drug therapy; Z87.891 Personal history of nicotine dependence; Z96.641 Presence of right artificial hip joint; Z90.5 Acquired absence of kidney; R47.1 Dysarthria and anarthria; Z68.28 Body mass index [BMI] 28.0-28.9, adult; Z91.81 History of falling; Z96.0 Presence of urogenital implants; T40.425A Adverse effect of tramadol, initial encounter
CPT/HCPCS: 36415; 70450; 80048; 80053; 80061; 80069; 81001; 82570; 82962; 84300; 85025; 93005; 93880; 94640; 94762; 97110; 97162; 97166; 97530; 97535; 97802; 99251; 99285; J7030; A4216; G0463; J2405

== ENCOUNTER 2022-02-01 16:05 | Inpatient (IN) | payer MEDICARE, OTHER, SELFPAY ==
[2022-02-01 16:32] VITALS: BMI 28.3
[2022-02-01 16:49] VITALS: BP 104/59; PULSE 65; RESP 18; TEMP 36.1; O2SAT 97
[2022-02-01] MEDS: Timolol 0.25% 5ML OPTH.BTL 1 DRP EACH EYE (18:16)
[2022-02-01] MEDS: Docusate Sodium 100 MG Capsule PO (18:16)
[2022-02-01] MEDS: HYDROcodone Bitartrate/Apap 5/325 Tablet PO (19:47)
[2022-02-01] MEDS: Arthritis Pain Compound 60 CLICK TUBE TOPICAL (19:48)
[2022-02-01] MEDS: Doxepin Hydrochloride 10 MG Capsule PO (19:51)
[2022-02-01] MEDS: Atorvastatin Calcium 40 MG Tablet PO (19:51)
[2022-02-01] MEDS: Glucerna Shake 120 ML LIQUID PO (19:56)
[2022-02-01] MEDS: Menthol/Lanolin/Calamine/Znox 113 GM Tube 1 APPLIC TOPICAL (20:05)
[2022-02-01] MEDS: Nystatin Powder 15gm Bottle 1 APPLIC TOPICAL (20:07)
--- NOTE | 2022-02-01 20:34 | PCM.HP.STD ---
HPI - General General Date of Admission: 02/01/22 HPI Narrative 01/28/2022 MELVIN AGUIRRE, is a 76 Male who presents to [facility] Emergency Department with hypotension. 01/28/2022 EKG ventricular paced rhythm, biventricular pacemaker detected, abnormal EKG. Hypotension, decreased responsiveness, Blood pressure 70 systolic. Sleepy, lethargic. IV fluids given, Lethargy secondary to Tramadol/oxycodone. 01/28/2022 Admit to Hospital. Gentle IV fluids for acute kidney injury, hypotension. Hold blood pressure medications for hypotension. Metastatic renal cell cancer stable per [facility] Oncology. 01/28/2022 Dr. Thompson consulted suspect acute kidney injury on chronic kidney disease stage 4. 01/29/2022 More alert, back to baseline mental status. Encephalopathy improved with holding Tramadol, oxycodone. Creatinine improved from 3.50 to 3.22. 01/29/2022 Dr. Thompson recommended gentle IV fluids, hold blood pressure medications. 01/30/2022 14 pound weight gain. Resume diuretics when creatinine near baseline of 2.4. 01/30/2022 Confusion better. Creatinine 2.99. Consider [facility] movement disorder clinic on discharge. CT head concerning for stroke. 01/31/2022 Feels well. MRI unable due to pacemaker. 01/31/2022 Teleneurology recommended aspirin 81mg daily, bilateral carotid doppler ultrasound showing < 50% stenosis bilaterally. 02/01/2022 Creatinine back to 2.36 baseline. 02/01/2022 Admit to TCU with debility, here for rehabilitation, strengthening, prior to discharge home with . 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 Irregular heart beat Kidney disease Myocardial infarct Pacemaker Preoperative cardiovascular examination Pulmonary embolism Home Medications Atorvastatin Calcium 40 mg PO QHS 06/01/14 [History Last Taken 01/27/22 21:19] cholecalciferol (vitamin D3) [Vitamin D3] 2,000 unit PO DAILY 06/01/14 [History Last Taken 01/28/22 05:53] docusate sodium [DOK] 100 mg PO BID 06/01/14 [History Last Taken 01/24/22] furosemide 20 mg PO DAILY 06/01/14 [History Last Taken 01/24/22] loratadine [Allergy Relief (loratadine)] 10 mg PO DINNER PRN 06/01/14 [History Last Taken 09/21/14 17:00] diclofenac sodium 2 g TOPICAL BID 08/24/14 [History Last Taken 01/24/22] timolol 1 drp EACH EYE BID 01/24/22 [History Last Taken 01/28/22 05:51] B12 Active 1,000 mcg PO DAILY 01/25/22 [History Last Taken 01/28/22 05:54] coenzyme Q10 10 mg PO DAILY 01/25/22 [History Last Taken 01/24/22] albuterol sulfate 2.5 mg INHALATION Q2H PRN PRN #0 ml 01/27/22 [Rx Last Taken Unknown] acetaminophen [Tylenol] 650 mg PO Q4H PRN PRN #0 tab 02/01/22 [Rx Last Taken Unknown] aspirin 81 mg PO BREAKFAST 02/01/22 [History Last Taken Unknown] melatonin 5 mg PO QHS 02/01/22 [History Last Taken Unknown] polyethylene glycol 3350 17 g PO DAILY 02/01/22 [History Last Taken Unknown] Allergy/AdvReac Type Severity Reaction Status Date / Time No Known Allergies Allergy Verified 01/28/22 16:39 Family History Mother Hypertension Father Hypertension Surgical History H/O hemorrhoidectomy H/O right knee surgery H/O right nephrectomy History of right hip replacement Hx of CABG S/P CABG (coronary artery bypass graft) Social History household members: spouse Smoking Status: Former smoker alcohol intake: current substance use type: does not use ROS Constitutional Constitutional: Denies chills, fever(s) or weight gain ENT HEENT: Denies headache(s), nasal congestion or nasal discharge Cardiovascular Cardiovascular: Denies chest pain or palpitations Respiratory/Chest Respiratory/Chest: Denies cough, excessive phlegm production or shortness of breath with exertion Gastrointestinal Gastrointestinal: Denies abdominal pain, nausea or vomiting Genitourinary Genitourinary: Denies dysuria Musculoskeletal Musculoskeletal: Denies joint pain or joint swelling Integumentary Integumentary: Denies rash or wounds Neurologic Neurologic: Denies focal weakness, numbness or tingling Psychiatric Psychiatric: Denies anxiety, auditory hallucinations, depression, homicidal ideation or suicidal ideation Vital Signs Vital Signs Vital Signs: 02/01/22 16:33 02/01/22 16:49 Temperature 96.9 F L Temperature Source Temporal Pulse Rate 65 Pulse Rhythm Irregular Pulse Strength Normal (2+) Respiratory Rate 18 Respiratory Effort Normal Non-Labored Respiratory Depth Normal Respiratory Pattern Normal Blood Pressure 104/59 L Blood Pressure Mean 74 Blood Pressure Source Monitor Blood Pressure Position Semi-Fowlers Blood Pressure Location Right Arm Pulse Ox 97 Oxygen Delivery Method Room Air Room Air Weight Weight: 89.499 kg Body Mass Index (BMI) 28.3 Physical Exam Const alert General Appearance: cooperative HEENT normocephalic Eyes PERRL and EOMs intact bilaterally Neck supple, no JVD and no carotid bruits Resp normal respiratory effort, normal air movement and clear to auscultation bilaterally Cardio regular rate and regular rhythm GI normal to inspection, nondistended, normoactive bowel sounds, non-tender and non-distended Extremity normal capillary refill General Extremity: edema bilateral (1+ pitting.) Skin no rashes or lesions noted General Skin Exam: no breakdown Psych affect normal Appearance: appropriate Results Lab / Micro Data Micro: Microbiology 02/01/22 17:52 Nasal Secretion SARS-CoV-2 Antigen (Rapid) - Final Assessment & Plan Assessment/Plan (1) Debility: (2) Encephalopathy: (3) Hypotensive episode: (4) Acute on chronic kidney failure: (5) Stroke: (6) Hip dislocation, right: (7) Coronary artery disease: (8) Heart failure with reduced ejection fraction: (9) Chronic kidney disease, stage 4 (severe): (10) Hypertension: (11) Hyperlipidemia: (12) Diabetes mellitus: (13) Metastatic cancer: (14) Renal cell carcinoma: PLAN: 76 year old male with below past medical history hospitalized for encephalopathy, hypotension secondary to narcotic pain medications, complicated by acute on chronic kidney failure, stroke, admitted to TCU with debility, here for rehabilitation, strengthening, prior to discharge home with . Debility - PT/OT. Pain - [place] 5/325mg 1 tablet q6h prn pain (4-10), Arthritis pain 2 clicks topical bid. Bowel - Miralax 17gm daily, colace 100mg bid. Adult immunization - Administer pneumonia vaccine, flu vaccine, covid19 vaccine as appropriate. DVT prophylaxis - Hold, too high rish per Dr. Banks, resident's [facility] oncologist. Shortness of breath - Albuterol 2.5mg nebulized q2h prn. Stroke - Aspirin 81mg daily. Hyperlipidemia - Atorvastatin 40mg qhs. Vitamin D deficiency - D3 50mcg daily. Vitamin B12 deficiency - B12 1000mcg daily. Insomnia - Doxepin 10mg qhs. Heart failure with reduced ejection fracture (EF 15%), Furosemide 20mg daily. Nutrition - Glucerna 120ml 4x/day. Allergic rhinitis - Loratadine 10mg daily. Skin irritation - Calmoseptine topical bid. Tinea Corporis - Nystatin powder topical bid. Glaucoma - Timolol 0.25% 1 gtt ou bid.
[2022-02-01 22:41] LABS: Bedside Glucose 201 mg/dL (74-106)
[2022-02-02] MEDS: HYDROcodone Bitartrate/Apap 5/325 Tablet PO ×5 (01:05→23:37)
--- NOTE | 2022-02-02 01:16 | NURSING ---
Pt c/o pain, went in to medicate, rt hip incision noted to bed draining, dressing saturated with yellow drainage. 2 ABD placed and taped, then noted to be seeping fluid from lt elbow/forearm area. Pt states he bumped it on his kleenex box, seeping yellow fluid. 3 ABD pads applied and wrapped with kerlix, will continue to monitor.
[2022-02-02] MEDS: Furosemide 20 MG Tablet PO (04:30)
[2022-02-02] MEDS: Cholecalciferol (VIT D3) 25 MCG TABLET (1,000 UNITS) 50 MCG PO (04:30)
[2022-02-02] MEDS: Docusate Sodium 100 MG Capsule PO ×2 (04:30→17:37)
[2022-02-02] MEDS: Cyanocobalamin 500 MCG Tablet 1000 MCG PO (04:30)
[2022-02-02] MEDS: Nystatin Powder 15gm Bottle 1 APPLIC TOPICAL ×2 (04:31→17:39)
[2022-02-02] MEDS: Menthol/Lanolin/Calamine/Znox 113 GM Tube 1 APPLIC TOPICAL ×2 (04:31→17:39)
[2022-02-02] MEDS: Arthritis Pain Compound 60 CLICK TUBE TOPICAL ×2 (04:31→17:35)
[2022-02-02] MEDS: Timolol 0.25% 5ML OPTH.BTL 1 DRP EACH EYE ×2 (04:33→17:38)
[2022-02-02] MEDS: Glucerna Shake 120 ML LIQUID PO (04:36)
[2022-02-02 04:38] VITALS: BP 111/54; PULSE 74
[2022-02-02 05:58] LABS: Absolute Lymphocyte Count 0.35 X10^3/uL (0.83-4.51); Absolute Neutrophil Count 3.6 X10^3/uL (2.0-7.7); Basophil# 0.02 X10^3/uL; Basophil% 0.5 % (0-1); Eosinophils% 2.3 % (0-5); Hemoglobin 13.2 g/dL (13.0-16.5); Lymphocyte # 0.35 X10^3/ul (0.83-4.51); Lymphocyte % 7.9 % (19-41); Mean Corp Hgb Conc 31.4 g/dL (32-36); Mean Corpuscular Volume 92.3 fL (80-94); Mean Platelet Vol. 10.4 fl (6.2-12.0); Monocyte# 0.32 X10^3/uL; Monocyte% 7.2 % (0-10); NRBC Flagged by Analyzer 0 % (0-5); Neutrophil # 3.61 X10^3/uL (2.7-7.7); Neutrophil % 81.6 % (47-70); POSITIVE DIFFERENTIAL YES; Platelet Count 216 K/mm3 (150-450); RBC Distribution Width CV 16.4 % (11.6-14.6); RBC Distribution Width SD 55.8 fl (35.1-43.9); Red Blood Count 4.55 M/mm3 (4.6-6.2); White Blood Count 4.4 K/mm3 (4.4-11.0)
[2022-02-02 06:00] LABS: Differential Indicated SCAN CRITERIA MET
[2022-02-02 06:21] LABS: Bedside Glucose 121 mg/dL (74-106)
[2022-02-02 06:28] LABS: Differential Comment SCANNED
[2022-02-02 06:31] LABS: Anion Gap 8 (5-15); BUN 100 mg/dL (7-18); BUN/Creat Ratio 44.8 RATIO (10-20); Calcium,Total 8.1 mg/dL (8.5-10.1); Chloride 105 mmol/L (98-107); Creatinine, Serum 2.23 mg/dL (0.70-1.30); EST Glomerular Filtration Rate 31 mL/min (>60); Est Glom Filt Rate - Afr Amer 37 mL/min (>60); Estimated Creatinine Clearance 29.55 ml/min; Glucose 120 mg/dL (74-106); Potassium 4.8 mmol/L (3.5-5.1); Sodium Level 136 mmol/L (136-145)
[2022-02-02] MEDS: Aspirin 81 MG TAB.CHEW PO (08:04)
[2022-02-02 10:00] VITALS: PULSE 70; RESP 18; O2SAT 94
[2022-02-02 10:51] LABS: Bedside Glucose 137 mg/dL (74-106)
--- NOTE | 2022-02-02 13:41 | PHA.CONS1_ITS ---
Progress Note - Pharmacy Subjective: TCU ADMISSION Objective: Allergies No Known Allergies Allergy (Verified 01/28/22 16:39) Current Medications Generic Name Dose Route Start Last Admin Trade Name Freq PRN Reason Stop Dose Admin Hydrocodone Bitart/Acetaminophen 1 tablet 02/02/22 12:00 02/02/22 13:11 Hydrocodone Bitartrate/Apap 5/325 Tablet PO 1 tablet Q6 GURINDER Administration Albuterol Sulfate 2.5 mg 02/01/22 16:19 Albuterol 2.5 Mg/3 Ml Vial.Neb. INHALATION Q2H PRN PRN Wheezing, SOB Aspirin 81 mg 02/02/22 08:00 02/02/22 08:04 Aspirin 81 Mg Tab.Chew PO 81 mg BREAKFAST GURINDER Administration Atorvastatin Calcium 40 mg 02/01/22 22:00 02/01/22 19:51 Atorvastatin Calcium 40 Mg Tablet PO 40 mg QHS GURINDER Administration Calamine/Phenol 1 applic 02/01/22 22:00 02/02/22 04:31 Menthol/Lanolin/Calamine/Znox 113 Gm Tube TOPICAL 1 applic BID GURINDER Administration Protocol Cholecalciferol 50 mcg 02/02/22 06:00 02/02/22 04:30 Cholecalciferol (Vit D3) 25 Mcg Tablet (1,000 Units) PO 50 mcg DAILY GURINDER Administration Compound Med 2 click 02/02/22 06:00 02/02/22 04:31 Arthritis Pain Compound 60 Click Tube TOPICAL 2 click BID GURINDER Administration Protocol Cyanocobalamin 1,000 mcg 02/02/22 06:00 02/02/22 04:30 Cyanocobalamin 500 Mcg Tablet PO 1,000 mcg DAILY GURINDER Administration Docusate Sodium 100 mg 02/01/22 18:00 02/02/22 04:30 Docusate Sodium 100 Mg Capsule PO 100 mg BID GURINDER Administration Doxepin HCl 25 mg 02/02/22 22:00 Doxepin Hcl 25 Mg Capsule PO QHS GURINDER Furosemide 20 mg 02/02/22 06:00 02/02/22 04:30 Furosemide 20 Mg Tablet PO 20 mg DAILY GURINDER Administration Loratadine 10 mg 02/01/22 16:19 Loratadine 10 Mg Tablet PO DINNER PRN allergies Nutritional Formula (Lactose Free) 120 ml 02/02/22 17:45 Ensure Clear 120 Ml Liquid PO [facility] Nystatin 1 applic 02/01/22 22:00 02/02/22 04:31 Nystatin Powder 15gm Bottle TOPICAL 1 applic BID GURINDER Administration Protocol Polyethylene Glycol 17 gm 02/02/22 06:00 02/02/22 04:26 Polyethylene Glycol 3350 17 Gm Packet PO Not Given DAILY GURINDER Timolol Maleate 1 drp 02/01/22 18:00 02/02/22 04:33 Timolol 0.25% 5ml Opth.Btl EACH EYE 1 drp BID GURINDER Administration Tuberculin PPD 0.1 ml 02/04/22 10:00 Tuberculin,Purif.Prot.Deriv. 50 Tu/Ml Vial ID 02/04/22 10:01 X1 ONE Problem List (Last Reviewed 02/01/22 @ 20:[address] Moose Gifford MD) Renal cell carcinoma (Acute) Diabetes mellitus (Acute) Hyperlipidemia (Acute) Hypertension (Chronic) Chronic kidney disease, stage 4 (severe) (Chronic) Heart failure with reduced ejection fraction (Acute) Coronary artery disease (Acute) Hip dislocation, right (Acute) Stroke (Acute) Acute on chronic kidney failure (Chronic) Hypotensive episode (Acute) Encephalopathy (Acute) Debility (Acute) Metastatic cancer (Acute) Vital Signs Temp Pulse Resp BP Pulse Ox 96.9 F L 74 18 111/54 L 97 02/01/22 16:49 02/02/22 04:38 02/01/22 16:49 02/02/22 04:38 02/01/22 16:49 Oxygen Delivery Method Room Air Weight: 89.499 kg Body Mass Index (BMI) 28.3 Sodium 136 mmol/L (136-145) 02/02/22 05:18 Potassium 4.8 mmol/L (3.5-5.1) 02/02/22 05:18 Chloride 105 mmol/L (98-107) 02/02/22 05:18 Carbon Dioxide 23.0 mmol/L (21.0-32.0) 02/02/22 05:18 Anion Gap 8 (5-15) 02/02/22 05:18 BUN 100 mg/dL (7-18) H 02/02/22 05:18 Creatinine 2.23 mg/dL (0.70-1.30) H 02/02/22 05:18 Est GFR (MDRD) Af Amer 37 mL/min (>60) L 02/02/22 05:18 Est GFR (MDRD) Non-Af 31 mL/min (>60) L 02/02/22 05:18 BUN/Creatinine Ratio 44.8 RATIO (10-20) H 02/02/22 05:18 Glucose 120 mg/dL (74-106) H 02/02/22 05:18 Assessment/Plan: 1. Pain/ Arthritis: [place] 5/325mg 1 tab PO Q6, Arthritis compound cream 1 application topically BID. Please continue to monitor for S/S increased pain, oversedation given scheduled narcotic administrations, respiratory depression. P lease also monitor for localized skin reaction/ irritation with topical compounded product. 2.CHF with reduced EF (15%): Lasix 20mg PO Daily. Patient not currently on THOMAS-I or beta cliff, likely d/t hypotension upon admission. Current BP 111/54, pulse 74 BPM. Please continue to monitor BP and pulse and resume CHF medications when BP improves and is clinically appropriate, thank you. Please also continue to monitor Electrolytes (K = 4.8 on 02/02), I/O while on diuretics. 3. [place]oke/HLD: Aspirin 81mg PO Daily, Lipitor 40mg PO QHS. Please continue to monitor for S/S bleeding/bruising, H/H, lipid panel at least annually (last lipid panel done 01/24, all levels were WNL). 4. Allergic Rhinitis: Claritin 10mg PO Daily PRN. Please continue to monitor for symptom improvement. May also consider scheduling medication daily, espiecially during peak allergy season as medication takes a few weeks to take full effect. 5. SOB: Albuterol Nebulization Q2h PRN. Please continue to monitor for PRN medi cation usage, HR, medication effectiveness. 6. Glaucoma: Timolol 0.25% 1 gtt OU BID. Please continue to monitor for disease progression, follow with ophthalmology as clinically indicated. 7. Insomnia: Doxepin 25mg PO QHS. This is a Beer's Criteria Medication and can cause excessive anticholinergic effects, as well as orthostatic hypotension. Please evaluate use to determine if other agents may be more clinically appropriate, thank you. 8. General Wellness: Cholecalciferol 50mcg PO Daily, Cyanocobalamin 1000mcg PO Daily. Please continue to monitor. Psychotropic Medications: None Unnecessary Medications: None Bowel Regimen: Miralax 17g PO Daily, Docusate 100mg PO BID. Please continue to monitor for increased/decreased constipation and/or diarrhea. Date of Note:: 02/02/22
[2022-02-02 15:33] VITALS: BP 161/91; PULSE 66; RESP 17; TEMP 35.9; O2SAT 90
[2022-02-02 15:51] LABS: Bedside Glucose 145 mg/dL (74-106)
--- NOTE | 2022-02-02 18:37 | NURSING ---
Dr Palmer to unit to see pt. Ordered [place] to be scheduled PRN and ordered Fentanyl patch 12 mcg to be applied q72hr. Orders repeated back, will add orders.
[2022-02-02] MEDS: Doxepin Hcl 25 MG Capsule PO (20:57)
[2022-02-02] MEDS: Atorvastatin Calcium 40 MG Tablet PO (20:57)
[2022-02-02 21:31] LABS: Bedside Glucose 142 mg/dL (74-106)
[2022-02-03 05:10] VITALS: BP 110/55; PULSE 75
[2022-02-03] MEDS: Polyethylene Glycol 3350 17 GM PACKET PO (05:11)
[2022-02-03] MEDS: Cyanocobalamin 500 MCG Tablet 1000 MCG PO (05:12)
[2022-02-03] MEDS: Furosemide 20 MG Tablet PO (05:12)
[2022-02-03] MEDS: Cholecalciferol (VIT D3) 25 MCG TABLET (1,000 UNITS) 50 MCG PO (05:12)
[2022-02-03] MEDS: Menthol/Lanolin/Calamine/Znox 113 GM Tube 1 APPLIC TOPICAL ×2 (05:12→17:32)
[2022-02-03] MEDS: Docusate Sodium 100 MG Capsule PO ×2 (05:12→17:32)
[2022-02-03] MEDS: Arthritis Pain Compound 60 CLICK TUBE TOPICAL ×2 (05:13→17:28)
[2022-02-03] MEDS: Nystatin Powder 15gm Bottle 1 APPLIC TOPICAL ×2 (05:16→17:32)
[2022-02-03] MEDS: Timolol 0.25% 5ML OPTH.BTL 1 DRP EACH EYE ×2 (05:17→17:33)
[2022-02-03 06:36] LABS: Bedside Glucose 85 mg/dL (74-106)
[2022-02-03] MEDS: Ensure Clear 120 ML Liquid PO ×3 (07:52→17:27)
[2022-02-03] MEDS: HYDROcodone Bitartrate/Apap 5/325 Tablet PO ×2 (07:52→21:10)
[2022-02-03] MEDS: Aspirin 81 MG TAB.CHEW PO (07:53)
--- NOTE | 2022-02-03 10:53 | NURSING ---
Rt hip dressing saturated with serous drainage. Changed at this time. Repositioned to Lt side. Requesting only one set of THOMAS wraps on to lower legs. Legs elevated on pillow and in bed. at bedside and [facility] [place] She will let us know a time.
--- NOTE | 2022-02-03 10:54 | NURSING ---
Duragesic patch to Rt upper chest.
[2022-02-03 11:16] LABS: Bedside Glucose 169 mg/dL (74-106)
--- NOTE | 2022-02-03 12:05 | PCM.PN.REN ---
Subjective Subjective Following for RICHI on CKD Eating lunch, daughter in room. Denies any complaints except for swelling extending up to scrotal area. Objective Data Objective Data Vital Signs: Vital Signs Temp Pulse Resp BP Pulse Ox 96.7 F L 75 17 110/55 L 90 02/02/22 15:33 02/03/22 05:10 02/02/22 15:33 02/03/22 05:10 02/02/22 15:33 Oxygen Delivery Method Room Air Weight: 89.499 kg Body Mass Index (BMI) 28.3 Intake & Output: Intake and Output for Last 24 Hours 02/01/22 02/02/22 02/03/22 23:59 23:59 23:59 Intake Total 480 / 480 240 / 240 Balance 480 / 480 240 / 240 Lab / Micro Data Result Diagrams: 02/02/22 05:18 02/02/22 05:18 Labs: Laboratory Results - last 24 hr 02/02/22 15:44: POC Glucose 145 H 02/02/22 21:22: POC Glucose 142 H 02/03/22 06:21: POC Glucose 85 02/03/22 10:49: POC Glucose 169 H Micro: Microbiology 02/02/22 08:05 Nasal Secretion SARS-CoV-2 Antigen (Rapid) - Final 02/01/22 17:52 Nasal Secretion SARS-CoV-2 Antigen (Rapid) - Final Physical Exam Narrative Const; A&0x3 HEENT: oral mucosa moist Cardio: S1S2 RRR Resp: CTA Extremities: Pitting edema b/l thighs to feet. THOMAS wraps on b/l legs. +scrotal edema Assessment & Plan Assessment/Plan (1) Acute on chronic kidney failure: (2) Renal cell carcinoma: PLAN: - RICHI is likely due to decreased effective blood volume. Although the patient has edema and pleural effusion, BP had been low. The patient also has low oncotic pressure with serum albumin of 2.6. Therefore, RICHI is likely prerenal due to hypotension and decreased effective blood volume. Overall renal function stable. Labs 02/02 SCr 2.23mg/dL, BUN 100 - CKD is likely due to decreased renal mass from right nephrectomy as well as diabetic kidney disease of the remaining left kidney. Baseline serum creatinine has been 2.5 to 2.8 mg/dL in the past year. Creatinine was around the usual baseline when he was admitted for hip surgery. No further work-up at this point. -BP is acceptable, only on lasix, no further antihypertensives. - History of nephrectomy, unilateral, status post right nephrectomy in 2013 for renal cell cancer. -There is no evidence of obstruction on CT scan done on 01/27/2022. Low suspicion for obstructive uropathy as a cause of RICHI at this point. - Cardiomyopathy, ischemic. The patient has EF of 15% by history. He has a history of ischemic cardiomyopathy and heart failure with reduced ejection fraction. +edema extending into scrotum. Outpatient diuretic lasix 1-2 tabs daily depending upon edema. Will increase lasix 40mg daily and follow labs.
--- NOTE | 2022-02-03 12:08 | NURSING ---
dr Adams (wax pourer) office returned call requesting records to be faxed & Dr will review and call back with appt date/time.
--- NOTE | 2022-02-03 14:54 | NURSING ---
Resident complains of red raised area to mid chest. Sensitive to touch. Dr Gifford aware and takes a look. Orders received.
--- NOTE | 2022-02-03 15:11 | CASEMGMT ---
Social Work Met with patient to complete initial assessment. Introduced self and role. Pt wishes to have as primary contact. Chart reflects. Discussed code status and MOLST form. Pt wishes to be DNR-CCA, with intubation. Updated nursing. MOLST form communicated to , placed in chart. Explained Medicare benefit. Encouraged to contact secondary insurance to ensure copay coverage. The goal is for pt to return home with . Pt reports cannot physically assist pt at home. Goal is to return to PLOF. SW to continue to follow. Prachi Reveles, PEDIATRIC NURSE PRACTITIONER SEATING UPHOLSTERER
[2022-02-03 15:22] VITALS: BP 122/72; PULSE 70; RESP 18; TEMP 36.1; O2SAT 99
[2022-02-03 16:02] LABS: Bedside Glucose 110 mg/dL (74-106)
[2022-02-03] MEDS: Furosemide 40 MG Tablet PO (16:11)
[2022-02-03] MEDS: Cephalexin 500 MG Capsule PO (16:17)
[2022-02-03] MEDS: Doxycycline 100 MG CAPSULE PO (16:17)
[2022-02-03] MEDS: Doxepin Hcl 25 MG Capsule PO (21:16)
[2022-02-03] MEDS: Atorvastatin Calcium 40 MG Tablet PO (21:16)
[2022-02-03 22:00] VITALS: PULSE 79; RESP 16; O2SAT 95
[2022-02-04 01:15] LABS: Bedside Glucose 114 mg/dL (74-106)
[2022-02-04] MEDS: HYDROcodone Bitartrate/Apap 5/325 Tablet PO ×3 (04:27→22:50)
[2022-02-04] MEDS: Polyethylene Glycol 3350 17 GM PACKET PO (05:52)
[2022-02-04] MEDS: Nystatin Powder 15gm Bottle 1 APPLIC TOPICAL ×2 (05:52→17:37)
[2022-02-04] MEDS: Cyanocobalamin 500 MCG Tablet 1000 MCG PO (05:53)
[2022-02-04] MEDS: Cholecalciferol (VIT D3) 25 MCG TABLET (1,000 UNITS) 50 MCG PO (05:53)
[2022-02-04] MEDS: Docusate Sodium 100 MG Capsule PO ×2 (05:53→17:37)
[2022-02-04] MEDS: Cephalexin 500 MG Capsule PO ×2 (05:53→17:37)
[2022-02-04] MEDS: Doxycycline 100 MG CAPSULE PO ×2 (05:53→17:37)
[2022-02-04] MEDS: Menthol/Lanolin/Calamine/Znox 113 GM Tube 1 APPLIC TOPICAL ×2 (05:54→17:37)
[2022-02-04] MEDS: Furosemide 40 MG Tablet PO (05:55)
[2022-02-04] MEDS: Arthritis Pain Compound 60 CLICK TUBE TOPICAL ×2 (05:55→17:37)
[2022-02-04] MEDS: Timolol 0.25% 5ML OPTH.BTL 1 DRP EACH EYE ×2 (06:02→17:37)
[2022-02-04 06:26] LABS: Bedside Glucose 116 mg/dL (74-106)
[2022-02-04] MEDS: Aspirin 81 MG TAB.CHEW PO (08:23)
[2022-02-04] MEDS: Ensure Clear 120 ML Liquid PO ×3 (08:23→17:37)
[2022-02-04 10:00] VITALS: PULSE 74; RESP 18; O2SAT 93
[2022-02-04 11:21] LABS: Bedside Glucose 139 mg/dL (74-106)
[2022-02-04] MEDS: Tuberculin,Purif.prot.deriv. 50 TU/ML Vial 0.1 ML ID (13:57)
[2022-02-04 16:36] LABS: Bedside Glucose 113 mg/dL (74-106)
[2022-02-04] MEDS: Atorvastatin Calcium 40 MG Tablet PO (21:33)
[2022-02-04] MEDS: Doxepin Hcl 25 MG Capsule PO (21:33)
[2022-02-04 21:44] VITALS: BP 118/49; PULSE 67; RESP 16; TEMP 36.8; O2SAT 100
[2022-02-04 21:56] LABS: Bedside Glucose 133 mg/dL (74-106)
[2022-02-05] MEDS: Menthol/Lanolin/Calamine/Znox 113 GM Tube 1 APPLIC TOPICAL ×2 (04:52→17:57)
[2022-02-05] MEDS: HYDROcodone Bitartrate/Apap 5/325 Tablet PO ×3 (04:52→17:52)
[2022-02-05] MEDS: Arthritis Pain Compound 60 CLICK TUBE TOPICAL ×2 (04:53→17:54)
[2022-02-05] MEDS: Cephalexin 500 MG Capsule PO ×2 (04:54→17:48)
[2022-02-05] MEDS: Doxycycline 100 MG CAPSULE PO ×2 (04:54→17:48)
[2022-02-05] MEDS: Docusate Sodium 100 MG Capsule PO ×2 (04:54→17:48)
[2022-02-05] MEDS: Cyanocobalamin 500 MCG Tablet 1000 MCG PO (04:54)
[2022-02-05] MEDS: Furosemide 40 MG Tablet PO (04:54)
[2022-02-05] MEDS: Nystatin Powder 15gm Bottle 1 APPLIC TOPICAL ×2 (04:55→17:57)
[2022-02-05] MEDS: Timolol 0.25% 5ML OPTH.BTL 1 DRP EACH EYE ×2 (04:55→17:53)
[2022-02-05] MEDS: Polyethylene Glycol 3350 17 GM PACKET PO (04:55)
[2022-02-05] MEDS: Cholecalciferol (VIT D3) 25 MCG TABLET (1,000 UNITS) 50 MCG PO (04:56)
[2022-02-05 06:41] LABS: Bedside Glucose 125 mg/dL (74-106)
[2022-02-05] MEDS: Aspirin 81 MG TAB.CHEW PO (07:54)
[2022-02-05] MEDS: Ensure Clear 120 ML Liquid PO ×3 (07:54→17:49)
--- NOTE | 2022-02-05 09:19 | NURSING ---
Notified Dr. Gifford of pt c/o not able to sleep, requesting melatonin. Received order for Melatonin 10mg qhs. Order repeated back.
[2022-02-05 11:06] LABS: Bedside Glucose 139 mg/dL (74-106)
[2022-02-05 14:41] VITALS: BP 112/62; PULSE 72; RESP 16; TEMP 35.6; O2SAT 98
[2022-02-05 17:06] LABS: Bedside Glucose 131 mg/dL (74-106)
[2022-02-05] MEDS: MELATONIN 10 MG TABLET PO (22:05)
[2022-02-05] MEDS: Doxepin Hcl 25 MG Capsule PO (22:05)
[2022-02-05] MEDS: Atorvastatin Calcium 40 MG Tablet PO (22:05)
[2022-02-05 23:01] LABS: Bedside Glucose 137 mg/dL (74-106)
[2022-02-06] MEDS: HYDROcodone Bitartrate/Apap 5/325 Tablet PO ×3 (03:35→21:32)
[2022-02-06] MEDS: Furosemide 40 MG Tablet PO (05:57)
[2022-02-06] MEDS: Cephalexin 500 MG Capsule PO ×2 (05:57→17:20)
[2022-02-06] MEDS: Polyethylene Glycol 3350 17 GM PACKET PO (05:57)
[2022-02-06] MEDS: Cholecalciferol (VIT D3) 25 MCG TABLET (1,000 UNITS) 50 MCG PO (05:57)
[2022-02-06] MEDS: Cyanocobalamin 500 MCG Tablet 1000 MCG PO (05:57)
[2022-02-06] MEDS: Doxycycline 100 MG CAPSULE PO ×2 (05:57→17:20)
[2022-02-06] MEDS: Docusate Sodium 100 MG Capsule PO ×2 (05:57→17:20)
[2022-02-06] MEDS: Timolol 0.25% 5ML OPTH.BTL 1 DRP EACH EYE ×2 (05:58→17:18)
[2022-02-06] MEDS: Arthritis Pain Compound 60 CLICK TUBE TOPICAL ×2 (05:58→17:19)
[2022-02-06] MEDS: Nystatin Powder 15gm Bottle 1 APPLIC TOPICAL ×2 (05:58→17:19)
[2022-02-06] MEDS: Menthol/Lanolin/Calamine/Znox 113 GM Tube 1 APPLIC TOPICAL ×2 (05:58→17:20)
[2022-02-06 06:03] VITALS: BP 130/88
[2022-02-06 06:32] LABS: Albumin, Serum 2.3 g/dL (3.2-5.0); BUN 80 mg/dL (7-18); BUN/Creat Ratio 47.3 RATIO (10-20); Calcium,Total 7.6 mg/dL (8.5-10.1); Chloride 110 mmol/L (98-107); Creatinine, Serum 1.69 mg/dL (0.70-1.30); EST Glomerular Filtration Rate 42 mL/min (>60); Est Glom Filt Rate - Afr Amer 51 mL/min (>60); Glucose 112 mg/dL (74-106); Phosphorus 3.5 mg/dL (2.5-4.9); Potassium 4.5 mmol/L (3.5-5.1); Sodium Level 139 mmol/L (136-145)
[2022-02-06 06:37] LABS: Bedside Glucose 103 mg/dL (74-106)
[2022-02-06] MEDS: Ensure Clear 120 ML Liquid PO ×3 (08:15→17:19)
[2022-02-06] MEDS: Aspirin 81 MG TAB.CHEW PO (08:18)
[2022-02-06 11:31] LABS: Bedside Glucose 117 mg/dL (74-106)
--- NOTE | 2022-02-06 12:16 | NURSING ---
Dr. Cordero's office called unable to get appt moved to a earlier appt. Dr. Cordero recommended that the pt go to Pooja Metzger NP. Awaiting call from [facility] to schedule appt. . Will trying calling to make appt if we do not hear back. Asked Dr. Cordero's office if there was a closer cardiologies that he recommends at [facility]. Knitting Machine Fixer Head will ask and return call.
--- NOTE | 2022-02-06 12:38 | PCM.PN.REN ---
Subjective Subjective Resting in bed. No complaints. and daughter at bedside. Objective Data Objective Data Vital Signs: Vital Signs Temp Pulse Resp BP Pulse Ox 96.0 F L 72 16 130/88 H 98 02/05/22 14:41 02/05/22 14:41 02/05/22 14:41 02/06/22 06:03 02/05/22 14:41 Oxygen Delivery Method Room Air Weight: 89.499 kg Body Mass Index (BMI) 28.3 Intake & Output: Intake and Output for Last 24 Hours 02/04/22 02/05/22 02/06/22 23:59 23:59 23:59 Intake Total 840 / 840 1320 / 1320 360 / 360 Output Total 275 / 275 600 / 600 Balance 565 / 565 720 / 720 360 / 360 Lab / Micro Data Result Diagrams: 02/02/22 05:18 02/06/22 05:33 Labs: Laboratory Results - last 24 hr 02/05/22 16:51: POC Glucose 131 H 02/05/22 21:02: POC Glucose 137 H 02/06/22 05:33: Sodium 139, Potassium 4.5, Chloride 110 H, Carbon Dioxide 22.0, BUN 80 H, Creatinine 1.69 H, Estim Creat Clear Calc 39.00, Est GFR (MDRD) Af Amer 51 L, Est GFR (MDRD) Non-Af 42 L, BUN/Creatinine Ratio 47.3 H, Glucose 112 H, Calcium 7.6 L, Phosphorus 3.5, Albumin 2.3 L 02/06/22 06:24: POC Glucose 103 02/06/22 11:22: POC Glucose 117 H Micro: Microbiology 02/02/22 08:05 Nasal Secretion SARS-CoV-2 Antigen (Rapid) - Final 02/01/22 17:52 Nasal Secretion SARS-CoV-2 Antigen (Rapid) - Final Physical Exam Narrative Const; A&0x3 HEENT: oral mucosa moist Cardio: S1S2 RRR Resp: CTA Extremities: Pitting edema b/l thighs to feet. THOMAS wraps on b/l legs. +scrotal edema Assessment & Plan Assessment/Plan (1) Acute on chronic kidney failure: (2) Renal cell carcinoma: PLAN: - RICHI is likely due to decreased effective blood volume. Although the patient has edema and pleural effusion, BP had been low. The patient also has low oncotic pressure with serum albumin of 2.6. Therefore, RICHI is likely prerenal due to hypotension and decreased effective blood volume. Overall renal function stable and has improved, BUN 80(peaked 106) and SCr 1.69mg/dL today - CKD is likely due to decreased renal mass from right nephrectomy as well as diabetic kidney disease of the remaining left kidney. - Baseline serum creatinine has been 2.5 to 2.8 mg/dL in the past year. Creatinine was around the usual baseline when he was admitted for hip surgery. No further work-up at this point. -BP is acceptable, only on lasix, no further antihypertensives. - History of nephrectomy, unilateral, status post right nephrectomy in 2012 for renal cell cancer. -There is no evidence of obstruction on CT scan done on 01/27/2022. Low suspicion for obstructive uropathy as a cause of RICHI at this point. - Cardiomyopathy, ischemic. The patient has EF of 15% by history. He has a history of ischemic cardiomyopathy and heart failure with reduced ejection fraction. +edema extending into scrotum. Outpatient diuretic lasix 1-2 tabs daily depending upon edema. -Continue lasix 40mg daily and follow labs. Patient states of recent home weight ~185 pounds, last hospital weight 197lbs. Per patient edema improved since Sunday
[2022-02-06 16:35] LABS: Bedside Glucose 101 mg/dL (74-106)
[2022-02-06] MEDS: MELATONIN 10 MG TABLET PO (21:33)
[2022-02-06] MEDS: Doxepin Hcl 25 MG Capsule PO (21:33)
[2022-02-06] MEDS: Atorvastatin Calcium 40 MG Tablet PO (21:33)
[2022-02-06 21:56] LABS: Bedside Glucose 117 mg/dL (74-106)
[2022-02-07] MEDS: HYDROcodone Bitartrate/Apap 5/325 Tablet PO ×2 (05:37→17:04)
[2022-02-07] MEDS: Doxycycline 100 MG CAPSULE PO ×2 (05:37→17:02)
[2022-02-07] MEDS: Cholecalciferol (VIT D3) 25 MCG TABLET (1,000 UNITS) 50 MCG PO (05:38)
[2022-02-07] MEDS: Cephalexin 500 MG Capsule PO ×2 (05:38→17:02)
[2022-02-07] MEDS: Menthol/Lanolin/Calamine/Znox 113 GM Tube 1 APPLIC TOPICAL ×2 (05:38→17:01)
[2022-02-07] MEDS: Furosemide 40 MG Tablet PO (05:38)
[2022-02-07] MEDS: Cyanocobalamin 500 MCG Tablet 1000 MCG PO (05:38)
[2022-02-07] MEDS: Docusate Sodium 100 MG Capsule PO ×2 (05:38→17:01)
[2022-02-07] MEDS: Polyethylene Glycol 3350 17 GM PACKET PO (05:39)
[2022-02-07] MEDS: Nystatin Powder 15gm Bottle 1 APPLIC TOPICAL ×2 (05:39→17:01)
[2022-02-07] MEDS: Timolol 0.25% 5ML OPTH.BTL 1 DRP EACH EYE ×2 (05:41→17:02)
[2022-02-07] MEDS: Arthritis Pain Compound 60 CLICK TUBE TOPICAL ×2 (05:41→17:01)
[2022-02-07 06:41] LABS: Bedside Glucose 103 mg/dL (74-106)
[2022-02-07] MEDS: Aspirin 81 MG TAB.CHEW PO (08:19)
[2022-02-07] MEDS: Ensure Clear 120 ML Liquid PO ×3 (08:19→17:00)
[2022-02-07 10:56] LABS: Bedside Glucose 154 mg/dL (74-106)
[2022-02-07 14:22] VITALS: BP 114/58; PULSE 77; RESP 17; TEMP 36; O2SAT 94
--- NOTE | 2022-02-07 14:55 | NURSING ---
DURAGESIC PATCH IN PLACE TO LEFT CHEST.
--- NOTE | 2022-02-07 15:14 | NURSING ---
Appt Made for 02/15/22 @10:00 Idalia Beyer NP (supervisor ovens). Pt will need Transportation set up.
[2022-02-07 16:21] LABS: Bedside Glucose 121 mg/dL (74-106)
[2022-02-07] MEDS: Atorvastatin Calcium 40 MG Tablet PO (20:43)
[2022-02-07] MEDS: MELATONIN 10 MG TABLET PO (20:43)
[2022-02-07] MEDS: Doxepin Hcl 25 MG Capsule PO (20:43)
[2022-02-07 21:25] LABS: Bedside Glucose 157 mg/dL (74-106)
[2022-02-08] MEDS: Arthritis Pain Compound 60 CLICK TUBE TOPICAL ×2 (05:08→17:14)
[2022-02-08] MEDS: Menthol/Lanolin/Calamine/Znox 113 GM Tube 1 APPLIC TOPICAL ×2 (05:08→17:13)
[2022-02-08] MEDS: Nystatin Powder 15gm Bottle 1 APPLIC TOPICAL ×2 (05:08→17:14)
[2022-02-08] MEDS: Cephalexin 500 MG Capsule PO ×2 (05:09→17:13)
[2022-02-08] MEDS: Doxycycline 100 MG CAPSULE PO ×2 (05:09→16:59)
[2022-02-08] MEDS: Timolol 0.25% 5ML OPTH.BTL 1 DRP EACH EYE ×2 (05:09→17:14)
[2022-02-08] MEDS: Polyethylene Glycol 3350 17 GM PACKET PO (05:09)
[2022-02-08] MEDS: Furosemide 40 MG Tablet PO (05:09)
[2022-02-08] MEDS: Docusate Sodium 100 MG Capsule PO ×2 (05:09→17:14)
[2022-02-08] MEDS: Cyanocobalamin 500 MCG Tablet 1000 MCG PO (05:09)
[2022-02-08] MEDS: Cholecalciferol (VIT D3) 25 MCG TABLET (1,000 UNITS) 50 MCG PO (05:19)
[2022-02-08] MEDS: HYDROcodone Bitartrate/Apap 5/325 Tablet PO ×2 (05:23→13:35)
[2022-02-08 06:36] LABS: Bedside Glucose 123 mg/dL (74-106)
--- NOTE | 2022-02-08 07:02 | NURSING ---
Talked with patient this morning. Patient feels he is ready to talk with someone in Palliative Care/hospice. He would like some information regarding care and transitioning to Hospice eventually. He stated that he may be close to checking out. Emotional support provided. Will ask PCP for referral. Will continue to monitor.
[2022-02-08] MEDS: Aspirin 81 MG TAB.CHEW PO (08:34)
[2022-02-08] MEDS: Ensure Clear 120 ML Liquid PO ×3 (08:34→17:23)
--- NOTE | 2022-02-08 10:08 | NURSING ---
Public School Teacher Note: MDS section F and interview complete.
--- NOTE | 2022-02-08 10:31 | CASEMGMT ---
Social Work BIMS and PHQ-9 completed for MDS assessment. Pt did express depressive symptoms. Pt explained he is very painful, is up during the night with racing thoughts - worries about his recovery and his . Pt agreed to being anxious. Pt stated he has had thoughts of being better off , r/t pain and current condition. However, denies plan, intent to harm self or others. Provided verbal support. Offered for Dr. Gifford to speak with pt and further about medical condition, pain and anxiety interventions. Explained care plan meeting will be held with family today and can further discuss level of functioning and wishes. pt agreeable. SW to continue to follow. Prachi Reveles ,ALTERNATIVE ENERGY TECHNICIAN CONTENT STRATEGIST
[2022-02-08 11:06] LABS: Bedside Glucose 148 mg/dL (74-106)
--- NOTE | 2022-02-08 13:04 | CASEMGMT ---
Social Work IDT met with patient, , dtr and son for care plan meeting. Discussed patient's progress in PT/OT and nursing. Explained Medicare benefit. Encouraged to contact secondary insurance to ensure copay coverage. Discussed DC plans, mood, change of interest in Palliative/Hospice. Family aware of Palliative/Hospice and requesting informational meeting. Provided list of agencies that offer both Palliative and Hospice services. Offered assistance with referrals to schedule informational meetings. Encouraged to speak with several agencies. Family agreed. Pt expressed feeling nauseous while eating lunch. During this explanation, pt mentioned he is focused on the therapy session to follow and how he will perform. IDT offered ideas of fluid overload from CHF, recommended eating sitting upright in chair to prevent GERD. SW interjected and revisited mention of anxiety which could be the cause of the nausea. Pt agreed. Offered to reschedule therapy times to not coincide with meal times or to schedule it sporadically. Pt and therapy agreeable. Pt agreeable to start anxiety medication that could also assist with sleep. Pt and would still like to speak with Dr. Gifford. Communication provided to Dr. Gifford. Broached topic of alternative DC plans; SNF may be needed. Pt and family understandable and will see the outcome of the Palliative/Hospice conversations to better determine pt's wishes and safe DC plans to follow. SW to continue to follow for support and DC plans. VANI Moore
[2022-02-08 15:07] VITALS: BP 98/39; PULSE 81; RESP 16; TEMP 36.6; O2SAT 99
--- NOTE | 2022-02-08 15:22 | CHAPLAIN ---
Type of Pastoral Visit _x__ Initial Visit ___ Follow-up Visit ___ On-call Visit ___ General Patient Visit ___ Spiritual Assessment ___ Family Conference ___ Bereavement ___ Rapid Response ___ Code Blue ___ Other (describe below) Pastoral Care Referral From ___ Patient ___ Family ___ Nurse ___ Physician _x__ Window Cutter ___ Urban Redevelopment Specialist ___ Other (describe below) Sacrament/Intervention _x__ Active listening ___ Anointing ___ Anabaptism ___ Bereavement ___ Communion _x__ Jessica exploration ___ ___ Life review _x__ Prayer ___ Reconciliation ___ Sacrament of Sick _x__ Supportive presence ___ Wedding ___ Other (describe below) Pastoral Comments both son and daughter are in the room at time of visit; patient describes what happened and his limitations at home; pt wants to get back to home and be independent but understands that is still questionable; pt is of the [employer] but wants to wait until notifying orthodoxy of his admission to hospital; pt welcomes presence and prayer
--- NOTE | 2022-02-08 15:49 | NURSING ---
Family here most of the day but leaves at this time. Nurse enters room to assess staple removal from Rt hip incision. Resident up in the chair with shorts on so not able to assess at this time. Would like to sit up till suppertime.
[2022-02-08 16:20] LABS: Bedside Glucose 118 mg/dL (74-106)
--- NOTE | 2022-02-08 17:26 | NURSING ---
Assisted back to bed. Incontinent of urine and small amount of stool. Once in bed, se removed. Incision intact. Small to moderate amount of serous drainage. Steri strips placed to middle of incision. Legs elevated in bed due to swelling.
--- NOTE | 2022-02-08 21:25 | RAD_ITS ---
STUDY: X-RAY - ABDOMEN/PELVIS REASON FOR EXAM: Male, 76 years old. Early satiety TECHNIQUE: Single AP view. COMPARISON: CT chest abdomen and pelvis 01/27/2022. Pelvis/right hip x-ray 01/25/2022. FINDINGS: The bowel gas pattern is normal. No bowel obstruction. Moderate amount of stool in the rectosigmoid region. Surgical clips in the mid and lower abdomen. Vascular calcifications. Right hip prosthesis partially included. Degenerative changes of the dorsal spine and scoliosis. Opacities in the lung bases not completely assessed, likely corresponding to the masses and pleural effusions seen on the recent CT. Cardiac pacemaker lead. RAD/Abdomen Single View IMPRESSION: No bowel obstruction. Electronically Signed: Tata Gatica MD at 1:34 EDT ,
[2022-02-08] MEDS: ALPRAZolam 0.5 MG Tablet 1 MG PO (21:37)
[2022-02-08] MEDS: Doxepin Hcl 25 MG Capsule PO (21:38)
[2022-02-08] MEDS: MELATONIN 10 MG TABLET PO (21:38)
[2022-02-08] MEDS: Atorvastatin Calcium 40 MG Tablet PO (21:38)
[2022-02-08 22:06] LABS: Bedside Glucose 128 mg/dL (74-106)
[2022-02-08 22:15] VITALS: PULSE 91; RESP 20; O2SAT 98
[2022-02-09 01:17] VITALS: PULSE 65; O2SAT 96
[2022-02-09 05:34] LABS: Absolute Lymphocyte Count 0.56 X10^3/uL (0.83-4.51); Absolute Neutrophil Count 2.8 X10^3/uL (2.0-7.7); Basophil# 0.05 X10^3/uL; Basophil% 1.2 % (0-1); Eosinophil# 0.09 X10^3/uL; Eosinophils% 2.2 % (0-5); Hematocrit 38.2 % (40-54); Hemoglobin 11.6 g/dL (13.0-16.5); Lymphocyte # 0.56 X10^3/ul (0.83-4.51); Mean Corp Hgb Conc 30.4 g/dL (32-36); Mean Corpuscular Hgb 28.1 pg (27.0-32.0); Mean Corpuscular Volume 92.5 fL (80-94); Mean Platelet Vol. 9.6 fl (6.2-12.0); Monocyte# 0.52 X10^3/uL; NRBC Flagged by Analyzer 0 % (0-5); Neutrophil # 2.77 X10^3/uL (2.7-7.7); Neutrophil % 69.1 % (47-70); POSITIVE DIFFERENTIAL YES; Platelet Count 245 K/mm3 (150-450); RBC Distribution Width CV 17.1 % (11.6-14.6); RBC Distribution Width SD 57.8 fl (35.1-43.9); Red Blood Count 4.13 M/mm3 (4.6-6.2)
[2022-02-09 05:45] LABS: Differential Indicated SCAN CRITERIA MET
[2022-02-09 06:03] LABS: Anion Gap 4 (5-15); BUN 77 mg/dL (7-18); Calcium,Total 7.8 mg/dL (8.5-10.1); Chloride 112 mmol/L (98-107); Creatinine, Serum 1.57 mg/dL (0.70-1.30); EST Glomerular Filtration Rate 46 mL/min (>60); Est Glom Filt Rate - Afr Amer 56 mL/min (>60); Estimated Creatinine Clearance 41.98 ml/min; Glucose 85 mg/dL (74-106); Magnesium 2.3 mg/dL (1.6-2.6); Potassium 4.9 mmol/L (3.5-5.1); Sodium Level 140 mmol/L (136-145)
[2022-02-09 06:16] VITALS: BP 107/64; PULSE 80; RESP 18; O2SAT 99
[2022-02-09] MEDS: Menthol/Lanolin/Calamine/Znox 113 GM Tube 1 APPLIC TOPICAL ×2 (06:18→18:10)
[2022-02-09] MEDS: Doxycycline 100 MG CAPSULE PO ×2 (06:18→18:10)
[2022-02-09] MEDS: Docusate Sodium 100 MG Capsule PO ×2 (06:18→18:10)
[2022-02-09] MEDS: Arthritis Pain Compound 60 CLICK TUBE TOPICAL ×2 (06:18→18:11)
[2022-02-09] MEDS: Cephalexin 500 MG Capsule PO ×2 (06:18→18:10)
[2022-02-09] MEDS: Cholecalciferol (VIT D3) 25 MCG TABLET (1,000 UNITS) 50 MCG PO (06:19)
[2022-02-09] MEDS: Timolol 0.25% 5ML OPTH.BTL 1 DRP EACH EYE ×2 (06:19→18:10)
[2022-02-09] MEDS: Polyethylene Glycol 3350 17 GM PACKET PO (06:19)
[2022-02-09] MEDS: Cyanocobalamin 500 MCG Tablet 1000 MCG PO (06:19)
[2022-02-09] MEDS: Furosemide 40 MG Tablet PO (06:19)
[2022-02-09] MEDS: Nystatin Powder 15gm Bottle 1 APPLIC TOPICAL ×2 (06:19→18:10)
[2022-02-09 06:21] LABS: Bedside Glucose 76 mg/dL (74-106)
[2022-02-09 06:45] LABS: Anisocytosis 1+; Differential Comment SCANNED
[2022-02-09] MEDS: Aspirin 81 MG TAB.CHEW PO (08:02)
[2022-02-09] MEDS: Ensure Clear 120 ML Liquid PO ×3 (08:05→18:15)
[2022-02-09 10:00] VITALS: PULSE 59; RESP 20; O2SAT 91
--- NOTE | 2022-02-09 10:58 | PN.RENAL_ITS ---
Subjective Subjective Following for RICHI on CKD Patient denies any complaints. Getting ready to work with therapy. No nausea or vomiting. at bedside Objective Data Objective Data Vital Signs: Vital Signs Temp Pulse Resp BP Pulse Ox 97.9 F 80 18 107/64 99 02/08/22 15:07 02/09/22 06:16 02/09/22 06:16 02/09/22 06:16 02/09/22 06:16 Oxygen Delivery Method Room Air Weight: 89.358 kg Body Mass Index (BMI) 28.3 Intake & Output: Intake and Output for Last 24 Hours 02/07/22 02/08/22 02/09/22 23:59 23:59 23:59 Intake Total 840 / 840 480 / 480 240 / 240 Output Total 200 / 200 300 / 300 Balance 640 / 640 480 / 480 -60 / -60 Lab / Micro Data Result Diagrams: 02/09/22 05:21 02/09/22 05:21 Labs: Laboratory Results - last 24 hr 02/08/22 10:56: POC Glucose 148 H 02/08/22 16:16: POC Glucose 118 H 02/08/22 21:58: POC Glucose 128 H 02/09/22 05:21: WBC 4.0 L, RBC 4.13 L, Hgb 11.6 L, Hct 38.2 L, MCV 92.5, MCH 28 .1, MCHC 30.4 L, RDW Std Deviation 57.8 H, RDW Coeff of Peri 17.1 H, Plt Count 245, MPV 9.6, Immature Gran % (Auto) 0.500, Neut % (Auto) 69.1, Lymph % (Auto) 14.0 L, [place] % (Auto) 13.0 H, Eos % (Auto) 2.2, Baso % (Auto) 1.2 H, Absolute Neuts (auto) 2.8, Absolute Lymphs (auto) 0.56 L, Nucleated RBC % 0, Differential Comment SCANNED, Diff Path Review May foll, Anisocytosis 1+ 02/09/22 05:21: Sodium 140, Potassium 4.9, Chloride 112 H, Carbon Dioxide 24.0, Anion Gap 4 L, BUN 77 H, Creatinine 1.57 H, Estim Creat Clear Calc 41.98, Est GFR (MDRD) Af Amer 56 L, Est GFR (MDRD) Non-Af 46 L, BUN/Creatinine Ratio 49.0 H , Glucose 85, Calcium 7.8 L, Magnesium 2.3 02/09/22 06:07: POC Glucose 76 Micro: Microbiology 02/08/22 10:20 Nasal Secretion SARS-CoV-2 Antigen (Rapid) - Final 02/02/22 08:05 Nasal Secretion SARS-CoV-2 Antigen (Rapid) - Final 02/01/22 17:52 Nasal Secretion SARS-CoV-2 Antigen (Rapid) - Final Radiography Diagnostic Testing: Radiology Impression KUB X-Ray 02/08/22 21:25 IMPRESSION: No bowel obstruction. Electronically Signed: Tata Gatica MD at 1:34 EDT , Physical Exam Narrative Const; A&0x3 HEENT: oral mucosa moist Cardio: S1S2 RRR Resp: CTA Extremities: Pitting edema b/l thighs to feet. THOMAS wraps on b/l legs. +scrotal edema Assessment & Plan Assessment/Plan (1) Acute on chronic kidney failure: (2) Renal cell carcinoma: PLAN: - RICHI is likely due to decreased effective blood volume. Although the patient has edema and pleural effusion, BP had been low. The patient also has low oncotic pressure with serum albumin of 2.6. Therefore, RICHI is likely prerenal due to hypotension and decreased effective blood volume. Overall renal function stable and has improved, BUN 77 (peaked 106) and SCr 1.57mgdL(peaked 3.5 on 01/28) - CKD is likely due to decreased renal mass from right nephrectomy as well as d iabetic kidney disease of the remaining left kidney. - Baseline serum creatinine has been 2.5 to 2.8 mg/dL in the past year. Creatinine was around the usual baseline when he was admitted for hip surgery. No further work-up at this point. -BP is acceptable, only on lasix, no further antihypertensives. - History of nephrectomy, unilateral, status post right nephrectomy in 2012 for renal cell cancer. -There is no evidence of obstruction on CT scan done on 01/27/2022. Low suspicion for obstructive uropathy as a cause of RICHI at this point. - Cardiomyopathy, ischemic. The patient has EF of 15% by history. He has a history of ischemic cardiomyopathy and heart failure with reduced ejection f raction. +edema extending into scrotum. Outpatient diuretic lasix 20mg, 1-2 tabs daily depending upon edema. -Continue lasix 40mg daily and follow labs. Patient states of recent home weight ~185 pounds, last hospital weight 197lbs. Per patient edema improving
[2022-02-09 11:15] LABS: Bedside Glucose 116 mg/dL (74-106)
[2022-02-09 11:29] LABS: Pathologist Review Reviewed
[2022-02-09 13:54] VITALS: BP 102/52; PULSE 62; RESP 16; TEMP 36.6; O2SAT 97
--- NOTE | 2022-02-09 16:12 | CASEMGMT ---
Social Work Received call from dtr stating pt and family are meeting with [facility] 02/10 at 4 pm and requested referral. Referral sent. Dtr expressed appreciation for conversation/support for pt and family. VANI Moore
[2022-02-09] MEDS: HYDROcodone Bitartrate/Apap 5/325 Tablet PO (16:37)
[2022-02-09 16:55] LABS: Bedside Glucose 118 mg/dL (74-106)
[2022-02-09] MEDS: Doxepin Hcl 25 MG Capsule PO (21:47)
[2022-02-09] MEDS: ALPRAZolam 0.5 MG Tablet 1 MG PO (21:47)
[2022-02-09] MEDS: Atorvastatin Calcium 40 MG Tablet PO (21:47)
[2022-02-09] MEDS: MELATONIN 10 MG TABLET PO (21:47)
[2022-02-09 21:50] LABS: Bedside Glucose 170 mg/dL (74-106)
[2022-02-10] MEDS: Cyanocobalamin 500 MCG Tablet 1000 MCG PO (06:03)
[2022-02-10] MEDS: Cephalexin 500 MG Capsule PO ×2 (06:03→17:47)
[2022-02-10] MEDS: Furosemide 40 MG Tablet PO (06:03)
[2022-02-10] MEDS: Docusate Sodium 100 MG Capsule PO ×2 (06:04→17:46)
[2022-02-10] MEDS: Doxycycline 100 MG CAPSULE PO ×2 (06:04→17:47)
[2022-02-10] MEDS: Cholecalciferol (VIT D3) 25 MCG TABLET (1,000 UNITS) 50 MCG PO (06:04)
[2022-02-10] MEDS: HYDROcodone Bitartrate/Apap 5/325 Tablet PO ×3 (06:04→23:22)
[2022-02-10] MEDS: Timolol 0.25% 5ML OPTH.BTL 1 DRP EACH EYE ×2 (06:05→17:46)
[2022-02-10] MEDS: Arthritis Pain Compound 60 CLICK TUBE TOPICAL ×2 (06:05→17:46)
[2022-02-10] MEDS: Polyethylene Glycol 3350 17 GM PACKET PO (06:09)
[2022-02-10] MEDS: Menthol/Lanolin/Calamine/Znox 113 GM Tube 1 APPLIC TOPICAL ×2 (06:10→17:47)
[2022-02-10] MEDS: Nystatin Powder 15gm Bottle 1 APPLIC TOPICAL ×2 (06:11→17:48)
[2022-02-10 06:21] LABS: Bedside Glucose 81 mg/dL (74-106)
[2022-02-10] MEDS: Ensure Clear 120 ML Liquid PO ×3 (08:11→17:46)
[2022-02-10] MEDS: Aspirin 81 MG TAB.CHEW PO (08:11)
[2022-02-10 11:21] LABS: Bedside Glucose 104 mg/dL (74-106)
[2022-02-10 15:33] VITALS: BP 110/43; PULSE 68; RESP 19; TEMP 35.9; O2SAT 98
[2022-02-10 16:06] LABS: Bedside Glucose 103 mg/dL (74-106)
--- NOTE | 2022-02-10 17:52 | NURSING ---
DURAGESIC PATCH IN PLACE TO RIGHT CHEST.
--- NOTE | 2022-02-10 17:53 | NURSING ---
HOSPICE NURSE MET WITH FAMILY THIS EVENING. SPOKE WITH AFTERWARDS-STATES NO DECISIONS HAVE BEEN MADE YET.
[2022-02-10] MEDS: MELATONIN 10 MG TABLET PO (20:37)
[2022-02-10] MEDS: Doxepin Hcl 25 MG Capsule PO (20:38)
[2022-02-10] MEDS: ALPRAZolam 0.5 MG Tablet 1 MG PO (20:38)
[2022-02-10] MEDS: Atorvastatin Calcium 40 MG Tablet PO (20:38)
[2022-02-10 22:21] LABS: Bedside Glucose 130 mg/dL (74-106)
[2022-02-10 23:06] VITALS: PULSE 72; RESP 18; O2SAT 96
[2022-02-11] MEDS: Docusate Sodium 100 MG Capsule PO ×2 (05:35→17:16)
[2022-02-11] MEDS: Furosemide 40 MG Tablet PO (05:35)
[2022-02-11] MEDS: Cholecalciferol (VIT D3) 25 MCG TABLET (1,000 UNITS) 50 MCG PO (05:35)
[2022-02-11] MEDS: Nystatin Powder 15gm Bottle 1 APPLIC TOPICAL ×2 (05:36→17:15)
[2022-02-11] MEDS: Menthol/Lanolin/Calamine/Znox 113 GM Tube 1 APPLIC TOPICAL ×2 (05:36→17:15)
[2022-02-11] MEDS: Polyethylene Glycol 3350 17 GM PACKET PO (05:36)
[2022-02-11] MEDS: Timolol 0.25% 5ML OPTH.BTL 1 DRP EACH EYE ×2 (05:36→17:16)
[2022-02-11] MEDS: Arthritis Pain Compound 60 CLICK TUBE TOPICAL ×2 (05:36→17:16)
[2022-02-11] MEDS: Cyanocobalamin 500 MCG Tablet 1000 MCG PO (05:36)
[2022-02-11 06:30] LABS: Bedside Glucose 84 mg/dL (74-106)
[2022-02-11] MEDS: Ensure Clear 120 ML Liquid PO ×3 (08:36→17:15)
[2022-02-11] MEDS: Aspirin 81 MG TAB.CHEW PO (08:37)
[2022-02-11] MEDS: HYDROcodone Bitartrate/Apap 5/325 Tablet PO ×3 (08:38→22:06)
--- NOTE | 2022-02-11 11:48 | PCM.PN.REN ---
Subjective Subjective Following for RICHI. The patient denies current chest pain. There is some shortness of breath at times. There is no shortness of breath currently at rest. Edema of the lower extremities and genital area is stable. Objective Data Objective Data Vital Signs: Vital Signs Temp Pulse Resp BP Pulse Ox 96.6 F L 72 18 110/43 L 96 02/10/22 15:33 02/10/22 23:06 02/10/22 23:06 02/10/22 15:33 02/10/22 23:06 Oxygen Flow Rate (L/min) 2 Oxygen Delivery Method Room Air Weight: 89.358 kg Body Mass Index (BMI) 28.3 Intake & Output: Intake and Output for Last 24 Hours 02/09/22 02/10/22 02/11/22 23:59 23:59 23:59 Intake Total 600 / 600 840 / 840 240 / 240 Output Total 300 / 300 Balance 300 / 300 840 / 840 240 / 240 Lab / Micro Data Result Diagrams: 02/09/22 05:21 02/09/22 05:21 Labs: Laboratory Results - last 24 hr 02/10/22 15:55: POC Glucose 103 02/10/22 21:37: POC Glucose 130 H 02/11/22 06:09: POC Glucose 84 Micro: Microbiology 02/08/22 10:20 Nasal Secretion SARS-CoV-2 Antigen (Rapid) - Final 02/02/22 08:05 Nasal Secretion SARS-CoV-2 Antigen (Rapid) - Final 02/01/22 17:52 Nasal Secretion SARS-CoV-2 Antigen (Rapid) - Final Physical Exam Narrative Const; A&0x3 HEENT: oral mucosa moist Cardio: S1S2 RRR Resp: CTA Extremities: Pitting edema b/l thighs to feet. THOMAS wraps on b/l legs. +scrotal edema Assessment & Plan Assessment/Plan (1) Acute on chronic kidney failure: (2) Renal cell carcinoma: PLAN: - RICHI is likely due to decreased effective blood volume. Although the patient has edema and pleural effusion, BP had been low. The patient also has low oncotic pressure with serum albumin of 2.3. -Therefore, RICHI is likely prerenal due to hypotension and decreased effective blood volume. Overall renal function stable and has improved, BUN 77 (peaked 106) and SCr 1.57 mg/dL(peaked 3.5 on 01/28). - CKD is likely due to decreased renal mass from right nephrectomy as well as diabetic kidney disease of the remaining left kidney. - Baseline serum creatinine has been 2.5 to 2.8 mg/dL in the past year. Creatinine was around the usual baseline when he was admitted for hip surgery. No further work-up at this point. -BP is acceptable without antihypertensives other than furosemide. - History of nephrectomy, unilateral, status post right nephrectomy in 2013 for renal cell cancer. -There is no evidence of obstruction on CT scan done on 01/27/2022. Low suspicion for obstructive uropathy as a cause of RICHI at this point. -The patient also has cardiomyopathy, ischemic. The patient has EF of 15% by history. He has a history of ischemic cardiomyopathy and heart failure with reduced ejection fraction. +edema extending into scrotum. We will continue furosemide. -Continue furosemide at 40mg daily and follow labs. Patient states of recent home weight ~185 pounds, last hospital weight 197lbs. -I will recheck renal function, volume status, acid-base status and electrolytes next week.
[2022-02-11 11:56] LABS: Bedside Glucose 92 mg/dL (74-106)
[2022-02-11 13:37] VITALS: PULSE 99; RESP 18; O2SAT 96
--- NOTE | 2022-02-11 13:51 | NURSING ---
duragesic intact to RT chest.
[2022-02-11 15:13] VITALS: BP 125/70; PULSE 86; RESP 18; TEMP 36.4; O2SAT 95
--- NOTE | 2022-02-11 18:13 | NURSING ---
duragesic patch replaced to LT upper chest.
[2022-02-11] MEDS: ALPRAZolam 0.5 MG Tablet 1 MG PO (22:06)
[2022-02-11] MEDS: Doxepin Hcl 25 MG Capsule PO (22:07)
[2022-02-11] MEDS: Atorvastatin Calcium 40 MG Tablet PO (22:08)
[2022-02-11] MEDS: MELATONIN 10 MG TABLET PO (22:08)
[2022-02-12] MEDS: HYDROcodone Bitartrate/Apap 5/325 Tablet PO ×2 (05:44→16:57)
[2022-02-12] MEDS: Polyethylene Glycol 3350 17 GM PACKET PO (05:45)
[2022-02-12] MEDS: Timolol 0.25% 5ML OPTH.BTL 1 DRP EACH EYE ×2 (05:45→16:58)
[2022-02-12] MEDS: Cyanocobalamin 500 MCG Tablet 1000 MCG PO (05:45)
[2022-02-12] MEDS: Cholecalciferol (VIT D3) 25 MCG TABLET (1,000 UNITS) 50 MCG PO (05:45)
[2022-02-12] MEDS: Docusate Sodium 100 MG Capsule PO ×2 (05:45→16:59)
[2022-02-12] MEDS: Furosemide 40 MG Tablet PO (05:45)
[2022-02-12] MEDS: Arthritis Pain Compound 60 CLICK TUBE TOPICAL ×2 (05:45→16:58)
[2022-02-12] MEDS: Nystatin Powder 15gm Bottle 1 APPLIC TOPICAL ×2 (05:46→17:01)
[2022-02-12] MEDS: Menthol/Lanolin/Calamine/Znox 113 GM Tube 1 APPLIC TOPICAL ×2 (05:46→17:02)
[2022-02-12 06:26] LABS: Bedside Glucose 106 mg/dL (74-106)
[2022-02-12] MEDS: Ensure Clear 120 ML Liquid PO ×3 (07:37→16:56)
[2022-02-12] MEDS: Aspirin 81 MG TAB.CHEW PO (07:37)
[2022-02-12 16:00] VITALS: BP 115/61; PULSE 76; RESP 21; TEMP 36.3; O2SAT 98
[2022-02-12] MEDS: ALPRAZolam 0.5 MG Tablet 1 MG PO (21:32)
[2022-02-12] MEDS: Doxepin Hcl 25 MG Capsule PO (21:33)
[2022-02-12] MEDS: MELATONIN 10 MG TABLET PO (21:33)
[2022-02-12] MEDS: Atorvastatin Calcium 40 MG Tablet PO (21:33)
[2022-02-12 22:00] VITALS: PULSE 64; RESP 16; O2SAT 92
[2022-02-13] MEDS: HYDROcodone Bitartrate/Apap 5/325 Tablet PO ×2 (06:22→15:25)
[2022-02-13] MEDS: Menthol/Lanolin/Calamine/Znox 113 GM Tube 1 APPLIC TOPICAL ×2 (06:24→17:10)
[2022-02-13] MEDS: Arthritis Pain Compound 60 CLICK TUBE TOPICAL ×2 (06:25→17:07)
[2022-02-13] MEDS: Nystatin Powder 15gm Bottle 1 APPLIC TOPICAL ×2 (06:25→17:10)
[2022-02-13] MEDS: Timolol 0.25% 5ML OPTH.BTL 1 DRP EACH EYE ×2 (06:25→17:07)
[2022-02-13 06:26] LABS: Bedside Glucose 80 mg/dL (74-106)
[2022-02-13] MEDS: Cholecalciferol (VIT D3) 25 MCG TABLET (1,000 UNITS) 50 MCG PO (06:26)
[2022-02-13] MEDS: Cyanocobalamin 500 MCG Tablet 1000 MCG PO (06:26)
[2022-02-13] MEDS: Polyethylene Glycol 3350 17 GM PACKET PO (06:26)
[2022-02-13] MEDS: Docusate Sodium 100 MG Capsule PO ×2 (06:26→17:07)
[2022-02-13] MEDS: Furosemide 40 MG Tablet PO (06:26)
[2022-02-13 06:35] LABS: Anion Gap 7 (5-15); BUN 78 mg/dL (7-18); BUN/Creat Ratio 44.6 RATIO (10-20); Chloride 112 mmol/L (98-107); Creatinine, Serum 1.75 mg/dL (0.70-1.30); EST Glomerular Filtration Rate 41 mL/min (>60); Est Glom Filt Rate - Afr Amer 49 mL/min (>60); Estimated Creatinine Clearance 37.66 ml/min; Glucose 83 mg/dL (74-106); Potassium 4.8 mmol/L (3.5-5.1); Sodium Level 142 mmol/L (136-145)
[2022-02-13] MEDS: Aspirin 81 MG TAB.CHEW PO (08:31)
[2022-02-13] MEDS: Ensure Clear 120 ML Liquid PO ×3 (08:32→17:07)
[2022-02-13 10:00] VITALS: PULSE 54; RESP 18; O2SAT 98
[2022-02-13 15:06] VITALS: BP 114/66; PULSE 75; RESP 14; TEMP 36.4; O2SAT 99
--- NOTE | 2022-02-13 16:55 | CASEMGMT ---
Addendum entered by Prachi Reveles 02/14/22 11:48: Left message with to discuss below conversation. Original Note: Social Work Followed up with pt on meeting with [facility]. Pt explained he and family are still processing the information but have agreed to give it until April to determine what his needs are at that time. Pt would like to remain here working with therapy until that time. SW explained pt has not made enough progress thus far to remain skilled under Medicare and TCU is a short term rehab facility. Progress is discussed daily/weekly, but IDT looking at DC within about 2 weeks. Inquired about goal for DC in two weeks. Pt stated he will need to go to another facility then. SW agreed. Pt stated his has the SNF list. SW provided pt with new list. Inquired about anxiety, nausea with therapy and sleeping. Pt states the medication increase has significantly helped with sleeping better and anxiety. Pt states therapy is given at a different time so his nausea has resolved. But reports still worrying. SW validated feelings. Offered ongoing support. Pt expressed appreciation for support and follow up. SW to continue to follow. Prachi Reveles, UTILIZATION COORDINATOR WARDROBE MANAGER
[2022-02-13] MEDS: ALPRAZolam 0.5 MG Tablet 1 MG PO (20:29)
[2022-02-13] MEDS: MELATONIN 10 MG TABLET PO (20:29)
[2022-02-13] MEDS: Doxepin Hcl 25 MG Capsule PO (20:29)
[2022-02-13] MEDS: Atorvastatin Calcium 40 MG Tablet PO (20:29)
[2022-02-14] MEDS: HYDROcodone Bitartrate/Apap 5/325 Tablet PO ×2 (02:58→11:08)
[2022-02-14] MEDS: Arthritis Pain Compound 60 CLICK TUBE TOPICAL ×2 (05:16→16:41)
[2022-02-14] MEDS: Menthol/Lanolin/Calamine/Znox 113 GM Tube 1 APPLIC TOPICAL ×2 (05:16→16:45)
[2022-02-14] MEDS: Cyanocobalamin 500 MCG Tablet 1000 MCG PO (05:17)
[2022-02-14] MEDS: Polyethylene Glycol 3350 17 GM PACKET PO (05:17)
[2022-02-14] MEDS: Docusate Sodium 100 MG Capsule PO ×2 (05:17→16:40)
[2022-02-14] MEDS: Nystatin Powder 15gm Bottle 1 APPLIC TOPICAL ×2 (05:17→16:41)
[2022-02-14] MEDS: Furosemide 40 MG Tablet PO (05:17)
[2022-02-14] MEDS: Timolol 0.25% 5ML OPTH.BTL 1 DRP EACH EYE ×2 (05:17→16:41)
[2022-02-14] MEDS: Cholecalciferol (VIT D3) 25 MCG TABLET (1,000 UNITS) 50 MCG PO (05:17)
[2022-02-14 06:36] LABS: Bedside Glucose 89 mg/dL (74-106)
[2022-02-14] MEDS: Ensure Clear 120 ML Liquid PO ×3 (07:46→16:40)
[2022-02-14] MEDS: Aspirin 81 MG TAB.CHEW PO (07:47)
--- NOTE | 2022-02-14 08:41 | MDS.RN ---
Information for the mds was obtained from review of the clinical record, interview of resident, staff, and direct observation of resident's care.
--- NOTE | 2022-02-14 10:31 | PCM.PN.REN ---
Subjective Subjective Following for RICHI on CKD No complaints, no overnight events. Working with therapy Objective Data Objective Data Vital Signs: Vital Signs Temp Pulse Resp BP Pulse Ox 97.5 F L 75 14 114/66 99 02/13/22 15:06 02/13/22 15:06 02/13/22 15:06 02/13/22 15:06 02/13/22 15:06 Oxygen Flow Rate (L/min) 3 Oxygen Delivery Method Nasal Cannula Weight: 89.358 kg Body Mass Index (BMI) 28.3 Intake & Output: Intake and Output for Last 24 Hours 02/12/22 02/13/22 02/14/22 23:59 23:59 23:59 Intake Total 720 / 720 720 / 720 240 / 240 Output Total 350 / 350 Balance 370 / 370 720 / 720 240 / 240 Lab / Micro Data Result Diagrams: 02/09/22 05:21 02/13/22 05:28 Labs: Laboratory Results - last 24 hr 02/14/22 06:16: POC Glucose 89 Micro: Microbiology 02/08/22 10:20 Nasal Secretion SARS-CoV-2 Antigen (Rapid) - Final 02/02/22 08:05 Nasal Secretion SARS-CoV-2 Antigen (Rapid) - Final 02/01/22 17:52 Nasal Secretion SARS-CoV-2 Antigen (Rapid) - Final Physical Exam Narrative Const; A&0x3 HEENT: oral mucosa moist Cardio: S1S2 RRR Resp: CTA Extremities: Pitting edema b/l thighs to feet. THOMAS wraps on b/l legs. +scrotal edema Assessment & Plan Assessment/Plan (1) Acute on chronic kidney failure: (2) Renal cell carcinoma: PLAN: - RICHI is likely due to decreased effective blood volume. Although the patient has edema and pleural effusion, BP had been low. The patient also has low oncotic pressure with serum albumin of 2.3. -Therefore, RICHI is likely prerenal due to hypotension and decreased effective blood volume. Overall renal function stable and has improved, BUN 78 (peaked 106) and SCr 1.75 mg/dL (peaked 3.5 on 01/28). - CKD is likely due to decreased renal mass from right nephrectomy as well as diabetic kidney disease of the remaining left kidney. - Baseline serum creatinine has been 2.5 to 2.8 mg/dL in the past year. Creatinine was around the usual baseline when he was admitted for hip surgery. No further work-up at this point. -BP is acceptable without antihypertensives other than furosemide. - History of nephrectomy, unilateral, status post right nephrectomy in 2013 for renal cell cancer. -There is no evidence of obstruction on CT scan done on 01/27/2022. Low suspicion for obstructive uropathy as a cause of RICHI at this point. -The patient also has cardiomyopathy, ischemic. The patient has EF of 15% by history. He has a history of ischemic cardiomyopathy and heart failure with reduced ejection fraction. +edema extending into scrotum. We will continue furosemide. -Continue furosemide at 40mg daily and follow labs. Patient states of recent home weight ~185 pounds, last hospital weight 195lbs. -We will continue to monitor renal function, volume status, acid-base status and electrolytes next week.
--- NOTE | 2022-02-14 11:56 | CASEMGMT ---
Social Work Received call from and son. Spoke with both for extended period of time. Family following up on conversation this worker and pt held prior. Discussed outcomes from cardiology appt, oncology appt, ELOS in TCU, private pay in TCU and other SNFs, short-term and long-term options, DC goals. Family confirmed pt is not interested in Palliative or Hospice at the current time. If he would agree to any service, it would be hospice. Family feels pt is already managed appropriately by specialists and do not need to pursue Palliative. SW expressed understanding. Answered questions for family. SW inquired about their goals for pt. Explained Medicare guidelines for continued coverage in TCU/SNF. Son explained both cardiology and oncology optimistic about pt returning to PLOF with prognosis, however, family receiving conflicting information from Dr. Gifford. Family stated cardiology recommended restarting pt on his heart medication, which should significantly improve pt's SOB, fatigue, and overall condition to allow physical improvements. However, stated it may take about 6-8 weeks to show improvement. Family would like that heart med started, with Dr. Gifford's approval - they did speak with nursing to communicate to Dr. Gifford - and keep pt in TCU working with therapy to see any changes from that med. SW collaborated with IDT and agreed to seeing the progress over the next two weeks. Cautioned if pt does not continue to meet Medicare guidelines and make significant progress, pt will not remain skilled. Explained if pt does have improvements or changes in condition and is in a TCU/SNF, that meet Medicare guidelines, IDT can restart those skilled services at any time. Family expressed understanding to all information and appreciative of time spent from this worker. Family to further process and discuss with pt on DC plans. SW confirmed heart med was restarted. SW to continue to follow. Prachi Reveles ,VANI PATEW
--- NOTE | 2022-02-14 12:03 | NURSING ---
Addendum entered by Rosalba Kelly 02/14/22 17:53: fax received, dr medellin reviewed and ordered per barrel marker recommendations: isordil & hydralazine Original Note: phone call to Dr Mejia barrel marker regarding virtual appt yesterday, apparently he ordered pt BP/heart medications to restart and was to fax them. checked chart and files and could not find orders. Nurse to call me back with orders. awaiting return call.
--- NOTE | 2022-02-14 14:55 | NURSING ---
DURAGESIC PATCH INTACT TO LT CHEST.
[2022-02-14 15:50] VITALS: BP 136/68; PULSE 79; RESP 18; TEMP 35.9; O2SAT 98
--- NOTE | 2022-02-14 18:30 | NURSING ---
new duragesic patch applied to RT upper chest
[2022-02-14] MEDS: ALPRAZolam 0.5 MG Tablet 1 MG PO (21:57)
[2022-02-14] MEDS: MELATONIN 10 MG TABLET PO (21:57)
[2022-02-14 21:58] VITALS: BP 120/60; PULSE 76
[2022-02-14] MEDS: Atorvastatin Calcium 40 MG Tablet PO (21:58)
[2022-02-14] MEDS: Doxepin Hcl 25 MG Capsule PO (21:58)
[2022-02-14] MEDS: Isosorbide DN 20 MG Tablet PO (21:58)
[2022-02-14] MEDS: hydrALAZINE 25 MG Tablet PO (21:58)
[2022-02-14 23:29] VITALS: PULSE 76; RESP 16; O2SAT 97
[2022-02-15] MEDS: Timolol 0.25% 5ML OPTH.BTL 1 DRP EACH EYE ×2 (06:09→17:32)
[2022-02-15] MEDS: Nystatin Powder 15gm Bottle 1 APPLIC TOPICAL ×2 (06:10→17:32)
[2022-02-15] MEDS: Menthol/Lanolin/Calamine/Znox 113 GM Tube 1 APPLIC TOPICAL ×2 (06:10→17:32)
[2022-02-15] MEDS: Arthritis Pain Compound 60 CLICK TUBE TOPICAL ×2 (06:10→17:32)
[2022-02-15 06:12] VITALS: BP 117/63; PULSE 80
[2022-02-15] MEDS: hydrALAZINE 25 MG Tablet PO ×3 (06:12→21:41)
[2022-02-15] MEDS: Isosorbide DN 20 MG Tablet PO ×3 (06:12→21:42)
[2022-02-15] MEDS: Docusate Sodium 100 MG Capsule PO ×2 (06:12→17:32)
[2022-02-15] MEDS: Furosemide 40 MG Tablet PO (06:12)
[2022-02-15] MEDS: Cholecalciferol (VIT D3) 25 MCG TABLET (1,000 UNITS) 50 MCG PO (06:12)
[2022-02-15] MEDS: Polyethylene Glycol 3350 17 GM PACKET PO (06:12)
[2022-02-15] MEDS: HYDROcodone Bitartrate/Apap 5/325 Tablet PO (06:13)
[2022-02-15] MEDS: Cyanocobalamin 500 MCG Tablet 1000 MCG PO (06:13)
[2022-02-15 06:36] LABS: Bedside Glucose 98 mg/dL (74-106)
[2022-02-15] MEDS: Aspirin 81 MG TAB.CHEW PO (07:53)
[2022-02-15] MEDS: Ensure Clear 120 ML Liquid PO ×3 (07:53→17:31)
[2022-02-15 11:45] VITALS: O2SAT 97
[2022-02-15 13:31] VITALS: BP 112/60; PULSE 78
[2022-02-15 13:36] VITALS: PULSE 83; RESP 18; TEMP 36.4; O2SAT 99
[2022-02-15 21:41] VITALS: BP 117/63; PULSE 79
[2022-02-15] MEDS: Doxepin Hcl 25 MG Capsule PO (21:42)
[2022-02-15] MEDS: Atorvastatin Calcium 40 MG Tablet PO (21:42)
[2022-02-15] MEDS: ALPRAZolam 0.5 MG Tablet 1 MG PO (21:42)
[2022-02-15] MEDS: MELATONIN 10 MG TABLET PO (21:42)
[2022-02-15 23:12] VITALS: PULSE 79; O2SAT 97
[2022-02-16] MEDS: Cholecalciferol (VIT D3) 25 MCG TABLET (1,000 UNITS) 50 MCG PO (05:35)
[2022-02-16] MEDS: Polyethylene Glycol 3350 17 GM PACKET PO (05:35)
[2022-02-16] MEDS: Furosemide 40 MG Tablet PO (05:35)
[2022-02-16] MEDS: Isosorbide DN 20 MG Tablet PO ×3 (05:35→20:56)
[2022-02-16] MEDS: HYDROcodone Bitartrate/Apap 5/325 Tablet PO (05:36)
[2022-02-16] MEDS: Cyanocobalamin 500 MCG Tablet 1000 MCG PO (05:36)
[2022-02-16] MEDS: Menthol/Lanolin/Calamine/Znox 113 GM Tube 1 APPLIC TOPICAL ×2 (05:36→18:15)
[2022-02-16] MEDS: Arthritis Pain Compound 60 CLICK TUBE TOPICAL ×2 (05:36→18:15)
[2022-02-16] MEDS: Docusate Sodium 100 MG Capsule PO ×2 (05:36→18:15)
[2022-02-16 05:37] VITALS: BP 131/69; PULSE 83
[2022-02-16] MEDS: Timolol 0.25% 5ML OPTH.BTL 1 DRP EACH EYE ×2 (05:37→18:15)
[2022-02-16] MEDS: Nystatin Powder 15gm Bottle 1 APPLIC TOPICAL ×2 (05:37→18:16)
[2022-02-16] MEDS: hydrALAZINE 25 MG Tablet PO ×2 (05:37→14:14)
[2022-02-16 05:43] LABS: Absolute Lymphocyte Count 0.41 X10^3/uL (0.83-4.51); Basophil# 0.03 X10^3/uL; Eosinophil# 0.06 X10^3/uL; Eosinophils% 2.1 % (0-5); Hematocrit 37.8 % (40-54); Hemoglobin 11.4 g/dL (13.0-16.5); Lymphocyte # 0.41 X10^3/ul (0.83-4.51); Lymphocyte % 14.1 % (19-41); Mean Corp Hgb Conc 30.2 g/dL (32-36); Mean Corpuscular Hgb 28.7 pg (27.0-32.0); Mean Corpuscular Volume 95.2 fL (80-94); Mean Platelet Vol. 10.4 fl (6.2-12.0); Monocyte# 0.36 X10^3/uL; Monocyte% 12.4 % (0-10); NRBC Flagged by Analyzer 0 % (0-5); Neutrophil # 2.03 X10^3/uL (2.7-7.7); Neutrophil % 70.1 % (47-70); POSITIVE DIFFERENTIAL YES; Platelet Count 167 K/mm3 (150-450); RBC Distribution Width CV 16.9 % (11.6-14.6); RBC Distribution Width SD 59.5 fl (35.1-43.9); Red Blood Count 3.97 M/mm3 (4.6-6.2); White Blood Count 2.9 K/mm3 (4.4-11.0)
[2022-02-16 05:45] LABS: Differential Indicated SCAN CRITERIA MET
[2022-02-16 06:00] LABS: Anion Gap 5 (5-15); BUN 72 mg/dL (7-18); BUN/Creat Ratio 46.8 RATIO (10-20); Calcium,Total 8.4 mg/dL (8.5-10.1); Chloride 114 mmol/L (98-107); Creatinine, Serum 1.54 mg/dL (0.70-1.30); EST Glomerular Filtration Rate 47 mL/min (>60); Est Glom Filt Rate - Afr Amer 57 mL/min (>60); Estimated Creatinine Clearance 42.79 ml/min; Glucose 89 mg/dL (74-106); Potassium 4.8 mmol/L (3.5-5.1); Sodium Level 144 mmol/L (136-145)
[2022-02-16 06:02] LABS: Differential Comment SCANNED
[2022-02-16 06:31] LABS: Bedside Glucose 86 mg/dL (74-106)
[2022-02-16] MEDS: Ensure Clear 120 ML Liquid PO ×2 (09:23→12:18)
[2022-02-16] MEDS: Aspirin 81 MG TAB.CHEW PO (09:24)
--- NOTE | 2022-02-16 09:54 | PCM.PN.REN ---
Subjective Subjective Resting in bed, no complaints. Denies any vomiting or diarrhea. Feels edema improved to legs and scrotal area. Objective Data Objective Data Vital Signs: Vital Signs Temp Pulse Resp BP Pulse Ox 97.6 F L 83 18 131/69 H 97 02/15/22 13:36 02/16/22 05:37 02/15/22 13:36 02/16/22 05:37 02/15/22 23:12 Oxygen Flow Rate (L/min) 2 Oxygen Delivery Method Nasal Cannula Weight: 89.358 kg Body Mass Index (BMI) 28.3 Intake & Output: Intake and Output for Last 24 Hours 02/14/22 02/15/22 02/16/22 23:59 23:59 23:59 Intake Total 600 / 600 720 / 720 120 / 120 Balance 600 / 600 720 / 720 120 / 120 Lab / Micro Data Result Diagrams: 02/16/22 05:26 02/16/22 05:26 Labs: Laboratory Results - last 24 hr 02/16/22 05:26: WBC 2.9 L, RBC 3.97 L, Hgb 11.4 L, Hct 37.8 L, MCV 95.2 H, MCH 28.7, MCHC 30.2 L, RDW Std Deviation 59.5 H, RDW Coeff of Peri 16.9 H, Plt Count 167, MPV 10.4, Immature Gran % (Auto) 0.300, Neut % (Auto) 70.1 H, Lymph % (Auto) 14.1 L, [place] % (Auto) 12.4 H, Eos % (Auto) 2.1, Baso % (Auto) 1.0, Absolute Neuts (auto) 2.0, Absolute Lymphs (auto) 0.41 L, Nucleated RBC % 0, Differential Comment SCANNED, Diff Path Review March02/16/22 05:26: Sodium 144, Potassium 4.8, Chloride 114 H, Carbon Dioxide 25.0, Anion Gap 5, BUN 72 H, Creatinine 1.54 H, Estim Creat Clear Calc 42.79, Est GFR (MDRD) Af Amer 57 L, Est GFR (MDRD) Non-Af 47 L, BUN/Creatinine Ratio 46.8 H, Glucose 89, Calcium 8.4 L 02/16/22 06:21: POC Glucose 86 Micro: Microbiology 02/08/22 10:20 Nasal Secretion SARS-CoV-2 Antigen (Rapid) - Final 02/02/22 08:05 Nasal Secretion SARS-CoV-2 Antigen (Rapid) - Final 02/01/22 17:52 Nasal Secretion SARS-CoV-2 Antigen (Rapid) - Final Physical Exam Narrative Const; A&0x3 HEENT: oral mucosa moist Cardio: S1S2 RRR Resp: CTA Extremities: Pitting edema b/l thighs to feet. Assessment & Plan Assessment/Plan (1) Acute on chronic kidney failure: (2) Renal cell carcinoma: PLAN: - RICHI is likely due to decreased effective blood volume. Although the patient has edema and pleural effusion, BP had been low. The patient also has low oncotic pressure with serum albumin of 2.3. -Therefore, RICHI is likely prerenal due to hypotension and decreased effective blood volume. Overall renal function stable and has improved, BUN 72 (peaked 106) and SCr 1.54mg/dL (peaked 3.5 on 01/28). - CKD is likely due to decreased renal mass from right nephrectomy as well as diabetic kidney disease of the remaining left kidney. - Baseline serum creatinine has been 2.5 to 2.8 mg/dL in the past year. Creatinine was around the usual baseline when he was admitted for hip surgery. No further work-up at this point. -BP is acceptable currently on hydralazine, isordil and furosemide. - History of right nephrectomy in 2012 for renal cell cancer. -There is no evidence of obstruction on CT scan done on 01/27/2022. Low suspicion for obstructive uropathy as a cause of RICHI at this point. -The patient also has cardiomyopathy, ischemic. The patient has EF of 15% by history. He has a history of ischemic cardiomyopathy and heart failure with reduced ejection fraction. +edema extending into scrotum. Seems to be improvement in edema therefore we will continue furosemide. -Continue furosemide at 40mg daily and follow labs. Patient states of recent home weight ~185 pounds, last hospital weight 195lbs. -We will continue to monitor renal function, volume status, acid-base status and electrolytes
[2022-02-16 10:00] VITALS: PULSE 91; RESP 18; O2SAT 97
[2022-02-16 11:59] LABS: Pathologist Review Reviewed
[2022-02-16 13:34] VITALS: BP 117/57; PULSE 78; RESP 18; TEMP 36.1; O2SAT 95
[2022-02-16 14:14] VITALS: BP 117/57; PULSE 78
[2022-02-16 14:16] VITALS: O2SAT 98
--- NOTE | 2022-02-16 14:17 | NURSING ---
pt doing well today, currently on room air at 98%
--- NOTE | 2022-02-16 17:11 | CASEMGMT ---
Social Work Met in room with pt, , son and dtr, per their request. Family updated this worker on pt's decision to enroll in Palliative care. Pt states he is feeling more energized in the last two days since heart med has been restarted, even if it is just a placebo effect, the pt offered. family is optimistic for pt to improve with therapy and continue skilled in TCU until able to return home. SW agrees and assured them IDT has same goals. Offered for family/pt to speak with this worker weekly for therapy updates and stay in communication for DC plans. Family appreciative. SW to continue to follow. Prachi Reveles, VANI FLOOR POLISHER
[2022-02-16 20:53] VITALS: BP 87/40; PULSE 91
[2022-02-16] MEDS: Atorvastatin Calcium 40 MG Tablet PO (20:56)
[2022-02-16] MEDS: MELATONIN 10 MG TABLET PO (20:56)
[2022-02-16] MEDS: Doxepin Hcl 25 MG Capsule PO (20:56)
[2022-02-16] MEDS: ALPRAZolam 0.5 MG Tablet 1 MG PO (21:05)
--- NOTE | 2022-02-17 06:20 | NURSING ---
Pt calls reporting shortness of breath this am. In mild-moderate distress. Vitals obtained and recorded. HOB further elevated and engages in deep breathing exercises with cueing per this nurse. Pt verbalizes his symptoms have improved. RT called per MELE Parra, to administer a breathing treatment. Lungs w/ scattered fine crackles. Lasix and Isosorbide administered per dr cruz. Hydralazine held d/t low BP. Staff to continue to monitor.
[2022-02-17] MEDS: Arthritis Pain Compound 60 CLICK TUBE TOPICAL ×2 (06:29→16:58)
[2022-02-17 06:30] VITALS: BP 104/53; PULSE 76; RESP 20; TEMP 36.6; O2SAT 98
[2022-02-17] MEDS: Timolol 0.25% 5ML OPTH.BTL 1 DRP EACH EYE ×2 (06:31→16:59)
[2022-02-17] MEDS: Isosorbide DN 20 MG Tablet PO ×3 (06:33→21:34)
[2022-02-17] MEDS: Furosemide 40 MG Tablet PO (06:34)
[2022-02-17] MEDS: Docusate Sodium 100 MG Capsule PO ×2 (06:34→16:59)
[2022-02-17] MEDS: Cholecalciferol (VIT D3) 25 MCG TABLET (1,000 UNITS) 50 MCG PO (06:34)
[2022-02-17] MEDS: Cyanocobalamin 500 MCG Tablet 1000 MCG PO (06:34)
[2022-02-17] MEDS: Polyethylene Glycol 3350 17 GM PACKET PO (06:35)
[2022-02-17] MEDS: Nystatin Powder 15gm Bottle 1 APPLIC TOPICAL ×2 (06:39→17:00)
[2022-02-17 06:40] LABS: Bedside Glucose 153 mg/dL (74-106)
[2022-02-17] MEDS: Menthol/Lanolin/Calamine/Znox 113 GM Tube 1 APPLIC TOPICAL ×2 (06:40→17:00)
[2022-02-17 06:59] VITALS: PULSE 79; RESP 20; O2SAT 97
--- NOTE | 2022-02-17 07:47 | NURSING ---
Addendum entered by Fatemeh Nguyễn 02/17/22 11:16: Dr. Gifford aware of CXR results. N.O. IV Levaquin X7 days Original Note: camera systems engineer RN reported crackles to bases. Dr. Gifford aware. N.O. CXR 2 view
--- NOTE | 2022-02-17 08:05 | RAD_ITS ---
STUDY: X-RAY CHEST REASON FOR EXAM: Male, 76 years old. Crackles TECHNIQUE: AP and lateral views of the chest. COMPARISON: Comparison is made with prior study dated 01/25/2012. FINDINGS: Bilateral pulmonary nodules. These have increased in size as compared to prior study. New consolidation in the left lower lobe. Blunting of the left costophrenic angle. Sternal cerclage wires and vascular clips are present from a prior sternotomy and coronary artery bypass graft procedure (CABG). A left-sided dual-chamber pacemaker is seen. Cardiomegaly. Normal mediastinum and eloisa. Normal visualized pulmonary arteries. Normal visualized aortic arch and descending thoracic aorta. There are diffuse degenerative changes of the visualized thoracic spine. Normal visualized ribs, clavicles, and shoulders. There is no demonstrated abnormality of the visualized soft tissue structures of the upper abdomen. RAD/Chest PA and Lateral IMPRESSION: Increasing size of the bilateral pulmonary nodules with new infiltrate in the left lower lobe and blunting of the left costophrenic angle. Electronically Signed: Homero Raymundo MD at 8:24 EDT ,
[2022-02-17] MEDS: Ensure Clear 120 ML Liquid PO ×3 (08:39→16:59)
[2022-02-17] MEDS: Aspirin 81 MG TAB.CHEW PO (08:39)
[2022-02-17] MEDS: levoFLOXacin IV 750 MG/150 ML BAG 100 MG IV (12:54)
[2022-02-17] MEDS: 0.9% Saline Lock 10 ML Syringe IV (12:55)
[2022-02-17 12:59] VITALS: BP 114/75; PULSE 86
[2022-02-17] MEDS: hydrALAZINE 25 MG Tablet PO ×2 (12:59→21:34)
[2022-02-17 16:00] VITALS: BP 115/56; PULSE 84; RESP 14; TEMP 36.4; O2SAT 95
[2022-02-17] MEDS: ALPRAZolam 0.5 MG Tablet 1 MG PO (20:28)
[2022-02-17 20:43] VITALS: PULSE 73; RESP 16; O2SAT 97
[2022-02-17 21:34] VITALS: BP 120/58; PULSE 70
[2022-02-17] MEDS: Doxepin Hcl 25 MG Capsule PO (21:34)
[2022-02-17] MEDS: Atorvastatin Calcium 40 MG Tablet PO (21:34)
[2022-02-17] MEDS: MELATONIN 10 MG TABLET PO (21:34)
[2022-02-18] VITALS (8 sets, daily range): BP systolic 106–116; BP diastolic 53–64; PULSE 70–85; RESP 16–26; TEMP 36.8; O2SAT 91–99
[2022-02-18] MEDS: Albuterol 2.5 MG/3 ML VIAL.NEB. INHALATION ×2 (05:51→21:10)
[2022-02-18] MEDS: 0.9% Saline Lock 10 ML Syringe IV ×2 (06:11→11:46)
[2022-02-18] MEDS: Polyethylene Glycol 3350 17 GM PACKET PO (06:15)
[2022-02-18] MEDS: Cyanocobalamin 500 MCG Tablet 1000 MCG PO (06:15)
[2022-02-18] MEDS: Furosemide 40 MG Tablet PO (06:15)
[2022-02-18] MEDS: Cholecalciferol (VIT D3) 25 MCG TABLET (1,000 UNITS) 50 MCG PO (06:15)
[2022-02-18] MEDS: hydrALAZINE 25 MG Tablet PO ×2 (06:16→13:57)
[2022-02-18] MEDS: Docusate Sodium 100 MG Capsule PO ×2 (06:16→17:46)
[2022-02-18] MEDS: Nystatin Powder 15gm Bottle 1 APPLIC TOPICAL ×2 (06:16→17:46)
[2022-02-18] MEDS: Arthritis Pain Compound 60 CLICK TUBE TOPICAL ×2 (06:16→17:46)
[2022-02-18] MEDS: Isosorbide DN 20 MG Tablet PO ×3 (06:17→22:17)
[2022-02-18] MEDS: Timolol 0.25% 5ML OPTH.BTL 1 DRP EACH EYE ×2 (06:17→17:46)
[2022-02-18] MEDS: Menthol/Lanolin/Calamine/Znox 113 GM Tube 1 APPLIC TOPICAL ×2 (06:18→17:46)
[2022-02-18 06:31] LABS: Bedside Glucose 87 mg/dL (74-106)
[2022-02-18] MEDS: Ensure Clear 120 ML Liquid PO ×3 (07:57→17:45)
[2022-02-18] MEDS: Aspirin 81 MG TAB.CHEW PO (07:57)
[2022-02-18] MEDS: levoFLOXacin IV 750 MG/150 ML BAG 100 MG IV (11:44)
--- NOTE | 2022-02-18 15:38 | NURSING ---
Pt C/O of Increased Anxiety Dr. Gifford updated New order for Xanax Q6H PRN. Will continue to monitor pt in bed call light within reach.
[2022-02-18] MEDS: ALPRAZolam 0.5 MG Tablet 1 MG PO ×2 (17:44→22:15)
--- NOTE | 2022-02-18 20:59 | NURSING ---
Pt requesting a breathing tx. Spoke w/ Mari in RT.
[2022-02-18] MEDS: Atorvastatin Calcium 40 MG Tablet PO (22:16)
[2022-02-18] MEDS: Doxepin Hcl 25 MG Capsule PO (22:16)
[2022-02-18] MEDS: MELATONIN 10 MG TABLET PO (22:16)
[2022-02-19] MEDS: ALPRAZolam 0.5 MG Tablet 1 MG PO ×2 (03:06→21:44)
[2022-02-19] MEDS: Cyanocobalamin 500 MCG Tablet 1000 MCG PO (06:10)
[2022-02-19] MEDS: Polyethylene Glycol 3350 17 GM PACKET PO (06:10)
[2022-02-19] MEDS: Docusate Sodium 100 MG Capsule PO ×2 (06:11→17:43)
[2022-02-19] MEDS: Menthol/Lanolin/Calamine/Znox 113 GM Tube 1 APPLIC TOPICAL ×2 (06:12→17:43)
[2022-02-19] MEDS: Nystatin Powder 15gm Bottle 1 APPLIC TOPICAL ×2 (06:12→17:43)
[2022-02-19] MEDS: Arthritis Pain Compound 60 CLICK TUBE TOPICAL ×2 (06:12→17:42)
[2022-02-19] MEDS: Furosemide 40 MG Tablet PO (06:14)
[2022-02-19] MEDS: Isosorbide DN 20 MG Tablet PO ×2 (06:14→13:57)
[2022-02-19 06:15] VITALS: BP 129/54; PULSE 89
[2022-02-19] MEDS: hydrALAZINE 25 MG Tablet PO ×2 (06:15→13:57)
[2022-02-19] MEDS: Cholecalciferol (VIT D3) 25 MCG TABLET (1,000 UNITS) 50 MCG PO (06:16)
[2022-02-19] MEDS: Timolol 0.25% 5ML OPTH.BTL 1 DRP EACH EYE ×2 (06:16→17:44)
[2022-02-19 06:20] LABS: Bedside Glucose 86 mg/dL (74-106)
[2022-02-19] MEDS: Aspirin 81 MG TAB.CHEW PO (08:16)
[2022-02-19] MEDS: Ensure Clear 120 ML Liquid PO ×2 (08:16→17:42)
[2022-02-19] MEDS: HYDROcodone Bitartrate/Apap 5/325 Tablet PO (09:25)
[2022-02-19] MEDS: levoFLOXacin IV 750 MG/150 ML BAG 100 MG IV (09:25)
[2022-02-19] MEDS: 0.9% Saline Lock 10 ML Syringe IV ×2 (09:26→21:50)
--- NOTE | 2022-02-19 13:33 | NURSING ---
Pt c/o of increased Nausea and unable to eat. Dr. Gifford updated and New order for PRN Zofran q8 hrs and Lactobacillus BID.
[2022-02-19 13:57] VITALS: BP 116/68; PULSE 86
[2022-02-19] MEDS: Ondansetron ODT 4 MG Tablet 8 MG PO (14:44)
[2022-02-19 15:46] VITALS: BP 111/67; PULSE 94; RESP 16; TEMP 36.2; O2SAT 95
[2022-02-19 21:45] VITALS: BP 92/48; PULSE 85
[2022-02-19] MEDS: Atorvastatin Calcium 40 MG Tablet PO (21:45)
[2022-02-19] MEDS: Doxepin Hcl 25 MG Capsule PO (21:45)
[2022-02-19] MEDS: MELATONIN 10 MG TABLET PO (21:46)
[2022-02-20] MEDS: HYDROcodone Bitartrate/Apap 5/325 Tablet PO ×4 (01:34→23:18)
[2022-02-20] MEDS: Nystatin Powder 15gm Bottle 1 APPLIC TOPICAL ×2 (06:04→17:33)
[2022-02-20] MEDS: Menthol/Lanolin/Calamine/Znox 113 GM Tube 1 APPLIC TOPICAL ×2 (06:04→17:33)
[2022-02-20] MEDS: Furosemide 40 MG Tablet PO (06:07)
[2022-02-20] MEDS: Cyanocobalamin 500 MCG Tablet 1000 MCG PO (06:07)
[2022-02-20] MEDS: Polyethylene Glycol 3350 17 GM PACKET PO (06:07)
[2022-02-20] MEDS: Arthritis Pain Compound 60 CLICK TUBE TOPICAL ×2 (06:07→17:27)
[2022-02-20] MEDS: Isosorbide DN 20 MG Tablet PO ×3 (06:07→22:03)
[2022-02-20 06:08] VITALS: BP 114/56; PULSE 87
[2022-02-20] MEDS: Cholecalciferol (VIT D3) 25 MCG TABLET (1,000 UNITS) 50 MCG PO (06:08)
[2022-02-20] MEDS: Timolol 0.25% 5ML OPTH.BTL 1 DRP EACH EYE ×2 (06:08→17:27)
[2022-02-20] MEDS: hydrALAZINE 25 MG Tablet PO ×3 (06:08→22:03)
[2022-02-20] MEDS: Docusate Sodium 100 MG Capsule PO ×2 (06:11→17:27)
[2022-02-20] MEDS: Ensure Clear 120 ML Liquid PO ×3 (06:18→17:27)
[2022-02-20 06:31] LABS: Bedside Glucose 86 mg/dL (74-106)
[2022-02-20 06:56] VITALS: O2SAT 96
[2022-02-20] MEDS: Aspirin 81 MG TAB.CHEW PO (08:32)
[2022-02-20] MEDS: Ondansetron ODT 4 MG Tablet 8 MG PO ×2 (08:38→16:25)
--- NOTE | 2022-02-20 09:33 | CASEMGMT ---
Social Work Received email correspondence from explaining at length, patient's medical history. Offered to provide to nurse's and Dr. Gifford for their review. agreed. expressed pt and family are wanting to elect Palliative care at this time. Order entered and emailed referral to [facility]. Updated . VANI Moore WEB CONTENT DIRECTOR
[2022-02-20] MEDS: 0.9% Saline Lock 10 ML Syringe IV (09:48)
[2022-02-20] MEDS: levoFLOXacin IV 750 MG/150 ML BAG 100 MG IV (09:48)
[2022-02-20 10:08] VITALS: PULSE 68; RESP 18; O2SAT 95
--- NOTE | 2022-02-20 12:22 | NURSING ---
pts legs & LT knee with increased edema & pain causing pain difficulty and problems doing therapy. dr medellin udpated, wants Dr Altman notified. office notified, awaiting return call.
[2022-02-20 13:58] VITALS: BP 127/85; PULSE 96
[2022-02-20 14:04] VITALS: BP 127/85; PULSE 96; RESP 14; TEMP 36.6; O2SAT 90
--- NOTE | 2022-02-20 14:09 | NURSING ---
Addendum entered by Rosalba Kelly 02/20/22 17:09: dr mehta called and will be in to see pt tomorrow. updated pt and . Original Note: nephrology notified via answering service regarding increased edema Bilat upper thighs and knees. awaiting return call.
--- NOTE | 2022-02-20 18:27 | NURSING ---
Received return call from Dr. Altman's office, per Dr. Altman, he is unable to see pt today, but will come to see him. His nurse stated no specific date was given.
--- NOTE | 2022-02-20 20:19 | NURSING ---
New Duragesic applied to right chest per order, old patch removed and wasted with second nurse MELE Castro
[2022-02-20] MEDS: ALPRAZolam 0.5 MG Tablet 1 MG PO (21:53)
[2022-02-20] MEDS: Doxepin Hcl 25 MG Capsule PO (21:55)
[2022-02-20] MEDS: MELATONIN 10 MG TABLET PO (21:55)
[2022-02-20 22:03] VITALS: BP 120/56; PULSE 70
[2022-02-20] MEDS: Atorvastatin Calcium 40 MG Tablet PO (22:04)
[2022-02-21] MEDS: ALPRAZolam 0.5 MG Tablet 1 MG PO ×2 (05:49→21:24)
[2022-02-21 05:50] VITALS: BP 110/54; PULSE 92
[2022-02-21] MEDS: Cyanocobalamin 500 MCG Tablet 1000 MCG PO (05:50)
[2022-02-21] MEDS: Arthritis Pain Compound 60 CLICK TUBE TOPICAL ×2 (05:50→17:06)
[2022-02-21] MEDS: Timolol 0.25% 5ML OPTH.BTL 1 DRP EACH EYE ×2 (05:50→17:05)
[2022-02-21] MEDS: Docusate Sodium 100 MG Capsule PO ×2 (05:50→17:05)
[2022-02-21] MEDS: Furosemide 40 MG Tablet PO (05:50)
[2022-02-21] MEDS: hydrALAZINE 25 MG Tablet PO ×3 (05:50→21:25)
[2022-02-21] MEDS: Isosorbide DN 20 MG Tablet PO ×3 (05:50→21:25)
[2022-02-21] MEDS: Cholecalciferol (VIT D3) 25 MCG TABLET (1,000 UNITS) 50 MCG PO (05:50)
[2022-02-21] MEDS: Menthol/Lanolin/Calamine/Znox 113 GM Tube 1 APPLIC TOPICAL ×2 (05:51→17:06)
[2022-02-21] MEDS: Polyethylene Glycol 3350 17 GM PACKET PO (05:51)
[2022-02-21] MEDS: Nystatin Powder 15gm Bottle 1 APPLIC TOPICAL ×2 (05:51→17:06)
[2022-02-21 06:26] LABS: Bedside Glucose 83 mg/dL (74-106)
[2022-02-21 06:29] LABS: Albumin, Serum 2.6 g/dL (3.2-5.0); BUN 60 mg/dL (7-18); BUN/Creat Ratio 34.3 RATIO (10-20); Calcium,Total 8.2 mg/dL (8.5-10.1); Chloride 108 mmol/L (98-107); Creatinine, Serum 1.75 mg/dL (0.70-1.30); EST Glomerular Filtration Rate 41 mL/min (>60); Est Glom Filt Rate - Afr Amer 49 mL/min (>60); Estimated Creatinine Clearance 37.66 ml/min; Glucose 89 mg/dL (74-106); Phosphorus 4.2 mg/dL (2.5-4.9); Potassium 4.7 mmol/L (3.5-5.1); Sodium Level 139 mmol/L (136-145)
[2022-02-21] MEDS: Ensure Clear 120 ML Liquid PO ×3 (07:59→17:06)
[2022-02-21] MEDS: Aspirin 81 MG TAB.CHEW PO (08:00)
[2022-02-21] MEDS: levoFLOXacin IV 750 MG/150 ML BAG 100 MG IV (10:04)
[2022-02-21] MEDS: 0.9% Saline Lock 10 ML Syringe IV (10:05)
--- NOTE | 2022-02-21 11:16 | NURSING ---
Addendum entered by Rosalba Kelly 02/21/22 11:22: palliative will call TCU with time for them to meet with and pt tomorrow. will update when she arrives. Original Note: palliative here to see pt at this time.
[2022-02-21] MEDS: HYDROcodone Bitartrate/Apap 5/325 Tablet PO (11:31)
--- NOTE | 2022-02-21 12:28 | CASEMGMT ---
Social Work Spoke with to provide weekly update on pt's progress in therapy. Explained pt being very inconsistent with therapy progress. Some days he can walk 15ft, other days he cannot walk at all. Pt is still maxx2 for transfers and dependent for toileting. Explained if pt does not show more consistent improvement the rest of this week, IDT will set DC date next week for a week away (2 full weeks). Also stated Palliative came to see pt today, but pt wanted present. Palliative can return tomorrow between [id number] and requested provide exact time she will be present for them to return. wants her dtr present at that meeting, so she will ask the dtr and notify this worker to relay to Palliative. expressed understanding, however, she began talking very fast, moving from topic to topic, repeating information, not finishing thought process; sounded overwhelmed and sporadic. Intervened and asked to take a few deep breaths and gather her thoughts. completed breathing and did agree she was overwhelmed, had been getting a lot of information, and had a breakdown yesterday. Validated feelings and assured this worker is here to assist. expressed appreciation and her children are helping her as well. Provided supportive listening and emotional support. SW reiterated important pieces from conversation for to write down and accurately relay to children. Offered to answer any further questions. appreciative. SW to continue to follow. Prachi Reveles, VANI PATEW
[2022-02-21 14:03] VITALS: BP 106/58; PULSE 82; RESP 18; TEMP 36.4; O2SAT 100
--- NOTE | 2022-02-21 14:30 | PCA ---
Unable to get a weight on Chet this week
[2022-02-21 14:34] VITALS: PULSE 82
--- NOTE | 2022-02-21 14:45 | NURSING ---
Addendum entered by Rosalba Kelly 02/21/22 14:50: UPDATED , PT AND DAUGHTER. SAMIA Patton stated that she is going to add coreg later if everything looks good. Original Note: pt had appt over phone with heart failure clinic at [facility]. SAMIA Patton would like pt to add 20 mg lasix to his 40mg lasix daily x3 days and then recheck renal profile on day 4. also gave BP parameters. see MAR. dr medellin updated and aware of all.
--- NOTE | 2022-02-21 15:16 | NURSING ---
duragesic intact to RT chest
[2022-02-21] MEDS: Furosemide 20 MG Tablet PO (15:42)
--- NOTE | 2022-02-21 19:27 | NURSING ---
Attempted to call Dr. Thompson's office this afternoon to see when he would be coming to the unit. There was no answer.
[2022-02-21] MEDS: Atorvastatin Calcium 40 MG Tablet PO (21:24)
[2022-02-21 21:25] VITALS: BP 108/59; PULSE 99
[2022-02-21] MEDS: Doxepin Hcl 25 MG Capsule PO (21:25)
[2022-02-21] MEDS: MELATONIN 10 MG TABLET PO (21:25)
[2022-02-21 21:58] VITALS: PULSE 99; RESP 20; O2SAT 96
[2022-02-22] MEDS: HYDROcodone Bitartrate/Apap 5/325 Tablet PO ×2 (00:34→12:47)
[2022-02-22] MEDS: Polyethylene Glycol 3350 17 GM PACKET PO (05:35)
[2022-02-22 05:36] VITALS: BP 104/56; PULSE 86
[2022-02-22] MEDS: hydrALAZINE 25 MG Tablet PO ×3 (05:36→21:38)
[2022-02-22] MEDS: Cholecalciferol (VIT D3) 25 MCG TABLET (1,000 UNITS) 50 MCG PO (05:36)
[2022-02-22] MEDS: Cyanocobalamin 500 MCG Tablet 1000 MCG PO (05:36)
[2022-02-22] MEDS: Docusate Sodium 100 MG Capsule PO ×2 (05:36→17:31)
[2022-02-22] MEDS: Furosemide 40 MG Tablet PO (05:37)
[2022-02-22] MEDS: Arthritis Pain Compound 60 CLICK TUBE TOPICAL ×2 (05:37→17:31)
[2022-02-22] MEDS: Menthol/Lanolin/Calamine/Znox 113 GM Tube 1 APPLIC TOPICAL ×2 (05:37→17:32)
[2022-02-22] MEDS: Isosorbide DN 20 MG Tablet PO ×3 (05:37→21:38)
[2022-02-22] MEDS: Nystatin Powder 15gm Bottle 1 APPLIC TOPICAL ×2 (05:38→17:32)
[2022-02-22] MEDS: Timolol 0.25% 5ML OPTH.BTL 1 DRP EACH EYE ×2 (05:38→17:32)
[2022-02-22 06:16] LABS: Bedside Glucose 83 mg/dL (74-106)
[2022-02-22 07:36] VITALS: O2SAT 93
[2022-02-22] MEDS: Aspirin 81 MG TAB.CHEW PO (08:51)
[2022-02-22] MEDS: Ensure Clear 120 ML Liquid PO ×3 (08:51→17:31)
[2022-02-22] MEDS: 0.9% Saline Lock 10 ML Syringe IV (09:48)
[2022-02-22] MEDS: levoFLOXacin IV 750 MG/150 ML BAG 100 MG IV (09:48)
--- NOTE | 2022-02-22 13:08 | CON.PCM.PA_ITS ---
Assessment & Plan Assessment/Plan (1) Renal cell carcinoma: (2) Diabetes mellitus: (3) Hyperlipidemia: (4) Hypertension: (5) Chronic kidney disease, stage 4 (severe): (6) Heart failure with reduced ejection fraction: (7) Coronary artery disease: (8) Hip dislocation, right: (9) Acute on chronic kidney failure: (10) Stroke: (11) Hypotensive episode: (12) Encephalopathy: (13) Debility: (14) CVA (cerebral vascular accident): PLAN: ASSESSMENT/PLAN: MELVIN AGUIRRE, is a 76 male who presents to [facility] Emergency Department with a dislocated hip on 01/24/22. Past medical history includes: Metastatic renal cell cancer to BL lungs, pericardiac fat posterior to LV, L adrenal mass, severe retroperitoneal adenopathy particularly between the aorta and left kidney, s/p prior R nephrectomy, Hx VTE, Chronic CHF s/p AICD (following w/ Dr Gonzalez Digital Community Manager), CAD, CKD stage IV, Former tobacco use, Diet-controlled diabetes mellitus type II. Family and patient are agreeable to palliative services. Liaison will contact family for consent signing. Family to update Palliative on discharge to schedule a follow up visit. Plan is as follows: 1) Pain/ right hip/ bilateral knee pain: Patient is currently on Chester/Fentanyl 12mcg for pain. Follows Dr. Altman for pain management. Family would prefer to continue pain management as long as patient is able to get to the visit. In agreement for Dr. De La Torre visit via telehealth at first visit after discharge to prepare for prescribing if needed. 2) nausea: Struggling intermittently while inpatient. Using Zofran which has seemed to be effective. Fluid balance and RICHI could be contributing. Will follow at discharge. Family aware to contact Palliative with any concerns or worsening in symptoms. 3) insomnia: Patient was initially started on Doxepin 10mg at bedtime which was increased to 25mg currently. Also has Melatonin 10mg at bedtime as well. Xanax 1mg at bedtime was added along with every 6 hours PRN which has been helpful. Being inpatient and stress and worry about discharge seems to be contributory. Will assess at discharge if any changes need to be made. 4) anxiety/depression: Family and patient report that these were not issues at home. Has Xanax currently PRN. Patient could benefit from [facility] visits to provide counseling support. May benefit from a low dose SSRI, depending on if benefit outweighs the risk. Will assess at discharge with PHQ9 and GAD7. Thank you for the opportunity to participate in this patient's care, please do not hesitate to contact [facility] [address] [facility] with any further questions or concerns, direct line is [phone]. Family is interested in Palliative care. Liaison will follow up for consent signing. Contact information left with the patient/family. Greater than 50% of F2F visit dedicated to education and counseling of palliative care services, medications, comorbid conditions and potential assistance with management, and plan of care moving forward. Start time: 12:00 End time: 13:50 HPI Consult Data Date of Consult: 02/22/22 HPI Narrative HPI Narrative: MELVIN AGUIRRE, is a 76 M who presents who presents to [facility] Emergency Department with a dislocated hip on 01/24/22. Past medical history includes: Metastatic renal cell cancer to BL lungs, pericardiac fat posterior to LV, L adrenal mass, severe retroperitoneal adenopathy particularly between the aorta and left kidney, s/p prior R nephrectomy, Hx VTE, Chronic CHF s/p AICD (following w/ Dr Gonzalez Digital Community Manager), CAD, CKD stage IV, Former tobacco use, Diet-controlled diabetes mellitus type II. Closed reduction was attempted times 2 unsucessfully. He did undergo open reduction right total hip replacement on 01/25/[address] Coa. On 01/28/22, noted to have ventricular paced rhythm, biventricular pacemaker detected, abnormal EKG. He was hypotensive, decreased BP in the 70s, sleepy and lethargic. He was given IV fluids and lethargy was suspected secondary to Tramodol/Oxycodone. He was admitted and given light fluid replacement and BP medications were held for RICHI and hypotension. Oncology report that metastatic renal cell cancer has been stable. Dr Thompson was consulted and reports suspected RICHI on CKD stage 4. On 01/29/22, patient was more alert and back to mental status baseline with holding of Opioid medications. Creatinine improved from 3.5 to 3.22. Continued gently fluid replacement and continued hold of BP medications. On 01/30/22 reported 14 pound weight gain. Diuretics were to resume when creatinine nears baseline of 2.4. On 01/30/22, mental status has improved with less confusion. Creatinine is now 2.99. CT concerning for a stroke and to consider [facility] movement disorder clinic on discharge. on 01/31/22 Patient was reporting feeling better. Unable to do MRI due to pacemaker. Teleneurology recommended aspirin 81mg daily, bilateral carotid doppler ultrasound showing < 50% stenosis bilaterally. On 02/01/22, Creatinine is back to 2.36 baseline and was admitted to TCU for rehab and strengthening prior for plan to discharge home with . On TCU Pain from arthritis controlled with Chester 5/325mg 1 tab PO Q6, Arthritis compound cream 1 application topically BID. Patient has a reduced EF (15%) Patient is on Lasix 20mg PO Daily. Patient not currently on THOMAS-I or beta cliff, likely d/t hyp otension upon admission. Plan is to continue to monitor BP and pulse and resume CHF medications when BP improves and is clinically appropriate. Electrolytes are monitored. (K = 4.8 on 02/02), I/O while on diuretics. Patient is also taking Aspirin 81mg PO Daily, Lipitor 40mg PO QHS. Pt being very inconsistent with therapy progress. Some days he can walk 15ft, other days he cannot walk at all. Pt is still max2 for transfers and dependent for toileting. Explained if pt does not show more consistent improvement the rest of this week, IDT will set DC date next week for a week away (2 full weeks) . Patient and did meet with Hospice on 02/10 but at this time want to continue to do therapy. Patient has not been making progress to stay through April, but will most likely need to transfer to an ECF facility. Kidney function as of 02/21 GFR 41, BUN 60, Creatinine 1.[address] Gonzalez (cardiology) has been watch and wait since 2012. [facility] has also been watch and wait since 2012. Was following with both every 6 months. Has trouble with left knee. Sees Dr. Brownlee (ortho) for cortisone injections. Also has torn both rotator cuffs in both shoulders. Most recently, patient had bent over to get something off the floor and hip twisted and went to the ER with most recent dislocation. In 2018 right hip was dislocated and was able to get it back in under anesthesia. Has pain in left knee and right knee. Currently on oxygen continuously with dyspnea. Pain in the knees is 8/10 and stabbing pain but has difficulty describing pain after the Chester. Has trouble sleeping at night since admission. Dr. Gifford prescribed Xanax and possible dose increase and has been intermittently effective. The last few nights have been improved. Feels that the cure it worse than the cause. Patient has been resourceful with work arounds for his debility at home (torn rotator cuffs) so the added debility has been difficult. Had video consults with Oncologist and Digital Community Manager and they do not feel that patient is hospice is appropriate. Sees Pooja Metzger CNP at the Heart failure clinic in [facility]. Will see her in conjunction with Dr. Krause. Patient is having trouble with standing and having shortness of breath related to Pneumonia. Family would like to take patient home on March 06 Met with patient and , daughter and son via speaker phone. Discussed palliative care and symptom management frequency. Patient expresses concern about debility and falling at home. Patient would require in-home 24-hour home health care services. is unable to lift to return to previous back injury. Patient follows with Dr. Altman for pain management and this will continue as long as patient is able. He is interested in palliative managing pain when patient becomes homebound. Patient is positive for shortness of breath, BLE 2+ edema in extremities left>right and scrotum. THOMAS wraps applied to both and fatigue, weakness, nausea and vomiting requiring Zofran. Patient also is having issues with anxiety, depression, and insomnia. [facility] Medical History CAD (coronary artery disease) Cancer Cardiomyopathy, ischemic CHF (congestive heart failure) Chronic kidney disease, stage 4 (severe) Chronic kidney disease, stage 4 (severe) Chronic pain Chronic systolic congestive heart failure CKD (chronic kidney disease) stage 3, GFR 30-59 ml/min Coronary artery disease Debility Diabetes Diabetes mellitus Diet-controlled diabetes mellitus Dislocation of internal right hip prosthesis Dislocation of right hip DVT (deep venous thrombosis) Ex-smoker Glaucoma History of nephrectomy, unilateral HLD (hyperlipidemia) HTN (hypertension) hx PE Hyperlipidemia ICD (implantable cardioverter-defibrillator) in place ICD (implantable cardioverter-defibrillator) in place Irregular heart beat Kidney disease Metastatic cancer Myocardial infarct Overactive bladder Pacemaker Pulmonary embolism Vitamin D deficiency Home Medications Atorvastatin Calcium 40 mg PO QHS 06/01/14 [History Last Taken 01/27/22 21:19] cholecalciferol (vitamin D3) [Vitamin D3] 2,000 unit PO DAILY 06/01/14 [History Last Taken 01/28/22 05:53] docusate sodium [DOK] 100 mg PO BID 06/01/14 [History Last Taken 01/24/22] furosemide 20 mg PO DAILY 06/01/14 [History Last Taken 01/24/22] loratadine [Allergy Relief (loratadine)] 10 mg PO DINNER PRN 06/01/14 [History Last Taken 09/21/14 17:00] diclofenac sodium 2 g TOPICAL BID 08/24/14 [History Last Taken 01/24/22] timolol 1 drp EACH EYE BID 01/24/22 [History Last Taken 01/28/22 05:51] B12 Active 1,000 mcg PO DAILY 01/25/22 [History Last Taken 01/28/22 05:54] coenzyme Q10 10 mg PO DAILY 01/25/22 [History Last Taken 01/24/22] albuterol sulfate 2.5 mg INHALATION Q2H PRN PRN #0 ml 01/27/22 [Rx Last Taken Unknown] acetaminophen [Tylenol] 650 mg PO Q4H PRN PRN #0 tab 02/01/22 [Rx Last Taken Unknown] aspirin 81 mg PO BREAKFAST 02/01/22 [History Last Taken Unknown] melatonin 5 mg PO QHS 02/01/22 [History Last Taken Unknown] polyethylene glycol 3350 17 g PO DAILY 02/01/22 [History Last Taken Unknown] Allergy/AdvReac Type Severity Reaction Status Date / Time No Known Allergies Allergy Verified 01/28/22 16:39 Family History Mother Hypertension Father Hypertension Surgical History H/O hemorrhoidectomy H/O right knee surgery H/O right nephrectomy History of right hip replacement History of total right hip arthroplasty Hx of CABG S/P CABG (coronary artery bypass graft) Social History household members: spouse Smoking Status: Former smoker alcohol intake: current substance use type: does not use ROS Constitutional Constitutional: Reports change in weight, difficulty sleeping and fatigue ENT HEENT: Reports none Cardiovascular Cardiovascular: Reports dyspnea on exertion; Denies chest pain at rest, chest pain with activity or dyspnea at rest Respiratory/Chest Respiratory/Chest: Denies change in phlegm color, difficulty clearing secretions or nail bed cyanosis Gastrointestinal Gastrointestinal: Denies abdominal pain, change in bowel habits or constipation Genitourinary Genitourinary: Reports scrotal swelling Musculoskeletal Musculoskeletal: Reports as per HPI Neurologic Neurologic: Denies abnormal movements, abnormal speech or behavior changes Psychiatric Psychiatric: Reports abnormal sleep pattern, anxiety and depression Physical Exam Const alert, oriented x3 and no apparent distress Constitutional Narrative: Patient appears fatigued, O2 per nasal cannula at 2 liters General Appearance: cooperative and comfortable HEENT normocephalic and head/scalp atraumatic Mouth: oral and palatal mucosa normal and lips normal Eyes EOMs intact bilaterally and conjunctivae normal Neck full ROM and supple Resp normal respiratory effort Effort and Inspection: able to speak in complete sentences and symmetric chest movement Auscultation: clear to auscultation bilaterally Cardio regular rate, regular rhythm and S1 normal heart sound Cardio Narrative: ICD GI soft to palpation, non-tender and non-distended Auscultation: normoactive bowel sounds Scrotum: scrotal swelling Extremity General Extremity: edema bilateral (BLE 2+ edema in extremities left>right. THOMAS wraps in place with elevation ) Right Upper Extremity: shoulder joint Shoulder Joint Exam - Right: ROM (limited ROM) Left Upper Extremity: shoulder joint Shoulder Joint Exam - Left: ROM (limited) Right Lower Extremity: knee joint ROM (painful) Left Lower Extremity: hip joint ROM (limited, painful ROM) Neuro oriented x3, CN's II-XII intact bilaterally and moves all extremities Psych Activity / Motor Behavior: appropriate eye contact Speech: normal speech Mood & Affect: depressed and anxious Thought Process: normal thought process Insight: insight good Judgement: fair
[2022-02-22] MEDS: Furosemide 20 MG Tablet PO (14:08)
[2022-02-22 14:11] VITALS: BP 100/56; PULSE 84
[2022-02-22 14:19] VITALS: PULSE 84; RESP 18; TEMP 36.6; O2SAT 98
[2022-02-22 15:31] VITALS: BP 100/53; PULSE 84
[2022-02-22] MEDS: ALPRAZolam 0.5 MG Tablet 1 MG PO (21:37)
[2022-02-22 21:38] VITALS: BP 112/54; PULSE 88
[2022-02-22] MEDS: Doxepin Hcl 25 MG Capsule PO (21:38)
[2022-02-22] MEDS: Atorvastatin Calcium 40 MG Tablet PO (21:38)
[2022-02-22] MEDS: MELATONIN 10 MG TABLET PO (21:39)
[2022-02-23 05:31] LABS: Absolute Lymphocyte Count 0.49 X10^3/uL (0.83-4.51); Absolute Neutrophil Count 2.3 X10^3/uL (2.0-7.7); Basophil# 0.02 X10^3/uL; Basophil% 0.6 % (0-1); Eosinophil# 0.04 X10^3/uL; Eosinophils% 1.2 % (0-5); Hematocrit 36.5 % (40-54); Hemoglobin 11.1 g/dL (13.0-16.5); Lymphocyte # 0.49 X10^3/ul (0.83-4.51); Lymphocyte % 14.8 % (19-41); Mean Corp Hgb Conc 30.4 g/dL (32-36); Mean Corpuscular Hgb 29.1 pg (27.0-32.0); Mean Corpuscular Volume 95.5 fL (80-94); Mean Platelet Vol. 10.2 fl (6.2-12.0); Monocyte# 0.42 X10^3/uL; Monocyte% 12.7 % (0-10); NRBC Flagged by Analyzer 0 % (0-5); Neutrophil # 2.32 X10^3/uL (2.7-7.7); Neutrophil % 70.4 % (47-70); POSITIVE DIFFERENTIAL YES; Platelet Count 142 K/mm3 (150-450); RBC Distribution Width CV 16.6 % (11.6-14.6); RBC Distribution Width SD 58.3 fl (35.1-43.9); Red Blood Count 3.82 M/mm3 (4.6-6.2); White Blood Count 3.3 K/mm3 (4.4-11.0)
[2022-02-23 05:38] LABS: Differential Indicated SCAN CRITERIA MET
[2022-02-23 06:03] LABS: Differential Comment SCANNED
[2022-02-23] MEDS: Polyethylene Glycol 3350 17 GM PACKET PO (06:07)
[2022-02-23] MEDS: Arthritis Pain Compound 60 CLICK TUBE TOPICAL ×2 (06:07→17:23)
[2022-02-23 06:08] VITALS: BP 100/56; PULSE 84
[2022-02-23] MEDS: Cyanocobalamin 500 MCG Tablet 1000 MCG PO (06:08)
[2022-02-23] MEDS: Cholecalciferol (VIT D3) 25 MCG TABLET (1,000 UNITS) 50 MCG PO (06:08)
[2022-02-23] MEDS: Isosorbide DN 20 MG Tablet PO ×3 (06:08→21:36)
[2022-02-23] MEDS: Docusate Sodium 100 MG Capsule PO ×2 (06:08→17:23)
[2022-02-23] MEDS: Furosemide 40 MG Tablet PO (06:08)
[2022-02-23] MEDS: hydrALAZINE 25 MG Tablet PO ×3 (06:08→21:36)
[2022-02-23 06:09] LABS: Anion Gap 5 (5-15); BUN 68 mg/dL (7-18); BUN/Creat Ratio 33.8 RATIO (10-20); Calcium,Total 8.1 mg/dL (8.5-10.1); Chloride 108 mmol/L (98-107); Creatinine, Serum 2.01 mg/dL (0.70-1.30); EST Glomerular Filtration Rate 35 mL/min (>60); Est Glom Filt Rate - Afr Amer 42 mL/min (>60); Estimated Creatinine Clearance 32.79 ml/min; Glucose 93 mg/dL (74-106); Potassium 4.9 mmol/L (3.5-5.1); Sodium Level 138 mmol/L (136-145)
[2022-02-23] MEDS: Timolol 0.25% 5ML OPTH.BTL 1 DRP EACH EYE ×2 (06:09→17:23)
[2022-02-23] MEDS: Menthol/Lanolin/Calamine/Znox 113 GM Tube 1 APPLIC TOPICAL ×2 (06:09→17:24)
[2022-02-23] MEDS: 0.9% Saline Lock 10 ML Syringe IV ×3 (06:19→21:37)
[2022-02-23 06:21] LABS: Bedside Glucose 77 mg/dL (74-106)
[2022-02-23] MEDS: Nystatin Powder 15gm Bottle 1 APPLIC TOPICAL ×2 (06:26→17:23)
[2022-02-23] MEDS: HYDROcodone Bitartrate/Apap 5/325 Tablet PO ×2 (06:43→13:16)
[2022-02-23] MEDS: Ensure Clear 120 ML Liquid PO ×3 (09:11→17:23)
[2022-02-23] MEDS: Aspirin 81 MG TAB.CHEW PO (09:11)
[2022-02-23] MEDS: levoFLOXacin IV 750 MG/150 ML BAG 100 MG IV (09:11)
[2022-02-23] MEDS: Furosemide 20 MG Tablet PO (13:20)
[2022-02-23 13:28] LABS: Pathologist Review Reviewed
[2022-02-23 14:05] VITALS: BP 111/60; PULSE 83
[2022-02-23 14:14] VITALS: BP 111/60; PULSE 83; RESP 20; TEMP 36.1; O2SAT 90
--- NOTE | 2022-02-23 14:21 | NURSING ---
Paperwork faxed from Pooja Metzger APRN, SPACECRAFT SYSTEMS ENGINEER. BLEACH BOILER PULLER requesting pt be daily weight for 4 days, next F/U for HR clinic will be virtually on 02/28 @ 2559.
--- NOTE | 2022-02-23 18:10 | NURSING ---
Notified patient's spouse that Dr. Gifford and Vickie would like to meet with family tomorrow at 1pm.
[2022-02-23 19:35] VITALS: PULSE 92; RESP 20; O2SAT 91
[2022-02-23] MEDS: Atorvastatin Calcium 40 MG Tablet PO (21:35)
[2022-02-23] MEDS: MELATONIN 10 MG TABLET PO (21:35)
[2022-02-23] MEDS: ALPRAZolam 0.5 MG Tablet 1 MG PO (21:35)
[2022-02-23 21:36] VITALS: BP 114/53; PULSE 92
[2022-02-23] MEDS: Doxepin Hcl 25 MG Capsule PO (21:36)
[2022-02-24] VITALS (8 sets, daily range): BP systolic 78–117; BP diastolic 37–57; PULSE 52–94; RESP 18–20; TEMP 36.4; O2SAT 90–94
[2022-02-24] MEDS: HYDROcodone Bitartrate/Apap 5/325 Tablet PO ×2 (02:57→17:21)
[2022-02-24] MEDS: ALPRAZolam 0.5 MG Tablet 1 MG PO ×2 (03:52→21:00)
[2022-02-24] MEDS: Polyethylene Glycol 3350 17 GM PACKET PO (06:16)
[2022-02-24] MEDS: Cholecalciferol (VIT D3) 25 MCG TABLET (1,000 UNITS) 50 MCG PO (06:17)
[2022-02-24] MEDS: Docusate Sodium 100 MG Capsule PO ×2 (06:17→17:23)
[2022-02-24] MEDS: Cyanocobalamin 500 MCG Tablet 1000 MCG PO (06:17)
[2022-02-24] MEDS: Nystatin Powder 15gm Bottle 1 APPLIC TOPICAL ×2 (06:20→17:24)
[2022-02-24] MEDS: Timolol 0.25% 5ML OPTH.BTL 1 DRP EACH EYE ×2 (06:21→17:23)
[2022-02-24] MEDS: Arthritis Pain Compound 60 CLICK TUBE TOPICAL ×2 (06:24→17:23)
[2022-02-24 06:26] LABS: Bedside Glucose 79 mg/dL (74-106)
[2022-02-24] MEDS: Menthol/Lanolin/Calamine/Znox 113 GM Tube 1 APPLIC TOPICAL ×2 (06:27→17:23)
--- NOTE | 2022-02-24 07:30 | NURSING ---
Patient groggy this AM, would wake up and act appropriate but falls asleep quickly. Blood sugar 79, patient alert to take meds and drink a cup of juice. BP meds held for low BP.
[2022-02-24] MEDS: Furosemide 40 MG Tablet PO (07:56)
[2022-02-24] MEDS: Ensure Clear 120 ML Liquid PO ×3 (07:56→17:31)
[2022-02-24] MEDS: Aspirin 81 MG TAB.CHEW PO (07:56)
[2022-02-24] MEDS: levoFLOXacin IV 750 MG/150 ML BAG 100 MG IV (09:47)
[2022-02-24] MEDS: 0.9% Saline Lock 10 ML Syringe IV (09:48)
--- NOTE | 2022-02-24 11:30 | NURSING ---
Pt IV in right forearm Infiltrated Dr. Gifford updated apply warm compress. Will continue to monitor.
--- NOTE | 2022-02-24 12:07 | NURSING ---
Pt having difficulty starting urine stream bladder scanned for 469ml pt was able to urinate 250ml of clear urine. Post Residual bladder scan 316ml will continue to monitor.
[2022-02-24] MEDS: Ondansetron ODT 4 MG Tablet 8 MG PO (12:40)
--- NOTE | 2022-02-24 13:49 | CASEMGMT ---
Social Work Met in room with patient, Dr. Gifford, dtr, and son via [employer]. Dr. Gifford discussed pt's decline, end of life timeframe, pt's wishes, quality of life, comfort focused treatment. Provided supportive listening. Pt and family expressed understanding to the explanation that pt is dying, therapy is hurting him, not helping him, he is losing energy, and has about a month or less to live. Pt and family agree they want him to be home comfortable, surrounded by family. SW explained the support hospice provides and offered assistance in navigating wishes and DC plans. Family very appreciative of time, explanation and compassion. SW offered to meet with pt and family at a later time to discuss options and plans. Pt elected to not continue with therapy further. Pt can be skilled for nursing and end of life until discharge. SW to continue to follow. IDT updated. Prachi Reveles, VANI PILING CUTTER
[2022-02-24] MEDS: Furosemide 20 MG Tablet PO (15:11)
[2022-02-24] MEDS: Isosorbide DN 20 MG Tablet PO ×2 (15:11→21:00)
[2022-02-24] MEDS: hydrALAZINE 25 MG Tablet PO ×2 (15:11→21:00)
--- NOTE | 2022-02-24 15:43 | CHAPLAIN ---
Type of Pastoral Visit ___ Initial Visit _x__ Follow-up Visit ___ On-call Visit ___ General Patient Visit ___ Spiritual Assessment ___ Family Conference ___ Bereavement ___ Rapid Response ___ Code Blue ___ Other (describe below) Pastoral Care Referral From ___ Patient ___ Family _x__ Nurse ___ Physician ___ Network Systems Engineer ___ Financial Institution Branch Manager ___ Other (describe below) Sacrament/Intervention _x__ Active listening ___ Anointing ___ Sabianist ___ Bereavement ___ Communion _x__ Jessica exploration ___ ___ Life review _x__ Prayer ___ Reconciliation ___ Sacrament of Sick _x__ Supportive presence ___ Wedding ___ Other (describe below) Pastoral Comments RN recommended offer of support to patient due to news given to him from DR; spouse and pt are both in room and welcoming of presence and support; pt explains what he knows about his condition and prognosis; pt is open to spiritual care but states that he needs 48 hours to process this information; offer of support and giving time to listen or presence to patient is made known; spouse expresses appreciation for the same; electroformer of pt made attempt to visit today but that was cut short by important team meeting with pt; pt offered ongoing support as often as desired
--- NOTE | 2022-02-24 17:16 | NURSING ---
Jimenez Catheter placed d/t urinary retention. Inserted using Sterile technique clear yellow urine noted emptied 350ml from Jimenez bag. Will continue to monitor
[2022-02-24] MEDS: Atorvastatin Calcium 40 MG Tablet PO (21:01)
[2022-02-24] MEDS: Doxepin Hcl 25 MG Capsule PO (21:02)
[2022-02-24] MEDS: MELATONIN 10 MG TABLET PO (21:02)
[2022-02-25] VITALS (7 sets, daily range): BP systolic 92–147; BP diastolic 56–66; PULSE 86–100; RESP 18; TEMP 36.6; O2SAT 92–98
[2022-02-25] MEDS: Cholecalciferol (VIT D3) 25 MCG TABLET (1,000 UNITS) 50 MCG PO (05:41)
[2022-02-25] MEDS: Polyethylene Glycol 3350 17 GM PACKET PO (05:41)
[2022-02-25] MEDS: hydrALAZINE 25 MG Tablet PO ×3 (05:41→20:57)
[2022-02-25] MEDS: Cyanocobalamin 500 MCG Tablet 1000 MCG PO (05:42)
[2022-02-25] MEDS: Isosorbide DN 20 MG Tablet PO ×3 (05:42→20:57)
[2022-02-25] MEDS: Furosemide 40 MG Tablet PO (05:42)
[2022-02-25] MEDS: Arthritis Pain Compound 60 CLICK TUBE TOPICAL ×2 (05:42→16:36)
[2022-02-25] MEDS: Docusate Sodium 100 MG Capsule PO ×2 (05:42→16:35)
[2022-02-25] MEDS: Menthol/Lanolin/Calamine/Znox 113 GM Tube 1 APPLIC TOPICAL ×2 (05:42→16:37)
[2022-02-25] MEDS: Timolol 0.25% 5ML OPTH.BTL 1 DRP EACH EYE ×2 (05:43→16:36)
[2022-02-25] MEDS: Nystatin Powder 15gm Bottle 1 APPLIC TOPICAL ×2 (05:43→16:36)
[2022-02-25 06:21] LABS: Bedside Glucose 78 mg/dL (74-106)
[2022-02-25] MEDS: HYDROcodone Bitartrate/Apap 5/325 Tablet PO ×2 (06:59→14:35)
[2022-02-25 07:13] LABS: Albumin, Serum 2.1 g/dL (3.2-5.0); BUN 73 mg/dL (7-18); BUN/Creat Ratio 36.9 RATIO (10-20); Chloride 109 mmol/L (98-107); Creatinine, Serum 1.98 mg/dL (0.70-1.30); EST Glomerular Filtration Rate 35 mL/min (>60); Est Glom Filt Rate - Afr Amer 43 mL/min (>60); Estimated Creatinine Clearance 33.28 ml/min; Glucose 84 mg/dL (74-106); Phosphorus 4.1 mg/dL (2.5-4.9); Potassium 4.4 mmol/L (3.5-5.1); Sodium Level 137 mmol/L (136-145)
[2022-02-25] MEDS: Ensure Clear 120 ML Liquid PO ×3 (09:04→16:35)
[2022-02-25] MEDS: Aspirin 81 MG TAB.CHEW PO (09:04)
[2022-02-25] MEDS: Ondansetron ODT 4 MG Tablet 8 MG PO (11:55)
[2022-02-25] MEDS: ALPRAZolam 0.5 MG Tablet 1 MG PO (20:54)
[2022-02-25] MEDS: Atorvastatin Calcium 40 MG Tablet PO (20:57)
[2022-02-25] MEDS: MELATONIN 10 MG TABLET PO (20:58)
[2022-02-25] MEDS: Doxepin Hcl 25 MG Capsule PO (20:58)
[2022-02-25] MEDS: Albuterol 2.5 MG/3 ML VIAL.NEB. INHALATION (22:30)
[2022-02-26] MEDS: HYDROcodone Bitartrate/Apap 5/325 Tablet PO ×3 (04:07→16:10)
[2022-02-26 06:25] LABS: Bedside Glucose 77 mg/dL (74-106)
[2022-02-26] MEDS: Polyethylene Glycol 3350 17 GM PACKET PO (06:32)
[2022-02-26] MEDS: Cholecalciferol (VIT D3) 25 MCG TABLET (1,000 UNITS) 50 MCG PO (06:33)
[2022-02-26] MEDS: Docusate Sodium 100 MG Capsule PO (06:33)
[2022-02-26 06:34] VITALS: BP 98/51; PULSE 83
[2022-02-26] MEDS: Furosemide 40 MG Tablet PO (06:34)
[2022-02-26] MEDS: Cyanocobalamin 500 MCG Tablet 1000 MCG PO (06:34)
[2022-02-26] MEDS: hydrALAZINE 25 MG Tablet PO (06:34)
[2022-02-26] MEDS: Isosorbide DN 20 MG Tablet PO (06:35)
[2022-02-26] MEDS: Arthritis Pain Compound 60 CLICK TUBE TOPICAL (06:35)
[2022-02-26] MEDS: Timolol 0.25% 5ML OPTH.BTL 1 DRP EACH EYE (06:36)
[2022-02-26] MEDS: Menthol/Lanolin/Calamine/Znox 113 GM Tube 1 APPLIC TOPICAL (06:36)
[2022-02-26] MEDS: Nystatin Powder 15gm Bottle 1 APPLIC TOPICAL (06:36)
[2022-02-26 06:55] VITALS: O2SAT 97
[2022-02-26] MEDS: Ensure Clear 120 ML Liquid PO (08:10)
[2022-02-26] MEDS: Aspirin 81 MG TAB.CHEW PO (08:10)
[2022-02-26] MEDS: ALPRAZolam 0.5 MG Tablet 1 MG PO ×2 (09:19→14:46)
--- NOTE | 2022-02-26 12:52 | NURSING ---
Hospice contacted per family request and information sent.
[2022-02-26 13:39] VITALS: BP 94/47; PULSE 75; RESP 28; TEMP 35.8; O2SAT 91
[2022-02-26 14:08] VITALS: BP 88/45
--- NOTE | 2022-02-26 14:48 | NURSING ---
Patient anxious, hospice nurse at bedside. Interventions attempted, Xanax administrated.
--- NOTE | 2022-02-26 15:57 | NURSING ---
Notified Dr. Gifford of family requesting pt to d/c home today with hospice. Dr. Gifford to enter d/c orders.
--- NOTE | 2022-02-26 16:04 | PCM.DC.SUM ---
Providers Date of Admission: 02/01/22 Primary Care Physician: Markus Encarnacion MD Consultations 02/02/22 08:13 Consult: Pain Management Routine Consulting Provider: Sinan Gan Reason for Consult: PAIN-KNOWN TO DR GAN EMERGENT Consult: No Notified: Yes Date Notified: 02/02/22 Time Notified: 11:14 Method of Notification: Verbal 02/02/22 16:37 Consult: Nephrology Routine Consulting Provider: Anthony Trent Reason for Consult: acute on chronic kidney failure. EMERGENT Consult: No MD Notified: Yes Date Notified: 02/02/22 Time Notified: 16:37 Method of Notification: Verbal 02/08/22 07:49 Consult: Hospice / Palliative Care Routine Consulting Provider: [facility] Reason for Consult: Resident request. EMERGENT Consult: No Notified: Yes Date Notified: 02/08/22 Time Notified: 07:49 Method of Notification: Verbal Comments:: social work making the phone call 02/20/22 09:30 Consult: Hospice / Palliative Care Routine Consulting Provider: [facility] Reason for Consult: Palliative - pt electing. CHF, end stage renal disease, cancer EMERGENT Consult: No Notified: Yes Date Notified: 02/20/22 Time Notified: 09:30 Method of Notification: Verbal Reason For Visit: HYPOTENSION, ENCEPHALOPATHY Diagnosis Discharge Diagnosis (1) Renal cell carcinoma: Status: Acute Code(s): C64.9 - Malignant neoplasm of unspecified kidney, except renal pelvis (2) Diabetes mellitus: Status: Acute Code(s): E11.9 - Type 2 diabetes mellitus without complications (3) Hyperlipidemia: Status: Acute Code(s): E78.5 - Hyperlipidemia, unspecified (4) Hypertension: Status: Chronic Code(s): I10 - Essential (primary) hypertension (5) Chronic kidney disease, stage 4 (severe): Status: Chronic Code(s): N18.4 - Chronic kidney disease, stage 4 (severe) (6) Heart failure with reduced ejection fraction: Status: Acute Code(s): I50.20 - Unspecified systolic (congestive) heart failure (7) Coronary artery disease: Status: Acute Code(s): I25.10 - Atherosclerotic heart disease of [place] coronary artery without angina pectoris (8) Hip dislocation, right: Status: Acute Code(s): S73.004A - Unspecified dislocation of right hip, initial encounter (9) Acute on chronic kidney failure: Status: Chronic Code(s): N17.9 - Acute kidney failure, unspecified; N18.9 - Chronic kidney disease, unspecified (10) Stroke: Status: Acute Code(s): I63.9 - Cerebral infarction, unspecified (11) Hypotensive episode: Status: Acute Code(s): I95.9 - Hypotension, unspecified (12) Encephalopathy: Status: Acute Code(s): G93.40 - Encephalopathy, unspecified (13) Debility: Status: Acute Code(s): R53.81 - Other malaise (14) CVA (cerebral vascular accident): Status: Acute Code(s): I63.9 - Cerebral infarction, unspecified Hospital Course Operations None Procedures None Summary of Care Provided Minutes Spent on Discharge: 30 Hospital Course: 76 year old male with below past medical history hospitalized for encephalopathy, hypotension secondary to narcotic pain medications, complicated by acute on chronic kidney failure, stroke, admitted to TCU with debility, here for rehabilitation, strengthening, prior to discharge home with . Resident dying. Discharge home with family 02/26/2022, [facility]. Physical Exam Const alert General Appearance: cooperative HEENT normocephalic Eyes PERRL and EOMs intact bilaterally Neck supple, no JVD and no carotid bruits Resp normal respiratory effort, normal air movement and clear to auscultation bilaterally Cardio regular rate and regular rhythm GI normal to inspection, nondistended, normoactive bowel sounds, non-tender and non-distended Extremity normal capillary refill General Extremity: Negative for edema Skin no rashes or lesions noted General Skin Exam: no breakdown Psych affect normal Appearance: appropriate Weight / BMI Weight Weight: 94.982 kg Body Mass Index (BMI) 28.3 ABG / Lab / Microbiology Data Result Diagrams: 02/23/22 05:25 02/25/22 06:19 Laboratory: Laboratory Results - last 24 hr 02/26/22 06:12: POC Glucose 77 Microbiology: Microbiology 02/08/22 10:20 Nasal Secretion SARS-CoV-2 Antigen (Rapid) - Final 02/02/22 08:05 Nasal Secretion SARS-CoV-2 Antigen (Rapid) - Final 02/01/22 17:52 Nasal Secretion SARS-CoV-2 Antigen (Rapid) - Final D/C Instructions Discharge Diet: No restrictions Weight Bearing Status: Weight bearing as tolerated Additional Instructions: Discharge home with family 02/26/2022, [facility]. Please Follow Up With: Pooja Metzger APRN, CNP (Heart failure clinic) When: N/A. Meaningful Use Info Meaningful Use Diagnoses (Choose all that apply): None applicable Discharge Plan Admission Admit Date/Time: 02/01/22 16:05 Primary Reason for Your Visit: Debility. Attending Provider: Moose Gifford Chi Primary Care Provider: Markus Encarnacion Consulting Providers: Sinan Gan ; Anthony Trent ; Sylvia Zuñiga ; Joseph Fernandez ; Maritza De La Torre ; Patricia Mclaughlin ; Geraldine Hogan ; Jen Gary PRODUCTION FINISHER Instructions Additional Instructions / Restrictions: Discharge home with family 02/26/2022, [facility]. Discharge Orders/Prescriptions Prescriptions: Discontinued Atorvastatin Calcium 40 mg PO QHS RF: 0 docusate sodium [DOK] 100 MG capsule 100 mg PO BID RF: 0 furosemide 20 MG tablet 20 mg PO DAILY RF: 0 loratadine [Allergy Relief (loratadine)] 10 MG tablet 10 mg PO DINNER PRN (Reason: allergies) RF: 0 cholecalciferol (vitamin D3) [Vitamin D3] 1,000 UNIT capsule 2,000 unit PO DAILY RF: 0 diclofenac sodium 100 GM gel 2 g topical BID RF: 0 timolol 0.25 % Drops 1 drp EACH EYE BID RF: 0 coenzyme Q10 10 mg Capsule 10 mg PO DAILY RF: 0 B12 Active 1,000 mcg Tablet,Chewable 1,000 mcg PO DAILY RF: 0 albuterol sulfate 2.5 mg /3 mL (0.083 %) Solution For Nebulization 2.5 mg inhalation Q2H PRN PRN (Reason: Wheezing, SOB) Qty: 0 RF: 0 acetaminophen [Tylenol] 325 mg Tablet 650 mg PO Q4H PRN PRN (Reason: Fever, pain 1-08/14) Qty: 0 RF: 0 polyethylene glycol 3350 17 gram powder in packet 17 g PO DAILY RF: 0 aspirin 81 mg tablet,chewable 81 mg PO BREAKFAST RF: 0 melatonin 5 mg capsule 5 mg PO QHS RF: 0 Referrals / Follow Up: Quang Cao MD [STAFF PHYSICIAN] - Within 1 Week (1 week after TCU d/c) Markus Encarnacion MD [Primary Care Provider] - Disposition Disposition (needs filled in before D/C Order can be placed): Hospice in Home
--- NOTE | 2022-02-26 17:51 | NURSING ---
Patient comfortable and resting at this time. Fetanyl patch applied to right upper chest. Left upper chest patch removed. at bedside. Physicians to transport via home, hospice on board and medical supplies sent to house.
--- NOTE | 2022-02-26 18:21 | NURSING ---
D/C instructions provided to spouse, pt taken home by ambulance transport. Hospice to meet pt and family there.
--- NOTE | 2022-02-27 12:00 | CASEMGMT ---
Social Work Called to follow up on pt DC home with hospice. states pt is in good spirits, all immediate family are in town and surrounding pt. expressed gratitude for all TCU staff assistance. VANI MooreW
== END 2022-02-26 18:15 | disposition hospice, home (50) | DRG 292 ==
PROVIDERS: Internal Medicine Nephrology; Nurse Practitioner Adult Health; Admitting Provider Family Medicine Geriatric Medicine; PCP Family Medicine; Visit Provider Family Medicine Geriatric Medicine
DX: I13.0 Hypertensive heart and chronic kidney disease with heart failure and stage 1 through stage 4 chronic kidney disease, or unspecified chronic kidney disease (principal); N18.4 Chronic kidney disease, stage 4 (severe); I50.22 Chronic systolic (congestive) heart failure; E11.22 Type 2 diabetes mellitus with diabetic chronic kidney disease; B35.4 Tinea corporis; E53.8 Deficiency of other specified B group vitamins; E55.9 Vitamin D deficiency, unspecified; I25.10 Atherosclerotic heart disease of native coronary artery without angina pectoris; I25.5 Ischemic cardiomyopathy; E78.5 Hyperlipidemia, unspecified; G89.29 Other chronic pain; Z85.528 Personal history of other malignant neoplasm of kidney; Z87.891 Personal history of nicotine dependence; Z90.5 Acquired absence of kidney; Z95.810 Presence of automatic (implantable) cardiac defibrillator; Z86.711 Personal history of pulmonary embolism; Z86.718 Personal history of other venous thrombosis and embolism; Z79.899 Other long term (current) drug therapy; Z79.82 Long term (current) use of aspirin; Z23 Encounter for immunization; S73.004D Unspecified dislocation of right hip, subsequent encounter; X58.XXXD Exposure to other specified factors, subsequent encounter; Z96.641 Presence of right artificial hip joint
CPT/HCPCS: 0064A; 36415; 71046; 74018; 80048; 80069; 82962; 83735; 85025; 87426; 91306; 94640; 97110; 97116; 97162; 97166; 97530; 97535; 97802; J7050; A4216